=== PATIENT | female | born 1945 | race Caucasian/White ===

== ENCOUNTER 2024-07-24 10:30 | Outpatient (RCR) | payer MEDICARE, SELFPAY | END 2024-10-28 11:37 | disposition home or self-care (01) | PROVIDERS: PCP Family Medicine; Visit Provider Physician Assistant | DX: H81.13 Benign paroxysmal vertigo, bilateral (principal); M54.2 Cervicalgia; Z51.89 Encounter for other specified aftercare | CPT/HCPCS: 95992; 97110; 97140; 97161 ==

== ENCOUNTER 2024-08-02 10:30 | Outpatient (RCR) | payer MEDICARE, OTHER, SELFPAY ==
--- NOTE | 2024-07-11 12:32 | PT.OPDNX ---
PT [place] Out[facility] Daily Note PT [facility] Outpatient Daily Note Start: 06/10/24 17:06 Freq: Status: Active Protocol: Document 07/11/24 10:12 NLR (Rec: 07/11/24 12:31 NLR [id number]) E-signed By Una Preston DPT PT OP Daily Progress Note Visit Information Note Type Daily Note Visit Number 3 Insurance Information Recert Due Date 09/09/24 Insurance Name Medicare B,[place]are Medical Diagnosis R79.671 Pain in Right foot M76.61 Achilles tendinitis Treating Diagnosis R79.671 Pain in Right Foot R53.81 Deconditioning affecting mobility Imaging Report Information R foot x-ray 07/10/24: Report not yet filed, appears to have a calcaneal spur and several small calcium deposits in distal Achilles tendon. Referring DEDRA Feliciano ([facility]), Primary Eleuterio Cabral MD ( [facility]) Subjective Preferred Name HETAL Subjective Hetal arrives for follow up stating she is no better. She states she had canceled her vertigo evaluation because the vertigo was better for a day, but it returned so she rescheduled for this afternoon . She met with Prudence COLMENARES yesterday, reporting to her that the exercises are not helpful. She admits in therapy she doesn't do them at all. She is continuing to wear an unsupportive slipper at home. She is sedentary more than 95 % of her day. Pain Comments 8/10 pain usually (initially she said 10/10 but then concedes that it could be worse) R heel. Pain is sharp, will wake her up at night. Hurts when she first gets up from a chair. Pain with standing and walking, going up and down stairs. Better with ice 1X/day, Tylenol doesn't really help. She has not tried rolling on ice bottle as it is not convenient for the location of the pain, so she prefers gel pack ice. She is wearing her 's short CAM boot for about 3 weeks. Date of Last Physician Visit 05/15/24 Precautions Treatment Precautions/Contraindications DM, extremely sedentary, Afib Weight Bearing Status Weight Bear as Tolerated Home Exercise Home Exercise Comments Assessed and educated in HEP today. PDF was printed for patient. Instructions were provided for accessing HEP on [employer] on phone. Access Code: [email or web address] URL: [email or web address] Date: 07/11/2024 Prepared by: Una Nuñez Exercises - Achilles Tendon/Calf Stretches - 1-2 x daily - 5-7 x weekly - 1-2 reps - 30-60 seconds hold - stretch exercise type - Seated Calf Stretch with Strap - 1-2 x daily - 5-7 x weekly - 1-2 reps - 30-60 seconds hold - stretch exercise type - Toe Yoga - Arch Lift (Short Foot) - 1 x daily - 5-7 x weekly - 2 sets - 10 reps - 2- 3 seconds hold - strength exercise type - Toe Yoga - Starch Crab - 1 x daily - 5-7 x weekly - 2 sets - 10 reps - 2-3 seconds hold - strength exercise type - Towel Scrunches - 1 x daily - 5-7 x weekly - 2 sets - 10 reps - 2-3 seconds hold - strength exercise type Patient Education - Posterior Tibial Tendon Dysfunction Objective Other/Pertinent Objective HAND DOM: LEFT ROM: Functional but grossly limited by girth STRENGTH: Functional LE strength, significant core weakness POSTURE: L>R foot pronation, mild ankle valgus on the L, significant lumbar lordosis PALPATION: Tenderness to palpation distal R Achilles tendon at calcaneus insertion, mid belly R posterior tibialis EDEMA: Moderate B LE distal to knee edema. FUNCTIONAL: Able to sit indefinitely. Able to stand 5 minutes. Able to walk 5 minutes. GAIT: Independent with no gait aid, slow with R CAM boot. Reported difficulty on stairs but does them at home. FLEXIBILITY: Hypoflexibility noted at B HC, HS, HF, Quads. FOOTWEAR: Patient arrives wearing Birkenstock/short CAM R that does provide adequate medial arch support. They do wear supportive footwear in the house. She also has tennis shoes that are slip-ons , she thinks [employer]. She tries to buy good shoes. Sometimes she wears slippers without arch support. 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 ), fibromyalgia, arthritis, osteoporosis, allergies, frontotemporal dementia (slow progressing) Functional Test Performed & Score 06/11/24: FAAM Activities of Daily Living Subscale: 37 / 84 or 44 % Patient Instructed in Risks/Benefits Yes Therapeutic Exercise Therapeutic Exercise Minutes (minutes) 15 Therapeutic Exercise: To Restore - NuStep 6 minutes seat 8 Functional Status level 2 - Short foot PT - Tape roll tow picker with toes - Seated HC Stretch with belt Neuromuscular Re-Ed Neuromuscular Reeducation Minutes ( 28 minutes) Neuromuscular Reeducation Comments Much time spent discussing rehab potential and plan of care with patient, reviewing all recommendations and touching on pain management and motivation to improve. She wants to have less pain, but she is struggling with motivation to do any of the recommendations including changing her footwear to more supportive options, especially at home. She has a Birkenstock on today, which is supportive. At home she wears an unsupportive slipper, she is doing none of her exercises and is sedentary >95 % of her day. Treatment Minutes Timed Code Treatment Minutes 43 Total Treatment Time 43 Billing Units Neuromuscular Reeducation Units 2 Therapeutic Exercise Units 1 Assessment/Impression Assessment/Impression Hetal has been seen three visits for her foot pain, and recently canceled her evaluation for Vertigo because she thought it resolved after one day of no vertigo. She will be seen for second DX of vertigo later today. She admits she does none of her exercises and has not followed recommendations to move regularly throughout the day wear a supportive shoe in the house. She had an x-ray yesterday revealing a calcaneal spur and several small calcifications in distal achilles tendon. She has required a lot of encouragement to do recommended activities and admits she wants the pain gone but is struggling with finding motivation to do any of the program. Will continue to work with her to progress her ability to tolerate movement. Primary Functional Limitations Difficulty standing and walking more than 5 minutes, difficulty heel lifting to assist with overhead reaching, deconditioning due to significantly sedentary lifestyle. Plan of Care Physical Therapy Goals 1. Patient will be independent with home exercise program as instructed, modified and progressed by physical therapist in order to be independently and actively participating in their rehabilitation and return to prior level of function, and she will actively participate in her rehabilitation and follow through with recommendations. Goal to be achieved by 09/06/2024. 2. Patient will demonstrate ability to walk for 30 minutes (s) without significant increase in pain greater than 2/10 to allow patient to be able to safely and independently return to participation in desired level of function with daily activities such general housekeeping, walking for exercise without pain or difficulty. Goal to be achieved by 09/06/2024. 3. Patient will ascend/descend 2 full flight(s) of stairs with [id number] pattern without significant increase in difficulty or pain over 2/ 10 allowing for safe and independent mobility through their home/work environment. Goal to be achieved by 2024. Daily Plan of Care Continue per POC Daily Plan of Care Comments Review foot exercises, encourage any time of movement , NuStep. Review footwear recommendations. She may benefit from a custom orthotic , however I would start with making sure she has good supportive footwear first as the custom fiberglass orthotic may be difficult for her tolerate with heel spur. Discharge Note Date of First Visit for Therapy 06/11/24
== END 2024-08-02 17:18 | disposition home or self-care (01) ==
PROVIDERS: PCP Family Medicine; Visit Provider Physician Assistant Surgical
DX: M79.671 Pain in right foot (principal); M76.61 Achilles tendinitis, right leg; R53.81 Other malaise; Z51.89 Encounter for other specified aftercare
CPT/HCPCS: 97110; 97112; 97162

== ENCOUNTER 2024-10-28 11:38 | Emergency (ER) | payer MEDICARE, SELFPAY ==
[2024-10-28] VITALS (21 sets, daily range): BP systolic 114–137; BP diastolic 76–89; PULSE 86–134; RESP 16–24; TEMP 36.2; O2SAT 91–95; BMI 49.1
--- OUTSIDE RECORDS SUMMARY | 2024-10-28 11:41 | XMS_ITS | Encounter Summary ---
Author Organization [facility] Address [address] [place] [address] Care Team Providers Care Business Mail Entry Clerk Name Role Phone Elsewhere, Pcp Primary Care Provider Unavailabl e Encounter Details Date Type Department Care Team (Latest Contact Info) Description 10/07/2024 Clinical Communication Department of Cardiovascular Medicine in [place], [place] [address] [place] [address] Assistant Tennis ProfessionalRajinder M.D. Social History Tobacco Use Types Packs/Day Years Used Date Smoking Tobacco: Never Passive Smoke Exposure: Past Smokeless Tobacco: Never Alcohol Use Standard Drinks/Week Comments Yes 6 (1 standard drink = 0.6 oz pur e alcohol) [place] Utilities Answer Date Recorded In the past 12 months has [employer], gas, oil, or water [employer] threatened to shut off services in your home? No 08/06/2024 Humiliation, Afraid, Rape, and Kick questionnair e Answer Date Recorded Within the last year, have y ou been afraid of your partner or ex-partner? No 09/07/2022 Within the last year, have y ou been humiliated or emotionally abused in other ways by your partner or ex-partner? No Within the last year, have y ou been kicked, hit, slapped, or otherwise physically hurt by your partner or ex-partner? No 09/07/2022 Within the last year, have y ou been raped or forced to have any kind of sexual activity by your partner or ex-partner? No 09/07/2022 Social Connection and Isolat ion Panel [NHANES] Answer Date Recorded In a typical week, how many times do you talk on the phone with family, friends, or neighbors? Three times a week 09/07/2022 How often do you get togethe r with friends or relatives? Once a week 09/07/2022 How often do you attend chur or orthodox services? More than 4 times per year 09/07/2022 Do you belong to any clubs o r organizations such as congregation groups, unions, fraternal or athletic groups, or school groups? No 09/07/2022 How often do you attend meet ings of the clubs or organizations you belong to? Never 09/07/2022 Are you , , di vorced, , never , or living with a partner? 09/07/2022 AUDIT-C Answer Date Recorded Q1: How often do you have a drink containing alc ohol? 2-3 times a week 09/07/2022 Q2: How many drinks containi ng alcohol do you have on a typical day when you are drinking? 1 or 2 09/07/2022 Q3: How often do you have si x or more drinks on one occasion? Never 09/07/2022 Overall Financial Resource Strain (CARDIA) Answe r Date Recorded How hard is it for you to pa y for the very basics like food, housing, medical care, and heating? Not hard at all 09/07/2022 [facility] - Occupational Stress Questionnaire Answer Date Recorded Do you feel stress - tense, restless, nervous, or anxious, or unable to sleep at night because your mind is troubled all the time - these days? To some extent 09/07/2022 Exercise Vital Sign Answer Date Recorde d On average, how many days pe r week do you engage in moderate to strenuous exercise (like a brisk walk)? 0 days 08/06/2024 On average, how many minutes do you engage in exercise at this level? 0 min 08/06/2024 Hunger Vital Sign Answer Date Recorded Within the past 12 months, y ou worried that your food would run out before you got the money to buy more. Never true 08/06/19 Within the past 12 months, t he food you bought just didn't last and you didn't have money to get more. Never true 08/06/2024 PRAPARE - Transportation Answer Date Re corded In the past 12 months, has l ack of transportation kept you from medical appointments or from getting medications? No 10/2024 In the past 12 months, has l ack of transportation kept you from meetings, work, or from getting things needed for daily living? No 08/06/2024 Nutrition Answer Date Recorded On average, how many serving s of fruits and vegetables do you eat per day (serving size is equal to 1 cup or approximately the size of a tennis ball)? 3-5 08/06/2024 Dental Answer Date Recorded Dental: Regular Dentist Yes 02/10/20 Employment Answer Date Recorded Employment status Retired 08/06/2024 Housing Stability Answer Date Recorded What is your living situation today? I have a [facility] place to live 08/06/2024 Education Answer Date Recorded What is the highest level of school you have completed or the highest degree you have received? 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 [address] [place] [phone] documented as of this encounter Visit Diagnoses Diagnosis Atrial Fibrillation Paroxysmal (HCC)- Primary Cardiac Vascular Disease Screening documented in this encounter Additional Health Concerns Infection Onset Date Last Indicated Resolved Time Protective Environment 10/14/2022 10/14/2022 documented as of this encounter Care Teams Business Mail Entry Clerk Relationship Specialty Start Date End Date Elsewhere, Pcp PCP - General Internal Medicine 02/20/23 documented as of this encounter
--- OUTSIDE RECORDS SUMMARY | 2024-10-28 11:41 | XMS_ITS | Encounter Summary ---
Author Organization [facility] Address [address] [place] [address] Care Team Providers Care Home Care Manager Rn Name Role Phone Elsewhere, Pcp Primary Care Provider Unavailabl e Reason for Referral * Outpatient (Routine) - Authorized Specialty Diagnoses / Procedures Referred By Contac t Referred To Contact Diagnoses Atrial Fibrillation Paroxysmal (HCC) Procedures ECG Heart rhythm monitor (Holter) Siddharth Marshall M.D. [address] [place] [address] Phone: tel: fax: [facility] Referral ID Status Reason Start Date Expiration Date V isits Requested Visits Authorized [id number] Authorized 10/17/2024 01/17/2026 1 1 Reason for Visit * Reason Onset Date Comments Results 10/17/2024 Cardioversion re sults Encounter Details Date Type Department Care Team (Late st Contact Info) Description 10/17/2024 Results Follow-Up Department of Cardiovascular Medicine in [place], [place] [address] [place] [phone] Siddharth Marshall M.D. [address] [place] [phone] ECG 12 Lead Social History Tobacco Use Types Packs/Day Years Used Date Smoking Tobacco: Never Passive Smoke Exposure: Past Smokeless Tobacco: Never Alcohol Use Standard Drinks/Week Comments Yes 6 (1 standard drink = 0.6 oz pur e alcohol) [facility] Utilities Answer Date Recorded In the past 12 months has e electric, gas, oil, or water company threatened to shut off services in your [...] week 09/07/2022 How often do you attend [facility] or pentecostal services? More than 4 times per year 09/07/2022 Do you belong to any clubs o r organizations such as synagogue groups, unions, fraternal or athletic groups, or [...] and heating? Not hard at all 09/07/2022 [facility] - Occupational Stress Questionnaire Answer Date Recorded [...] money to buy more. Never true 08/06/19 25 Within the past 12 months, t he [...] your living situation today? I have a [employer] place to live 08/06/2024 Education Answer Date Recorded What is the highest level of school you have completed or the highest degree you have received? 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 [address] [place] [phone] Scheduled Orders Name Type Priority Associated Diagnoses Orde r Schedule ECG Heart rhythm monitor (Holter) Cardiac Services Routine Atrial Fibrillation Paroxysmal (HCC) Expected: 11/14/2024 (Approximate), Expires: 01/16/2026 documented as of this encounter Visit Diagnoses Diagnosis Atrial Fibrillation Paroxysmal (HCC)- Primary documented in this encounter Additional Health Concerns Infection Onset Date Last Indicated Resolved Time Protective Environment 10/14/2022 10/14/2022 documented as of this encounter Care Teams Home Care Manager Rn Relationship Specialty Start Date End Date Elsewhere, Pcp PCP - General Internal Medicine 02/20/23 documented as of this encounter
--- OUTSIDE RECORDS SUMMARY | 2024-10-28 11:41 | XMS_ITS | Encounter Summary ---
Author Organization [facility] Address [address] [place] [address] Care Team Providers Care Java Security Architect Name Role Phone Elsewhere, Pcp Primary Care Provider Unavailabl e Reason for Referral * Outpatient (Routine) - Closed Specialty Diagnoses / Procedures Referred By Monalisa perez Referred To Contact Diagnoses Atrial Fibrillation Paroxysmal (HCC) Procedures Cardioversion Siddharth Marshall M.D. [address] [place] [address] Phone: tel: fax: [facility] Referral ID Status Reason Start Date Expiration Date Visits Re quested Visits Authorized [id number] Closed 10/14/2024 01/14/2026 1 1 Reason for Visit * Appointment Request (Routine) - Closed Specialty Diagnoses / Procedures Referred By Monalisa perez Referred To Contact Cardiovascular Disease Referral ID Status Reason Start Date Expiration Date Visits Re quested Visits Authorized [id number] Closed 10/03/2024 01/03/2026 1 1 Encounter Details Date Type Department Care Team (Latest Contact Info) Description 10/14/2024 4:30 PM CDT Office Visit Department of Cardiovascular Medicine in [place], [place] [address] [place] [phone] Siddharth Marshall M.D. [address] [place] [address] Atrial Fibrillation Paroxysmal (HCC) (Primary Dx); Urinary Tract Infection Site Not Specified; Incontinence Urinary; Hypertension Essential Primary; Hyperlipidemia Social History Tobacco Use Types Packs/Day Years Used Date Smoking Tobacco: Never Passive Smoke Exposure: Past Smokeless Tobacco: Never Alcohol Use Standard Drinks/Week Comments Yes 6 (1 standard drink = 0.6 oz pur e alcohol) [facility] Utilities Answer Date Recorded In the past 12 months has e electric, gas, oil, or water [id number] threatened to shut off services in your [...] 09/07/2022 How often do you attend chur ch or yarsanism services? More than 4 times per year 09/07/2022 Do you belong to any clubs o r organizations such as confucianist groups, unions, fraternal or athletic groups, or [...] and heating? Not hard at all 09/07/2022 [facility] [place] [facility] - Occupational Stress [...] your living situation today? I have a [facility] place to live 08/06/2024 Education Answer Date Recorded What is the highest level of school you have completed or the highest degree you have received? 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 - 10/14/2024 4:30 PM CDT Referring provider: No ref. provider found HISTORY OF PRESENT ILLNESS Hetal Newsome is a 79 y.o. female who returns today for evaluation of atrial fibrillation. Chronic medical conditions include systemic hypertension, hyperlipidemia, obstructive sleep apnea (on CPAP), obesity (BMI ~49 kg/m??), rheumatoid arthritis (on rituximab), type 2 diabetes mellitus, and a history of PE after knee replacement operation. She has chronic urinary continence and is on Bactrim for chronic urinary tract infections. She also has frontotemporal dementia. Her provided much of the history. The patient has longstanding paroxysmal atrial fibrillation. Records suggest prior treatment with propafenone. She underwent a cardioversion on July 30, 2020 and was placed on sotalol. When I last saw the patient September 13, 2022, she was asymptomatic from a cardiovascular perspective and was on multiple [place] blocking agents including carvedilol, diltiazem, and sotalol 120 mg once daily. She was in sinus rhythm. I stopped sotalol, stopped diltiazem, and increased carvedilol. [place], the patient switched enalapril to lisinopril, increase carvedilol to 25 mg twice daily, and added amlodipine for blood pressure control. The patient did well for some time. The patient had a rituximab infusion on September 11, 2024, and herheart rate did not raise concern. She underwent another rituximab infusion on ~September 25, and her heart rate was elevated. A subsequent home monitor noted atrial fibrillation with heart rate ranges [id number] beats per minute. The patient has not had symptoms such as palpitations, lightheadedness, dizziness, presyncope, or syncope. She is sedentary but does not note change in dyspnea. She has chronic lower extremity edema, which has been stable. No chest pain or chest pressure. No bleeding. Her has not noted any change in functional status. The patient maintains compliance with all medications. She has not missed any doses of apixaban. VITAL SIGNS BP 109/70 (BP Location: Right arm, Patient Position: Sitting, Cuff Size: Large) Pulse (!) 119 Ht 159 cm Wt 125 kg BMI 49.44 kg/m?? PHYSICAL EXAMINATION GENERAL: Obese. Somewhat weak. The patient has a difficult time stepping up onto the exam table. I subsequently examined her seated on the couch. SKIN: Mild bilateral chronic venous stasis changes in the lower extremities. VESSELS: No jugular venous distension, albeit while sitting upright. HEART: Rapid rate. Irregular rhythm. Otherwise normal S1 and S2 without murmurs or diastolic filling sounds. LUNGS: Clear to auscultation bilaterally with good inspiratory effort. ABDOMEN: Soft, nontender, and nondistended with active bowel sounds. EXTREMITIES: 1+ bilateral pretibial edema. DIAGNOSTICS Labs (October 14, 2024): Hemoglobin 12.7 g/dL, creatinine 1.12 mg/dL. Electrocardiogram (October 14, 2024): Atrial fibrillation with ventricular rate 113 beats per minute. Holter monitor (October 10 to October 11, 2024): 100% atrial fibrillation burden with average rate 109 beats per minute, very limited ventricular ectopy. IMPRESSION / REPORT / PLAN: #1 Persistent atrial fibrillation with rapid ventricular response The patient has recurrent atrial fibrillation with elevated rates. I suspect it began sometime between September 11 and September 25. She is asymptomatic. However, I am concerned about the degree of tachycardia and the potential to develop heart failure if her atrial fibrillation remains unchecked. She is already on maximal dose carvedilol 25 mg twice daily. I am not optimistic additional rate control options will provide benefit. I also do not want to resume sotalol. We therefore agreed on a cardioversion to restore sinus rhythm. If the cardioversion is unsuccessful the patient has recurrent atrial fibrillation, we could consider amiodarone. For baseline testing, we would need thyroid function, liver function, and pulmonary function tests. Monitoring would then include AST, ALT, and an ECG with either chest x-ray or pulmonary function testing annually. If the patient's cardioversion is successful, we can obtain another Holter monitor in 1-2 months todocument durability of cardioversion and assess for recurrent atrial fibrillation. In the meantime,the patient will remain on apixaban uninterrupted. I also briefly considered AV node ablation and permanent pacemaker implantation. In the setting of chronic urinary tract infections, though, I am reluctant to recommend device implantation without other attempts to manage atrial fibrillation. #2 Chronic urinary incontinence with recurrent urinary tract infections #3 Chronic lower extremity edema The patient is multiple on diuretics, furosemide 20 mg daily plus combination triamterene/hydrochlorothiazide 37.5/25 mg daily. Systolic blood pressures have been well-controlled. I question if we could still obtain adequate blood pressure control with less diuretics. The patient and her were comfortable decreasing diuretic therapy, so we will stop combination triamterene/hydrochlorothiazide and tolerate systolic blood pressure is 130 to 140 mmHg in hopes that limiting the patient's diuretic exposure will help balance her edema, blood pressure control, and urinary incontinence. #4 Systemic hypertension Current medical therapy includes amlodipine 5 mg daily, carvedilol 25 mg twice daily, lisinopril 20mg daily, triamterene/hydrochlorothiazide 37.5/25 mg daily. As noted above, we will stop triamterene/hydrochlorothiazide and tolerate systolic blood pressure is 130 to 140 mmHg. #5 Hyperlipidemia Lipids today show LDL 43 mg/dL, HDL 62 mg/dL. This is very good. No changes necessary. Continue rosuvastatin 10 mg daily. PLAN: Electrical cardioversion on October 16 or October 17. This does not require TWIN guidance as long as the patient maintains compliance with apixaban. If cardioversion successful, Holter monitor in 1-2 months to assess durability of cardioversion. If cardioversion unsuccessful or patient has early recurrence of atrial fibrillation, consider amiodarone with baseline testing including pulmonary function testing, thyroid testing, liver testing. Stop triamterene/hydrochlorothiazide. I had a long conversation with the patient and her about the aforementioned. They were amenable with this plan. documented in this encounter Plan of Treatment Upcoming Encounters Date Type Department Care Team (Late st Contact Info) Description 11/12/2024 11:30 AM CDT Virtual Visit Section of Infectious Diseases in [place], [place] [address] [place] [phone] Humaira Keys M.D. [address] [place] [phone] documented as of this encounter Results * CARDIOVERSION EXTERNAL (10/17/2024 8:43 AM CDT) 10/17/2024 8:25 AM CDT Narrative CV IVIEW - 10/17/2024 5:01 PM CDT For the complete report, see the Order-Level Documents. PROCEDURE TYPES 1. CARDIOVERSION EXTERNAL CARDIOVERSION FINAL IMPRESSIONS Successful cardioversion. CARDIOVERSION COMPLICATIONS Complication(s): No Complications CARDIOVERSION PRE-PROCEDURE - Anticoagulation status verified. - Pre-procedure EGC Rhythm(s): Atrial fibrillation - Intravenous access established. - Mallampati Score: 3 - NPO status verified: >6 hrs Hours - Patient informed consent documented (Benefits, Risks/Complications and Alternative of procedure). - Discharge criteria reviewed. - Responsible adult along. - Cloud Subject Matter Expert verification completed. CARDIOVERSION INTRA-PROCEDURE - MEDICAL GENETICS DIRECTOR/Anesthesiologist present. See anesthesia record. - Emergency equipment available. - Monitor(s) applied. - Procedure pause. - Synchronized cardioversion. CARDIOVERSION POST-PROCEDURE - Procedure complete and patient tolerated well. - Post-procedure ECG Rhythm(s): Sinus rhythm - Pads removed and skin intact. - Discharge criteria met. - Patient transferred and report given. Post cardioversion ECG completed. Patient was taken to recovery (PACU) in stable condition. Patient was dismissed when discharge criteria met, accompanied by family, who will be providing transportation needs today. Dismissal instructions reviewed in detail including need for continued anticoagulation. Referring physician notified of results. Follow up appointment as discussed with referring physician. Following cardioversion of atrial fibrillation or atrial flutter, the 2019 AHA/ACC/HRS Guideline for the Management of Patients With Atrial Fibrillation recommends anticoagulation for at least 4 weeks, followed by long-term anticoagulation based on thromboembolic risk as determined by the [id number] Score. For the complete report, see the Order-Level Documents. Procedure Note Soni Olivarez APRN, C.N.P., M.S.N. - 10/17/2024 For the complete report, see the Order-Level Documents. PROCEDURE TYPES 1. CARDIOVERSION EXTERNAL CARDIOVERSION FINAL IMPRESSIONS Successful cardioversion. CARDIOVERSION COMPLICATIONS Complication(s): No Complications CARDIOVERSION PRE-PROCEDURE - Anticoagulation status verified. - Pre-procedure EGC Rhythm(s): Atrial fibrillation - Intravenous access established. - Mallampati Score: 3 - NPO status verified: >6 hrs Hours - Patient informed consent documented (Benefits, Risks/Complications andAlternative of procedure). - Discharge criteria reviewed. - Responsible adult along. - Cloud Subject Matter Expert verification completed. CARDIOVERSION INTRA-PROCEDURE - MEDICAL GENETICS DIRECTOR/Anesthesiologist present. See anesthesia record. - Emergency equipment available. - Monitor(s) applied. - Procedure pause. - Synchronized cardioversion. CARDIOVERSION POST-PROCEDURE - Procedure complete and patient tolerated well. - Post-procedure ECG Rhythm(s): Sinus rhythm - Pads removed and skin intact. - Discharge criteria met. - Patient transferred and report given. Post cardioversion ECG completed. Patient was taken to recovery (PACU) instable condition. Patient was dismissed when discharge criteria met,accompanied by family, who will be providing transportation needs today.Dismissal instructions reviewed in detail including need for continuedanticoagulation. Referring physician notified of results. Follow upappointment as discussed with referring physician. Following cardioversion of atrial fibrillation or atrial flutter, the 2019AHA/ACC/HRS Guideline for the Management of Patients With AtrialFibrillation recommends anticoagulation for at least 4 weeks, followed bylong-term anticoagulation based on thromboembolic risk as determined bythe [id number] Score. For the complete report, see the Order-Level Documents. us Siddharth Marshall M.D. [facility] PROCED URES Final Result CV IVIEW NA documented in this encounter Visit Diagnoses Diagnosis Atrial Fibrillation Paroxysmal (HCC)- Primary Urinary Tract Infection Site Not Specified Incontinence Urinary Hypertension Essential Primary Hyperlipidemia Atrial Fibrillation Paroxysmal (HCC) documented in this encounter Additional Health Concerns Infection Onset Date Last Indicated Resolved Time Protective Environment 10/14/2022 10/14/2022 documented as of this encounter Care Teams Java Security Architect Relationship Specialty Start Date End Date Elsewhere, Pcp PCP - General Internal Medicine 02/20/23 documented as of this encounter
--- OUTSIDE RECORDS SUMMARY | 2024-10-28 11:41 | XMS_ITS | Encounter Summary ---
Author Organization [facility] Address [address] [place] [address] Care Team Providers Care Supervisor [employer]ar [employer] Name Role Phone Elsewhere, Pcp Primary Care Provider Unavailabl e Reason for Referral * Outpatient (Routine) - Closed Specialty Diagnoses / Procedures Referred By Monalisa t Referred To Contact Diagnoses Atrial Fibrillation Paroxysmal (HCC) Procedures Cardioversion Siddharth Marshall M.D. [address] [place] [address] Phone: tel: fax: [facility] Referral ID Status Reason Start Date Expiration Date Visits Re quested Visits Authorized [id number] Closed 10/14/2024 01/14/2026 1 1 Reason for Visit * Outpatient (Routine) - Closed Specialty Diagnoses / Procedures Referred By Monalisa perez Referred To Contact Diagnoses Atrial Fibrillation Paroxysmal (HCC) Procedures Cardioversion Siddharth Marshall M.D. [address] [place] [address] Phone: tel: fax: [facility] Referral ID Status Reason Start Date Expiration Date Visits Re quested Visits Authorized [id number] Closed 10/14/2024 01/14/2026 1 1 Encounter Details Date Type Department Care Team (Latest Contact Info) Description 10/17/2024 7:32 AM CDT - 10/17/2024 10:02 AM CDT Hospital Encounter Division of Cardiovascular Diseases in [place], [place] [address] [place] [address] Siddharth Marshall M.D. [address] [place] [phone] Sydney Araujo APRN, CRNA, Berto.N.P. [address] [place] [phone] Atrial Fibrillation Paroxysmal (HCC) Discharge Disposition: Home or Self Care Social History Tobacco Use Types Packs/Day Years Used Date Smoking Tobacco: Never Passive Smoke Exposure: Past Smokeless Tobacco: Never Alcohol Use Standard Drinks/Week Comments Yes 6 (1 standard drink = 0.6 oz pur e alcohol) [facility] Utilities Answer Date Recorded In the past 12 months has [employer], gas, oil, or water [employer] threatened to shut off services in your [...] week 09/07/2022 How often do you attend [facility] or faith services? More than 4 times per year 09/07/2022 Do you belong to any clubs o r organizations such as jehovah's witness groups, unions, fraternal or athletic groups, or [...] and heating? Not hard at all 09/07/2022 [facility] - [...] your living situation today? I have a [facility] place to live 08/06/2024 Education Answer Date Recorded What is the highest level of school you have completed or the highest degree you have received? 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 Gender Identity Female 12/26/2019 12:16 PM CDT Sexual Orientation Straight 12/26/2019 12 :16 PM CDT documented as of this encounter Last Filed Vital Signs Vital Sign Reading Time Taken Comments Blood Pressure 125/56 10/17/2024 9:45 AM CDT Pulse 61 10/17/2024 9:30 AM CDT Temperature 37 C (98.6 F) 10/17/2024 8:08 AM CDT Respiratory Rate 16 10/17/2024 8:08 AM CDT Oxygen Saturation 92% 10/17/2024 9:30 AM CDT Inhaled Oxygen Concentration - - Weight 129 kg (284 lb 9.8 oz) 10/17/2024 8:02 AM CDT Height 159 cm (5' 2.6) 10/17/2024 8:02 AM CDT Body Mass Index 51.07 10/17/2024 8:02 AM CDT documented in this encounter Discharge Instructions * Attachments The following attachments cannot be sent through Care Everywhere. * About Your Cardioversion documented in this encounter Medications at Time of Discharge acetaminophen (TYLENOL) 500 mg tablet Take 2 tablets (1,000 mg total) by mouth every 6 (six) hours as needed for pain. Do not exceed 4000 mg or 4 g in 24 hours. 30 tablet 02/20/2023 amLODIPine (NORVASC) 5 mg tablet Take 1 tablet (5 mg total) by mouth daily. 90 tablet 3 07/04/2023 apixaban (ELIQUIS) 5 mg tablet Take 1 tablet (5 mg total) by mouth 2 (two) times a day. Restart this medication on Monday02/22/23 02/20/2023 ascorbic acid, vitamin C, (Vitamin C) 500 mg tablet Take 1 tablet (500 mg total) by mouth 2 (two) times a day. 10/14/2024 benzonatate (TESSALON PERLES) 100 mg capsule Take 100 mg by mouth as needed. 07/24/2019 buPROPion XL (WELLBUTRIN XL) 150 mg 24 hr tablet Take 150 mg by mouth daily. 05/27/2019 CALCIUM CARBONATE-VITAMIN D2 ORAL Take by mouth daily. 600 mg-200mg carvediloL (COREG) 12.5 mg tablet Take 2 tablets (25 mg total) by mouth 2 (two) times a day. 360 tablet 3 07/04/2023 cholecalciferol (VITAMIN D3) 2,000 Unit tablet Take 2,000 Units by mouth daily. 04/12/2017 cranberry 500 mg capsule Take 1 capsule by mouth daily. cranberry extract (Theracran) 650 mg capsule Take 1 tablet by mouth daily. darifenacin (Enablex) 15 mg 24 hr tablet Take 1 tablet (15 mg total) by mouth daily. 90 tablet 3 09/02/2024 DULoxetine (CYMBALTA) [address] capsule Take 60 mg by mouth daily. 05/27/2019 estradioL (Estrace) 0.1 mg/g (0.01%) vaginal cream Insert 1 g into the vagina 3 (three) times a week. Take 1 g vaginally 3 nights per week. 42.5 g 11 08/30/2024 famotidine (PEPCID) 20 mg tablet Take 20 mg by mouth daily. 05/27/2019 furosemide (LASIX) 20 mg tablet Take 1 tablet (20 mg total) by mouth daily. 90 tablet 3 07/04/2023 lisinopriL (PRINIVIL,ZESTRIL ) 20 mg tablet Take 1 tablet (20 mg total) by mouth daily. 90 tablet 3 07/04/2023 metFORMIN XR (GLUCOPHAGE-XR) 500 mg 24 hr tablet Take 500 mg by mouth daily. 06/17/2022 miscellaneous medical supply [facility] As directed. CPAP machine for home use at pressure:10 cm/H2O, Heated humidifier x 1 every 5 years, Humidifier chamber x 1 every 6 months, Full face mask with cushion x 1 every 3 months, Full face cushion 1 every month, 1 headgear 1 every 6 month, Heated tubing x 1 every 3 months, Filters: Disposable filter x 2 a month, non-disposable filters x1 every 6 months; chinstrap 1 every 6 months Length of Need: 99 months, Frequency of use: Daily 08/01/2019 NaCl 0.9% parenteral solution with riTUXimab 10 mg/mL concentrate 375 mg/m2 IVPB (Rituxan) Infuse into a venous catheter every 6 (six) months. naproxen sodium (ALEVE/ANAPROX) 220 mg tablet Take 2 tablets by mouth as needed. 05/21/2009 OneTouch Delica Plus Lancet 30 gauge misc 1 application by other route daily. On finger 07/22/2022 [employer]Touch Verio Flex meter misc Test 1 times per day.* 06/25/2024 [employer]Touch Verio test strips 1 strip daily. 07/12/2022 orphenadrine (NORFLEX) 100 mg ER tablet Take 100 mg by mouth as needed. 09/18/2017 potassium chloride (KLORCON/K-TAB) 10 mEq ER tablet Take 20 mEq by mouth daily. 05/27/2019 predniSONE (DELTASONE) 5 mg tablet Take 1 tablet by mouth daily. 07/25/2022 RITUXIMAB IV Infuse into a venous catheter. Infusion done once every 4 months. riTUXimab-abbs (Truxima) 10 mg/mL injection every 6 (six) months. 03/06/2024 riTUXimab-pvvr (Ruxience) 10 mg/mL injection Infuse 1,000 mg into a venous catheter as directed. Every 2 weeks x2 09/09/2024 rosuvastatin (CRESTOR) 10 mg tablet Take 10 mg by mouth daily. sulfamethoxazole- trimethoprim (Bactrim DS) 800-160 mg per tabletIndications :Urinary Tract Infection Site Not Specified Take 1 tablet by mouth daily. 30 tablet 2 08/22/2024 tiZANidine (ZANAFLEX) 4 mg tablet Take 4 mg by mouth every 8 (eight) hours as needed. 04/19/2023 triamcinolone (KENALOG) 0.1 % ointment Apply 1 application. topically 3 (three) times a day. 09/22/2020 vibegron (Gemtesa) 75 mg tablet Take 1 tablet (75 mg total) by mouth daily. 90 tablet 3 08/12/2024 documented as of this encounter Plan of Treatment Upcoming Encounters Date Type Department Care Team (Late st Contact Info) Description 11/12/2024 11:30 AM CDT Virtual Visit Section of Infectious Diseases in [place], [place] [address] [place] [phone] Humaira Keys M.D. [address] [place] [phone] documented as of this encounter Procedures Procedure Name Priority Date/Time Associated Diagnosis Comments ECG Routine 10/17/2024 9:11 AM CDT CARDIOVERSION EXTERNAL Routine 10/17/2024 8:43 AM CDT Atrial Fibrillation Paroxysmal (HCC) GLUCOSE POCT, B Routine 10/17/2024 8:24 AM CDT ABG AND LYTES EG6+, POCT, B Routine 10/17/2024 8:20 AM CDT ECG Routine 10/17/2024 8:02 AM CDT documented in this encounter Results * ECG 12 Lead (10/17/2024 9:11 AM CDT) Ventricular Rate ECG/Min 62 BPM MUSE TX Interval 218 ms MUSE QRSD Interval 118 ms MUSE QT Interval 472 ms MUSE QTC Interval 479 ms MUSE P [place] 71 degrees MUSE R [place] -40 degrees MUSE T Wave [place] 36 degrees MUSE 10/17/2024 9:11 AM CDT 10/17/2024 9:14 AM CDT Impressions MUSE - 10/17/2024 9:14 AM CDT Sinus rhythm with 1st degree A-V block Left axis deviation Low anterior forces Non-specific intra-ventricular conduction delay Prolonged QT When compared with ECG of 17-Oct-2024 08:02, Sinus rhythm has replaced Atrial fibrillation Vent. rate has decreased by 40 BPM Premature ventricular complexes or aberrantly conducted complexes are no longer present Reviewed by MERRICK Person Narrative Procedure Note Ej Salazar M.D., Ph.D. - 10/17/2024 IMPRESSION: Sinus rhythm with 1st degree A-V block Left axis deviation Low anterior forces Non-specific intra-ventricular conduction delay Prolonged QT When compared with ECG of 17-Oct-2024 08:02, Sinus rhythm has replaced Atrial fibrillation Vent. rate has decreased by 40 BPM Premature ventricular complexes or aberrantly conducted complexes are nolonger present Reviewed by MERRICK Person us Siddharth Marshall M.D. ECG ORDERABLES Final Resu lt MUSE NA * CARDIOVERSION EXTERNAL (10/17/2024 8:43 AM CDT) [...] criteria reviewed. - Responsible adult along. - Spreader Operator verification completed. CARDIOVERSION INTRA-PROCEDURE - SENIOR QUALITY ASSURANCE ANALYST/Anesthesiologist present. See anesthesia record. - Emergency equipment [...] on thromboembolic risk as determined by the [id number] Score. For the complete report, see the [...] criteria reviewed. - Responsible adult along. - Spreader Operator verification completed. CARDIOVERSION INTRA-PROCEDURE - SENIOR QUALITY ASSURANCE ANALYST/Anesthesiologist present. See anesthesia record. - Emergency equipment [...] based on thromboembolic risk as determined bythe [id number]-BCOj Score. For the complete report, see the Order-Level Documents. us Siddharth Marshall M.D. CV CARDIAC SERVICES PROCED URES Final Result CV IVIEW NA * (ABNORMAL) Glucose, POCT (10/17/2024 8:24 AM CDT) Pathologist [facility] Glucose, POCT, B 153(H) 70 - 140 mg/dL 10/17/2024 8:28 AM CDT PCLX Blood 10/17/2024 8:24 AM CDT 10/17/2024 8:29 AM CDT us Unknown Provider LAB POCT ORDERABLES-MANUAL Sheyla l Result Performing Organization Address City/[facility]/ZIP Co de Phone Number POC [facility] [address] [place] [address], [facility] PCLX [facility] POC [address] [place] [address] * (ABNORMAL) ABG and Lytes EG6, POCT, Blood (10/17/2024 8:20 AM CDT) Pathologist [facility] Sample Site, POCT Venline 10/17/2024 8:24 AM CDT PCLX Comment: ----ADDITIONAL INFORMATION---- Performed at the Point of Care pH, POCT 7.40 7.35 - 7.45 10/17/2024 8:24 AM CDT PCLX Comment: ----ADDITIONAL INFORMATION---- Performed at the Point of Care pCO2, POCT 41 32 - 45 mm Hg 10/17/2024 8:24 AM CDT PCLX Comment: ----ADDITIONAL INFORMATION---- Performed at the Point of Care pO2, POCT 44(L) 83 - 108 mm Hg 10/17/2024 8:24 AM CDT PCLX Comment: ----ADDITIONAL INFORMATION---- Performed at the Point of Care Base, POCT 1 -2 - 3 mmol/L 10/17/2024 8:24 AM CDT PCLX Comment: ----ADDITIONAL INFORMATION---- Performed at the Point of Care HCO3, POCT 26 22 - 26 mmol/L 10/17/2024 8:24 AM CDT PCLX Comment: ----ADDITIONAL INFORMATION---- Performed at the Point of Care Sodium, POCT, B 140 135 - 145 mmol/L 10/17/2024 8:24 AM CDT PCLX Comment: ----ADDITIONAL INFORMATION---- Performed at the Point of Care Potassium, POCT, B 3.7 3.6 - 5.2 mmol/L 10/17/2024 8:24 AM CDT PCLX Comment: ----ADDITIONAL INFORMATION---- Performed at the Point of Care Hematocrit, POCT, B 36.0 35.5 - 44.9 % 10/17/2024 8:24 AM CDT PCLX Comment: ----ADDITIONAL INFORMATION---- Performed at the Point of Care Blood 10/17/2024 8:20 AM CDT 10/17/2024 8:24 AM CDT us Unknown Provider LAB POCT ORDERABLES - DEVICE Fi nal Result POC [facility] [address] [place] [address], [facility] PCLX [facility] POC [address] [place] [address] * ECG 12 Lead (10/17/2024 8:02 AM CDT) Ventricular Rate ECG/Min 102 BPM MUSE QRSD Interval 124 ms MUSE QT Interval 376 ms MUSE QTC Interval 490 ms MUSE R [place] -38 degrees MUSE T Wave [place] 38 degrees MUSE 10/17/2024 8:02 AM CDT 10/17/2024 4:00 PM CDT Impressions MUSE - 10/17/2024 8:12 AM CDT Atrial fibrillation with rapid ventricular response with premature ventricular or aberrantly conducted complexes Left axis deviation Non-specific intra-ventricular conduction delay Nonspecific ST and T wave abnormality When compared with ECG of 14-Oct-2024 13:47, Premature ventricular complexes and/or aberrantly conducted complexes are now present Reviewed by MERRICK Nunn Narrative Procedure Note Ej Salazar M.D., Ph.D. / Siddharth Zhang M.D. - 10/17/2024 IMPRESSION: Atrial fibrillation with rapid ventricular response with premature ventricular or aberrantly conducted complexes Left axis deviation Non-specific intra-ventricular conduction delay Nonspecific ST and T wave abnormality When compared with ECG of 14-Oct-2024 13:47, Premature ventricular complexes and/or aberrantly conducted complexes arenow present Reviewed by MERRICK Nunn us Siddharth Marshall M.D. ECG ORDERABLES Edited Res ult - Final MUSE NA documented in this encounter Visit Diagnoses Diagnosis Atrial Fibrillation Paroxysmal (HCC) documented in this encounter Administered Medications Inactive Administered Medications - up to 3 most recent administrations Medication Order MAR Action Action Date Dose Rate Site sodium chloride 0.9 % injection 10 mL 10 mL, intravenous, As needed, line care, Starting on Caitlin 10/17/24 at 0757, Preprocedure (CV), Peripheral Intravenous Catheter and Rapid Infusion Catheter, prior to blood sampling, post blood transfusion or post blood sampling sodium chloride 0.9 % injection 3 mL 3 mL, intravenous, As needed, line care, Starting on Caitlin 10/17/24 at 0757, Preprocedure (CV), Prior to and following infusion and between multiple consecutive infusions: sodium chloride 0.9 % injection documented in this encounter Active and Recently Administered Medications Times are shown in CDT. PRN Medication Order 10/15/2024 10/16/2024 10/17/2024 ondansetron (PF) injection 4 mg (Zofran) 4 mg, intravenous, Every 6 hours PRN, nausea, vomiting, (If patient has not received in the previous 6 hours), Starting on Caitlin 10/17/24 at 0854, PACU (only), Administer first. If nausea and vomiting persists, proceed with haloperidol or droperidol. (Order of antiemetic administration - ondansetron then haloperidol or droperidol then granisetron) sodium chloride 0.9 % injection 10 mL 10 mL, intravenous, As needed, line care, Starting on Caitlin 10/17/24 at 0757, Preprocedure (CV), Peripheral Intravenous Catheter and Rapid Infusion Catheter, prior to blood sampling, post blood transfusion or post blood sampling sodium chloride 0.9 % injection 3 mL 3 mL, intravenous, As needed, line care, Starting on Caitlin 10/17/24 at 0757, Preprocedure (CV), Prior to and following infusion and between multiple consecutive infusions: sodium chloride 0.9 % injection documented in this encounter Additional Health Concerns Infection Onset Date Last Indicated Resolved Time Protective Environment 10/14/2022 10/14/2022 documented as of this encounter Care Teams Supervisor [employer] Relationship Specialty Start Date End Date Elsewhere, Pcp PCP - General Internal Medicine 02/20/23 documented as of this encounter
--- OUTSIDE RECORDS SUMMARY | 2024-10-28 11:41 | XMS_ITS | Encounter Summary ---
Author Organization [facility] Address [address] [place] [address] Care Team Providers Care Multiple Effect Evaporator Operator Name Role Phone Elsewhere, Pcp Primary Care Provider Unavailabl e Reason for Referral * Outpatient (Routine) - Authorized Specialty Diagnoses / Procedures Referred By Contac t Referred To Contact Diagnoses Atrial Fibrillation Paroxysmal (HCC) Cardiac Vascular Disease Screening Procedures ECG Heart rhythm monitor (Holter) Siddharth Marshall M.D. [address] [place] [address] Phone: tel: fax: [facility] Referral ID Status Reason Start Date Expiration Date V isits Requested Visits Authorized [id number] Authorized 10/06/2024 01/06/2026 1 1 Reason for Visit * Outpatient (Routine) - Authorized Specialty Diagnoses / Procedures Referred By Contac t Referred To Contact Diagnoses Atrial Fibrillation Paroxysmal (HCC) Cardiac Vascular Disease Screening Procedures ECG Heart rhythm monitor (Holter) Siddharth Marshall M.D. [address] [place] [address] Phone: tel: fax: [facility] Referral ID Status Reason Start Date Expiration Date V isits Requested Visits Authorized [id number] Authorized 10/06/2024 01/06/2026 1 1 Encounter Details Date Type Department Care Team (Latest Contact Info) Description 10/10/2024 1:52 PM CDT - 10/10/2024 11:59 PM CDT Hospital Encounter Department of Cardiovascular Diseases in [place], [place] [address] [place] [address] Siddharth Marshall M.D. [address] [place] [address] Atrial Fibrillation Paroxysmal (HCC); Cardiac Vascular Disease Screening Discharge Disposition: Home or Self Care Social History Tobacco Use Types Packs/Day Years Used Date Smoking Tobacco: Never Passive Smoke Exposure: Past Smokeless Tobacco: Never Alcohol Use Standard Drinks/Week Comments Yes 6 (1 standard drink = 0.6 oz pur e alcohol) [facility] Utilities Answer Date Recorded In the past 12 months has e [employer], gas, oil, or water [employer] threatened to shut off services in your [...] week 09/07/2022 How often do you attend [facility] or oriental orthodox services? More than 4 times per year 09/07/2022 Do you belong to any clubs o r organizations such as nondenominational groups, unions, fraternal or athletic groups, or [...] and heating? Not hard at all 09/07/2022 [facility] - Occupational Stress Questionnaire Answer Date [...] your living situation today? I have a [facility] place to live 08/06/2024 Education Answer Date Recorded What is the highest level of school you have completed or the highest degree you have received? 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 Restart this medication on Monday02/22/23 02/20/2023 benzonatate (TESSALON PERLES) 100 mg capsule Take [...] by mouth daily. 06/17/2022 miscellaneous medical supply [facility] [place] As directed. CPAP machine for home use [...] by other route daily. On finger 07/22/2022 OneTouch Verio Flex meter misc Test 1 times per day.* 06/25/2024 OneTouch Verio test strips 1 strip daily. 07/12/2022 [...] by mouth daily. 90 tablet 3 08/12/2024 ascorbic acid, vitamin C, (Vitamin C) 1,000 mg tablet Take 1 tablet (1,000 mg total) by mouth daily. 30 tablet 11 05/15/2023 5 ciprofloxacin (Cipro) 250 mg tabletIndications :Urinary Tract Infection Site Not Specified Take 1 tablet (250 mg total) by mouth 2 (two) times a day before morning and evening meals. Take along with the previously prescribed 500 mg tablets 14 tablet 08/15/2024 5 triamterene-hydro CHLOROthiazide (MAXZIDE-25) 37.5-25 mg per tablet Take 1 tablet by mouth daily. 05/05/2009 5 documented as of this encounter Plan of Treatment Upcoming Encounters Date Type Department Care Team (Late st Contact Info) Description 11/12/2024 11:30 AM CDT Virtual Visit Section of Infectious Diseases in [place], [place] [address] [place] [address] Humaira Keys M.D. [address] [place] [address] documented as of this encounter Procedures Procedure Name Priority Date/Time Associated Diagnosis Comments HOLTER MONITOR - IN CLINIC SENIOR CORPORATE ACCOUNTANT Routine 10/11/2024 5:06 AM CDT Atrial Fibrillation Paroxysmal (HCC) Cardiac Vascular Disease Screening documented in this encounter Results * HOLTER MONITOR - IN CLINIC SENIOR CORPORATE ACCOUNTANT (10/11/2024 5:06 AM CDT) Min Heart Rate 79 bpm INFOB IONIC MOME Max Heart Rate 139 bpm INFOB IONIC MOME Mean Heart Rate 109 bpm INFOBIONIC MOME VE Total Beats 792 count INFOB IONIC MOME VE Percent Beats less than 1 percent INFOBIONIC MOME SVE Total Beats 0 count INFOBIONIC MOME SVE Percent Beats less than 1 percent INFOBIONIC MOME AF Count 1 count INFOBIONIC MOME AF Duration 19h 11m duration INFOBION IC MOME AF Shannon 100 percent INFOBIONIC MOME Longest AF Duration 23h 54m duration INFOBIONIC MOME Symptom Count 0 count INFOBI ONIC MOME 10/10/2024 2:02 PM CDT Narrative INFOBIONIC MOME - 10/14/2024 3:17 PM CDT 1. The basic rhythm was atrial fibrillation. The total analyzed time was 19h 11m. The heart rate varied from 79 to 139 bpm. The average HR was 109 bpm. There was an AF burden of 100%. 2. Premature ventricular and/or aberrantly conducted complexes were noted singly. There were 792 PVCs recorded with a PVC burden of less than 1%. 3. No symptomatic events were noted. Quality Control Lab Tech: MERRICK Feldman Fellow: [facility] Procedure Note Ej Salazar M.D., Ph.D. - 10/14/2024 1. The basic rhythm was atrial fibrillation. The total analyzed time was19h 11m. The heart rate varied from 79 to 139 bpm. The average HR was 109bpm. There was an AF burden of 100%. 2. Premature ventricular and/or aberrantly conducted complexes were notedsingly. There were 792 PVCs recorded with a PVC burden of less than 1%. 3. No symptomatic events were noted. Quality Control Lab Tech: MERRICK Feldman Fellow: [facility] Siddharth Marshall M.D. CV CARDIAC SERVICES PROCED URES Final Result INFOBIONIC MOME NA documented in this encounter Visit Diagnoses Diagnosis Atrial Fibrillation Paroxysmal (HCC) Cardiac Vascular Disease Screening documented in this encounter Additional Health Concerns Infection Onset Date Last Indicated Resolved Time Protective Environment 10/14/2022 10/14/2022 documented as of this encounter Care Teams Multiple Effect Evaporator Operator Relationship Specialty Start Date End Date Elsewhere, Pcp PCP - General Internal Medicine 02/20/23 documented as of this encounter
--- OUTSIDE RECORDS SUMMARY | 2024-10-28 11:41 | XMS_ITS | Encounter Summary ---
Author Organization [facility] Address [address] [place] [address] Care Team Providers Care Roving Winder Name Role Phone Elsewhere, Pcp Primary Care Provider Unavailabl e Encounter Details Date Type Department Care Team (Latest Contact Info) Description 10/14/2024 10:22 AM CDT - 10/14/2024 11:59 PM CDT Hospital Encounter Department of Laboratory Medicine and Pathology, [facility] in [place], [place] [address] [place] [address] Siddharth Marshall M.D. [address] [place] [address] Atrial Fibrillation Paroxysmal (HCC); Cardiac Vascular Disease Screening Discharge Disposition: Home or Self Care Social History Tobacco Use Types Packs/Day Years Used Date Smoking Tobacco: Never Passive Smoke Exposure: Past Smokeless Tobacco: Never Alcohol Use Standard Drinks/Week Comments Yes 6 (1 standard drink = 0.6 oz pur e alcohol) [facility] Utilities Answer Date Recorded In the past 12 months has e electric, gas, oil, or water [employer] threatened to shut off services in your [...] week 09/07/2022 How often do you attend [facility] or jewish services? More than 4 times per year 09/07/2022 Do you belong to any clubs o r organizations such as restorationist groups, unions, fraternal or athletic groups, or [...] and heating? Not hard at all 09/07/2022 [facility] [place] of Occupat ional Health - Occupational Stress [...] your living situation today? I have a [facility] place to live 08/06/2024 Education Answer Date Recorded What is the highest level of school you have completed or the highest degree you have received? Some college, no degree 01/01/2020 Comments No Sex and Gender Information Value Date Recorded Sex Assigned at Female 12/26/2019 12:16 PM CDT Legal Sex Female 5:48 AM TUNNELLER Gender Identity Female 12/26/2019 12:16 PM CDT [...] by mouth daily. 06/17/2022 miscellaneous medical supply [facility] As directed. CPAP machine for home use [...] by other route daily. On finger 07/22/2022 [employer] Verio Flex meter misc Test 1 times per day.* 06/25/2024 [employer] Verio test strips 1 strip daily. 07/12/2022 [...] Virtual Visit Section of Infectious Diseases in [place], [place] [address] [place] [address] Humaira Keys M.D. [address] [place] [phone] documented as of this encounter Procedures Procedure Name Priority Date/Time Associated Diagnosis Comments LIPID PANEL, S Routine 10/14/2024 10:33 AM CDT Atrial Fibrillation Paroxysmal (HCC) Cardiac Vascular Disease Screening CBC WITHOUT DIFFERENTIAL, B Routine 10/14/2024 10:33 AM CDT Atrial Fibrillation Paroxysmal (HCC) Cardiac Vascular Disease Screening BASIC METABOLIC PANEL, S/P Routine 10/14/2024 10:33 AM CDT Atrial Fibrillation Paroxysmal (HCC) Cardiac Vascular Disease Screening documented in this encounter Results * (ABNORMAL) Basic Metabolic Panel (10/14/2024 10:33 AM CDT) [facility] Potassium, S 4.0 3.6 - 5.2 mmol/L 10/14/2024 12:44 PM CDT DTL Sodium, S 141 135 - 145 mmol/L 10/14/2024 12:44 PM CDT DTL Chloride, S 100 98 - 107 mmol/L 10/14/2024 12:44 PM CDT DTL Bicarbonate, S 26 22 - 29 mmol/L 10/14/2024 12:44 PM CDT DTL Anion Gap 15 7 - 15 10/14/2024 12:44 PM CDT DTL BUN (Blood Urea Nitrogen), S 21 6 - 21 mg/dL 10/14/2024 12:44 PM CDT DTL Creatinine 1.12(H) 0.59 - 1.04 mg/dL 10/14/2024 12:44 PM CDT DTL Estimated GFR (eGFR) 51(L) >=60 mL/min/BSA 10/14/2024 12:44 PM CDT DTL Comment: Estimated GFR calculated using the 2020 CKD_EPI creatinine equation. Calcium, Total, S 9.1 8.8 - 10.2 mg/dL 10/14/2024 12:44 PM CDT DTL Glucose, S 154(H) 70 - 140 mg/dL 10/14/2024 12:44 PM CDT DTL Blood (Blood, Venous) 10/14/2024 10:33 AM CDT 10/14/2024 11:14 AM CDT Siddharth Marshall M.D. LAB BLOOD ADD-ON Final Res ult [facility] [place] [address], [facility] [address] [place] [address] * Lipid Panel (10/14/2024 10:33 AM CDT) Triglycerides 122 mg/dL 10/14/2024 12:44 PM CDT DTL Comment: ----REFERENCE VALUE---- Normal: <150 mg/dL Borderline High: 150-199 mg/dL High: 200-499 mg/dL Very High: > or =500 mg/dL Cholesterol, Total 126 mg/dL 2024 12:44 PM CDT DTL Comment: ----REFERENCE VALUE---- Desirable: < 200 mg/dL Borderline High: 200 - 239 mg/dL High: > or = 240 mg/dL Cholesterol, LDL, Calculated 43 mg/dL 10/14/2024 12:44 PM CDT DTL Comment: ----REFERENCE VALUE---- Desirable: <100 mg/dL Above Desirable: 100-129 mg/dL Borderline High: 130-159 mg/dL High: 160-189 mg/dL Very High: >=190 mg/dL ----ADDITIONAL INFORMATION---- LDL cholesterol calculated using the Chauhan/NIH equation. Cholesterol, HDL, S 62 >=50 mg/dL 10/14/2024 12:44 PM CDT DTL Cholesterol, Non-HDL, Calculated 64 mg/dL 10/14/2024 12:44 PM CDT DTL Comment: ----REFERENCE VALUE---- Desirable: <130 mg/dL Above Desirable: 130-159 mg/dL Borderline High: 160-189 mg/dL High: 190-219 mg/dL Very High: > or =220 mg/dL Fasting (8 HR or more) No 10/14/2024 10:34 AM CDT DTL Blood (Blood, Venous) 10/14/2024 10:33 AM CDT 10/14/2024 11:14 AM CDT us Siddharth Marshall M.D. LAB BLOOD ADD-ON Final Res ult [address] [address], [facility] [place] [address] * (ABNORMAL) CBC without Differential (10/14/2024 10:33 AM CDT) Hemoglobin 12.7 11.6 - 15.0 g/dL 10/14/2024 12:05 PM CDT DTL Hematocrit 38.4 35.5 - 44.9 % 10/14/2024 12:05 PM CDT DTL Erythrocytes 3.73(L) 3.92 - 5.13 x10(12)/L 10/14/2024 12:05 PM CDT DTL MCV 102.9(H) 78.2 - 97.9 fL 10/14/2024 12:05 PM CDT DTL RBC Distrib Width 14.9 12.2 - 16.1 % 10/14/2024 12:05 PM CDT DTL Platelet Count 161 157 - 371 x10(9)/L 10/14/2024 12:05 PM CDT DTL Leukocytes 7.3 3.4 - 9.6 x10(9)/L 10/14/2024 12:05 PM CDT DTL Blood (Blood, Venous) 10/14/2024 10:33 AM CDT 10/14/2024 10:52 AM CDT us Siddharth Marshall M.D. LAB BLOOD ADD-ON Final Res ult [facility] [address] [place] [address], [facility] [address] [place] [address] documented in this encounter Visit Diagnoses Diagnosis Atrial Fibrillation Paroxysmal (HCC) Cardiac Vascular Disease Screening documented in this encounter Additional Health Concerns Infection Onset Date Last Indicated Resolved Time Protective Environment 10/14/2022 10/14/2022 documented as of this encounter Care Teams Roving Winder Relationship Specialty Start Date End Date Elsewhere, Pcp PCP - General Internal Medicine 02/20/23 documented as of this encounter
--- OUTSIDE RECORDS SUMMARY | 2024-10-28 11:41 | XMS_ITS | Encounter Summary ---
Author Organization [facility] Address [address] [place] [address] Care Team Providers Care Sales And Management Trainee Name Role Phone Elsewhere, Pcp Primary Care Provider Unavailabl e Encounter Details Date Type Department Care Team (Late st Contact Info) Description 12/02/2003 Historical Ophthalmology [facility] Mati Dominguez M.D. Social History Tobacco Use Types Packs/Day Years Used Date Smoking Tobacco: Never Assessed Comments Unknown Sex and Gender Information Value Date Recorded Sex Assigned at Female 12/26/2019 12:16 PM CDT Legal Sex Female 5:48 AM REALTIME REPORTER Gender Identity Female 12/26/2019 12:16 PM CDT Sexual Orientation Straight 12/26/2019 12 :16 PM CDT documented as of this encounter Progress Notes * Mati Dominguez M.D. - 12/02/2003 12:00 AM CDT Eye General HISTORY OF PRESENT ILLNESS No changes/concerns with vision. Episodes of flashes seen in vision; no associated with headaches. Longstanding hx of headaches; used to have migraines that made her vomit. Now just has headaches when lying down. Troubles with dry eyes x1 yr; using artificial tears sparingly. Local doctor gave rx for Patanol, but this did not help. IMPRESSION / REPORT / PLAN #1 Presbyopia #2 Bank keratopathy OK to start plaquenil. DIAGNOSIS #1 Presbyopia #2 Bank keratopathy CDM Reports - EYEGEN Id: [id number] Status: Fnl documented in this encounter Plan of Treatment Upcoming Encounters Date Type Department Care Team (Late st Contact Info) Description 11/12/2024 11:30 AM CDT Virtual Visit Section of Infectious Diseases in [place], [place] [address] [place] [address] Humaira Keys M.D. [address] [place] [phone] documented as of this encounter Visit Diagnoses Not on filedocumented in this encounter Additional Health Concerns Infection Onset Date Last Indicated Resolved Time Protective Environment 10/14/2022 10/14/2022 documented as of this encounter Care Teams Sales And Management Trainee Relationship Specialty Start Date End Date Elsewhere, Pcp PCP - General Internal Medicine 02/20/23 documented as of this encounter
--- OUTSIDE RECORDS SUMMARY | 2024-10-28 11:41 | XMS_ITS | Encounter Summary ---
Author Organization [facility] Address [address] [place] [address] Care Team Providers Care Roofer Metal Name Role Phone Elsewhere, Pcp Primary Care Provider Unavailabl e Encounter Details Date Type Department Care Team (Late st Contact Info) Description 10/17/2024 8:32 AM CDT Anesthesia Event Department of Cardiovascular Disease [address] [place] [phone] Sydney Araujo APRN, CRNA, D.N.P. [address] [place] [phone] Anesthesia Record Procedure Summary Procedure Name Responsible Anesthesiologist Anesthesia Start Time Anesthesia Stop Time CARDIOVERSION Sydney Araujo APRN, CRNA, D.N.P. 10/17/24 0832 10/17/24 0852 Events Date Time Event Comment 10/17/2024 0832 An Start Machine/Equipme nt Checked Infection Precautions Followed Procedure/Site Verified NPO Status Verified Supine Standard ASA Monitors Applied 0835 An Induction 0835 Mask Only 0840 Cardioversion 0844 an stop data 0852 An End I completed my handoff to the receiving staff during which we 1. Identified the patient 2. Identified the responsible provider 3. Reviewed the pertinent medical history 4. Discussed the surgical course 5. Reviewed intra-op anesthesia management and issues during anesthesia 6. Set expectations for post-procedure period 7. Allowed opportunity for questions and acknowledgement of understanding. Meds Name Total remimazolam (Byfavo) (RESTRICTED) 16 mg flumazeniL (Romazicon) injection 0.5 mg/ 5 mL 0.3 mg propofoL (Diprivan) injection 10 mg/mL 3 0 mg * Agents No agents on file. * Blood No blood administrations on file. Lines, Drains, and Airways No LDAs on file. documented in this encounter Social History Tobacco Use Types Packs/Day Years Used Date Smoking Tobacco: Never Passive Smoke Exposure: Past Smokeless Tobacco: Never Alcohol Use Standard Drinks/Week Comments Yes 6 (1 standard drink = 0.6 oz pur e alcohol) [facility] Utilities Answer Date Recorded In the past 12 months has e [employer], oil, or water [employer] threatened to shut off services in your [...] often do you attend chur ch or orthodox services? More than 4 times per year 09/07/2022 Do you belong to any clubs o r organizations such as orthodoxy groups, unions, fraternal or athletic groups, or [...] and heating? 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 - 10/17/2024 8:56 AM CDT Patient: Hetal Newsome Procedure Summary Date: 10/17/24 Room / Location: Department of Cardiovascular Disease Anesthesia Start: 831 Anesthesia Stop: 851 Procedure: CARDIOVERSION Diagnosis: Atrial Fibrillation Paroxysmal (HCC) Atrial Fibrillation Paroxysmal (HCC) Scheduled Providers: Sydney Araujo APRN, CRNA, D.N.P. Responsible Provider: Sydney Araujo APRN, CRNA, Berto.N.P. Anesthesia Type: general ASA Status: 3 Anesthesia Type: general Last vitals Vitals Value Taken Time BP 125/71 10/17/24 09:00 Temp Pulse 63 10/17/24 09:01 Resp SpO2 93 % 10/17/24 09:01 Vitals shown include unfiled device data. Please reference Vitals flowsheet for most recent vital signs. Anesthesia Post Evaluation Patient Disposition: dismissal Cardiovascular status: hemodynamics (HR & BP) acceptable Respiratory status: patent airway with spontaneous effort Temperature: normothermic Oxygen requirements: room air Level of consciousness: awake Pain score: pain adequately controlled and/or at baseline Post Op nausea/vomiting: none Hydration status: euvolemic Notable Events No notable events documented. * Anesthesia Preprocedure Evaluation - Sydney Araujo APRN, CRNA, D.N.P. - 10/17/2024 8:00 AM CDT Preprocedure Anesthesia & H&P Assessment Procedure Summary Date/Time: 10/17/24729 Scheduled providers: Sydney Araujo APRN, CRNA, D.N.P. Procedure: CARDIOVERSION Diagnosis: Atrial Fibrillation Paroxysmal (HCC) [I48.0] Atrial Fibrillation Paroxysmal (HCC) [I48.0] Location: Department of Cardiovascular Disease Pertinent components of the patient's history including current problem list, medical history, surgical history, family history, social history, medications and allergies were reviewed. Present illness and pre-op diagnosis were confirmed. The planned surgery / procedure was verified with the patient / legal guardian. The patient's general health condition remains unchanged RELEVANT COMORBID CONDITIONS CV (+) Atrial Fibrillation Unspecified (HCC) (+) Hypertension Essential Primary ENDO (+) Diabetes Mellitus NOS HEME (+) Anticoagulant Therapy OBJECTIVE PHYSICAL EXAMINATION Airway (HEENT) Uvula abscent Mallampati: IV TM Distance: >3 FB Neck ROM: Limited Mouth Opening: >3 cm Upper Lip Bite Test Class: II Cardiovascular Rhythm: Irregular Rate: Abnormal Cardiovascular Assessment: cardiovascular normal Functional Capacity: <4 METS Pulmonary Pulmonary Assessment: Clear General / Constitutional Constitutional Assessment: Obese General State of Health:: calm Neurological Neurologic Assessment: alert and alert and oriented x 3 Dental Dental Assessment: dentition intact ASSESSMENT / PLAN ANESTHESIA PLAN ASA: 3 Anesthesia Plan: MAC Patient seen and allergies reviewed, anesthesia plan and risks discussed directly with patient /legal guardian or through an cable lacer. Risks/Benefits/Alternatives of Blood transfusion discussed with patient / legal guardian, includingan opportunity to ask questions and/or decline some or all transfusion therapies. The patient / legal guardian consented to the use of all blood products, as deemed medically necessary Approval to Proceed: approved for anesthesia Demented but alert and orientatedX3, able express and verbalize needs. documented in this encounter Plan of Treatment Upcoming Encounters Date Type Department Care Team (Mariya Contact Info) Description 11/12/2024 11:30 AM CDT Virtual Visit Section of Infectious Diseases in [place], [place] [address] [place] [phone] Humaira Keys M.D. [address] [place] [address] documented as of this encounter Visit Diagnoses Not on filedocumented in this encounter Administered Medications Inactive Administered Medications - up to 3 most recent administrations Medication Order MAR Action Action Date Dose Rate Site flumazeniL injection (Romazicon) intravenous, As needed, Starting on Caitlin 10/17/24 at 0843, Anesthesia Intra-op Given 10/17/2024 8:43 AM CDT 0.3 mg propofoL injection (Diprivan) intravenous, As needed, Starting on Caitlin 10/17/24 at 0839, Anesthesia Intra-op Given 10/17/2024 8:39 AM CDT 30 mg remimazolam injection (Byfavo) intravenous, As needed, Starting on Caitlin 10/17/24 at 0835, Anesthesia Intra-op Given 10/17/2024 8:39 AM CDT 6 mg Given 10/17/2024 8:35 AM CDT 10 mg documented in this encounter Additional Health Concerns Infection Onset Date Last Indicated Resolved Time Protective Environment 10/14/2022 10/14/2022 documented as of this encounter Care Teams Roofer Metal Relationship Specialty Start Date End Date Elsewhere, Pcp PCP - General Internal Medicine 02/20/23 documented as of this encounter
--- OUTSIDE RECORDS SUMMARY | 2024-10-28 11:41 | XMS_ITS | Encounter Summary ---
Author Organization [facility] Address [address] [place] [address] Care Team Providers Care Extractor Operator Name Role Phone Elsewhere, Pcp Primary Care Provider Unavailabl e Reason for Visit * Reason Onset Date Comments Referral Triage 09/30/2024 CVD Encounter Details Date Type Department Care Team (Latest Contact Info) Description 09/30/2024 Referral Triage Department of Cardiovascular Medicine in [place], [place] [address] [place] [address] Child Welfare DirectorRajinder M.D. Referral Triage (CVD) Social History Tobacco Use Types Packs/Day Years Used Date Smoking Tobacco: Never Passive Smoke Exposure: Past Smokeless Tobacco: Never Alcohol Use Standard Drinks/Week Comments Yes 6 (1 standard drink = 0.6 oz pur e alcohol) [facility] Utilities Answer Date Recorded In the past [...] How often do you attend chur or judaism services? More than 4 times per year 09/07/2022 Do you belong to any clubs o r organizations such as yazidism groups, unions, fraternal or athletic groups, or [...] and heating? Not hard at all 09/07/2022 [facility] [place] of Occupat ional Health - Occupational Stress [...] your living situation today? I have a [facility] place to live 08/06/2024 Education Answer Date Recorded What is the highest level of school you have completed or the highest degree you have received? 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 [address] [place] [phone] documented as of this encounter Visit Diagnoses Not on filedocumented in this encounter Additional Health Concerns Infection Onset Date Last Indicated Resolved Time Protective Environment 10/14/2022 10/14/2022 documented as of this encounter Care Teams Extractor Operator Relationship Specialty Start Date End Date Elsewhere, Pcp PCP - General Internal Medicine 02/20/23 documented as of this encounter
--- OUTSIDE RECORDS SUMMARY | 2024-10-28 11:42 | XMS_ITS | Continuity of Care Document ---
Author Organization [facility] Address [address] [place] [address] Care Team Providers Care Mail Distribution Clerk Name Role Phone Elsewhere, Pcp Primary Care Provider Unavailabl e Source Comments Patient records contain information from all sites at [facility]. For routine questions regarding patient records, call [phone] during business hours, M-F 8:00 AM - 5:00 PM Central Time. Record requests for emergency care only can be directed to [phone] at any time.[facility] Encounters Date Type Department Care Team Description 10/17/2024 Results Follow-Up Department of Cardiovascular Medicine in [place], [place] [address] [place] [address] Siddharth Marshall M.D. ECG 12 Lead 10/17/2024 8:32 AM CDT Anesthesia Event Department of Cardiovascular Disease [address] [place] [phone] Sydney Araujo APRN, CRNA, D.N.P. 10/17/2024 7:32 AM CDT - 10/17/2024 10:02 AM CDT Hospital Encounter Division of Cardiovascular Diseases in [place], [place] [address] [place] [phone] AnsoniaSiddharth M.D. Messan, Amah W, WILFRIDO HENSLEY, Berto.N.P. Atrial Fibrillation Paroxysmal (HCC) Discharge Disposition: Home or Self Care 10/14/2024 10:22 AM CDT - 10/14/2024 11:59 PM CDT Hospital Encounter Department of Laboratory Medicine and Pathology, [facility], in [place], [place] [address] [place] [address] Siddharth Marshall M.D. Atrial Fibrillation Paroxysmal (HCC); Cardiac Vascular Disease Screening Discharge Disposition: Home or Self Care 10/14/2024 4:30 PM CDT Office Visit Department of Cardiovascular Medicine in [place], [place] [address] [place] [address] Siddharth Marshall M.D. Atrial Fibrillation Paroxysmal (HCC) (Primary Dx); Urinary Tract Infection Site Not Specified; Incontinence Urinary; Hypertension Essential Primary; Hyperlipidemia 10/10/2024 1:52 PM CDT - 10/10/2024 11:59 PM CDT Hospital Encounter Department of Cardiovascular Diseases in [place], [place] [address] [place] [address] Siddharth Marshall M.D. Atrial Fibrillation Paroxysmal (HCC); Cardiac Vascular Disease Screening Discharge Disposition: Home or Self Care 10/07/2024 Clinical Communication Department of Cardiovascular Medicine in [place], [place] [address] [place] [address] Revenue Cycle SpecialistRajinder M.D. 09/30/2024 Referral Triage Department of Cardiovascular Medicine in [place], [place] [address] [place] [address] Revenue Cycle SpecialistRajinder M.D. Referral Triage (CVD) 09/10/2024 11:00 AM CDT Office Visit Department of Neurology in [place], [place] [address] [place] [address] Henrry Lewis M.D. Clinical Research Exam 08/15/2024 Orders Only Section of Infectious Diseases in [place], [place] [address] [place] [address] Humaira Keys M.D. 08/15/2024 11:00 AM LINE TENDER Virtual Visit Section of Infectious Diseases in [place], [place] [address] [place] [phone] Humaira Keys M.D. Cystitis Unspecified Without Hematuria (Primary Dx) 08/14/2024 Orders Only Section of Infectious Diseases in [place], [place] [address] [place] [phone] Humaira Keys M.D. Urinary Tract Infection Site Not Specified (Primary Dx) 08/12/2024 1:11 PM LINE TENDER - 08/12/2024 11:59 PM LINE TENDER Hospital Encounter Department of Laboratory Medicine and Pathology, [facility] in [place], [place] [address] [place] [phone] Humaira Keys M.D. Urgency Urinary Discharge Disposition: Home or Self Care 08/12/2024 11:00 AM LINE TENDER Comprehensive Visit Section of Infectious Diseases in [address] [address] Sena Sagastume M.B.B.SHumaira Strickland M.D. Urinary Urge Incontinence; Urgency Urinary; Overactive Bladder 08/12/2024 2:30 PM LINE TENDER Office Visit Department of Obstetrics and Gynecology, Division of Urogynecology in [address] [address] Mati Garcia M.D. Overactive Bladder (Primary Dx) 08/08/2024 10:30 AM LINE TENDER Clinical Communication Virtual Review in [place], [place] [address] [place] [address] Pre-visit Intake 07/04/2024 Orders Only Department of Obstetrics and Gynecology, Division of Urogynecology in [address] [address] Alondra Pelletier M.B.B.S. 05/17/2024 Refill Department of Obstetrics and Gynecology, Division of Urogynecology in [address] [address] Mati Garcia M.D. Med Refill 09/25/2023 1:45 PM CDT - 09/25/2023 11:59 PM CDT Hospital Encounter Department of Radiology, [facility] in [place], [place] [address] [place] [phone] Henrry Lewis M.D. Clinical Research Exam Discharge Disposition: Home or Self Care 08/31/2023 Orders Only Division of Gastroenterology in [place], [place] [address] [place] [phone] Desmond Diaz M.D. Genetic Susceptibility To Disease 07/24/2023 Clinical Communication Department of Obstetrics and Gynecology, Division of Urogynecology in [place], [place] [address] [place] [address] Mati Garcia M.D. 07/11/2023 Orders Only Department of Urology in [address] [address] Mati Garcia M.D. 07/09/2023 Orders Only Department of Obstetrics and Gynecology in [place], [place] [address] [place] [phone] Skyla Dalton M.D. 07/07/2023 3:05 PM LINE TENDER - 07/07/2023 11:59 PM LINE TENDER Hospital Encounter Department of Laboratory Medicine in [address] [address] Mati Garcia M.D. Dysuria; Frequency Urinary; Incontinence Urinary Discharge Disposition: Home or Self Care 07/06/2023 Orders Only Department of Radiology, [facility], in [place], [place] [address] [place] [phone] Karli Russo M.D. Clinical Research Exam (Primary Dx) 07/06/2023 Orders Only Department of Radiology, [facility], in [place], [place] [address] [place] [phone] Henrry Lewis M.D. Clinical Research Exam (Primary Dx) 07/04/2023 Refill Department of Cardiovascular Medicine in [place], [place] [address] [place] [address] Siddharth Marshall M.D. Med Refill 06/01/2023 Orders Only Department of Urology in [place], [place] [address] [place] [phone] Mati Garcia M.D. 05/15/2023 9:30 AM LINE TENDER Comprehensive Visit Section of Infectious Diseases in [place], [place] [address] [place] [address] Joaquin Steele M.D., Ph.D. Urinary Tract Infection Site Not Specified 05/14/2023 Orders Only Department of Obstetrics and Gynecology in [place], [place] [address] [place] [address] Vicenta Gao M.D. 04/18/2023 Clinical Communication Department of Urology in [place], [place] [address] [place] [address] Genia Kelley M.D., M.S. 04/17/2023 Orders Only Department of Obstetrics and Gynecology, Division of Urogynecology in [place], [place] [address] [place] [address] Derek Wells, R.N. 04/17/2023 Refill Department of Cardiovascular Medicine in [place], [place] [address] [place] [address] Siddharth Marshall M.D. Med Refill 04/15/2023 10:30 AM CDT Lab Department of Laboratory Medicine and Pathology, [facility] in [place], [place] [address] [place] [address] Mati Garcia M.D. Urinary Urge Incontinence; Urgency Urinary 03/28/2023 Clinical Communication Department of Obstetrics and Gynecology, Division of Urogynecology in [place], [place] [address] [place] [address] Mati Garcia M.D. Communication 03/27/2023 Clinical Communication Department of Obstetrics and Gynecology, Division of Urogynecology in [place], [place] [address] [place] [address] Gilmer Morelos M.D. 03/24/2023 Clinical Communication Department of Urology in [place], [place] [address] [place] [address] Gilmer Morelos M.D. 03/24/2023 Orders Only Department of Urology in [place], [place] [address] [place] [address] Gilmer Morelos M.D. 03/24/2023 Clinical Communication Department of Obstetrics and Gynecology, Division of Urogynecology in [place], [place] [address] [place] [address] Sonia Houser R.N. 03/24/2023 1:30 PM CDT Nurse Only Department of Obstetrics and Gynecology, Division of Urogynecology in [place], [place] [address] [place] [address] Mati Garcia M.D. Hayungs, Sue E, R.N. 03/21/2023 Orders Only Department of Obstetrics and Gynecology, Division of Urogynecology in [place], [place] [address] [place] [address] Derek Wells, R.N. Overactive Bladder (Primary Dx); Urinary Urge Incontinence 02/23/2023 Clinical Communication Department of Obstetrics and Gynecology, Division of Urogynecology in [place], [place] [address] [place] [address] Derek Wells, R.N. 02/20/2023 8:00 AM CDT - 02/20/2023 9:16 AM CDT Surgery T [facility] OR [facility] [place] [address] Mati Garcia M.D. CYSTOSCOPY, BOTOX INJECTION, 100 units. 02/20/2023 8:12 AM CDT Anesthesia Event [facility] OR [address] [place] [address] Avery Ruiz M.D. Ellis, Megan M, D.O. 02/20/2023 6:15 AM CDT - 02/20/2023 11:30 AM CDT Hospital Encounter Outpatient Surgery Unit in [address] [address] Mati Garcia M.D. Overactive Bladder; Urinary Urge Incontinence Discharge Disposition: Home or Self Care 02/16/2023 10:00 AM CDT Education Division of General Internal Medicine in [address] [address] Amanda Arana M.S.N., R.N. 02/16/2023 9:00 AM CDT Comprehensive Visit Division of General Internal Medicine in [address] [address] Mati Garcia M.D. Silbert, Richard E, M.D. Preoperative Exam 02/13/2023 9:30 AM CDT Comprehensive Visit Department of Vascular Medicine in [address] [address] Ana Ware APRN, C.N.P., M.S. Atrial Fibrillation Paroxysmal (HCC) (Primary Dx); Preoperative Exam 02/10/2023 3:00 PM CDT Education Department of Obstetrics and Gynecology, Division of Urogynecology in [address] [address] Mati Garcia M.D. Hayungs, Sue E, R.N. Overactive Bladder 02/10/2023 8:15 AM CDT Procedure visit Department of Obstetrics and Gynecology, Division of Urogynecology in [address] [address] Mati Garcia M.D. Overactive Bladder; Incontinence Urinary Stress And Urge 02/10/2023 10:00 AM CDT Comprehensive Visit Department of Obstetrics and Gynecology, Division of Urogynecology in [address] [address] Mati Garcia M.D. Preoperative Exam (Primary Dx); Overactive Bladder; Preprocedural Lab Exam 02/08/2023 9:00 AM CDT Clinical Communication Virtual Review in [place], [place] [address] [place] [address] Pre-visit Intake 01/09/2023 Orders Only Department of Obstetrics and Gynecology, Division of Urogynecology in [place], [place] [address] [place] [address] Derek Wells R.N. Overactive Bladder (Primary Dx); Incontinence Urinary Stress And Urge 10/14/2022 1:15 PM CDT - 10/14/2022 11:59 PM CDT Hospital Encounter Department of Cardiovascular Diseases in [place], [place] [address] [place] [address] Siddharth Marshall M.D. Atrial Fibrillation Paroxysmal (HCC) Discharge Disposition: Home or Self Care 09/15/2022 1:00 PM CDT Office Visit Department of Neurology in [place], [place] [address] [place] [address] Henrry Lewis M.D. Clinical Research Exam 09/14/2022 2:53 PM CDT - 09/14/2022 11:59 PM CDT [facility] [place] [place] [address] [place] [address] Henrry Lewis M.D. Clinical Research Exam Discharge Disposition: Home or Self Care 09/13/2022 4:30 PM CDT Comprehensive Visit Department of Cardiovascular Medicine in [address] [address] Siddharth Marshall M.D. Atrial Fibrillation Paroxysmal (HCC) (Primary Dx); Hyperlipidemia On Treatment; Cognitive Disorder; Anticoagulant Therapy; Incontinence Urinary Stress And Urge 09/13/2022 2:14 PM CDT - 09/13/2022 11:59 PM CDT [facility] [address] [address] Siddharth Marshall M.D. Atrial Fibrillation Longstanding Persistent (HCC) Discharge Disposition: Home or Self Care 09/08/2022 3:30 PM LINE TENDER Ancillary Procedure Department of Cardiovascular Diseases in [address] [phone] Siddharth Marshall M.D. Atrial Fibrillation Longstanding Persistent (HCC) 08/13/2022 Documentation Department of Cardiovascular Medicine in [place], [place] [address] [place] [address] Siddharth Marshall M.D. 06/22/2022 Orders Only Department of Radiology, [facility] in [place], [place] [address] [place] [address] Henrry Lewis M.D. Clinical Research Exam (Primary Dx) 06/22/2022 Orders Only Department of Radiology, [facility] in [place], [place] [address] [place] [address] Karli Russo M.D. Clinical Research Exam (Primary Dx) 02/14/2022 Clinical Communication Department of Urology in [place], [place] [address] [place] [address] Cristal Galdamez APRN, C.N.P., D.N.P. Drug Allergy Fax 02/11/2022 Orders Only Department of Urology in [place], [place] [address] [place] [address] Cristal Galdamez APRN, C.N.P., D.N.P. 02/11/2022 8:00 AM CDT Comprehensive Visit Department of Urology in [place], [place] [address] [place] [address] Cristal Galdamez APRN, C.N.P., D.N.P. Incontinence Urinary Stress And Urge (Primary Dx); Infection Urinary Tract Recurrent; Overactive Bladder; Hematuria Urinalysis 02/10/2022 8:44 AM CDT - 02/10/2022 11:59 PM CDT Hospital Encounter Department of Laboratory Medicine and Pathology, [facility] in [place], [place] [address] [place] [address] Cristal Galdamez APRN, C.N.PNicole, D.N.P. Infection Urinary Tract Acute Discharge Disposition: Home or Self Care 02/10/2022 11:15 AM CDT Procedure visit Department of Urology in [place], [place] [address] [place] [address] Cristal Galdamez APRN, C.N.PNicole, D.N.P. Nicholas Ashraf M.D. Nelson, Michelle C, L.P.N. Dysuria [R30.0 (ICD-10-CM)] (Primary Dx); Infection Urinary Tract Recurrent 02/01/2022 Orders Only Department of Urology in [place], [place] [address] [place] [address] Cristal Galdamze APRN, C.N.PNicole, D.N.P. Infection Urinary Tract Recurrent (Primary Dx) 04/06/2021 1:00 PM CDT Office Visit Department of Neurology in [place], [place] [address] [place] [address] Henrry Lewis M.D. Clinical Research Exam 04/05/2021 12:40 PM CDT - 04/05/2021 11:59 PM CDT Hospital Encounter Department of Radiology, [facility] in [place], [place] [address] [place] [address] Henrry Lewis M.D. Clinical Research Exam Discharge Disposition: Home or Self Care 02/16/2021 Orders Only [facility] PCP [facility] Shruthi Bonilla M.D. 08/27/2020 Orders Only Department of Neurology in [place], [place] [address] [place] [address] Henrry Lewis M.D. Pain Low Back (Primary Dx) 08/25/2020 Clinical Communication Department of Sports Medicine in [place], [place] [address] [place] [phone] Prescheduling, Provider Triage 08/18/2020 7:09 AM LINE TENDER - 08/18/2020 11:59 PM LINE TENDER Hospital Encounter Department of Radiology, [facility] in [place], [place] [address] [place] [address] Henrry Lewis M.D. Clinical Research Exam Discharge Disposition: Home or Self Care 08/18/2020 4:00 PM LINE TENDER Office Visit Department of Neurology in [place], [place] [address] [place] [address] Henrry Lewis M.D. 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 02/19/2020 4:25 PM CDT - 02/19/2020 11:59 PM CDT Hospital Encounter Department of Laboratory Medicine and Pathology, [place], [place] [address] [place] [address] Mateo Eckert M.D., Ph.D. Microhematuria Discharge Disposition: Home or Self Care 02/19/2020 4:00 PM CDT Office Visit Division of Nephrology and Hypertension in [place], [place] [address] [place] [address] Mateo Eckert M.D., Ph.D. Microhematuria (Primary Dx) 02/13/2020 Orders Only Division of Nephrology and Hypertension in [place], [place] [address] [place] [address] Mateo Eckert M.D., Ph.D. 02/12/2020 12:51 PM CDT - 02/12/2020 2:04 PM CDT Hospital Encounter Department of Laboratory Medicine and Pathology, [place], [place] [address] [place] [address] Mateo Eckert M.D., Ph.D. Microhematuria; Arthritis Rheumatoid (HCC) Discharge Disposition: Home or Self Care 02/12/2020 Clinical Communication Division of Nephrology and Hypertension in [place], [place] [address] [place] [address] Mateo Eckert M.D., Ph.D. 02/12/2020 12:51 PM CDT - 02/12/2020 2:04 PM CDT Hospital Encounter Department of Laboratory Medicine and Pathology, [facility] in [place], [place] [address] [place] [address] Mateo Eckert M.D., Ph.D. Microhematuria Discharge Disposition: Home or Self Care 02/12/2020 2:05 PM CDT - 02/12/2020 11:59 PM CDT Hospital Encounter Department of Radiology, [facility] in [place], [place] [address] [place] [address] Mateo Eckert M.D., Ph.D. Microhematuria Discharge Disposition: Home or Self Care 02/11/2020 Documentation Division of Rheumatology in [address] [address] Ej Shah M.D. 02/11/2020 12:50 PM CDT - 02/11/2020 11:59 PM CDT Hospital Encounter Department of Radiology, [facility] in [place], [place] [address] [place] [address] Ej Shah M.D. Arthritis Rheumatoid (HCC) Discharge Disposition: Home or Self Care 02/11/2020 12:50 PM CDT - 02/11/2020 11:59 PM CDT Hospital Encounter Department of Radiology, [facility] in [place], [place] [address] [place] [address] Ej Shah M.D. Arthritis Rheumatoid (HCC) Discharge Disposition: Home or Self Care 02/11/2020 2:30 PM CDT Comprehensive Visit Division of Nephrology and Hypertension in [place], [place] [address] [place] [address] Mateo Eckert M.D., Ph.D. Microhematuria (Primary Dx); Arthritis Rheumatoid (HCC); Elevated Creatinine 02/11/2020 6:33 AM CDT - 02/11/2020 12:49 PM CDT Hospital Encounter Department of Laboratory Medicine and Pathology, [facility] in [place], [place] [address] [place] [address] Henrry Lewis M.D. Arthritis Rheumatoid (HCC); Elevated Creatinine Discharge Disposition: Home or Self Care 02/11/2020 6:33 AM CDT - 02/11/2020 12:49 PM CDT Hospital Encounter Department of Laboratory Medicine and Pathology, [facility] in [place], [place] [address] [place] [address] Henrry Lewis M.D. Arthritis Rheumatoid (HCC); Elevated Creatinine Discharge Disposition: Home or Self Care 02/11/2020 10:15 AM CDT Comprehensive Visit Division of Rheumatology in [place], [place] [address] [place] [address] Ej Shah M.D. Arthritis Inflammatory (HCC) (Primary Dx); Arthritis Rheumatoid (HCC); Elevated Creatinine 01/17/2020 Documentation Department of Neurology in [place], [place] [address] [place] [address] Henrry Lewis M.D. 01/13/2020 1:31 PM CDT - 01/13/2020 11:59 PM CDT Hospital Encounter Department of Neurology in [place], [place] [address] [place] [address] Henrry Lewis M.D. Cognitive Disorder Discharge Disposition: Home or Self Care 01/13/2020 9:26 AM CDT - 01/13/2020 11:59 PM CDT Hospital Encounter Department of Radiology in [place], [place] [address] [place] [phone] Henrry Lewis M.D. Hunt, Christopher H, M.D. Lemmerman, Loni B, R.TNicole(R)() Hugo Grayson R.TNicole(R)() Dementia (HCC) Discharge Disposition: Home or Self Care 01/06/2020 Documentation Department of Neurology in [place], [place] [address] [place] [address] Henrry Lewis M.D. 01/06/2020 Clinical Communication Department of Neurology in [place], [place] [address] [place] [address] Henrry Lewis M.D. Communication 01/06/2020 12:02 PM CDT - 01/06/2020 11:59 PM CDT Hospital Encounter Department of Radiology, [facility] in [place], [place] [address] [place] [address] Henrry Lewis M.D. Major Neurocognitive Disorder Without Behavior Disturbance (HCC) Discharge Disposition: Home or Self Care 01/03/2020 Abstract [facility] Renuka Godinez M.D. 01/02/2020 Documentation Department of Neurology in [place], [place] [address] [place] [address] Henrry Lewis M.D. 01/02/2020 Clinical Communication Department of Neurology in [place], [place] [address] [place] [address] Henrry Lewis M.D. COVID Inquiry 01/02/2020 Orders Only Department of Neurology in [address] [address] Henrry Lewis M.D. Change Mental Status (Primary Dx) 01/01/2020 Clinical Communication Department of Neurology in [place], [place] [address] [place] [address] Henrry Lewis M.D. 01/01/2020 11:00 AM CDT Internal E-Consult Department of Vascular Medicine in [place], [place] [address] [place] [address] Donny Hughes M.D. Anticoagulant Therapy (Primary Dx); Cognitive Disorder 01/01/2020 9:18 AM CDT - 01/01/2020 1:00 PM CDT Hospital Encounter Department of Laboratory Medicine and Pathology, [facility], in [place], [place] [address] [place] [address] Henrry Lewis M.D. Cognitive Disorder Discharge Disposition: Home or Self Care 01/01/2020 1:01 PM CDT - 01/01/2020 11:59 PM CDT Hospital Encounter Department of Radiology, [facility] in [place], [place] [address] [place] [address] Henrry Lewis M.D. Major Neurocognitive Disorder Without Behavior Disturbance (HCC) Discharge Disposition: Home or Self Care 01/01/2020 8:00 AM CDT Comprehensive Visit Department of Neurology in [place], [place] [address] [place] [address] Henrry Lewis M.D. Cognitive Disorder (Primary Dx) 12/24/2019 Clinical Communication Department of Neurology in [address] [address] Hans Hurtado M.D. COVID Nurse Line/12-24-19 12/24/2019 Orders Only Department of Neurology in [place], [place] [address] [place] [address] Henrry Lewis M.D. Major Neurocognitive Disorder Without Behavior Disturbance (HCC) 06/13/2016 7:39 AM LINE TENDER - 06/13/2016 11:59 PM LINE TENDER Hospital Encounter [facility]X [facility] Dante Villalba M.D. 05/22/2009 11:04 AM LINE TENDER - 05/22/2009 11:59 PM LINE TENDER Hospital Encounter HX RST FIBRO AHP OP Azeb Sánchez, R.N. 05/21/2009 12:23 PM LINE TENDER - 05/21/2009 11:59 PM LINE TENDER Hospital Encounter HX RST FIBRO [facility] OP Akilah Hyatt R.N. 05/21/2009 12:53 PM LINE TENDER - 05/21/2009 11:59 PM LINE TENDER Hospital Encounter HX RST FIBROMYALGIA Shanti Dai, AYDEN, C.N.P., M.S. 03/30/2004 - 03/30/2004 11:59 PM CDT Hospital Encounter HX NO MAPPING 01/16/2004 11:08 AM CDT - 01/23/2004 11:59 PM CDT Hospital Encounter [facility] 01/15/2004 7:19 AM CDT - 01/22/2004 11:59 PM CDT Hospital Encounter [facility] Denzel Hernandez M.D., M.B.A. 01/14/2004 2:37 PM CDT - 2004 11:59 PM CDT Hospital Encounter [facility] Denzel Hernandez M.D., M.B.A. 01/13/2004 8:28 AM CDT - 01/20/2004 11:59 PM CDT Hospital Encounter [facility]X [facility] Denzel Hernandez M.D., M.B.A. 01/12/2004 - 01/19/2004 11:59 PM CDT Hospital Encounter HX NO MAPPING 01/16/2004 - 01/16/2004 11:59 PM CDT Hospital Encounter HX NO MAPPING 01/08/2004 5:46 PM CDT - 01/12/2004 5:01 PM CDT Hospital Encounter HX RST UNIT 7-2 [facility] 11/27/2003 12:10 AM CDT - 12/08/2003 2:27 PM CDT Hospital Encounter HX [facility] 3D 11/26/2003 - 12/08/2003 Emergency HX NO MAPPING 12/02/2003 Historical Ophthalmology [facility] Mati Dominguez M.D. 11/05/2003 7:50 PM CDT - 11/07/2003 6:10 PM CDT Hospital Encounter HX [facility] 4D Allergies Active Allergy Reactions Criticality Noted Date Comments Sulfa (Sulfonamide Antibiotics) GI intolerance Low 12/08/2013 Hydroxychloroquine Rash,Other (see comments) High 03/17/2004 Hospitalization Conjugated Estrogens Other (see comments) Medium 09/27/2006 blood clots Amoxicillin Hives (Reselect Reaction) Medium 01/02/2013 Adhesive Tape-Silicones Rash Low 11/27/2003 Latex Rash Medium 07/30/2020 Medications benzonatate (TESSALON PERLES) 100 mg capsule Take 100 mg by mouth as needed. 07/24/19 20 Active buPROPion XL (WELLBUTRIN XL) 150 mg 24 hr tablet Take 150 mg by mouth daily. 05/27/20 19 Active cholecalcifero l (VITAMIN D3) 2,000 Unit tablet Take 2,000 Units by mouth daily. 04/12/20 17 Active DULoxetine (CYMBALTA) [address] capsule Take 60 mg by mouth daily. 05/27/20 19 Active famotidine (PEPCID) 20 mg tablet Take 20 mg by mouth daily. 05/27/20 Active miscellaneous medical supply [facility] As directed. CPAP machine for home use [...] Need: 99 months, Frequency of use: Daily 08/01/19 Active naproxen sodium (ALEVE/ANAPROX ) 220 mg tablet Take 2 tablets by mouth as needed. 05/21/20 09 Active orphenadrine (NORFLEX) 100 mg ER tablet Take 100 mg by mouth as needed. 09/19/19 18 Active potassium chloride (KLORCON/K-TAB ) 10 mEq ER tablet Take 20 mEq by mouth daily. 05/27/20 19 Active CALCIUM CARBONATE-PIPPA MIN D2 ORAL Take by mouth daily. 600 mg-200mg Active RITUXIMAB IV Infuse into a venous catheter. Infusion done once every 4 months. Active rosuvastatin (CRESTOR) 10 mg tablet Take 10 mg by mouth daily. Active triamcinolone (KENALOG) 0.1 % ointment Apply 1 application. topically 3 (three) times a day. 09/23/19 21 Active predniSONE (DELTASONE) 5 mg tablet Take 1 tablet by mouth daily. 07/25/19 23 Active OneTouch Verio test strips 1 strip daily. 07/12/19 23 Active OneTouch Delica Plus Lancet 30 gauge misc 1 application by other route daily. On finger 07/22/19 23 Active metFORMIN XR (GLUCOPHAGE-XR ) 500 mg 24 hr tablet Take 500 mg by mouth daily. 06/17/20 22 Active cranberry 500 mg capsule Take 1 capsule by mouth daily. Active apixaban (ELIQUIS) 5 mg tablet Take 1 tablet (5 mg total) by mouth 2 (two) times a day. Restart this medication on Monday02/22/23 02/21/20 23 Active acetaminophen (TYLENOL) 500 mg tablet Take 2 tablets (1,000 mg total) by mouth every 6 (six) hours as needed for pain. Do not exceed 4000 mg or 4 g in 24 hours. 30 tablet 02/21/20 23 Active tiZANidine (ZANAFLEX) 4 mg tablet Take 4 mg by mouth every 8 (eight) hours as needed. 04/19/20 23 Active lisinopriL (PRINIVIL,ZEST RIL) 20 mg tablet Take 1 tablet (20 mg total) by mouth daily. 90 tablet 3 07/04/19 24 Active carvediloL (COREG) 12.5 mg tablet Take 2 tablets (25 mg total) by mouth 2 (two) times a day. 360 tablet 3 07/04/19 24 Active amLODIPine (NORVASC) 5 mg tablet Take 1 tablet (5 mg total) by mouth daily. 90 tablet 3 07/04/19 24 Active furosemide (LASIX) 20 mg tablet Take 1 tablet (20 mg total) by mouth daily. 90 tablet 3 07/04/19 24 Active NaCl 0.9% parenteral solution with riTUXimab 10 mg/mL concentrate 375 mg/m2 IVPB (Rituxan) Infuse into a venous catheter every 6 (six) months. Active OneTouch Verio Flex meter misc Test 1 times per day.* 06/25/20 24 Active cranberry extract (Theracran) 650 mg capsule Take 1 tablet by mouth daily. Active riTUXimab-abbs (Truxima) 10 mg/mL injection every 6 (six) months. 03/06/20 24 Active vibegron (Gemtesa) 75 mg tablet Take 1 tablet (75 mg total) by mouth daily. 90 tablet 3 08/12/19 25 Active sulfamethoxazo le-trimethopri m (Bactrim DS) 800-160 mg per tabletIndicati ons:Urinary Tract Infection Site Not Specified Take 1 tablet by mouth daily. 30 tablet 2 08/22/19 25 025 Active estradioL (Estrace) 0.1 mg/g (0.01%) vaginal cream Insert 1 g into the vagina 3 (three) times a week. Take 1 g vaginally 3 nights per week. 42.5 g 11 08/30/19 25 Active darifenacin (Enablex) 15 mg 24 hr tablet Take 1 tablet (15 mg total) by mouth daily. 90 tablet 3 09/03/19 25 Active riTUXimab-pvvr (Ruxience) 10 mg/mL injection Infuse 1,000 mg into a venous catheter as directed. Every 2 weeks x2 09/10/19 25 Active ascorbic acid, vitamin C, (Vitamin C) 500 mg tablet Take 1 tablet (500 mg total) by mouth 2 (two) times a day. 10/15/19 25 025 Active triamterene-hy droCHLOROthiaz francesca (MAXZIDE-25) 37.5-25 mg per tablet Take 1 tablet by mouth daily. 05/05/20 09 025 Discontinued(S francesca effects) ascorbic acid, vitamin C, (Vitamin C) 1,000 mg tablet Take 1 tablet (1,000 mg total) by mouth daily. 30 tablet 11 05/15/20 23 025 Discontinued ciprofloxacin (Cipro) 250 mg tabletIndicati ons:Urinary Tract Infection Site Not Specified Take 1 tablet (250 mg total) by mouth 2 (two) times a day before morning and evening meals. 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 Diagnosed with atrial flutter in 12/2019 with tachycardia. Atenolol was increased to 100 mg daily (50 mg twice daily) by Dr. Guy after phone consultation with Dr. Willoughby. He also said we could add Diltiazem CD 120 mg daily if needed to control rate. Patient had an ablation on 07/30/2020 and as far as we know has remained in sinus rhythm ever since. Immunizations Immunization Administration Dates Next Due H1N1 All Forms 06/10/2009 H1N1 Inj 06/10/2009 Influenza TIV (IM) 05/27/2019, 8,05/01/2017,2010,04/02/2010,05/07/2008,05/02/2007,1 07/03/2005 Influenza, Quadrivalent, Adj uvanted, Preservative Free 04/19/2023,03/16/2022,06/09/2021,2019 Influenza, Seasonal, Injectable 04/16/20 11,05/07/2008,05/02/2007,2004,04/12/2004 PCV13 04/25/2016 PPSV23 05/20/2020,04/12/2004 RSV: respiratory syncytial v irus (ABRYSVO) bivalent vaccine 03/13/2023 RZV (SHINGRIX) 07/28/2022,05/27/2022 SARS-COV-2 (COVID-19) - MODE RNA BIVALENT(Discontinued) 02/16/2023(Deferred: Patient Refused - Pt. will receive later locally post recovery.),10/26/2022 Td Preservative Free (TENIVA C, DECAVAC) 05/17/2006 Td, (Adult) Unspecified 05/17/2006 Tdap 05/27/2022,01/11/2011 influenza trivalent high dos e (HD)(PF) 05/02/2024 influenza vaccine quad (FLUZONE/FLUARIX) (6 months and older)(PF) 04/25/2016 Family History Medical History Relation Name Comments Alcohol abuse Father sole birch Arthritis Mother kaelalorenzo birch Breast cancer Mother kaela kamramand Dementia Mother kaela kamiraidaka Hyperlipidemia Mother kaela kamiraidaka Hypertension Mother kaela kaminska Melanoma Mother kaela kaminska Osteoporosis Mother kaelalorenzo birch Relation Name Status Comments Father sole birch Mother kaela birch Social History Smoking Status as of 10/28/2024 Tobacco Use Types Packs/Day Years Used Date Smoking Tobacco: Never Assessed [facility] Utilities Answer Date Recorded In the past 12 months has th e [employer], [employer], oil, or water [employer] threatened to shut off services in your [...] often do you attend chur ch or latter day services? More than 4 times per year 09/07/2022 Do you belong to any clubs o r organizations such as presybeterian groups, unions, fraternal or athletic groups, or [...] and heating? Not hard at all 09/07/2022 [employer] [place] [facility] [employer] [facility] - Occupational Stress [...] your living situation today? I have a [facility] place to live 08/06/2024 Education Answer Date Recorded What is the highest level of school you have completed or the highest degree you have received? Some college, no degree 01/01/2020 Sex and Gender Information Value Date Recorded Sex Assigned at Female 12/26/2019 12:16 PM CDT Legal Sex Female 5:48 AM LINE TENDER Gender Identity Female 12/26/2019 12:16 PM CDT Sexual Orientation Straight 12/26/2019 12 :16 PM CDT Last Filed Vital Signs Vital Sign Reading [...] Mass Index 51.07 10/17/2024 8:02 AM CDT Plan of Treatment Upcoming Encounters Date Type Department Care Team (Late st Contact Info) Description 11/12/2024 11:30 AM CDT Virtual Visit Section of Infectious Diseases in [place], [place] [address] [place] [address] Humaira Keys M.D. [address] [place] [address] Medical Devices Implanted Type Area National Account Representative Device Identifier Shelf Expiration Date Model / Serial / Lot Knee Implant-12/02/19 07 Implanted:06/0 07/2006 (Quantity not on file) Knee Implant Bilatera l: Knee Description:Both knees repla li Procedures Procedure Name Priority Date/Time Associated Diagnosis Comments ECG Routine 10/17/2024 9:11 AM CDT CARDIOVERSION EXTERNAL Routine 8:43 AM CDT Atrial Fibrillation Paroxysmal (HCC) GLUCOSE POCT, B Routine 10/17/2024 8:24 AM CDT ABG AND LYTES EG6+, POCT, B Routine 10/17/2024 8:20 AM CDT ECG Routine 10/17/2024 8:02 AM CDT ECG Routine 10/14/2024 1:47 PM CDT Atrial Fibrillation Paroxysmal (HCC) Cardiac Vascular Disease Screening BASIC METABOLIC PANEL, S/P Routine 10/14/2024 10:33 AM CDT Atrial Fibrillation Paroxysmal (HCC) Cardiac Vascular Disease Screening LIPID PANEL, S Routine 10/14/2024 10:33 AM CDT Atrial Fibrillation Paroxysmal (HCC) Cardiac Vascular Disease Screening CBC WITHOUT DIFFERENTIAL, B Routine 10/14/2024 10:33 AM CDT Atrial Fibrillation Paroxysmal (HCC) Cardiac Vascular Disease Screening HOLTER MONITOR - IN CLINIC BREWING TECHNICIAN Routine 10/11/2024 5:06 AM CDT Atrial Fibrillation Paroxysmal (HCC) Cardiac Vascular Disease Screening NM RES PET RAD - Routine (most inpatients and all outpatients) 09/10/2024 9:15 AM CDT Clinical Research Exam MICROSCOPIC MANUAL Routine 08/12/2024 1:25 PM LINE TENDER PH, U Routine 08/12/2024 1:25 PM LINE TENDER DIPSTICK, U Routine 08/12/2024 1:25 PM LINE TENDER OSMOLALITY, U Routine 08/12/2024 1:25 PM LINE TENDER URINALYSIS WITH MICROSCOPIC Routine 08/12/2024 1:25 PM LINE TENDER Urgency Urinary BACTERIAL CULTURE, AEROBIC + SUSC, URINE Routine 08/12/2024 1:25 PM LINE TENDER Urgency Urinary NM RES PET RAD - Routine (most inpatients and all outpatients) 09/26/2023 9:06 AM CDT Clinical Research Exam MR BRAIN WITHOUT IV CONTRAST RAD - Routine (most inpatients and all outpatients) 09/25/2023 4:20 PM CDT Clinical Research Exam URINALYSIS WITH MICROSCOPIC Routine 07/07/2023 3:08 PM LINE TENDER Dysuria Frequency Urinary Incontinence Urinary BACTERIAL CULTURE, AEROBIC + SUSC, URINE Routine 07/07/2023 3:08 PM LINE TENDER Dysuria Frequency Urinary Incontinence Urinary BACTERIAL CULTURE, AEROBIC + SUSC, URINE Routine 05/11/2023 2:20 PM LINE TENDER Urinary Urge Incontinence Urgency Urinary Dysuria BACTERIAL CULTURE, AEROBIC + SUSC, URINE Routine 04/15/2023 10:41 AM CDT Urinary Urge Incontinence Urgency Urinary BACTERIAL CULTURE, AEROBIC + SUSC, URINE Routine 03/24/2023 2:32 PM CDT Urinary Urge Incontinence FUNGAL CULTURE, ROUTINE Routine 02/20/2023 10:27 AM CDT GLUCOSE POCT, B Routine 02/20/2023 10:01 AM CDT BACTERIAL CULTURE, AEROBIC + SUSC, URINE Routine 02/20/2023 9:05 AM CDT Overactive Bladder Urinary Urge Incontinence AIRWAY MANAGEMENT Routine 02/20/2023 8:34 AM CDT CYSTOSCOPY WITH BOTOX INJECTION 02/20/2023 7:57 AM CDT Overactive Bladder Urinary Urge Incontinence GLUCOSE POCT, B Routine 02/20/2023 6:46 AM CDT HEMOGLOBIN A1C, B Routine 02/10/2023 11:41 AM CDT Preoperative Exam Preprocedural Lab Exam BASIC METABOLIC PANEL, S/P Routine 02/10/2023 11:41 AM CDT Preoperative Exam Preprocedural Lab Exam CBC WITHOUT DIFFERENTIAL, B Routine 02/10/2023 11:41 AM CDT Preoperative Exam Preprocedural Lab Exam CO UROFLOWMETRY CMPLX Routine 02/10/2023 8:15 AM CDT Overactive Bladder Incontinence Urinary Stress And Urge HOLTER MONITOR - IN CLINIC BREWING TECHNICIAN Routine 10/15/2022 7:39 AM CDT Atrial Fibrillation Paroxysmal (HCC) ECG Routine 10/14/2022 1:06 PM CDT Atrial Fibrillation Paroxysmal (HCC) NM RES PET RAD - Routine (most inpatients and all outpatients) 09/15/2022 9:47 AM CDT Clinical Research Exam MR BRAIN WITHOUT IV CONTRAST RAD - Routine (most inpatients and all outpatients) 09/14/2022 4:26 PM CDT Clinical Research Exam ECG Routine 09/13/2022 4:12 PM CDT Atrial Fibrillation Longstanding Persistent (HCC) CBC WITHOUT DIFFERENTIAL, B Routine 09/13/2022 2:39 PM CDT Atrial Fibrillation Longstanding Persistent (HCC) BASIC METABOLIC PANEL, S/P Routine 09/13/2022 2:39 PM CDT Atrial Fibrillation Longstanding Persistent (HCC) DX CHEST AP OR PA AND LATERAL 2 VIEWS RAD - Routine (most inpatients and all outpatients) 09/13/2022 2:34 PM CDT Atrial Fibrillation Longstanding Persistent (HCC) HOLTER MONITOR - IN CLINIC BREWING TECHNICIAN Routine 09/09/2022 5:42 AM LINE TENDER Atrial Fibrillation Longstanding Persistent (HCC) URO UROFLOW Routine 02/10/2022 11:15 AM CDT Infection Urinary Tract Recurrent DIPSTICK, U Routine 02/10/2022 9:01 AM CDT PH, U Routine 02/10/2022 9:01 AM CDT OSMOLALITY, U Routine 02/10/2022 9:01 AM CDT MICROSCOPIC AUTOMATED Routine 02/10/2022 9:01 AM CDT URINALYSIS WITH MICROSCOPIC Routine 02/10/2022 9:01 AM CDT Infection Urinary Tract Acute BACTERIAL CULTURE, AEROBIC + SUSC, URINE Routine 02/10/2022 9:01 AM CDT Infection Urinary Tract Acute NM RES PET RAD - Routine (most inpatients and all outpatients) 04/06/2021 9:58 AM CDT Clinical Research Exam MR BRAIN WITHOUT IV CONTRAST RAD - Routine (most inpatients and all outpatients) 04/05/2021 2:50 PM CDT Clinical Research Exam NM RES PET RAD - Routine (most inpatients and all outpatients) 08/18/2020 1:28 PM LINE TENDER Clinical Research Exam NM RES PET RAD - Routine (most inpatients and all outpatients) 08/18/2020 11:18 AM LINE TENDER Clinical Research Exam MR BRAIN WITHOUT IV CONTRAST RAD - Routine (most inpatients and all outpatients) 08/18/2020 8:46 AM LINE TENDER Clinical Research Exam NM RES PET RAD - Routine (most inpatients and all outpatients) 08/13/2020 9:33 AM LINE TENDER Clinical Research Exam CYTOLOGY NON-FREIGHT BRAKE OPERATOR (SCHEDULED) Routine 02/19/2020 4:[address] UROGRAM WITHOUT AND WITH IV CONTRAST RAD - Routine (most inpatients and all outpatients) 02/12/2020 3:08 PM CDT Microhematuria BACTERIAL CULTURE, AEROBIC + SUSC, URINE Routine 02/12/2020 2:08 PM CDT Microhematuria PROTEINASE 3 ABS, IGG, S Routine 02/12/2020 1:05 PM CDT Microhematuria Arthritis Rheumatoid (HCC) MYELOPEROXIDASE ABS, IGG, S Routine 02/12/2020 1:05 PM CDT Microhematuria Arthritis Rheumatoid (HCC) GLOMERULAR BASEMENT MEMBRANE, ABS, IGG, S Routine 02/12/2020 1:05 PM CDT Microhematuria Arthritis Rheumatoid (HCC) DX HAND BILATERAL 3 VIEWS RAD - Routine (most inpatients and all outpatients) 02/11/2020 1:36 PM CDT Arthritis Rheumatoid (HCC) DX FOOT BILATERAL 3+ VIEWS RAD - Routine (most inpatients and all outpatients) 02/11/2020 1:35 PM CDT Arthritis Rheumatoid (HCC) MICROSCOPIC AUTOMATED Routine 02/11/2020 7:54 AM CDT PROTEIN/CREATININE RATIO, RANDOM, URINE Routine 02/11/2020 7:54 AM CDT Arthritis Rheumatoid (HCC) Elevated Creatinine ALBUMIN, RANDOM, U Routine 02/11/2020 7:54 AM CDT Arthritis Rheumatoid (HCC) Elevated Creatinine URINALYSIS WITH MICROSCOPIC Routine 02/11/2020 7:54 AM CDT Arthritis Rheumatoid (HCC) Elevated Creatinine RENAL FUNCTION PANEL, S Routine 02/11/2020 6:40 AM CDT Arthritis Rheumatoid (HCC) Elevated Creatinine URIC ACID, S/P Routine 02/11/2020 6:40 AM CDT Arthritis Rheumatoid (HCC) Elevated Creatinine IMMUNOGLOBULINS (IGG, IGA, AND IGM), S Routine 02/11/2020 6:38 AM CDT Microhematuria EXT TAPESTRY Routine 02/03/2020 12:00 AM CDT Genetic Susceptibility To Disease EEG ROUTINE - AWAKE AND SLEEP Routine 01/13/2020 3:28 PM CDT Cognitive Disorder HC REF INFECTIOUS AGENT AB KAYLIE NOS Routine 01/13/2020 3:22 PM CDT IGG, S Timed 01/13/2020 11:31 AM CDT SERUM BANDS Timed 01/13/2020 11:31 AM CDT IR LUMBAR PUNCTURE DIAGNOSTIC RAD - Routine (most inpatients and all outpatients) 01/13/2020 11:07 AM CDT Dementia (HCC) MALIGNANT CELLS, CSF Timed 01/13/2020 10:57 AM CDT ALZHEIMER'S DISEASE EVALUATION, CSF Timed 01/13/2020 10:57 AM CDT PROTEIN, TOTAL, CSF Timed 01/13/2020 10:57 AM CDT CSF BANDS Timed 01/13/2020 10:57 AM CDT GLUCOSE, CSF Timed 01/13/2020 10:57 AM CDT DEMENTIA, AUTOIMM/PARANEO, CSF Timed 01/13/2020 10:57 AM CDT IGG INDEX, CSF Timed 01/13/2020 10:57 AM CDT CELL COUNT AND DIFFERENTIAL, CSF Timed 01/13/2020 10:57 AM CDT CRYPTOCOCCUS AG W/REFLEX, LFA, CSF Timed 01/13/2020 10:[address] BRAIN METABOLIC EVALUATION RAD - Routine (most inpatients and all outpatients) 01/06/2020 1:57 PM CDT Major Neurocognitive Disorder Without Behavior Disturbance (HCC) MR BRAIN DEMENTIA WITHOUT IV CONTRAST RAD - Routine (most inpatients and all outpatients) 01/01/2020 2:54 PM CDT Major Neurocognitive Disorder Without Behavior Disturbance (HCC) ANA2 CASCADE, S Routine 01/01/2020 9:35 AM CDT CENTROMERE ABS, IGG, S Routine 0 9:35 AM CDT RIBOSOME P ABS, IGG, S Routine 0 9:35 AM CDT DNA DOUBLE-STRANDED (DSDNA) ABS WITH REFLEX, IGG, S Routine 01/01/2020 9:35 AM CDT AB TO EXTRACTABLE NUCLEAR AG EVAL, S Routine 01/01/2020 9:35 AM CDT PERNICIOUS ANEMIA CASCADE, S Routine 01/01/2020 9:35 AM CDT Cognitive Disorder DEMENTIA, AUTOIMM/PARANEO, SERUM Routine 01/01/2020 9:35 AM CDT Cognitive Disorder CONNECTIVE TISSUE DISEASE CASCADE, SARAH, S Routine 01/01/2020 9:35 AM CDT Cognitive Disorder THYROID-STIMULATING HORMONE-SENSITIVE (S-TSH) Routine 01/01/2020 9:35 AM CDT Cognitive Disorder C-REACTIVE PROTEIN (CRP), S/P Routine 01/01/2020 9:35 AM CDT Cognitive Disorder COMPREHENSIVE METABOLIC PANEL, S/P Routine 01/01/2020 9:35 AM CDT Cognitive Disorder CBC WITHOUT DIFFERENTIAL, B Routine 01/01/2020 9:35 AM CDT Cognitive Disorder DERMATOLOGY IMAGE EXAM Routine 6 12:00 AM LINE TENDER DERMATOLOGY IMAGE EXAM Routine 6 12:00 AM LINE TENDER DERMATOLOGY IMAGE EXAM Routine 6 12:00 AM LINE TENDER DERMATOLOGY IMAGE EXAM Routine 6 12:00 AM LINE TENDER DERMATOPATHOLOGY Routine 06/02/2016 10:26 AM LINE TENDER DX SPINE 1 VIEW Routine 05/05/2009 2:55 PM LINE TENDER DX CERVICAL SPINE 2-3 VIEWS Routine 05/05/2009 2:55 PM LINE TENDER DX SPINE Routine 05/04/2009 12:22 PM LINE TENDER HX HEMATOPATHOLOGY REPORT Routine 02/15/2007 7:48 AM CDT US EXTREMITY VEINS Routine 02/14/2007 3:12 PM CDT NM JOINT SCAN Routine 04/01/2004 2:18 PM CDT PULMONARY FUNCTION TESTS Routine 03/31/2004 1:28 PM CDT BMD BONE DENSITY SPINE HIPS Routine 03/31/2004 1:03 PM CDT DX CHEST AP OR PA AND LATERAL 2 VIEWS Routine 03/30/2004 3:50 PM CDT ECHOCARDIOLOGY IMAGE EXAM Routine 03/30/2004 8:23 AM CDT ECHOCARDIOGRAM Routine 03/30/2004 8:22 AM CDT ECHOCARDIOLOGY IMAGE EXAM Routine 01/16/2004 9:18 AM CDT ECHOCARDIOGRAM Routine 01/16/2004 9:11 AM CDT DERMATOPATHOLOGY Routine 01/11/2004 5:51 PM CDT DERMATOPATHOLOGY Routine 01/09/2004 3:52 PM CDT ECG Routine 01/08/2004 8:23 PM CDT DX CHEST AP OR PA AND LATERAL 2 VIEWS Routine 01/08/2004 7:43 PM CDT DERMATOPATHOLOGY Routine 01/08/2004 7:37 PM CDT DERMATOPATHOLOGY Routine 01/08/2004 7:31 PM CDT DERMATOLOGY IMAGE EXAM Routine 12:00 PM CDT RHEUMATOLOGY IMAGE EXAM Routine 01/08/2004 8:22 AM CDT DX CHEST PORTABLE 1 VIEW Routine 12/04/2003 8:39 PM CDT CHROMOSOMES, HEMATOLOGIC, BM Routine 12/04/2003 2:50 PM CDT CYTOLOGY Routine 12/04/2003 1:12 PM CDT US THORACENTESIS WITH IMAGING GUIDANCE Routine 12/04/2003 10:50 AM CDT HX HEMATOPATHOLOGY REPORT Routine 12/04/2003 7:03 AM CDT DX CHEST PORTABLE 1 VIEW Routine 12/04/2003 5:29 AM CDT ECG Routine 12/04/2003 4:16 AM CDT PREPARE RED BLOOD CELLS Routine 12/03/2003 5:40 PM CDT DX CHEST POSTERIOR ANTERIOR LAT WITH DECUBITUS 4 VIEWS Routine 12/03/2003 2:16 PM CDT ECHOCARDIOLOGY IMAGE EXAM Routine 12/02/2003 8:34 AM CDT ECHOCARDIOGRAM Routine 12/02/2003 8:19 AM CDT NM INFECTION SPECT Routine 12/01/2003 4:54 PM CDT DX CHEST AP OR PA AND LATERAL 2 VIEWS Routine 11/30/2003 9:49 PM CDT ECG Routine 11/30/2003 3:42 PM CDT DX OUTSIDE IMAGE INTERPRETATION Routine 11/28/2003 9:27 AM CDT ECHOCARDIOGRAM Routine 11/27/2003 3:[address] ABDOMEN PELVIS WITH IV CONTRAST Routine 11/27/2003 12:[address] CHEST ANGIOGRAM AND PULMONARY ARTERIES WITH IV CONTRAST Routine 11/27/2003 12:36 PM CDT ECG Routine 11/27/2003 10:42 AM CDT DX HAND UNILATERAL 3+ VIEWS Routine 11/27/2003 8:53 AM CDT DX CHEST AP OR PA AND LATERAL 2 VIEWS Routine 11/26/2003 11:18 PM CDT ECG Routine 11/07/2003 7:01 AM CDT ECG Routine 11/05/2003 11:22 PM CDT Results * ECG 12 Lead (10/17/2024 9:11 AM CDT) Only the most recent of11 resultswithin the time period is included. Ventricular Rate ECG/Min 62 BPM MUSE CO Interval 218 ms MUSE QRSD Interval 118 ms MUSE QT Interval 472 ms MUSE QTC Interval 479 ms MUSE P Meredith 71 degrees MUSE R Meredith -40 degrees MUSE T Wave Meredith 36 degrees MUSE 10/17/2024 9:11 AM CDT [...] criteria reviewed. - Responsible adult along. - Cover Cutter verification completed. CARDIOVERSION INTRA-PROCEDURE - SPECIFICATIONS WRITER/Anesthesiologist present. See anesthesia record. - Emergency equipment [...] on thromboembolic risk as determined by the [id number] Score. For the complete report, see the [...] criteria reviewed. - Responsible adult along. - Cover Cutter verification completed. CARDIOVERSION INTRA-PROCEDURE - SPECIFICATIONS WRITER/Anesthesiologist present. See anesthesia record. - Emergency equipment [...] based on thromboembolic risk as determined bythe [id number] Score. For the complete report, see the Order-Level Documents. us Siddharth Marshall M.D. CV CARDIAC SERVICES PROCED URES Final Result [facility] IVIEW NA * (ABNORMAL) Glucose, POCT (10/17/2024 8:24 AM CDT) Only the most recent of3 resultswithin the time period is included. Glucose, POCT, B 153(H) 70 - 140 mg/dL 10/17/2024 8:28 AM CDT PCLX Blood 10/17/2024 8:24 AM CDT 10/17/2024 8:29 AM CDT us Unknown Provider LAB POCT ORDERABLES-MANUAL Sheyla bueno Result POC [facility] [address] [place] [address], [place] PCLX [facility] [address] [place] [address] * (ABNORMAL) ABG and Lytes EG6, POCT, Blood (10/17/2024 8:20 AM CDT) Sample Site, POCT Venline 10/17/2024 8:24 AM [...] - DEVICE Fi nal Result [facility] [address] [place] [address], [place] [facility] [address] [place] [address] * Lipid Panel (10/14/2024 10:33 AM CDT) [...] M.D. LAB BLOOD ADD-ON Final Res ult Performing Organization Address City/[facility]/ZIP Co de Phone Number [facility] [address] [place] [address], [facility] DTL [facility] [address] [place] [address] * (ABNORMAL) CBC without Differential (10/14/2024 10:33 AM CDT) Only the most recent of4 resultswithin the time period is included. Hemoglobin 12.7 11.6 - 15.0 g/dL 10/14/2024 [...] 10:33 AM CDT 10/14/2024 10:52 AM CDT Siddharth Marshall M.D. LAB BLOOD ADD-ON Final Res ult [facility] [address] [place] [address], [facility] [address] [place] [address] * (ABNORMAL) Basic Metabolic Panel (10/14/2024 10:33 AM CDT) Only the most recent of3 resultswithin the time period is included. Potassium, S 4.0 3.6 - 5.2 mmol/L [...] M.D. LAB BLOOD ADD-ON Final Res ult [facility] [address] [place] [address], [place] [facility] [address] [place] [address] * HOLTER MONITOR - IN CLINIC BREWING TECHNICIAN (10/11/2024 5:06 AM CDT) Only the most recent of3 resultswithin the time period is included. Min Heart Rate 79 bpm INFOB IONIC [...] 19h 11m duration INFOBION IC MOME AF [place] 100 percent INFOBIONIC MOME Longest AF Duration [...] 1%. 3. No symptomatic events were noted. Survey Researcher: MERRICK Feldman Fellow: Floresita MORGANbabita Procedure Note Ej Salazar M.D., Ph.D. - [...] 1%. 3. No symptomatic events were noted. Survey Researcher: MERRICK Feldman Fellow: [facility]ita [facility] Siddharth Marshall M.D. CV CARDIAC SERVICES PROCED URES Final Result REGINALD LITTLEJOHN NA * NM Res PET (09/10/2024 9:15 AM CDT) Only the most recent of7 resultswithin the time period is included. Anatomical Region Laterality Modality Body, Nuclear Medicine PET R ST LOS, Nuclear Medicine ARZ LOS, Nuclear Medicine PET FLA LOS, Nuclear Medicine N/A Nu clear Medicine Impressions 09/10/2024 1:08 PM CDT This exam was conducted as part of a research study. Narrative 09/10/2024 1:08 PM CDT EXAM: [facility] PET RADIOPHARMACEUTICAL/MEDS: Route: intravenous fludeoxyglucose F 18 injection CARE HOME (FDG F-18),7.68 millicurie Subject participated in research study IRB [id number]. Note: research images are stored in Nuclear Medicine No new incidental findings since 09/26/2023. The patient reports no recent vaccinations. Procedure Note August Martinez M.D., Ph.D. - 09/10/2024 EXAM: [facility] PET RADIOPHARMACEUTICAL/MEDS: Route: intravenous fludeoxyglucose F 18 injection CARE HOME (FDG F-18),7.68 millicurie Subject participated in research study IRB [id number]. Note: research images are stored in Nuclear Medicine No new incidental findings since 09/26/2023. The patient reports no recent vaccinations. IMPRESSION: This exam was conducted as part of a research study. Mati Chaves M.D., M.P.H[facility] PROCEDURES F inal Result * (ABNORMAL) Dipstick, Urine (08/12/2024 1:25 PM LINE TENDER) Only the most recent of2 resultswithin the time period is included. Hemoglobin, QL, U Negative Negative 08/12/2024 3:11 PM LINE TENDER DTL Leukocyte Esterase, U Moderate(A) Negative 08/12/2024 3:11 PM LINE TENDER DTL Nitrite, U Negative Negative 08/12/2024 3:11 PM LINE TENDER DTL Ketone, U Negative Negative mg/dL 08/12/2024 3:11 PM LINE TENDER DTL Glucose, U Negative Negative mg/dL 08/12/2024 3:11 PM LINE TENDER DTL Urine 08/12/2024 1:25 PM LINE TENDER 08/12/2024 2:32 PM LINE TENDER Humaira Keys M.D. LAB URINE ORDERABLES Fin al Result Performing Organization Address [facility] de Phone Number [facility] [address] [place] [address], [facility] [address] [place] [address] * (ABNORMAL) Microscopic Manual (08/12/2024 1:25 PM LINE TENDER) Microscopy Abnormal 08/12/2024 4:17 PM LINE TENDER DTL RBC <3 <3 /hpf 08/12/2024 4:17 PM LINE TENDER DTL WBC 21-30(A) /hpf 08/12/2024 4:17 PM LINE TENDER DTL Comment: ----REFERENCE VALUE---- <4 (Males) <11 (Females) Casts, Hyaline Occas /lpf 08/12/2024 4:17 PM LINE TENDER DTL Fat, Free Occas(A) /hpf 08/12/2024 4:17 PM LINE TENDER DTL Bacteria Present(A) 08/12/2024 4:17 PM LINE TENDER DTL Urine 08/12/2024 1:25 PM LINE TENDER 08/12/2024 3:09 PM LINE TENDER Humaira Keys M.D. LAB URINE ORDERABLES Fin al Result Performing Organization Address [facility] de Phone Number [facility] [address] [place] [address], [facility] [address] [place] [address] * (ABNORMAL) Bacterial Culture, Aerobic + Susceptibility, Urine (08/12/2024 1:25 PM LINE TENDER) Only the most recent of8 resultswithin the time period is included. Urine Culture PSEUDOMONAS AERUGINOSA >100,000 cfu/mL (A) 08/16/2024 1:55 PM LINE TENDER DTL Comment: Gentamicin should not be used for P. aeruginosa. There are no gentamicin breakpoints for P. aeruginosa. Urine Culture PSEUDOMONAS AERUGINOSA >100,000 cfu/mL (A) 08/16/2024 1:55 PM LINE TENDER DTL Comment: Gentamicin should not be used for P. aeruginosa. There are no gentamicin breakpoints for P. aeruginosa. Urine (Urine, Straight Catheter) 08/12/2024 1:25 PM LINE TENDER 08/12/2024 3:17 PM LINE TENDER Comment:Specimen Source Site : Urine Narrative Organism Antibiotic Method Susceptibility Pseudomonas aeruginosa Meropenem SUSCEPTIB ILITY, ALEXX (MCG/ML) 1 mcg/mL: Susceptible Pseudomonas aeruginosa Piperacillin + Tazobactam SUSCEPTIBILITY, ALEXX (MCG/ML) <=8/4 mcg/mL: Susceptible Pseudomonas aeruginosa Ciprofloxacin SUSCEPTIB ILITY, ALEXX (MCG/ML) 1 mcg/mL: Intermediate Pseudomonas aeruginosa Levofloxacin SUSCEPTIB ILITY, ALEXX (MCG/ML) 2 mcg/mL: Intermediate Pseudomonas aeruginosa Ceftazidime SUSCEPTIB ILITY, ALEXX (MCG/ML) <=4 mcg/mL: Susceptible Pseudomonas aeruginosa Cefepime SUSCEPTIB ILITY, ALEXX (MCG/ML) <=2 mcg/mL: Susceptible Pseudomonas aeruginosa Amikacin SUSCEPTIB ILITY, ALEXX (MCG/ML) <=4 mcg/mL: Susceptible Pseudomonas aeruginosa Tobramycin SUSCEPTIB ILITY, ALEXX (MCG/ML) <=1 mcg/mL: Susceptible Pseudomonas aeruginosa Aztreonam SUSCEPTIB ILITY, ALEXX (MCG/ML) <=4 mcg/mL: Susceptible Pseudomonas aeruginosa Meropenem SUSCEPTIB ILITY, ALEXX (MCG/ML) 1 mcg/mL: Susceptible Pseudomonas aeruginosa Piperacillin + Tazobactam SUSCEPTIBILITY, ALEXX (MCG/ML) <=8/4 mcg/mL: Susceptible Pseudomonas aeruginosa Ciprofloxacin SUSCEPTIB ILITY, ALEXX (MCG/ML) 0.5 mcg/mL: Susceptible Pseudomonas aeruginosa Levofloxacin SUSCEPTIB ILITY, ALEXX (MCG/ML) 1 mcg/mL: Susceptible Pseudomonas aeruginosa Ceftazidime SUSCEPTIB ILITY, ALEXX (MCG/ML) <=4 mcg/mL: Susceptible Pseudomonas aeruginosa Cefepime SUSCEPTIB ILITY, ALEXX (MCG/ML) <=2 mcg/mL: Susceptible Pseudomonas aeruginosa Amikacin SUSCEPTIB ILITY, ALEXX (MCG/ML) 8 mcg/mL: Susceptible Pseudomonas aeruginosa Tobramycin SUSCEPTIB ILITY, ALEXX (MCG/ML) <=1 mcg/mL: Susceptible Pseudomonas aeruginosa Aztreonam SUSCEPTIB ILITY, ALEXX (MCG/ML) <=4 mcg/mL: Susceptible us Humaira Keys M.D. LAB MICROBIOLOGY - GENER AL ORDERABLES Final Result Performing Organization Address [facility] Co de Phone Number [facility] [address] [place] [address], [facility] [address] [place] [address] * pH, Urine (08/12/2024 1:25 PM LINE TENDER) Only the most recent of2 resultswithin the time period is included. pH, U 6.7 4.5 - 8.0 08/12/2024 4:3 1 PM LINE TENDER DTL Urine 08/12/2024 1:25 PM LINE TENDER 08/12/2024 2:32 PM LINE TENDER Humaira Keys M.D. LAB URINE ORDERABLES Fin al Result Performing Organization Address City/[facility] Co de Phone Number [facility] [address] [place] [address], [facility] [address] [place] [address] * Osmolality, Urine (08/12/2024 1:25 PM LINE TENDER) Only the most recent of2 resultswithin the time period is included. Osmolality, U 406 150 - 1150 mOsm/kg 08/12/2024 4:31 PM LINE TENDER DTL Urine 08/12/2024 1:25 PM LINE TENDER 08/12/2024 2:32 PM LINE TENDER Humaira Keys M.D. LAB URINE ORDERABLES Fin al Result Performing Organization Address City/[facility] Co de Phone Number [facility] [address] [place] [address], [facility] [address] [place] [address] * (ABNORMAL) Urinalysis, with Microscopic: Urine, Straight Catheter (08/12/2024 1:25 PM LINE TENDER) Only the most recent of4 resultswithin the time period is included. Source Urine, Urine, Straight Catheter 08/12/2024 2:32 PM LINE TENDER DTL Color, U Yellow 08/12/2024 2:32 PM LINE TENDER DTL Clarity, U Clear 08/12/2024 2:32 PM LINE TENDER DTL Protein, U 17 <26 mg/dL 08/12/2024 3:18 PM LINE TENDER DTL Protein/Osmola lity 0.42(H) <0.42 ratio 08/12/2024 4:31 PM LINE TENDER DTL Predicted 24 HR Protein, U 303(H) <229 mg/24 h 08/12/2024 4:31 PM LINE TENDER DTL Predicted Range 75-1229 mg/24 h 08/12/2024 4:31 PM LINE TENDER DTL Comment Micro done on <2.5 mL 08/12/2024 4:12 PM LINE TENDER DTL Urine (Urine, Straight Catheter) 08/12/2024 1:25 PM LINE TENDER 08/12/2024 2:32 PM LINE TENDER us Humaira Keys M.D. LAB URINE ORDERABLES Fin al Result [facility] [address] [place] [address], [facility] [address] [place] [address] * MR Brain without IV Contrast (09/25/2023 4:20 PM CDT) Only the most recent of4 resultswithin the time period is included. Anatomical Region Laterality Modality Head, Brain, Neuroradiology RST LOS, Neuroradiology ARZ LOS, Neuroradiology FLA LOS N/A Magnetic Resonance Impressions 09/26/2023 11:33 AM CDT No change. No acute intracranial findings. Narrative 09/26/2023 11:33 AM CDT EXAM: MR BRAIN WITHOUT IV CONTRAST COMPARISON: Head MRI 09/14/2022 FINDINGS: Head MRI performed for research purposes according to IRB [id number]. Moderate generalized cerebral and cerebellar parenchymal volume loss. Partially empty sella, typically of doubtful clinical significance. Moderate hippocampal atrophy. Ex vacuo dilatation of the ventricular system. Mild leukoaraiosis. No acute infarcts. Procedure Note Toña Solomon M.D. - 09/26/2023 EXAM: MR BRAIN WITHOUT IV CONTRAST COMPARISON: Head MRI 09/14/2022 FINDINGS: Head MRI performed for research purposes according to IRB [id number]. Moderate generalized cerebral and cerebellar parenchymal volumeloss. Partially empty sella, typically of doubtful clinical significance.Moderate hippocampal atrophy. Ex vacuo dilatation of the ventricular system. Mild leukoaraiosis. No acuteinfarcts. IMPRESSION: No change. No acute intracranial findings. us Henrry Lewis M.D. IMG MRI PROCEDURES F inal Result * Fungal Culture, Routine (02/20/2023 10:27 AM CDT) Fungal Culture, Routine No growth after 24 days of incubation. 03/16/2023 1:01 PM CDT DTL Urine, Straight Catheter 02/20/2023 10:27 AM CDT 02/20/2023 10:27 AM CDT Comment:Specimen Source Site : Urine Mati Garcia M.D. LAB MICROBIOLOGY - GENERAL O RDERABLES Final Result [facility] [address] [place] [address], [facility] [address] [place] [address] * Airway (02/20/2023 8:34 AM CDT) Narrative Milagros Gambino D.O. - 02/20/2023 8:34 AM CDT Milagros Gambino D.O. 02/20/2023 8:43 AM Airway Date/Time: 02/20/2023 8:34 AM Performed by: Milagros Gambino D.O. Authorized by: Avery Ruiz M.D. Patient location during procedure: OR / Procedure Area PROCEDURE DETAILS: Mask difficulty assessment: oral/nasal airway needed Final airway type: video laryngoscope Laryngeal Manipulation: no Final best view of glottic structures - Cormack/Lehane Score: grade 1 ETT location: oral VL device: glide scope [place] scope blade size: 3 Tube size: 7 ETT distance at teeth/gum: 21 Oral tube type: standard ETT Cuffed: yes Number of attempt to successful placement: 1 Airway confirmation: bilateral breath sounds, positive ETCO2 and bilateral chest rise Other previous techniques attempted: none PRE PROCEDURE DETAILS: Pre evaluation for airway management: procedure Urgency: elective Preop assessment of probable difficulty: questionable / suspicious difficult airway Preoxygenation: bag valve mask SEDATION / ANESTHESIA Anesthesia method: anesthesia POST PROCEDURE DETAILS: Procedure outcome: successful Airway event: no complications us Avery Ruiz M.D. ANESTHESIA ORDERABLES Sheyla bueno Result * Hemoglobin A1c (02/10/2023 11:41 AM CDT) Hemoglobin A1c, B 5.6 4.0 - 5.6 % 02/10/2023 12:43 PM CDT DTL Blood (Blood, Venous) 02/10/2023 11:41 AM CDT 02/10/2023 12:11 PM CDT Mati Garcia M.D. LAB BLOOD ADD-ON Final Resul t [facility] [address] [place] [address], [facility] [address] [place] [address] * CO UROFLOWMETRY CMPLX (02/10/2023 8:15 AM CDT) Narrative Mati Garcia M.D. - 02/10/2023 8:15 AM CDT Mati Garcia M.D. 02/10/2023 11:10 AM OBG Urodynamic Studies Performed by: Mati Garcia M.D. Authorized by: Mati Garcia M.D. Care team members present 1. Maria Fernanda Root R.N. PROCEDURE DETAILS: Procedures: Uroflow Equipment used: calibrated electronically Cough stress test: positive Flow pattern comment: Continuous fluctuating flow pattern, Q max 17 Interpretation: normal Uroflow voided volume (mL): 225 Uroflow post-void residual (mL): 0 Uroflow postvoid residual measured by: ultrasound Uroflow: normal Cystometry: stress urinary incontinence The following procedures were performed during this urodynamic study: Simple uroflow CONSENT Consent obtained: verbal Consent given by: patient The benefits, risks and alternatives to the procedure and the potential need for sedation or anesthesia as well as the names, roles, and responsibilities of healthcare team members performing significant interventional tasks were discussed with the patient and/or decision maker. [employer] All relevant documentation and testing were reviewed and available. All required blood products, implants, devices and or special equipment were made available as applicable. Pre-procedure verification was conducted and the correct site was marked if required. A fire risk assessment was done as applicable. The procedural time-out to verify correct patient, correct side/site, and procedure was conducted prior to performing the procedure and confirmed in a procedural pause. PRE-PROCEDURE DETAILS: Indications: overactive bladder and urinary incontinence Appropriate hand hygiene, gown, cap, mask, protective eyewear, sterile gloves, skin preparation, sterile drape, and strict aseptic technique were utilized as applicable for the procedure.: yes SEDATION / ANESTHESIA Anesthesia method: none POST-PROCEDURE DETAILS Procedure completed successfully: yes Complications: no apparent complications us Mati Garcia M.D. OB GYNE ORDERABLES Final Res ult * DX Chest AP or PA and Lateral 2 Views (09/13/2022 2:34 PM CDT) Only the most recent of5 resultswithin the time period is included. Anatomical Region Laterality Modality Chest, Thoracic RST LOS, Tho racic ARZ LOS, Thoracic FLA LOS N/A Digital Radiography 09/13/2022 2:52 PM CDT Impressions 09/13/2022 3:04 PM CDT Since radiograph 03/30/2004, mildly increased right basilar linear airspace opacities, likely representing atelectasis. Prominent cardiac silhouette. Pulmonary vascular congestion. No significant pleural effusion. Surgical clips right upper quadrant abdomen. Aortic calcifications. Narrative 09/13/2022 3:04 PM CDT EXAM: DX CHEST AP OR PA AND LATERAL 2 VIEWS Procedure Note Cristopher Malagon M.D. - 09/13/2022 EXAM: DX CHEST AP OR PA AND LATERAL 2 VIEWS IMPRESSION: Since radiograph 03/30/2004, mildly increased right basilar linear airspaceopacities, likely representing atelectasis. Prominent cardiac silhouette. Pulmonaryvascular congestion. No significant pleural effusion. Surgical clips right upper quadrant abdomen.Aortic calcifications. us Siddharth Marshall M.D. IMG DIAGNOSTIC IMAGING PRO CEDURES Final Result * URO Uroflow (02/10/2022 11:15 AM CDT) Narrative Nicholas Ashraf M.D. - 02/10/2022 11:15 AM CDT Nicholas Ashraf M.D. 02/11/2022 10:05 AM REASON FOR VISIT: Uroflow: The patient here for a complex uroflow via calibrated electronic equipment and a residual urine check by ultrasound. FINDINGS: Peak flow 22 ml/sec Average flow 11 ml/sec Total voided volume 274 mls Residual urine 0 ml by ultrasound Detrusor flow pattern IMPRESSION: Normal bladder capacity with good Q max and low postvoid residual. This is a normal variant uroflow us Cristal Galdamez APRN, C.N.P., D.N.P. UROLOGY OR DERABLES Final Result * (ABNORMAL) Microscopic Automated (02/10/2022 9:01 AM CDT) Only the most recent of2 resultswithin the time period is included. Microscopy Abnormal 02/10/2022 9:59 AM CDT DTL RBC 3-10(A) <3 /hpf 02/10/2022 9:59 AM CDT DTL Dysmorphic RBC <25 <25 % 02/10/2022 9:59 AM CDT DTL WBC 1-3 /hpf 02/10/2022 9:59 AM CDT DTL Comment: ----REFERENCE VALUE---- 1-3 (Males) 1-10 (Females) Squamous Epithelial Cells, U 1-3 /hpf 02/10/2022 9:59 AM CDT DTL Urine 02/10/2022 9:01 AM CDT 02/10/2022 9:23 AM CDT Cristal Galdamze APRN, C.N.P., D.N.P. LAB URINE ORDERABLES Final Result Performing Organization Address [facility] Co de Phone Number [facility] [address] [facility] [address] [place] [address] * Cytology Non-FREIGHT BRAKE OPERATOR (Scheduled) (02/19/2020 4:28 PM CDT) 02/20/2020 3:08 PM CDT DTL Report electronically signed by Chico Brower M.D. [id number] I verify that I have examined all relevant slides/materia ls for the specimen(s) and rendered or confirmed the diagnosis. 02/20/2020 3:08 PM CDT DTL Gross Description Received 70 cc of cloudy yellow fluid. 02/20/2020 3:08 PM CDT DTL Source A. Urine, Midstream, voided 02/20/2020 3:08 PM CDT DTL Interpretation A. Urine, Midstream, voided (ThinPrep): Negative for High-Grade Urothelial Carcinoma. 02/20/2020 3:08 PM CDT DTL Varies 02/19/2020 4:28 PM CDT 02/19/2020 5:39 PM CDT Mateo Eckert M.D., Ph.D. LAB SURG PATH ORDERAB LES Final Result Performing Organization Address [facility]/ZIP Co de Phone Number [facility] [address] [place] [address], [facility] [address] [place] [address] * CT Urogram without and with IV Contrast (02/12/2020 3:08 PM CDT) Anatomical Region Laterality Modality Abdomen, Pelvis, Abdominal R ST LOS, Abdominal ARZ LOS, Abdominal FLA LOS N/A Computed Tomograp hy, Computed Tomography 02/12/2020 4:37 PM CDT Impressions 02/12/2020 5:[address] findings to account for the patient's hematuria. 2. Slightly enlarging, mildly prominent upper abdominal and retroperitoneal lymph nodes, indeterminate. Narrative 02/12/2020 5:26 PM CDT EXAM: CT UROGRAM WITHOUT AND WITH IV CONTRAST. COMPARISON: CT dated 11/27/2003. FINDINGS: No urinary calculi identified. Small bilateral renal cysts. No suspicious masses seen in the kidneys. The renal collecting systems and ureters are normal. Minimally trabeculated urinary bladder wall without suspicious masses. Small hiatal hernia. Suggestion of mild hepatic steatosis. No suspicious masses seen in the liver. Mildly prominent extrahepatic duct measuring 1.2 cm in maximal diameter. Cholecystectomy. The spleen, pancreas, and adrenal glands are unremarkable. A few prominent retroperitoneal and upper abdominal lymph nodes, slightly enlarged since the CT dated 11/27/2003. These include 1.1 cm lymph node near the SMA origin (series 5 image 50), 1.2 cm aortocaval lymph node at the level of the right renal hilum (series 5 image 67), and 1.1 cm precaval lymph node immediately above the aortic bifurcation (series 5 image 81). Normal caliber small and large bowel. Hysterectomy. Mild scattered arterial calcifications. Degenerative changes of the spine with degenerative disc disease. Minimal atelectasis or scarring in the lung bases. Mitral annulus calcification. Procedure Note Soumya Langley M.D., Ph.D. - 02/12/2020 EXAM: CT UROGRAM WITHOUT AND WITH IV CONTRAST. COMPARISON: CT dated 11/27/2003. FINDINGS: No urinary calculi identified. Small bilateral renal cysts.No suspicious masses seen in the kidneys. The renal collecting systems andureters are normal. Minimally trabeculated urinary bladder wall withoutsuspicious masses. Small hiatal hernia. Suggestion of mild hepatic steatosis. No suspiciousmasses seen in the liver. Mildly prominent extrahepatic duct measuring 1.2 cmin maximal diameter. Cholecystectomy. The spleen, pancreas, and adrenalglands are unremarkable. A few prominent retroperitoneal and upper abdominal lymph nodes,slightly enlarged since the CT dated 11/27/2003. These include 1.1 cm lymph nodenear the SMA origin (series 5 image 50), 1.2 cm aortocaval lymph node at the levelof the right renal hilum (series 5 image 67), and 1.1 cm precaval lymph node immediately above the aortic bifurcation (series 5 image 81). Normal caliber small and large bowel. Hysterectomy. Mild scatteredarterial calcifications. Degenerative changes of the spine with degenerative disc disease. Minimal atelectasis or scarring in the lung bases. Mitralannulus calcification. IMPRESSION: 1. No CT findings to account for the patient's hematuria. 2. Slightly enlarging, mildly prominent upper abdominal andretroperitoneal lymph nodes, indeterminate. Result [facility] us Mateo Eckert M.D., Ph.D. IMG CT PROCEDURES Fin al Result * Proteinase 3 Antibodies, IgG (02/12/2020 1:05 PM CDT) Proteinase 3 Ab (PR3), S <0.2 <0.4 (Negative) U 02/13/2020 9:18 AM CDT [facility] Blood (Blood, Venous) 02/12/2020 1:05 PM CDT 02/13/2020 7:00 AM CDT Result [facility] Mateo Eckert M.D., Ph.D. LAB BLOOD ADD-ON Sheyla l Result [facility] [address] [place] [address] [facility] Dept. of Laboratory Medicine and Pathology [address] [place] [address] * Myeloperoxidase Antibodies, IgG (02/12/2020 1:05 PM CDT) Myeloperoxidase Ab, S <0.2 <0.4 (Negative ) U 02/13/2020 9:18 AM CDT [facility] Blood (Blood, Venous) 02/12/2020 1:05 PM CDT 02/13/2020 7:00 AM CDT Result [facility] us Mateo Eckert M.D., Ph.D. LAB BLOOD ADD-ON Sheyla l Result Performing Organization Address City/[facility]/ZIP Co de Phone Number [address] [place] [address] [facility] Dept. of Laboratory Medicine and Pathology [address] [place] [address] [place] [address] * Glomerular Basement Membrane Antibodies, IgG (02/12/2020 1:05 PM CDT) Glomerular Basement Membrane IgG Ab <0.2 <1.0 (Negative) U 02/13/2020 9:18 AM CDT [facility] Blood (Blood, Venous) 02/12/2020 1:05 PM CDT 02/13/2020 7:00 AM CDT us Mateo Eckert M.D., Ph.D. LAB BLOOD ADD-ON Sheyla l Result Performing Organization Address [facility] Co de Phone Number [address] [place], [place] [address] [place] [address] Dept. of Laboratory Medicine and Pathology [address] [place] [address] [place] [address] * DX Hand Bilateral 3 Views (02/11/2020 1:36 PM CDT) Anatomical Region Laterality Modality Upper Extremity, Hand, Muscu loskeletal RST LOS, Musculoskeletal ARZ LOS, Muskuloskeletal FLA LOS Bilateral Compu heeln Radiography 02/11/2020 2:18 PM CDT Impressions 02/11/2020 2:19 PM CDT Degenerative arthritis both hands and wrists, greatest at the 1st [facility]MC and multiple IP joints. Ulnar minus variance. No definite erosions. Narrative 02/11/2020 2:19 PM CDT EXAM: DX HAND BILATERAL 3 VIEWS Procedure Note Neda Cm M.D. - 02/11/2020 EXAM: DX HAND BILATERAL 3 VIEWS IMPRESSION: Degenerative arthritis both hands and wrists, greatest at the 1st [facility] and multiple IP joints. Ulnar minus variance. No definite erosions. us Ej Shah M.D. 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 No periarticular erosions. Calcaneal spurs. Scattered soft tissue swelling. Narrative 02/11/2020 2:19 PM CDT EXAM: DX FOOT BILATERAL 3+ VIEWS Procedure Note Martine Dick M.D. 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 No periarticular erosions. Calcaneal spurs. Scattered soft tissue swelling. Ej Shah M.D. IM DIAGNOSTIC IMAGING [facility] Final Result * (ABNORMAL) Albumin, Random, Urine (02/11/2020 7:54 AM CDT) Albumin, Random, U 30.2 mg/L 2019 8:30 AM CDT MYLES Comment: ----ADDITIONAL INFORMATION---- This test has been modified from the hospital mortician's instructions. Its performance characteristics were determined by [facility] in a manner consistent with CLIA requirements. This test has not been cleared or approved by the U.S. Food and Drug Administration. Creatinine 40 mg/dL 02/11/2020 8:30 AM CDT MYLES Albumin/Creatinine Ratio 76(H) <25 mg/g 02/11/2020 8:30 AM CDT MYLES Urine (Urine, Clean Catch) 02/11/2020 7:54 AM CDT 02/11/2020 7:54 AM CDT Henrry Lewis M.D. LAB URINE ORDERABLES Final Result Performing Organization Address [facility] Co de Phone Number [facility] [address] [place] [address], [facility] [address] [place] [address] * (ABNORMAL) Protein/Creatinine Ratio, Random, Urine (02/11/2020 7:54 AM CDT) Protein, Total, Random, U 11 mg/dL 02/11/2020 8:30 AM CDT MYLES Comment: ----ADDITIONAL INFORMATION---- On 12/27/2016 the total protein assay method changed resulting in approximately a 15% increase in protein values. Creatinine Concentration 40 mg/dL 02/11/2020 8:30 AM CDT MYLES Protein/Creatinine Ratio 0.28(H) <0.18 mg/mg 02/11/2020 8:30 AM CDT MYLES Comment: ----ADDITIONAL INFORMATION---- On 12/27/2016 the total protein assay method changed resulting in approximately a 15% increase in protein values. Urine (Urine, Clean Catch) 02/11/2020 7:54 AM CDT 02/11/2020 7:54 AM CDT Henrry Lewis M.D. LAB URINE ORDERABLES Final Result Performing Organization Address [facility] Co de Phone Number [facility] [address] [place] [address], [facility] [address] [place] [address] * (ABNORMAL) Renal Function Panel (02/11/2020 6:40 AM CDT) Potassium, S 4.0 3.6 - 5.2 mmol/L 02/11/2020 7:48 AM CDT DTL Sodium, S 138 135 - 145 mmol/L 02/11/2020 7:48 AM CDT DTL Chloride, S 98 98 - 107 mmol/L 02/11/2020 7:48 AM CDT DTL Bicarbonate, S 29 22 - 29 mmol/L 02/11/2020 7:48 AM CDT DTL Anion Gap 11 7 - 15 02/11/2020 7:48 AM CDT DTL BUN (Blood Urea Nitrogen), S 20 6 - 21 mg/dL 02/11/2020 7:48 AM CDT DTL Creatinine 0.96 0.59 - 1.04 mg/dL 02/11/2020 7:48 AM CDT DTL eGFR-Non Black/ 59(L) >=60 mL/min/BSA 02/11/2020 7:48 AM CDT DTL Comment: ----ADDITIONAL INFORMATION---- Estimated GFR calculated using the 2009 CKD_EPI creatinine equation. eGFR-Black/Afri can Argentine 68 >=60 mL/min/BSA 02/11/2020 7:48 AM CDT DTL Comment: ----ADDITIONAL INFORMATION---- Estimated GFR calculated using the 2009 CKD_EPI creatinine equation. Calcium, Total, S 9.4 8.8 - 10.2 mg/dL 02/11/2020 7:48 AM CDT DTL Glucose, S 154(H) 70 - 140 mg/dL 02/11/2020 7:48 AM CDT DTL Albumin, S 3.8 3.5 - 5.0 g/dL 02/11/2020 7:48 AM CDT DTL Phosphorus (Inorganic), S 3.8 2.5 - 4.5 mg/dL 02/11/2020 7:48 AM CDT DTL Blood (Blood, Venous) 02/11/2020 6:40 AM CDT 02/11/2020 7:27 AM CDT Henrry Lewis M.D. LAB BLOOD ADD-ON Fin al Result [facility] [address] [place] [address], [facility] [address] [place] [address] * Uric Acid (02/11/2020 6:40 AM CDT) Uric Acid, S 4.2 2.7 - 6.1 mg/dL 02/11/2020 7:48 AM CDT DTL Blood (Blood, Venous) 02/11/2020 6:40 AM CDT 02/11/2020 7:27 AM CDT Henrry Lewis M.D. LAB BLOOD ADD-ON Fin al Result [facility] [address] [place] [address], [facility] DTL [facility] [address] [place] [address] * (ABNORMAL) Immunoglobulins (IgG, IgA, and IgM) (02/11/2020 6:38 AM CDT) Immunoglobulin A (IgA), S 491(H) 61 - 356 mg/dL 02/12/2020 10:52 AM CDT SDS Immunoglobulin M (IgM), S 62 37 - 286 mg/dL 02/12/2020 10:51 AM CDT SDS Immunoglobulin G (IgG), S 1560 767 - 1590 mg/dL 02/12/2020 10:51 AM CDT [facility] Blood (Blood, Venous) 02/11/2020 6:38 AM CDT 02/12/2020 6:51 AM CDT Mateo Eckert M.D., Ph.D. LAB BLOOD ADD-ON Sheyla l Result Performing Organization Address City/[facility]/ZIP Co de Phone Number [facility] [address] [place] [address] [facility] Dept. of Laboratory Medicine and Pathology [address] [place] [address] * EXT Tapestry (02/03/2020 12:00 AM CDT) Gene Studied BRCA1,BRCA2,MLH1,MSH 2,MSH 6,PMS2,EPCAM,APOB,LDLR,LD LRAP1,PCSK9 1 12:00 AM LINE TENDER JACKIE Genetic Disease Assessed Evaluation of 11 genes associated with Hereditary Breast and Ovarian Cancer, Hardy Syndrome and Familial Hypercholesterolemia. 12:00 AM LINE TENDER JACKIE Genetic Analysis Overall Interpretation Negative results through Tapestry do not replace diagnostic testing for patients with a personal or family history of cancer/hypercholesterolem ia due to limitations with methodology. Consider a referral to a genetic counselor for diagnostic testing if warranted. 1 12:00 AM JARRET MEJIA Genetic Analysis Report See Tapestry PDF Report No actionable gene changes were detected in the genes that cause Familial Hypercholesterolemia. The genes tested for this condition were APOB, LDLR, LDLRAP1, and PCSK9.No actionable gene changes were detected in the genes that cause Hereditary Breast and Ovarian Cancer. The genes tested for this condition were BRCA1 and BRCA2.No actionable gene changes were detected in the genes that cause Hardy Syndrome. The genes tested for this condition were MLH1, MSH2, MSH6, PMS2 and EPCAM. Clinical confirmation of actionable variants is advised prior to changing your medical care. Genetic counseling is recommended. This test is not intended to diagnose a disease, determine medical treatment, or tell the user anything about their current state of health. This test is intended to provide users with their genetic information to inform lifestyle decisions and conversations with their doctor. Any diagnostic or treatment decisions should be based on testing and/or other information that your healthcare provider determines to be appropriate for you. DNA extracted from your saliva sample was captured and enriched using a custom set of reagents (Hy-Drive Exome+ chemistry). Targeted regions were then sequenced using an Illumina DNA sequencing system. Alignment to a modified version of GRCh38 and variant calling were completed using a customized version of [employer]'s SigmaFlow software, requiring 20x coverage for validated variant calls. The test panel is bioinformatically selected from the [employer]+. Copy Number Variants (CNVs) were called using a proprietary bioinformatics pipeline that compared the coverage profile of your sample with the coverage profiles of a reference set of other samples. [facility] Happlink then analyzed generated variant data for the exons and 10 bp of flanking intronic sequence (and select tagged intronic variants) of the 11 genes included in Cinchcast from the XGIMI Database. The Analytical Range includes single nucleotide variants (SNVs), indels up to 20 bp in length, and CNVs. Note: CNV sensitivity is limited to events that span two or more exons. For genes involved in Familial Hypercholesterolemia, only variants associated with the condition are reported, while variants associated with other phenotypes such as hypobetalipoproteinemia are not included. Some known complex variants like inversion exon 1-7 in the MSH2 gene (Darian inversion) or exons 11-15 of the PMS2 gene are not analyzed or reported. Finally, it is important to note that this assay cannot detect all variants known to increase disease risk. Specifically, there are regions that are not covered, such as deep intronic, promoter, homopolymer regions greater than 7 bp, and untranslated regions. 1 12:00 AM LINE TENDER JACKIE Human Reference Sequence Assembly GRCh38 1 12:00 AM LINE TENDER JACKIE Saliva (Mouth) 02/03/2020 Desmond Diaz M.D. LAB GENETIC TESTIN G Final Result Performing Organization Address [facility] Co de Phone Number [place] [address] [facility], [address] [place] [address], [facility] JACKIE [place] [address] [facility], [address] [place] [address] * EEG routine - awake and sleep (01/13/2020 3:28 PM CDT) Narrative MMODAL - 01/13/2020 4:39 PM CDT Clinical interpretation: During wakefulness and drowsiness the EEG shows mild bilateral temporal background slowing that indicates focal or regional cerebral dysfunction of nonspecific etiology. Sleep was not recorded. No potentially epileptogenic activity is present. Classification: Special study - Short-term video EEG recording. Dysrhythmia grade 1 bilateral temporal. Sleep - unsuccessful. EKG channel - irregular rhythm. Report: The background contained abundant, low to moderate amplitude, symmetric 8-9 Hz posterior regions alpha activity which showed bilateral attenuation with eye opening. There was occasional, low to moderate amplitude 5-7 Hz independent or synchronous left and right temporal theta activity that was accentuated by drowsiness. Hyperventilation was not performed. Photic stimulation elicited abundant, low to moderate amplitude, symmetric posterior driving responses. The patient became drowsy, but did not fall asleep despite an extended recording. An EKG channel showed irregular rhythm, with a rate of 120/min. us Henrry Lewis M.D. NEUROLOGY ORDERABLES Final Result Performing Organization Address [facility] Co de Phone Number MMODAL NA * Misc Peggy'l Prion DPSC (01/13/2020 3:22 PM CDT) Test Name Creutzfeldt- Iván disease (CJD) on CSF b 01/13/2020 3:22 PM CDT PDPS Result SEE COMMENT 02/14/2020 10:19 AM CDT PDPS Comment: For final report, select Lab-Send Out Lab Results hyperlink below. Varies 01/13/2020 3:22 PM CDT 01/13/2020 3:22 PM CDT Henrry Lewis M.D. LAB MISC ORDERABLES Final Result [facility] [address] [place] [address] [place] [address] PD [facility] [address] [place] [address] * (ABNORMAL) IgG (01/13/2020 11:31 AM CDT) Immunoglobulin G (IgG), S 1620(H) 767 - 1590 mg/dL 01/15/2020 3:59 PM CDT [facility] Albumin, S 3480 3200 - 4800 mg/dL 01/15/2020 3:51 PM CDT [facility] IgG/Albumin, S 0.47(H) <=0.40 01/15/2020 3:59 PM CDT [facility] Blood 01/13/2020 11:3 1 AM CDT 01/14/2020 6:58 AM CDT us Henrry Lewis M.D. LAB BLOOD NON ADD-ON Final Result [facility] [address] [place] [address] [facility] Dept. of Laboratory Medicine and Pathology [address] [place] [address] * Oligoclonal Banding Serum (01/13/2020 11:31 AM CDT) Serum Bands 10 bands 01/15/2020 2: 32 PM CDT [facility] Blood 01/13/2020 11:3 1 AM CDT 01/14/2020 6:58 AM CDT us Henrry Lewis M.D. LAB BLOOD NON ADD-ON Final Result [facility] [address] [place] [address] [facility] Dept. of Laboratory Medicine and Pathology [address] [place] [address] * IR Lumbar Puncture Diagnostic (01/13/2020 11:07 AM CDT) Anatomical Region Laterality Modality Lumbar Spine, Neuro Interven tional RST LOS, Neuroradiology ARZ LOS, Vascular Interventional FLA LOS N/A X-Ray Angiography 01/13/2020 12:2 5 PM CDT Impressions 01/13/2020 12:51 PM CDT Successful fluoroscopic-guided lumbar puncture. EP Narrative 01/13/2020 12:51 PM CDT EXAM: IR LUMBAR PUNCTURE DIAGNOSTIC PREPROCEDURE: Patient seen and evaluated. Allergies, pertinent medications, and history reviewed. Discussed risks, benefits, alternatives for procedure, and obtained informed consent. Patient understands information and questions answered. Immediately prior to starting the procedure, in the presence of the assisting personnel, procedural pause was conducted to verify correct patient identity and verification of procedure to be performed, and as applicable, correct side and site, correct patient position, availability of implants, special equipment, or special requirements, and all image and specimen identification data. The roles and responsibilities of care team members, residents, and fellows were discussed. TECHNIQUE: Using sterile technique, local anesthesia with 1% lidocaine and fluoroscopic guidance, a 20 gauge spinal needle was advanced into the subarachnoid space at the L2-L3 level. There was spontaneous return of clear cerebrospinal fluid. 13 mL of cerebrospinal fluid were collected and sent for the requested laboratory analyses. The spinal needle with stylet was removed. POST-PROCEDURE DIAGNOSIS: Fluoroscopic-guided lumbar puncture. COMPLICATION: No immediate complication. BLOOD LOSS: None.. PATIENT INSTRUCTIONS: Bedrest for 30 minutes after the procedure followed by light activity the rest of the day. Patient can resume normal activities as tolerated. Bandage can be removed after 24 hours. Patient may shower at 24 hours following the procedure, but should not soak in water for 5 days. If a post procedure headache develops, lying flat, increased fluids and caffeinated beverages may help. Contact the primary service for headache management. Patient may be dismissed from the radiology department when dismissal criteria met. Procedure Note Chico Reed M.D. - 01/13/2020 EXAM: IR LUMBAR PUNCTURE DIAGNOSTIC PREPROCEDURE: Patient seen and evaluated. Allergies, pertinentmedications, and history reviewed. Discussed risks, benefits, alternatives for procedure,and obtained informed consent. Patient understands information and questions answered. Immediately prior to starting the procedure, in the presence ofthe assisting personnel, procedural pause was conducted to verify correctpatient identity and verification of procedure to be performed, and asapplicable, correct side and site, correct patient position, availability ofimplants, special equipment, or special requirements, and all image and specimen identification data. The roles and responsibilities of care teammembers, residents, and fellows were discussed. TECHNIQUE: Using sterile technique, local anesthesia with 1% lidocaineand fluoroscopic guidance, a 20 gauge spinal needle was advanced into the subarachnoid space at the L2-L3 level. There was spontaneous return ofclear cerebrospinal fluid. 13 mL of cerebrospinal fluid were collected and sentfor the requested laboratory analyses. The spinal needle with stylet wasremoved. POST-PROCEDURE DIAGNOSIS: Fluoroscopic-guided lumbar puncture. COMPLICATION: No immediate complication. BLOOD LOSS: None.. PATIENT INSTRUCTIONS: Bedrest for 30 minutes after the procedure followedby light activity the rest of the day. Patient can resume normal activitiesas tolerated. Bandage can be removed after 24 hours. Patient may shower at 24hours following the procedure, but should not soak in water for 5 days. If apost procedure headache develops, lying flat, increased fluids andcaffeinated beverages may help. Contact the primary service for headache management.Patient may be dismissed from the radiology department when dismissal criteriamet. IMPRESSION: Successful fluoroscopic-guided lumbar puncture. EP us Henrry Lewis M.D. IMG IR PROCEDURES Fi nal Result * Alzheimer???s Disease Evaluation, CSF (01/13/2020 10:57 AM CDT) p-Tau/Abeta42 0.011 <=0.023 ratio 01/14/2020 7:32 PM CDT [facility] Interpretation SEE COMMENT 01/14/2020 7:32 PM CDT [facility] Comment: The normal p-Tau/Abeta42 ratio is not consistent with the presence of pathological changes associated with Alzheimer's disease. The p-Tau/Abeta42 ratio provides better concordance with amyloid Positron Emission Tomography (PET) imaging when compared to Abeta42, phospho-Tau and total-Tau individually. A cut-off of 0.023 provides optimal balance between NPA (negative % agreement) and PPA (positive % agreement) when compared to amyloid PET results. A p-Tau/Abeta42 ratio of <=0.023 has a 92% NPA with normal amyloid PET. A ratio of >0.023 has a 92% PPA with abnormal amyloid PET. Failure to adhere to the sample collection instructions provided in the Lab Test Catalog may result in falsely low Abeta42 concentrations; affecting subsequent interpretations as well as the p-Tau/Abeta42 ratio. Abeta42 1222 >1026 pg/mL 01/14/2020 7:32 PM CDT [facility] Total-Tau 152 <=238 pg/mL 01/14/2020 7:32 PM CDT [facility] Phospho-Tau(181P) 13.9 <=21.7 pg/mL 01/14/2020 7:32 PM CDT [facility] Comment: ----ADDITIONAL INFORMATION---- The testing method is an electrochemiluminescence assay manufactured by [employer] and performed on the Delmer system. Values obtained with different assay methods or kits may be different and cannot be used interchangeably. This test was developed and its performance characteristics determined by [facility] in a manner consistent with CLIA requirements. This test has not been cleared or approved by the U.S. Food and Drug Administration. Cerebrospinal Fluid 01/13/20 10:57 AM CDT 01/13/2020 3:57 PM CDT us Henrry Lewis M.D. LAB BODY FLUIDS AND STOOLS ORDERABLES Final Result [facility] [address] [place] [address] [facility] Dept. of Laboratory Medicine and Pathology [address] [place] [address] * (ABNORMAL) CSF IgG Index (automatically paired with serum) (01/13/2020 10:57 AM CDT) Pathologist [facility] IgG Index, CSF 0.53 <=0.85 01/15/2020 5:16 PM CDT [facility] IgG, CSF 5.2 <=8.1 mg/dL 01/15/2020 5:16 PM CDT [facility] Albumin, CSF 20.6 <=27.0 mg/dL 01/15/2020 3:27 PM CDT [facility] IgG/Albumin, CSF 0.25(H) <=0.21 01/15/2020 5:16 PM CDT [facility] Synthesis Rate, CSF 2.24 <=12 mg/24 h 01/15/2020 5:16 PM CDT [facility] Cerebrospinal Fluid (Cerebrospinal Fluid) 01/13/2020 10:57 AM CDT 01/14/2020 6:58 AM CDT us Henrry Lewis M.D. LAB BODY FLUIDS AND STOOLS ORDERABLES Final Result [facility] [address] [place] [address] [facility] Dept. of Laboratory Medicine and Pathology [address] [place] [address] * Malignant Cells, CSF (01/13/2020 10:57 AM CDT) Pathologist [facility] 01/13/2020 1:39 PM CDT [facility] Report electronically signed by Faustino Lee D.O., M.S. I verify that I have examined all relevant slides/materials for the specimen(s) and rendered or confirmed the diagnosis. 01/13/2020 1:39 PM CDT [facility] Gross Description Received 2 cc of clear fluid. 01/13/2020 1:39 PM CDT [facility] Source Cerebrospinal fluid 01/13/2020 1:39 PM CDT [facility] Clinical History dementia 01/13/20 1:39 PM CDT [facility] Interpretation C. Cerebrospinal , Fluid (cytospin): Negative for malignancy. A Kim-Giemsa stained slide of the fluid is examined. No malignant cells are seen. The specimen is contaminated with peripheral blood. 01/13/2020 1:39 PM CDT [facility] Fluid (Cerebrospinal Fluid) 01/13/2020 10:57 AM CDT 01/13/2020 12:30 PM CDT Henrry Lewis M.D. LAB SURG PATH ORDERA BLES Final Result [facility] [address] [place] [address], [facility] [address] [place] [address] * Cell Count and Differential, CSF (01/13/2020 10:57 AM CDT) Fluid Type CSF 01/13/2020 12:50 PM CDT DHPM CSF Gross Appearance Clear 01/13/2020 12:50 PM CDT [facility] Total Nucleated Cells 1 0 - 5 /mcL 01/13/2020 12:50 PM CDT [facility] Comment: ----ADDITIONAL INFORMATION---- This test has been modified from the hospital mortician's instructions. Its performance characteristics were determined by [facility] in a manner consistent with CLIA requirements. This test has not been cleared or approved by the U.S. Food and Drug Administration. Erythrocytes 251 GT06 /mcL 01/13/2020 12:50 PM CDT [facility] Neutrophils 44 % 01/13/2020 1:05 PM CDT [facility] Comment: ----REFERENCE VALUE---- Adults (2% +/- 4%) Neonates (4% +/- 4%) Lymphocytes 39 % 01/13/2020 1:05 PM CDT [facility] Comment: ----REFERENCE VALUE---- Adult: (60% +/- 20%) Neonates: (20% +/- 15%) Monocytes/Macropha ges 17 % 01/13/2020 1:05 PM CDT DHPM Comment: ----REFERENCE VALUE---- Adult: (30% +/- 15%) Neonates: (70% +/- 20%) Eosinophils 0 GT06 % 01/13/2020 1:05 PM CDT [facility] Basophils 0 GT06 % 01/13/2020 1:05 PM CDT [facility] Other Cells 0 GT06 % 01/13/2020 1:05 PM CDT [facility] Diff Comments 41 cells counted 01/13/2020 1:05 PM CDT DH[facility] Comment SeeComment 01/13/2020 1:05 PM CDT DH[facility] Comment:Cytology concurrentl y ordered; see separate report. Reviewed by: Tech 01/13/2020 1:05 PM CDT [facility] Fluid (Cerebrospinal Fluid) 01/13/2020 10:57 AM CDT 01/13/2020 12:30 PM CDT Henrry Lewis M.D. LAB BODY FLUIDS AND STOOLS ORDERABLES Final Result Performing Organization Address City/[facility]/ZIP Co de Phone Number [facility] [address] [place] [place] [address] * (ABNORMAL) Protein, Total, CSF (01/13/2020 10:57 AM CDT) Protein, Total, CSF 52(H) 0 - 35 mg/dL 01/13/2020 1:05 PM CDT DTL Cerebrospinal Fluid (Cerebrospinal Fluid) 01/13/2020 10:57 AM CDT 01/13/2020 12:11 PM CDT Henrry Lewis M.D. LAB BODY FLUIDS AND STOOLS ORDERABLES Final Result [facility] [address] [place] [address], [place] [address] * Oligoclonal Banding Spinal Fluid (automatically paired with serum) (01/13/2020 10:57 AM CDT) CSF Bands 10 bands 01/15/2020 2:32 PM CDT [facility] CSF Olig Bands Interpretation 0 <4 bands 01/15/2020 2:32 PM CDT [facility] Comment: The oligoclonal band assay detected 3 or fewer unique IgG bands in the CSF. This is a negative result. Cerebrospinal Fluid (Cerebrospinal Fluid) 01/13/2020 10:57 AM CDT 01/14/2020 6:58 AM CDT Henrry Lewis M.D. LAB BODY FLUIDS AND STOOLS ORDERABLES Final Result [facility] [address] [place] [address] [facility] Dept. of Laboratory Medicine and Pathology [address] [place] [address] * Dementia, Autoimmune Evaluation, CSF (01/13/2020 10:57 AM CDT) Dementia, Interpretation, CSF see below 01/20/2020 11:02 AM CDT DTL Comment: No informative autoantibodies were detected in this evaluation. However, a negative result does not exclude autoimmune dementia, idiopathic or paraneoplastic. Sensitivity and specificity of antibody testing are enhanced by testing both serum and CSF. AMPA-R Ab CBA, CSF Negative Negative 2019 4:17 PM CDT DTL Comment: ----ADDITIONAL INFORMATION---- This test was developed and its performance characteristics determined by [facility] in a manner consistent with CLIA requirements. This test has not been cleared or approved by the U.S. Food and Drug Administration. Amphiphysin Ab, CSF Negative <1:2 titer 01/20/2020 11:01 AM CDT DTL Comment: ----ADDITIONAL INFORMATION---- This test was developed and its performance characteristics determined by [facility] in a manner consistent with CLIA requirements. This test has not been cleared or approved by the U.S. Food and Drug Administration. AGNA-1, CSF Negative <1:2 titer 01/20/2020 11:01 AM CDT DTL Comment: ----ADDITIONAL INFORMATION---- This test was developed and its performance characteristics determined by [facility] in a manner consistent with CLIA requirements. This test has not been cleared or approved by the U.S. Food and Drug Administration. DANNY-1, CSF Negative <1:2 titer 01/20/2020 11:01 AM CDT DTL Reflex Added None. 01/20/2020 11:01 AM CDT DTL Comment: ----ADDITIONAL INFORMATION---- This test was developed and its performance characteristics determined by [facility] in a manner consistent with CLIA requirements. This test has not been cleared or approved by the U.S. Food and Drug Administration. DANNY-2, CSF Negative <1:2 titer 01/20/2020 11:01 AM CDT DTL Comment: ----ADDITIONAL INFORMATION---- This test was developed and its performance characteristics determined by [facility] in a manner consistent with CLIA requirements. This test has not been cleared or approved by the U.S. Food and Drug Administration. DANNY-3, CSF Negative <1:2 titer 01/20/2020 11:01 AM CDT DTL Comment: ----ADDITIONAL INFORMATION---- This test was developed and its performance characteristics determined by [facility] in a manner consistent with CLIA requirements. This test has not been cleared or approved by the U.S. Food and Drug Administration. CASPR2-IgG CBA, CSF Negative Negative 01/16/2020 4:17 PM CDT DTL Comment: ----ADDITIONAL INFORMATION---- This test was developed and its performance characteristics determined by [facility] in a manner consistent with CLIA requirements. This test has not been cleared or approved by the U.S. Food and Drug Administration. CRMP-5-IgG, CSF Negative <1:2 titer 0 11:01 AM CDT DTL Comment: ----ADDITIONAL INFORMATION---- This test was developed and its performance characteristics determined by [facility] in a manner consistent with CLIA requirements. This test has not been cleared or approved by the U.S. Food and Drug Administration. DPPX Ab IFA, CSF Negative Negative 01/20/20 20 11:01 AM CDT DTL Comment: ----ADDITIONAL INFORMATION---- This test was developed and its performance characteristics determined by [facility] in a manner consistent with CLIA requirements. This test has not been cleared or approved by the U.S. Food and Drug Administration. CRISTIAN-B-R Ab CBA, CSF Negative Negative 01/16/2020 4:17 PM CDT DTL Comment: ----ADDITIONAL INFORMATION---- This test was developed and its performance characteristics determined by [facility] in a manner consistent with CLIA requirements. This test has not been cleared or approved by the U.S. Food and Drug Administration. GAD65 Ab Assay, CSF 0.00 <=0.02 nmol/L 01/16/2020 9:59 AM CDT DTL Comment: ----ADDITIONAL INFORMATION---- This test was developed and its performance characteristics determined by [facility] in a manner consistent with CLIA requirements. This test has not been cleared or approved by the U.S. Food and Drug Administration. GFAP IFA, CSF Negative Negative 01/20/2020 11:01 AM CDT DTL Comment: ----ADDITIONAL INFORMATION---- This test was developed and its performance characteristics determined by [facility] in a manner consistent with CLIA requirements. This test has not been cleared or approved by the U.S. Food and Drug Administration. IgLON5 IFA, CSF Negative Negative 0 11:01 AM CDT DTL Comment: ----ADDITIONAL INFORMATION---- This test was developed and its performance characteristics determined by [facility] in a manner consistent with CLIA requirements. This test has not been cleared or approved by the U.S. Food and Drug Administration. LGI1-IgG CBA, CSF Negative Negative 020 4:17 PM CDT DTL Comment: ----ADDITIONAL INFORMATION---- This test was developed and its performance characteristics determined by [facility] in a manner consistent with CLIA requirements. This test has not been cleared or approved by the U.S. Food and Drug Administration. mGluR1 Ab IFA, CSF Negative Negative 2019 11:01 AM CDT DTL Comment: ----ADDITIONAL INFORMATION---- This test was developed and its performance characteristics determined by [facility] in a manner consistent with CLIA requirements. This test has not been cleared or approved by the U.S. Food and Drug Administration. NIF IFA, CSF Negative Negative 01/20/2020 11:01 AM CDT DTL Comment: ----ADDITIONAL INFORMATION---- This test was developed and its performance characteristics determined by [facility] in a manner consistent with CLIA requirements. This test has not been cleared or approved by the U.S. Food and Drug Administration. NMDA-R Ab CBA, CSF Negative Negative 2019 4:17 PM CDT DTL Comment: ----ADDITIONAL INFORMATION---- This test was developed and its performance characteristics determined by [facility] in a manner consistent with CLIA requirements. This test has not been cleared or approved by the U.S. Food and Drug Administration. TUBE TEST TECHNICIAN-Tr, CSF Negative <1:2 titer 01/20/2020 11:01 AM CDT DTL Comment: ----ADDITIONAL INFORMATION---- This test was developed and its performance characteristics determined by [facility] in a manner consistent with CLIA requirements. This test has not been cleared or approved by the U.S. Food and Drug Administration. TUBE TEST TECHNICIAN-2, CSF Negative <1:2 titer 01/20/2020 11:01 AM CDT DTL Comment: ----ADDITIONAL INFORMATION---- This test was developed and its performance characteristics determined by [facility] in a manner consistent with CLIA requirements. This test has not been cleared or approved by the U.S. Food and Drug Administration. Cerebrospinal Fluid (Cerebrospinal Fluid) 01/13/2020 10:57 AM CDT 01/13/2020 12:32 PM CDT Henrry Lewis M.D. LAB BODY FLU IDS AND STOOLS ORDERABLES Edited Result - Final [address] [address], [place] [facility] [address] [place] [address] * Cryptococcus Ag w/Reflex, LFA, CSF (01/13/2020 10:57 AM CDT) [facility] Cryptococcus Ag Screen w/Titer, CSF Negative Negative 01/14/2020 12:24 AM CDT [facility] Comment: A single negative result does not exclude the diagnosis of cryptococcosis. ----ADDITIONAL INFORMATION---- This assay was performed using the FDA-cleared IMMY Cryptococcus Antigen Lateral Flow Assay. Cerebrospinal Fluid (Cerebrospinal Fluid) 01/13/2020 10:57 AM CDT 01/13/2020 2:57 PM CDT Henrry Lewis M.D. LAB MICROBIOLOGY - G ENERAL ORDERABLES Final Result Performing Organization Address City/[facility]/ZIP Co de Phone Number [facility] [address] [place] [address] [facility] Dept. of Laboratory Medicine and Pathology [address] [place] [address] * Glucose, CSF (01/13/2020 10:57 AM CDT) Glucose, CSF 66 mg/dL 01/13/2020 1:05 PM CDT DTL Comment: ----REFERENCE VALUE---- CSF glucose concentration should be approximately 60% of the plasma /serum concentration and should be compared with concurrently measured plasma /serum glucose for adequate clinical interpretation. Cerebrospinal Fluid (Cerebrospinal Fluid) 01/13/2020 10:57 AM CDT 01/13/2020 12:11 PM CDT Henrry Lewis M.D. LAB BODY FLUIDS AND STOOLS ORDERABLES Final Result Performing Organization Address [facility] Co de Phone Number [facility] [address] [place] [address], [facility] [address] [place] [address] * PET CT Brain Metabolic (01/06/2020 1:57 PM CDT) Anatomical Region Laterality Modality Brain, Nuclear Medicine PET RST LOS, PET ARZ LOS, Nuclear Medicine PET FLA LOS, Nuclear Medicine N/A Positron Emission Tomography (PET), Positron Emission Tomography (PET) 01/06/2020 2:28 PM CDT Impressions 01/06/2020 2:38 PM CDT 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 Narrative 01/06/2020 2:38 PM CDT EXAM: PET CT BRAIN METABOLIC EVALUATION Finger stick glucose level at the time of the PET scan injection was 142 mg/dL. RADIOPHARMACEUTICAL/MEDS: Route: intravenous fludeoxyglucose F 18 injection [facility] (FDG F-18),12.05 millicurie TECHNIQUE: F18-FDG PET scan of the brain was performed with low dose, unenhanced, nondiagnostic quality CT images for anatomic coregistration and attenuation correction purposes beginning approximately 30 minutes after radiotracer injection. CLINICAL INDICATION AND COMPARISON: Per clinical note dated 01/01/2020, the patient has a history of cognitive decline. Initial treatment strategy. FINDINGS: The examination demonstrates diminished cortical FDG uptake by the frontal lobes and patchy diminished uptake by the temporal and parietal lobes. Findings affect the right cerebral hemisphere more than the left cerebral hemisphere. Noted on low dose, unenhanced, non-diagnostic quality CT: Dense calcification of the left vertebral artery. Cerebral atrophy. Procedure Note Jose Lyons M.D., Ph.D. - 01/06/2020 EXAM: PET CT BRAIN METABOLIC EVALUATION Finger stick glucose level at the time of the PET scan injection was 142 mg/dL. RADIOPHARMACEUTICAL/MEDS: Route: intravenous fludeoxyglucose F 18 injection [facility] (FDG F-18),12.05 millicurie TECHNIQUE: F18-FDG PET scan of the brain was performed with low dose, unenhanced, nondiagnostic quality CT images for anatomic coregistrationand attenuation correction purposes beginning approximately 30 minutes after radiotracer injection. CLINICAL INDICATION AND COMPARISON: Per clinical note dated 01/01/2020,the patient has a history of cognitive decline. Initial treatment strategy. FINDINGS: The examination demonstrates diminished cortical FDG uptake bythe frontal lobes and patchy diminished uptake by the temporal and parietallobes. Findings affect the right cerebral hemisphere more than the leftcerebral hemisphere. Noted on low dose, unenhanced, non-diagnostic quality CT: Densecalcification of the left vertebral artery. Cerebral atrophy. 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 Henrry CASTAÑEDA NM PROCEDURES Fi nal Result * MR Brain Dementia without IV Contrast (01/01/2020 2:54 PM CDT) Anatomical Region Laterality Modality Head, Brain, Neuroradiology RST LOS, Neuroradiology ARZ LOS N/A Magnetic Resonance 01/01/2020 5:08 PM CDT Impressions 01/02/2020 4:50 PM CDT Moderate generalized parenchymal volume loss is age appropriate; however, the quantitative data suggest disproportionate volume loss of the mesial temporal lobes. After discussion with Dr. Lewis, the patient will return for additional head MRI (specifically for post-gadolinium imaging) on 01/06/2020. Narrative 01/02/2020 4:50 PM CDT EXAM: MR BRAIN DEMENTIA WITHOUT IV CONTRAST NO CHARGE for this exam (the patient will return for an MRI without and with IV contrast on 01/06/2020). COMPARISON: None FINDINGS: Moderate generalized parenchymal volume loss is not significantly out of proportion for age. The objective data below suggest disproportionate volume loss of the mesial temporal lobes which is not as apparent subjectively. Age-appropriate slight scattered leukoaraiosis. No restricted diffusion to suggest recent infarct. No hemosiderin deposition. Image post-processing for quantitative segmental volume reporting and assessment was performed on an independent computer time study observer using [employer] software. The clinical indication for performing the post-processing was dementia, altered mental status. Review of the software quality assurance engineer images demonstrates adequate segmentation of the hippocampi. Left hippocampal volume: 2.72cm3 Right hippocampal volume: 2.66cm3 Hippocampal asymmetry index: 2.04% Combined hippocampal volume: 5.38cm3 Combined hippocampal volume age-adjusted percentile: 1 Combined inferior lateral ventricles (temporal horns) volume: 3.07cm3 Combined inferior lateral ventricles (temporal horns) age-adjusted percentile: 84 Procedure Note Billy Hassan M.D. - 01/02/2020 EXAM: MR BRAIN DEMENTIA WITHOUT IV CONTRAST NO CHARGE for this exam (the patient will return for an MRI without andwith IV contrast on 01/06/2020). COMPARISON: None FINDINGS: Moderate generalized parenchymal volume loss is notsignificantly out of proportion for age. The objective data below suggest disproportionatevolume loss of the mesial temporal lobes which is not as apparent subjectively. Age-appropriate slight scattered leukoaraiosis. No restricted diffusionto suggest recent infarct. No hemosiderin deposition. Image post-processing for quantitative segmental volume reporting andassessment was performed on an independent computer time study observer using [employer] software.The clinical indication for performing the post-processing was dementia,altered mental status. Review of the software quality assurance engineer images demonstratesadequate segmentation of the hippocampi. Left hippocampal volume: 2.72cm3 Right hippocampal volume: 2.66cm3 Hippocampal asymmetry index: 2.04% Combined hippocampal volume: 5.38cm3 Combined hippocampal volume age-adjusted percentile: 1 Combined inferior lateral ventricles (temporal horns) volume: 3.07cm3 Combined inferior lateral ventricles (temporal horns) age-adjustedpercentile: 84 IMPRESSION: Moderate generalized parenchymal volume loss is age appropriate; however, the quantitative data suggest disproportionate volume loss ofthe mesial temporal lobes. After discussion with Dr. Lewis, thepatient will return for additional head MRI (specifically for post-gadolinium imaging)on 01/06/2020. us Henrry Lewis M.D. IMG MRI PROCEDURES F inal Result * Pernicious Anemia [place] (01/01/2020 9:35 AM CDT) [facility] Vitamin B12 Assay, S 510 180 - 914 ng/L 01/01/2020 3:19 PM CDT [facility] Blood (Blood, Venous) 01/01/2020 9:35 AM CDT 01/01/2020 1:21 PM CDT Henrry Lewis M.D. LAB BLOOD NON ADD-ON Final Result Performing Organization Address City/[facility]/ZIP Co de Phone Number [facility] [address] [place] [address] [facility] Dept. of Laboratory Medicine and Pathology [address] [place] [address] * DNA Double-Stranded (dsDNA) Antibodies with Reflex, IgG (01/01/2020 9:35 AM CDT) [facility] DNA Double-Stranded AB, IgG, S 17.7 <30.0 (Negative) IU/mL 01/02/2020 7:02 PM CDT [facility] Comment: Negative for dsDNA antibody by enzyme immunoassay. No further testing recommended. Blood 01/01/2020 9:35 AM CDT 01/01/2020 10:40 PM CDT us Henrry Lewis M.D. LAB BLOOD ADD-ON Fin al Result [facility] [address] [place] [address] [facility] Dept. of Laboratory Medicine and Pathology [address] [place] [address] * Dementia, Autoimmune Evaluation (01/01/2020 9:35 AM CDT) Dementia, Interpretation, S see below 01/10/2020 8:54 AM CDT DTL Comment: No informative autoantibodies were detected in this evaluation. However, a negative result does not exclude autoimmune dementia, idiopathic or paraneoplastic. Sensitivity and specificity of antibody testing are enhanced by testing both serum and CSF. AChR Ganglionic Neuronal Ab, S 0.00 <=0.02 nmol/L 01/05/2020 12:47 PM CDT DTL Comment: ----ADDITIONAL INFORMATION---- This test was developed and its performance characteristics determined by [facility] in a manner consistent with CLIA requirements. This test has not been cleared or approved by the U.S. Food and Drug Administration. AMPA-R Ab CBA, S Negative Negative 01/03/20 20 6:55 PM CDT DTL Comment: ----ADDITIONAL INFORMATION---- This test was developed and its performance characteristics determined by [facility] in a manner consistent with CLIA requirements. This test has not been cleared or approved by the U.S. Food and Drug Administration. Amphiphysin Ab, S Negative <1:240 titer 01/06/2020 12:21 PM CDT DTL Comment: ----ADDITIONAL INFORMATION---- This test was developed and its performance characteristics determined by [facility] in a manner consistent with CLIA requirements. This test has not been cleared or approved by the U.S. Food and Drug Administration. AGNA-1, S Negative <1:240 titer 01/06/2020 12:21 PM CDT DTL Comment: ----ADDITIONAL INFORMATION---- This test was developed and its performance characteristics determined by [facility] in a manner consistent with CLIA requirements. This test has not been cleared or approved by the U.S. Food and Drug Administration. DANNY-1, S Negative <1:240 titer 01/06/2020 12:21 PM CDT DTL Reflex Added None. 01/06/2020 12:21 PM CDT DTL Comment: ----ADDITIONAL INFORMATION---- This test was developed and its performance characteristics determined by [facility] in a manner consistent with CLIA requirements. This test has not been cleared or approved by the U.S. Food and Drug Administration. DANNY-2, S Negative <1:240 titer 01/06/2020 12:21 PM CDT DTL Comment: ----ADDITIONAL INFORMATION---- This test was developed and its performance characteristics determined by [facility] in a manner consistent with CLIA requirements. This test has not been cleared or approved by the U.S. Food and Drug Administration. DANNY-3, S Negative <1:240 titer 01/06/2020 12:21 PM CDT DTL Comment: ----ADDITIONAL INFORMATION---- This test was developed and its performance characteristics determined by [facility] in a manner consistent with CLIA requirements. This test has not been cleared or approved by the U.S. Food and Drug Administration. CASPR2-IgG CBA, S Negative Negative 020 6:56 PM CDT DTL Comment: ----ADDITIONAL INFORMATION---- This test was developed and its performance characteristics determined by [facility] in a manner consistent with CLIA requirements. This test has not been cleared or approved by the U.S. Food and Drug Administration. CRMP-5-IgG, S Negative <1:240 titer 01/06/2020 12:21 PM CDT DTL Comment: ----ADDITIONAL INFORMATION---- This test was developed and its performance characteristics determined by [facility] in a manner consistent with CLIA requirements. This test has not been cleared or approved by the U.S. Food and Drug Administration. DPPX Ab IFA, S Negative Negative 01/06/2020 12:21 PM CDT DTL Comment: ----ADDITIONAL INFORMATION---- This test was developed and its performance characteristics determined by [facility] in a manner consistent with CLIA requirements. This test has not been cleared or approved by the U.S. Food and Drug Administration. CRISTIAN-B-R Ab CBA, S Negative Negative 2019 6:55 PM CDT DTL Comment: ----ADDITIONAL INFORMATION---- This test was developed and its performance characteristics determined by [facility] in a manner consistent with CLIA requirements. This test has not been cleared or approved by the U.S. Food and Drug Administration. GAD65 Ab Assay, S 0.02 <=0.02 nmol/L 01/04/2020 8:22 AM CDT DTL Comment: ----ADDITIONAL INFORMATION---- This test was developed and its performance characteristics determined by [facility] in a manner consistent with CLIA requirements. This test has not been cleared or approved by the U.S. Food and Drug Administration. GFAP IFA, S Negative Negative 01/06/2020 12:21 PM CDT DTL Comment: ----ADDITIONAL INFORMATION---- This test was developed and its performance characteristics determined by [facility] in a manner consistent with CLIA requirements. This test has not been cleared or approved by the U.S. Food and Drug Administration. IgLON5 IFA, S Negative Negative 01/06/2020 12:21 PM CDT DTL Comment: ----ADDITIONAL INFORMATION---- This test was developed and its performance characteristics determined by [facility] in a manner consistent with CLIA requirements. This test has not been cleared or approved by the U.S. Food and Drug Administration. LGI1-IgG CBA, S Negative Negative 0 6:56 PM CDT DTL Comment: ----ADDITIONAL INFORMATION---- This test was developed and its performance characteristics determined by [facility] in a manner consistent with CLIA requirements. This test has not been cleared or approved by the U.S. Food and Drug Administration. mGluR1 Ab IFA, S Negative Negative 01/06/20 20 12:21 PM CDT DTL Comment: ----ADDITIONAL INFORMATION---- This test was developed and its performance characteristics determined by [facility] in a manner consistent with CLIA requirements. This test has not been cleared or approved by the U.S. Food and Drug Administration. NIF IFA, S Negative Negative 01/06/2020 12:21 PM CDT DTL Comment: ----ADDITIONAL INFORMATION---- This test was developed and its performance characteristics determined by [facility] in a manner consistent with CLIA requirements. This test has not been cleared or approved by the U.S. Food and Drug Administration. NMDA-R Ab CBA, S Negative Negative 01/03/20 20 6:55 PM CDT DTL Comment: ----ADDITIONAL INFORMATION---- This test was developed and its performance characteristics determined by [facility] in a manner consistent with CLIA requirements. This test has not been cleared or approved by the U.S. Food and Drug Administration. N-Type Calcium Channel Ab 0.00 <=0.03 nmol/L 01/05/2020 12:41 PM CDT DTL Comment: ----ADDITIONAL INFORMATION---- This test was developed and its performance characteristics determined by [facility] in a manner consistent with CLIA requirements. This test has not been cleared or approved by the U.S. Food and Drug Administration. P/Q-Type Calcium Channel Ab 0.02 <=0.02 nmol/L 01/05/2020 12:43 PM CDT DTL Comment: ----ADDITIONAL INFORMATION---- This test was developed and its performance characteristics determined by [facility] in a manner consistent with CLIA requirements. This test has not been cleared or approved by the U.S. Food and Drug Administration. TUBE TEST TECHNICIAN-2, S Negative <1:240 titer 01/06/2020 12:21 PM CDT DTL Comment: ----ADDITIONAL INFORMATION---- This test was developed and its performance characteristics determined by [facility] in a manner consistent with CLIA requirements. This test has not been cleared or approved by the U.S. Food and Drug Administration. TUBE TEST TECHNICIAN-Tr, S Negative <1:240 titer 01/06/2020 12:21 PM CDT DTL Comment: ----ADDITIONAL INFORMATION---- This test was developed and its performance characteristics determined by [facility] in a manner consistent with CLIA requirements. This test has not been cleared or approved by the U.S. Food and Drug Administration. Blood (Blood, Venous) 01/01/2020 9:35 AM CDT 01/01/2020 10:33 AM CDT us Henrry Lewis M.D. LAB BLOOD ADD-ON Fin al Result [facility] [address] [place] [address], [place] [facility] [address] [place] [address] * Centromere Antibodies, IgG (01/01/2020 9:35 AM CDT) Pathologist [facility] Centromere Ab, IgG, S <0.2 <1.0 (Negative) U 01/02/2020 9:15 AM CDT [facility] Blood 01/01/2020 9:35 AM CDT 01/01/2020 10:40 PM CDT Henrry Lewis M.D. LAB BLOOD ADD-ON Fin al Result [facility] [address] [place] [address] [facility] Dept. of Laboratory Medicine and Pathology [address] [place] [address] * ANA2 [place] (01/01/2020 9:35 AM CDT) Interpretation SEE COMMENT 0 2:22 PM CDT [facility] Comment:Compatible with rheu matoid arthritis. Blood 01/01/2020 9:35 AM CDT 01/01/2020 10:40 PM CDT Henrry Lewis M.D. LAB BLOOD ADD-ON Fin al Result Performing Organization Address City/[facility] Co de Phone Number [facility] [address] [place] [address] [facility] Dept. of Laboratory Medicine and Pathology [address] [place] [address] [place] [address] * Antibody to Extractable Nuclear Antigen Evaluation (01/01/2020 9:35 AM CDT) SS-A/Ro Ab, IgG, S 0.2 <1.0 (Negative) U 01/02/2020 9:15 AM CDT [facility] SS-B/La Ab, IgG, S <0.2 <1.0 (Negative) U 01/02/2020 9:15 AM CDT [facility] Sm Ab, IgG, S <0.2 <1.0 (Negative) U 01/02/2020 9:15 AM CDT [facility] LUNCH TRUCK [employer]IVER Ab, IgG, S <0.2 <1.0 (Negative) U 01/02/2020 9:15 AM CDT [facility] Scl 70 Ab, IgG, S 0.3 <1.0 (Negative) U 01/02/2020 9:15 AM CDT [facility] [facility] Niki 1 Ab, IgG, S <0.2 <1.0 (Negative) U 01/02/2020 9:15 AM CDT [facility] Blood 01/01/2020 9:35 AM CDT 01/01/2020 10:40 PM CDT Henrry Lewis M.D. LAB BLOOD ADD-ON Fin al Result Performing Organization Address City/[facility]/ZIP Co de Phone Number [facility] [address] [place] [address] [facility] Dept. of Laboratory Medicine and Pathology [address] [place] [address] * (ABNORMAL) Connective Tissue Diseases [place] (01/01/2020 9:35 AM CDT) Antinuclear Ab, S 3.2(H) <=1.0 (Negative ) U 01/01/2020 10:39 PM CDT [facility] Comment: Interpretation: Positive (3.0-5.9) ----ADDITIONAL INFORMATION---- Method: Enzyme-linked immunoassay using HEp-2 nuclear extract supplemented with purified antigens. Cyclic Citrullinated Peptide Ab, S 63.0(H) <20.0 (Negative ) U 01/01/2020 5:06 PM CDT [facility] Comment:Interpretation: Stro ng Positive (>=60.0) Blood (Blood, Venous) 01/01/2020 9:35 AM CDT 01/01/2020 12:29 PM CDT Henrry Lewis M.D. LAB BLOOD ADD-ON Fin al Result Performing Organization Address City/[facility]/ZIP Co de Phone Number [facility] [address] [place] [address] [facility] Dept. of Laboratory Medicine and Pathology [address] [place] [address] * Ribosome P Antibodies, IgG (01/01/2020 9:35 AM CDT) Ribosome P Ab, IgG, S <0.2 <1.0 (Negative) U 01/02/2020 9:15 AM CDT [facility] Blood 01/01/2020 9:35 AM CDT 01/01/2020 10:40 PM CDT Henrry Lewis M.D. LAB BLOOD ADD-ON Fin al Result [facility] [address] [place] [address] [facility] Dept. of Laboratory Medicine and Pathology [address] [place] [address] * (ABNORMAL) CRP (C-Reactive Protein) (01/01/2020 9:35 AM CDT) C-Reactive Protein (CRP), S 23.4(H) <=8.0 mg/L 01/01/2020 10:40 AM CDT DTL Blood (Blood, Venous) 01/01/2020 9:35 AM CDT 01/01/2020 10:14 AM CDT Henrry Lewis M.D. LAB BLOOD ADD-ON Fin al Result Performing Organization Address City/[facility]/ZIP Co de Phone Number [facility] [address] [place] [address] * (ABNORMAL) S-TSH (Thyroid-Stimulating Hormone - Sensitive) (01/01/2020 9:35 AM CDT) TSH, Sensitive 5.6(H) 0.3 - 4.2 mIU/L 01/01/2020 10:40 AM CDT DTL Blood (Blood, Venous) 01/01/2020 9:35 AM CDT 01/01/2020 10:14 AM CDT Henrry Lewis M.D. LAB BLOOD ADD-ON Fin al Result [facility] [address] [facility] [address] [place] [address] * (ABNORMAL) Comprehensive Metabolic Panel (01/01/2020 9:35 AM CDT) [facility] Potassium, S 4.6 3.6 - 5.2 mmol/L 01/01/2020 10:31 AM CDT DTL Sodium, S 141 135 - 145 mmol/L 01/01/2020 10:31 AM CDT DTL Chloride, S 100 98 - 107 mmol/L 01/01/2020 10:31 AM CDT DTL Bicarbonate, S 28 22 - 29 mmol/L 01/01/2020 10:31 AM CDT DTL Anion Gap 13 7 - 15 01/01/2020 10:31 AM CDT DTL BUN (Blood Urea Nitrogen), S 25(H) 6 - 21 mg/dL 01/01/2020 10:31 AM CDT DTL Creatinine 1.23(H) 0.59 - 1.04 mg/dL 01/01/2020 10:31 AM CDT DTL eGFR-Non Black/ 44(L) >=60 mL/min/BS A 01/01/2020 10:31 AM CDT DTL Comment: ----ADDITIONAL INFORMATION---- Estimated GFR calculated using the 2009 CKD_EPI creatinine equation. eGFR-Black/ 51(L) >=60 mL/min/BS A 01/01/2020 10:31 AM CDT DTL Comment: ----ADDITIONAL INFORMATION---- Estimated GFR calculated using the 2009 CKD_EPI creatinine equation. Calcium, Total, S 10.7(H) 8.8 - 10.2 mg/dL 01/01/2020 10:31 AM CDT DTL Glucose, S 87 70 - 140 mg/dL 01/01/2020 10:31 AM CDT DTL Protein, Total, S 7.4 6.3 - 7.9 g/dL 01/01/2020 10:31 AM CDT DTL Albumin, S 3.7 3.5 - 5.0 g/dL 01/01/2020 10:31 AM CDT DTL Aspartate Aminotransferase (AST), S 44(H) 8 - 43 U/L 01/01/2020 10:31 AM CDT DTL Alkaline Phosphatase, S 92 35 - 104 U/L 01/01/2020 10:31 AM CDT DTL Alanine Aminotransferase (ALT), S 64(H) 7 - 45 U/L 01/01/2020 10:31 AM CDT DTL Bilirubin, Total, S 0.5 <=1.2 mg/dL 01/01/2020 10:31 AM CDT DTL Blood (Blood, Venous) 01/01/2020 9:35 AM CDT 01/01/2020 10:14 AM CDT Henrry Lewis M.D. LAB BLOOD ADD-ON Fin al Result [facility] [address] [place] [address], [facility] [address] [place] [address] * DERMATOLOGY IMAGE EXAM (06/13/2016 12:00 AM LINE TENDER) Only the most recent of5 resultswithin the time period is included. Anatomical Region Laterality Modality Other 06/13/2016 Addenda Addendum by ProviderRenuka M.D. on 06/13/2016 12:00 AM LINE TENDER DERM^^^MCR Forehead, right 8 Mohs micrographic surgery 06/13/2016 00:00:00 Historical Provider IMG NON RAD IMAGING PROCEDUR ES Final Result * Dermatopathology (06/02/2016 10:26 AM LINE TENDER) Only the most recent of5 resultswithin the time period is included. 06/02/2016 10:2 6 AM LINE TENDER 06/02/2016 10:26 AM LINE TENDER Narrative [facility] - 06/02/2016 10:26 AM LINE TENDER 04/26/2016 Dermatopathology Report ([id number]) Referring Physician: Justice Torrez M.D. [facility] Pathology Laboratories [facility] [place] [address] Fax Requested By:Dante Villalba M.D. [phone] DIAGNOSIS: A. Clinic Consultation, Outside Material; Right presybeterian, [id number], 04/26/2016: Nodular basal cell carcinoma, involving biopsy borders 06/02/2016 16:05 Interpreted by: Melissa Easley M.D.[phone] Report electronically signed by Melissa Easley M.D. Transcribed by: mikayla 06/02/2016 13:12:41 SPECIMEN DESCRIPTION: TISSUE DESCRIPTION: [id number] MATERIAL RECEIVED: A. Clinic Consultation, Outside Material; Right presybeterian, [id number], 04/26/2016 (1 ss, 1 blk) Outside slide(s) reviewed by Dermatopathology, [place], [place]. Procedure Note 09/28/2017 04/26/2016 Dermatopathology Report ([id number]) Referring Physician: Justice Torrez M.D. [facility] Pathology [address] [address] Fax Requested By:Dante Villalba M.D. [phone] DIAGNOSIS: A. Clinic Consultation, Outside Material; Right presybeterian, [id number], 04/26/2016: Nodular basal cell carcinoma, involving biopsy borders 06/02/2016 16:05 Interpreted by: Melissa Easley M.D.[id number] Report electronically signed by Melissa Easley M.D. Transcribed by: mikayla 06/02/2016 13:12:41 SPECIMEN DESCRIPTION: TISSUE DESCRIPTION: [id number] MATERIAL RECEIVED: A. Clinic Consultation, Outside Material; Right presybeterian, [id number], 04/26/2016 (1 ss, 1 blk) Outside slide(s) reviewed by Dermatopathology, [place], [place]. us Dante Villalba M.D. LAB PATH DERM ORDERABLES Final Result [facility] [address] [place] [address], [facility] * DX Cervical Spine 2-3 Views (05/05/2009 2:55 PM LINE TENDER) Anatomical Region Laterality Modality Cervical Spine N/A Radiographic Leticia ging 05/05/2009 2:55 PM LINE TENDER Narrative 05/05/2009 3:06 PM LINE TENDER 05-May-2009 14:55:00 Exam: Sp Cerv*2vw Flex/Ext only Indications: pain neck ORIGINAL REPORT - 05-May-2009 15:06:00 Sp Cerv*1vw odontoid only: Sp Cerv*2vw Flex/Ext only: Mild degenerative disc disease at the cervical spine, particularly C4-7. No radiographic evidence of instability on flexion and extension views. Electronically signed by: Ladan Sanchez MD [phone] 05-May-2009 15:06 Procedure Note Siddharth Sanchez M.D. - 10/02/2017 05-May-2009 14:55:00 Exam: Sp Cerv*2vw Flex/Ext only Indications: pain neck ORIGINAL REPORT - 05-May-2009 15:06:00 Sp Cerv*1vw odontoid only: Sp Cerv*2vw Flex/Ext only: Mild degenerative disc disease at the cervical spine, particularly C4-7.No radiographic evidence of instability on flexion and extension views. Electronically signed by: Ladan Sanchez MD [phone] 05-May-2009 15:06 us Sha Muhammad M.D. IMG DIAGNOSTIC IMAGING PROCED URES Final Result * Dx Spine 1 View (05/05/2009 2:55 PM LINE TENDER) Anatomical Region Laterality Modality Spine N/A Radiographic Leticia ging 05/05/2009 2:55 PM LINE TENDER Narrative 05/05/2009 3:06 PM LINE TENDER 05-May-2009 14:55:00 Exam: Sp Cerv*1vw odontoid only Indications: pain neck ORIGINAL REPORT - 05-May-2009 15:06:00 Sp Cerv*1vw odontoid only: Sp Cerv*2vw Flex/Ext only: Mild degenerative disc disease at the cervical spine, particularly C4-7. No radiographic evidence of instability on flexion and extension views. Electronically signed by: Ladan Sanchez MD [phone] 05-May-2009 15:06 Procedure Note Siddharth Sanchez M.D. - 10/02/2017 05-May-2009 14:55:00 Exam: Sp Cerv*1vw odontoid only Indications: pain neck ORIGINAL REPORT - 05-May-2009 15:06:00 Sp Cerv*1vw odontoid only: Sp Cerv*2vw Flex/Ext only: Mild degenerative disc disease at the cervical spine, particularly C4-7.No radiographic evidence of instability on flexion and extension views. Electronically signed by: Ladan Sanchez MD [phone] 05-May-2009 15:06 us Sha Muhammad M.D. IMG DIAGNOSTIC IMAGING PROCED URES Final Result * DX Spine (05/04/2009 12:22 PM LINE TENDER) Anatomical Region Laterality Modality Radiographic Leticia ging 05/04/2009 12:2 2 PM LINE TENDER Narrative 05/04/2009 12:28 PM LINE TENDER 04-May-2009 12:22:00 Exam: Sp*Entire Spine 7vw Indications: pain neck ORIGINAL REPORT - 04-May-2009 12:28:00 Sp*Entire Spine 7vw: Narrowed C4 and C5 interspaces with hypertrophic changes. Mild degenerative arthritis in the cervical facets. Mild hypertrophic changes in the thoracic spine. Slight thoracic curve convex left. Degenerative disk disease at L4. Degenerative arthritis in the lower lumbar facets. Minimal hypertrophic changes in the lumbar spine. Electronically signed by: Isaias Menezes M.D [phone] 04-May-2009 12:28 Procedure Note Lashaun Menezes M.D. - 10/02/2017 04-May-2009 12:22:00 Exam: Sp*Entire Spine 7vw Indications: pain neck ORIGINAL REPORT - 04-May-2009 12:28:00 Sp*Entire Spine 7vw: Narrowed C4 and C5 interspaces with hypertrophic changes. Milddegenerative arthritis in the cervical facets. Mild hypertrophic changesin the thoracic spine. Slight thoracic curve convex left. Degenerativedisk disease at L4. Degenerative arthritis in the lower lumbar facets.Minimal hypertrophic changes in the lumbar spine. Electronically signed by: Isaias Menezes M.D [phone] 04-May-2009 12:28 Sha Muhammad M.D. IMJulius DIAGNOSTIC IMAGING PROCED URES Final Result * HX Hematopathology Report? (02/15/2007 7:48 AM CDT) Only the most recent of2 resultswithin the time period is included. 02/15/2007 7:48 AM CDT 02/15/2007 7:48 AM CDT Narrative [facility] - 02/15/2007 7:48 AM CDT 02/15/2007 Hematopathology Report ([id number]) Requested By: Shanti Ashraf M.D. [phone] DIAGNOSIS: Peripheral blood, JAK2 gene mutation analysis: Negative for JAK2 V617F mutation. Method summary: Genomic DNA was extracted and a quantitative, allele-specific polymerase chain reaction (PCR) assay used to evaluate for the point mutation causing JAK2 V617F (see [facility] Interpretive Handbook for method details). 02/15/2007 Coiln Christie II, M.D., Ph.D. [phone] Electronically signed by [facility] 02/15/2007 16:53:10 SPECIMEN DESCRIPTION: A: Peripheral Blood TISSUE DESCRIPTION: A. Peripheral Blood: 1 EDTA tube peripheral blood for JAK2 testing Procedure Note 09/26/2017 02/15/2007 Hematopathology Report ([id number]) Requested By: Shanti Ashraf M.D. [phone] DIAGNOSIS: Peripheral blood, JAK2 gene mutation analysis: Negative for JAK2 V617F mutation. Method summary: Genomic DNA was extracted and a quantitative, allele-specific polymerase chain reaction (PCR) assay used to evaluate for the point mutation causing JAK2 V617F (see [facility] Interpretive Handbook for method details). 02/15/2007 Colin Christie II, M.D., Ph.D. [phone] Electronically signed by [facility] 02/15/2007 16:53:10 SPECIMEN DESCRIPTION: A: Peripheral Blood TISSUE DESCRIPTION: A. Peripheral Blood: 1 EDTA tube peripheral blood for JAK2 testing us Shanti Ashraf M.D. LAB PATHOLOGY/CYTOLOGY O RDERABLES Final Result [facility] [address] * US Extremity Veins (02/14/2007 3:12 PM CDT) Anatomical Region Laterality Modality Vascular, Upper Extremity, Lower Extremity Ultrasound 02/14/2007 3:12 PM CDT Narrative 02/14/2007 3:20 PM CDT 14-Feb-2007 15:12:00 Exam: R US Extremity Veins Limited Indications: le dvt - right deep vein^thrombosis lower extremity, RLE ORIGINAL REPORT - 14-Feb-2007 15:20:00 Compression Doppler ultrasound of the deep veins of the right lower extremity to include the common femoral, femoral, and popliteal veins is negative for deep venous thrombosis. Posterior tibial and peroneal veins are patent where seen. Ind: [id number] Electronically signed by: Tye Guevara M.D. [phone] 14-Feb-2007 15:20 Procedure Note Ej Guevara M.D. - 10/03/2017 14-Feb-2007 15:12:00 Exam: R US Extremity Veins Limited Indications: le dvt - right deep vein^thrombosis lower extremity, RLE ORIGINAL REPORT - 14-Feb-2007 15:20:00 Compression Doppler ultrasound of the deep veins of the right lowerextremity to include the common femoral, femoral, and popliteal veins isnegative for deep venous thrombosis. Posterior tibial and peroneal veinsare patent where seen. Ind: [id number] Electronically signed by: Tye Guevara M.D. [id number] 14-Feb-2007 15:20 us Shanti Ashraf M.D. IMG US PROCEDURES Final Result * NM Joint Scan (04/01/2004 2:18 PM CDT) Anatomical Region Laterality Modality Joint N/A Nuclear Medicine 04/01/2004 2:18 PM CDT Narrative 04/01/2004 3:06 PM CDT 01-Apr-2004 14:18:00 Exam: NM Joint Scn Indications: inflammatory joint disease ORIGINAL REPORT - 01-Apr-2004 15:06:00 Joint scan demonstrates increased uptake in the bilateral shoulders, knees, elbows, wrists and multiple MCP and IP joints of both hands. Findings consistent with diffuse synovial inflammation. 99mTc-NA TC04 21.8 mCi KCL04 30.0ml Electronic Images Only....NO FILMS MADE Electronically signed by: Blake [id number]) 01-Apr-2004 15:06 Gurjit Castro MD. [phone] 01-Apr-2004 15:06 Procedure Note Mati Castro M.D. - 10/05/2017 01-Apr-2004 14:18:00 Exam: NM Joint Scn Indications: inflammatory joint disease ORIGINAL REPORT - 01-Apr-2004 15:06:00 Joint scan demonstrates increased uptake in the bilateral shoulders,knees, elbows, wrists and multiple MCP and IP joints of both hands.Findings consistent with diffuse synovial inflammation. 99mTc-NA TC04 21.8 mCi KCL04 30.0ml Electronic Images Only....NO FILMS MADE Electronically signed by: Blake [id number]) 01-Apr-2004 15:06 Gurjit Castro MD.[phone] 01-Apr-2004 15:06 Alma Gaston M.D. IMG NM PROCEDURES Sheyla l Result * Pulmonary Function Tests (03/31/2004 1:28 PM CDT) 03/31/2004 1:28 PM CDT Devin Aguero M.D., Ph.D. PFT ORDERABLES F inal Result [address] [address] * BMD Bone Density Spine Hips (03/31/2004 1:03 PM CDT) Anatomical Region Laterality Modality Hip, Lumbar Spine N/A Radiographic I maging 03/31/2004 1:03 PM CDT Narrative 03/31/2004 1:09 PM CDT 31-Mar-2004 13:03:00 Exam: NM BMD Spine and/or Hip(s) Indications: medication rx fdc (not a/c)(V58.69); osteoporosis screening(V82.81) ORIGINAL REPORT - 31-Mar-2004 13:09:00 Lumbar Spine: L1: BMD = 1.45 g/cm(sq), T Score = 2.7, Z Score = 2.9 L2: BMD = 1.62 g/cm(sq), T Score = 3.5, Z Score = 3.7 L3: BMD = 1.57 g/cm(sq), T Score = 3.0, Z Score = 3.3 TOTAL BMD = 1.55 g/cm(sq), ( > 95th percentile) T Score = 3.1 Z Score = 3.4 Osteoporosis is established when the T Score is below -2.50. BOTH HIPS WERE SCANNED. RIGHT HIP IS SUGGESTED FOR FUTURE FOLLOW-U ELECTRONIC IMAGES ONLY Left Hip: FEMUR NECK: BMD = 1.26 g/cm (sq) ( > 95th percentile) T Score = 2.4 Z Score = 2.8 Osteoporosis is established when the T Score is below -2.50. Additional FEMUR measurements listed below: TROCH: BMD = 1.12 g/cm(sq) ( > 95th percentile) T Score = 3.0 Z Score = 2.8 INTER: BMD = 1.58 g/cm(sq) HORN'S: BMD = 1.15 g/cm(sq) ( > 95th percentile) T Score = 1.8 Z Score = 2.7 TOTAL BMD = 1.34g/cm(sq), ( > 95th percentile) T Score = 2.6 Z Score = 2.9 ELECTRONIC IMAGES ONLY Right Hip: FEMUR NECK: BMD = 1.19 g/cm (sq) ( > 95th percentile) T Score = 1.7 Z Score = 2.1 Osteoporosis is established when the T Score is below -2.50. Additional FEMUR measurements listed below: TROCH: BMD = 1.07 g/cm(sq) ( > 95th percentile) T Score = 2.5 Z Score = 2.4 INTER: BMD = 1.50 g/cm(sq) HORN'S: BMD = 1.02 g/cm(sq) ( > 95th percentile) T Score = 0.9 Z Score = 1.8 TOTAL BMD = 1.27 g/cm(sq), ( > 95th percentile) T Score = 2.1 Z Score = 2.3 ELECTRONIC IMAGES ONLY Electronically signed by: Ladan Mendez MD. [phone] 31-Mar-2004 13:09 Procedure Note Allyssa Mendez M.D. 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 BOTH HIPS WERE SCANNED. RIGHT HIP IS SUGGESTED FOR FUTURE FOLLOW-U ELECTRONIC IMAGES ONLY Left Hip: FEMUR NECK: BMD = 1.26 g/cm (sq) ( > 95th percentile) T Score = 2.4 Z Score = 2.8 Osteoporosis is established when the T Score is below -2.50. Additional FEMUR measurements listed below: TROCH: BMD = 1.12 g/cm(sq) ( > 95th percentile) T Score = 3.0 Z Score = 2.8 INTER: BMD = 1.58 g/cm(sq) HORN'S: BMD = 1.15 g/cm(sq) ( > 95th percentile) T Score = 1.8 Z Score = 2.7 TOTAL BMD = 1.34g/cm(sq), ( > 95th percentile) T Score = 2.6 Z Score = 2.9 ELECTRONIC IMAGES ONLY Right Hip: FEMUR NECK: BMD = 1.19 g/cm (sq) ( > 95th percentile) T Score = 1.7 Z Score = 2.1 Osteoporosis is established when the T Score is below -2.50. Additional FEMUR measurements listed below: TROCH: BMD = 1.07 g/cm(sq) ( > 95th percentile) T Score = 2.5 Z Score = 2.4 INTER: BMD = 1.50 g/cm(sq) HORN'S: BMD = 1.02 g/cm(sq) ( > 95th percentile) T Score = 0.9 Z Score = 1.8 TOTAL BMD = 1.27 g/cm(sq), ( > 95th percentile) T Score = 2.1 Z Score = 2.3 ELECTRONIC IMAGES ONLY Electronically signed by: Ladan Mendez MD. [id number] 31-Mar-2004 13:09 Alma Gaston M.D. IMG DXA PROCEDURES Fin al Result * ECHOCARDIOLOGY IMAGE EXAM (03/30/2004 8:23 AM CDT) Only the most recent of3 resultswithin the time period is included. Anatomical Region Laterality Modality Other 03/30/2004 8:23 AM CDT Addenda Addendum by Provider, Historical on 03/30/2004 8:23 AM CDT ECHO^^^MCR Non-Radiology Image 03/30/2004 08:23:00 Historical Provider IMG NON RAD IMAGING PROCEDUR ES Final Result * Echocardiogram (03/30/2004 8:22 AM CDT) Anatomical Region Laterality Modality Echocardiography 03/30/2004 8:22 AM CDT Historical Provider CV ECHO PROCEDURES Final Res ult * Echocardiogram (01/16/2004 9:11 AM CDT) Anatomical Region Laterality Modality Echocardiography 01/16/2004 9:11 AM CDT Historical Provider CV ECHO PROCEDURES Final Res ult * RHEUMATOLOGY IMAGE EXAM (01/08/2004 8:22 AM CDT) Anatomical Region Laterality Modality Other 01/08/2004 8:22 AM CDT Addenda Addendum by Provider, Historical on 01/08/2004 8:22 AM CDT RHEUM^^^MCR Head 01/08/2004 08:22:33 us Historical Provider IMG NON RAD IMAGING PROCEDUR ES Final Result * DX Chest Portable 1 View (12/04/2003 8:39 PM CDT) Only the most recent of2 resultswithin the time period is included. Anatomical Region Laterality Modality Chest N/A Radiographic Leticia ging 12/04/2003 8:39 PM CDT Narrative 12/05/2003 9:03 AM CDT 04-Dec-2003 20:39:00 Exam: Portable-Chest Indications: Increased o2 requirements ORIGINAL REPORT - 04-Dec-2003 21:50:00 Chest; 1 view: Shallow inspiration accentuates heart size and pulmonary vascularity. Small left and probable tiny right pleural effusion. Infiltrate or atelectasis in the lung bases. Electronically signed by: Dariel Guajardo [id number] ([id number]) 04-Dec-2003 21:50 I have reviewed the films/images and agree with the above interpretation. Electronically signed by: Debby Olivas MD [phone] 05-Dec-2003 09:03 Procedure Note Jose Olivas M.D. - 10/05/2017 04-Dec-2003 20:39:00 Exam: Portable-Chest Indications: Increased o2 requirements ORIGINAL REPORT - 04-Dec-2003 21:50:00 Chest; 1 view: Shallow inspiration accentuates heart size and pulmonary vascularity.Small left and probable tiny right pleural effusion. Infiltrate oratelectasis in the lung bases. Electronically signed by: Dariel Guajardo [id number] ([id number]) 04-Dec-2003 21:50 I have reviewed the films/images and agree with the above interpretation. Electronically signed by: Debby Olivas MD [phone] 05-Dec-2003 09:03 Ishaan Reyes M.D. IM[facility] DIAGNOSTIC IMAGING PROCEDURE S Final Result * Chromosome Analysis, Hematologic Disorders, Bone Marrow (12/04/2003 2:50 PM CDT) 12/04/2003 2:50 PM CDT [facility] - 12/11/2003 12:57 PM CDT 04 Dec 2003 14:50 Chromosomes, Hematologic, Bone Marrow Requested By: Steph Tay MD Specimen Specimen ID Lab ID Test No. --------- Bone Marrow [id number] RESULT 46,XX[20] INTERPRETATIONS No clonal abnormality was apparent. REASON FOR REFERRAL fever of unknown origin METHOD Direct prep. and culture w/o mitogens Banding Analyzed Karyotyped GTL 8 2 QFQ 12 0 Total 20 2 Band Resolution 400 Signature Jose Clayton MD, PhD Date Released 11 Dec 2003 12:54 Date Ordered 04 Dec 2003 15:38 Procedure Note 10/23/2017 04 Dec 2003 14:50 Chromosomes, Hematologic, Bone Marrow Requested By: Steph Tay MD Specimen Specimen ID Lab ID Test No. --------- Bone Marrow [id number] RESULT 46,XX[20] INTERPRETATIONS No clonal abnormality was apparent. REASON FOR REFERRAL fever of unknown origin METHOD Direct prep. and culture w/o mitogens Banding Analyzed Karyotyped GTL 8 2 QFQ 12 0 Total 20 2 Band Resolution 400 Signature Jose Clayton MD, PhD Date Released 11 Dec 2003 12:54 Date Ordered 04 Dec 2003 15:38 Steph Tay-Tena Palomino LAB GENETIC T ESTING Final Result [facility] [address] * Cytology (12/04/2003 1:12 PM CDT) 12/04/2003 1:12 PM CDT 12/04/2003 1:12 PM CDT Narrative [facility] - 12/04/2003 1:12 PM CDT 12/04/2003 Cytology Non-Gynecological ([id number]) Requested By: Estevan Gonzales M.D. [id number] SPECIMEN DESCRIPTION: A. Pleural Fluid NOS: Received 80cc of yellow colored fluid DIAGNOSIS: A. Pleural Fluid NOS: Negative for malignancy. 12/05/03 Molly Tapia M.D. [phone] Procedure Note 09/23/2017 12/04/2003 Cytology Non-Gynecological ([id number]) Requested By: Estevan Gonzales M.D. [id number] SPECIMEN DESCRIPTION: A. Pleural Fluid NOS: Received 80cc of yellow colored fluid DIAGNOSIS: A. Pleural Fluid NOS: Negative for malignancy. 12/05/03 Molly Tapia M.D. [phone] Historical Provider LAB PATHOLOGY/CYTOLOGY ORDER PRASHANT Final Result [facility] [address] * US Thoracentesis with Imaging Guidance (12/04/2003 10:50 AM CDT) Anatomical Region Laterality Modality Chest Ultrasound 12/04/2003 10:5 0 AM CDT Narrative 12/04/2003 12:25 PM CDT 04-Dec-2003 10:50:00 Exam: US Thoracentesis Indications: [id number]^effusion seen on chest xray ORIGINAL REPORT - 04-Dec-2003 12:25:00 Ultrasound-guided left thoracentesis: After discussing with the patient goals, risks and alternatives, the patient consented to procedure. Using ultrasound guidance and sterile technique, 270cc of clear yellow fluid was aspirated from the left pleural space. Following the procedure, the patient's blood pressure decreased to 60's/40's with decreased heart rate which resolved with recumbent position and IV NS, consistent with a vasovagal reaction. The patient left the department in good condition with slow IV drip of normal saline. Ultrasound Electronic Images Only--No Films Made Ind: [id number] Electronically signed by: Dariel Marroquin MD [phone] [id number] 04-Dec-2003 12:25 Procedure Note Provider, Historical - 10/05/2017 04-Dec-2003 10:50:00 Exam: US Thoracentesis Indications: [id number]^effusion seen on chest xray ORIGINAL REPORT - 04-Dec-2003 12:25:00 Ultrasound-guided left thoracentesis: After discussing with the patient goals, risks and alternatives, thepatient consented to procedure. Using ultrasound guidance and steriletechnique, 270cc of clear yellow fluid was aspirated from the left pleuralspace. Following the procedure, the patient's blood pressure decreased to60's/40's with decreased heart rate which resolved with recumbent positionand IV NS, consistent with a vasovagal reaction. The patient left thedepartment in good condition with slow IV drip of normal saline. Ultrasound Electronic Images Only--No Films Made Ind: [id number] Electronically signed by: Dariel Marroquin MD [phone] 04-Dec-2003 12:25 Estevan Gonzales M.D. [facility] [place]ED[place] Final R esult * Prepare Red Blood Cells (12/03/2003 5:40 PM CDT) 12/03/2003 5:40 PM CDT 12/03/2003 6:52 PM CDT Narrative [facility] - 12/03/2003 5:40 PM CDT 03 Dec 2003 [id number] Ro 17:40 RBC TRF Order: ABO/RH B POS Antibody Screen Neg Blood Component RBC, -1 Issued 03 Dec 2003 Transfused Unit Id [id number] Blood Component RBC, -1 Issued 03 Dec 2003 Transfused Unit Id [id number] Procedure Note 10/18/2017 03 Dec 2003 [id number] Ro 17:40 RBC TRF Order: ABO/RH B POS Antibody Screen Neg Blood Component RBC, -1 Issued 03 Dec 2003 Transfused Unit Id [id number] Blood Component RBC, -1 Issued 03 Dec 2003 Transfused Unit Id [id number] Historical Provider BLOOD BANK PRODUCT ORDERABLE S Final Result [facility] [address] * DX Chest Posterior Anterior Lateral with Decubitus 4 Views (12/03/2003 2:16 PM CDT) Anatomical Region Laterality Modality Chest N/A Radiographic Leticia ging 12/03/2003 2:16 PM CDT Narrative 12/03/2003 2:57 PM CDT 03-Dec-2003 14:16:00 Exam: Chest--PA & lat w decub vw Indications: decrease bs at base of lung, pt could not hold breath for stereo ORIGINAL REPORT - 03-Dec-2003 14:57:00 Chest; 2 views: Cardiac enlargement with bilateral infiltrates and/or vascular congestion. Small free pleural effusions bilaterally. Clips in the abdomen. Electronically signed by: Jovita Garcia MD. [id number] 03-Dec-2003 14:57 Procedure Note Tio Garcia M.D. - 10/05/2017 03-Dec-2003 14:16:00 Exam: Chest--PA & lat w decub vw Indications: decrease bs at base of lung, pt could not hold breath forstereo ORIGINAL REPORT - 03-Dec-2003 14:57:00 Chest; 2 views: Cardiac enlargement with bilateral infiltrates and/or vascular congestion.Small free pleural effusions bilaterally. Clips in the abdomen. Electronically signed by: Jovita Garcia MD. [phone] 03-Dec-2003 14:57 Anselmo Mcdaniel M.D. [facility] PROCEDU RES Final Result * Echocardiogram (12/02/2003 8:19 AM CDT) Anatomical Region Laterality Modality Echocardiography 12/02/2003 8:19 AM CDT us Historical Provider CV ECHO PROCEDURES Final Res ult * NM Infection SPECT (12/01/2003 4:54 PM CDT) Anatomical Region Laterality Modality Whole body N/A Nuclear Medicine 12/01/2003 4:54 PM CDT Addenda Addendum by Daljit Smith M.D., Ph.D. on 12/02/2003 8:15 AM CDT APPENDED REPORT - 02-Dec-2003 08:15:00 *ADDITIONAL REPORT IN-111 labeled WBC 0.54mCi/I-134 Saline Flush Electronic Images Only....NO FILMS MADE Electronically signed by: Mike Smith [phone] 02-Dec-2003 08:15 Narrative 12/02/2003 8:15 AM CDT 01-Dec-2003 16:54:00 Exam: NM Infect, In-WBC, Reg, SPECT Indications: FUO ORIGINAL REPORT - 01-Dec-2003 18:00:00 Indium-WBC scan: Whole body images at 24 hours, including SPECT of the chest and upper abdomen, show patchy increased uptake both lower lung regions. Appearance would be consistent with pneumonitis. Symmetric prominent uptake is seen in the distal femurs and proximal tibias, suggesting marrow expansion. Liver and spleen appear enlarged. Remainder is negative. Electronically signed by: Mike Smith [phone] 01-Dec-2003 18:00 Procedure Note Daljit Smith M.D., Ph.D. - 10/05/2017 01-Dec-2003 16:54:00 Exam: NM Infect, In-WBC, Reg, SPECT Indications: FUO ORIGINAL REPORT - 01-Dec-2003 18:00:00 Indium-WBC scan: Whole body images at 24 hours, including SPECT of thechest and upper abdomen, show patchy increased uptake both lower lungregions. Appearance would be consistent with pneumonitis. Symmetricprominent uptake is seen in the distal femurs and proximal tibias,suggesting marrow expansion. Liver and spleen appear enlarged. Remainderis negative. Electronically signed by: Mike Smith [phone] 01-Dec-2003 18:00 Estevan Gonzales M.D. [facility] NM PROCEDURES Edited Result - Final * DX Outside Image Interpretation (11/28/2003 9:27 AM CDT) Anatomical Region Laterality Modality N/A Radiographic Leticia ging 11/28/2003 9:27 AM CDT Narrative 11/28/2003 10:17 AM CDT 28-Nov-2003 09:27:00 Exam: Interp of OUTSIDE X-RAY Indications: ORIGINAL REPORT - 28-Nov-2003 10:17:00 Outside single AP portable chest x-ray dated 11-26-03 shows a shallow inspiration. Subsegmental atelectasis in the left lower lung. There may be a patchy infiltrate in the left lower lobe behind the heart as well. Linear atelectasis right base. (11-28-2003) (571) Electronically signed by: Cailin Reveles MD. [phone] 28-Nov-2003 10:17 Procedure Note Isaiah Reveles M.D. - 10/05/2017 28-Nov-2003 09:27:00 Exam: Interp of OUTSIDE X-RAY Indications: ORIGINAL REPORT - 28-Nov-2003 10:17:00 Outside single AP portable chest x-ray dated 11-26-03 shows a shallowinspiration. Subsegmental atelectasis in the left lower lung. There maybe a patchy infiltrate in the left lower lobe behind the heart as well.Linear atelectasis right base. (11-28-2003) (421) Electronically signed by: Cailin Reveles MD. [phone] 28-Nov-2003 10:17 Sendy Cummings M.D. [facility] DIAGNOSTIC IMAGING PROC EDURES Final Result * Echocardiogram (11/27/2003 3:13 PM CDT) Anatomical Region Laterality Modality Echocardiography 11/27/2003 3:13 PM CDT us Historical Provider CV ECHO PROCEDURES Final Res ult * CT Abdomen Pelvis with IV Contrast (11/27/2003 12:38 PM CDT) Anatomical Region Laterality Modality Abdomen, Pelvis N/A Computed Tomogra phy 11/27/2003 12:3 8 PM CDT Narrative 11/27/2003 1:27 PM CDT 27-Nov-2003 12:38:00 Exam: CT ABDOMEN w & PELVIS w Indications: th/abd/pel - SOB - r/o PE,^RUQ pain also ORIGINAL REPORT - 27-Nov-2003 13:27:00 CT scan of the chest done according to the pulmonary embolism protocol followed by routine scanning of the abdomen and pelvis reveals areas of consolidative atelectasis in both lower lungs medially. There are some areas of bronchiectasis in both lower lungs medially. Pericardial thickening or effusion present. There is no evidence of pulmonary emboli on this study. Cholecystectomy. Air in the subcutaneous tissues over the right lower abdominal wall most likely secondary to recent injections. The remainder of the CT scan of the chest, abdomen and pelvis is otherwise negative. Ind: 535.120 Dia.120 Electronically signed by: Tye Houston MD. [id number] 27-Nov-2003 13:27 Procedure Note Familia Houston M.D. - 10/05/2017 27-Nov-2003 12:38:00 Exam: CT ABDOMEN w & PELVIS w Indications: th/abd/pel - SOB - r/o PE,^RUQ pain also ORIGINAL REPORT - 27-Nov-2003 13:27:00 CT scan of the chest done according to the pulmonary embolism protocolfollowed by routine scanning of the abdomen and pelvis reveals areas ofconsolidative atelectasis in both lower lungs medially. There are someareas of bronchiectasis in both lower lungs medially. Pericardialthickening or effusion present. There is no evidence of pulmonary embolion this study. Cholecystectomy. Air in the subcutaneous tissues over theright lower abdominal wall most likely secondary to recent injections. Theremainder of the CT scan of the chest, abdomen and pelvis is otherwisenegative. Ind: 535.120 Dia.120 Electronically signed by: Tye Houston MD. [id number] 27-Nov-2003 13:27 Estevan Gonzales M.D. [facility] CT PROCEDURES Final R esult * CT Chest Angiogram and Pulmonary Arteries with IV Contrast (11/27/2003 12:36 PM CDT) Anatomical Region Laterality Modality Cardiac N/A Computed Tomogra phy 11/27/2003 12:3 6 PM CDT Narrative 11/27/2003 1:27 PM CDT 27-Nov-2003 12:36:00 Exam: CTA Chest PE Indications: th/abd/pel - SOB - r/o PE,^RUQ pain also ORIGINAL REPORT - 27-Nov-2003 13:27:00 CT scan of the chest done according to the pulmonary embolism protocol followed by routine scanning of the abdomen and pelvis reveals areas of consolidative atelectasis in both lower lungs medially. There are some areas of bronchiectasis in both lower lungs medially. Pericardial thickening or effusion present. There is no evidence of pulmonary emboli on this study. Cholecystectomy. Air in the subcutaneous tissues over the right lower abdominal wall most likely secondary to recent injections. The remainder of the CT scan of the chest, abdomen and pelvis is otherwise negative. Ind: 535.120 Dia.120 Electronically signed by: Tye Houston MD. [id number] 27-Nov-2003 13:27 Procedure Note Familia Houston M.D. - 10/05/2017 27-Nov-2003 12:36:00 Exam: CTA Chest PE Indications: th/abd/pel - SOB - r/o PE,^RUQ pain also ORIGINAL REPORT - 27-Nov-2003 13:27:00 CT scan of the chest done according to the pulmonary embolism protocolfollowed by routine scanning of the abdomen and pelvis reveals areas ofconsolidative atelectasis in both lower lungs medially. There are someareas of bronchiectasis in both lower lungs medially. Pericardialthickening or effusion present. There is no evidence of pulmonary embolion this study. Cholecystectomy. Air in the subcutaneous tissues over theright lower abdominal wall most likely secondary to recent injections. Theremainder of the CT scan of the chest, abdomen and pelvis is otherwisenegative. Ind: 535.120 Dia.120 Electronically signed by: Tye Houston MD. [id number] 27-Nov-2003 13:27 us Estevan Gonzales M.D. [facility] CT PROCEDURES Final R esult * DX Hand 3+ Views (11/27/2003 8:53 AM CDT) Anatomical Region Laterality Modality Upper Extremity, Hand N/A Radiograph ic Imaging 11/27/2003 8:53 AM CDT Narrative 11/27/2003 9:09 AM CDT 27-Nov-2003 08:53:00 Exam: B Hand PA Obl Splayed Lateral Indications: pip swelling ORIGINAL REPORT - 27-Nov-2003 09:09:00 Both hands and wrists are negative. Electronically signed by: Gurjit Martinez MD. [phone] 27-Nov-2003 09:09 Procedure Note Miguel Martinez M.D. - 10/05/2017 27-Nov-2003 08:53:00 Exam: B Hand PA Obl Splayed Lateral Indications: pip swelling ORIGINAL REPORT - 27-Nov-2003 09:09:00 Both hands and wrists are negative. Electronically signed by: Gurjit Martinez MD. [id number] 27-Nov-2003 09:09 Sendy Cummings M.D. [facility] [place] PROC EDURES Final Result Visit Diagnoses Diagnosis Start Date Unspecified Dementia Unspecified Severity Without Behavioral Disturbance Psychotic disturbance Mood Disturbance And Anxiety (HCC) 12/24/2019 Cognitive Disorder 01/01/2020 Anticoagulant Therapy 01/01/2020 Cognitive Disorder 01/01/2020 Unspecified Dementia Unspecified Severity Without Behavioral Disturbance Psychotic disturbance Mood Disturbance And Anxiety (HCC) 01/01/2020 Cognitive Disorder 01/01/2020 Change Mental Status 01/02/2020 Unspecified Dementia Unspecified Severity Without Behavioral Disturbance Psychotic disturbance Mood Disturbance And Anxiety (HCC) 01/06/2020 Cognitive Disorder 01/13/2020 Dementia (HCC) 01/13/2020 Arthritis Rheumatoid (HCC) 01/17/2020 Elevated Creatinine 01/17/2020 Arthritis Rheumatoid (HCC) 02/11/2020 Arthritis Rheumatoid (HCC) 02/11/2020 Arthritis Rheumatoid (HCC) 02/11/2020 Elevated Creatinine 02/11/2020 Microhematuria 02/11/2020 Arthritis Rheumatoid (HCC) 02/11/2020 Elevated Creatinine 02/11/2020 Arthritis Rheumatoid (HCC) 02/11/2020 Elevated Creatinine 02/11/2020 Arthritis Rheumatoid (HCC) 02/11/2020 Elevated Creatinine 02/11/2020 Arthritis Inflammatory (HCC) 02/11/2020 Microhematuria 02/12/2020 Arthritis Rheumatoid (HCC) 02/12/2020 Microhematuria 02/12/2020 Microhematuria 02/12/2020 Microhematuria 02/19/2020 Microhematuria 02/19/2020 Clinical Research Exam 08/18/2020 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) 08/18/2020 Pain Low Back Unspecified 08/27/2020 Clinical Research Exam 04/05/2021 Clinical Research Exam 04/06/2021 Infection Urinary Tract Recurrent 02/01/2022 Infection Urinary Tract Acute 02/10/2022 Infection Urinary Tract Recurrent 02/10/2022 Dysuria [R30.0 (ICD-10-CM)] 02/10/2022 Infection Urinary Tract Recurrent 02/11/2022 Incontinence Urinary Stress And Urge 02/11/2022 Overactive Bladder 02/11/2022 Hematuria Urinalysis 02/11/2022 Clinical Research Exam 06/22/2022 Clinical Research Exam 06/22/2022 Atrial Fibrillation Longstanding Persistent (HCC) 08/13/2022 Atrial Fibrillation Longstanding Persistent (HCC) 09/08/2022 Atrial Fibrillation Paroxysmal (HCC) 09/13/2022 Hyperlipidemia On Treatment 09/13/2022 Cognitive Disorder 09/13/2022 Anticoagulant Therapy 09/13/2022 Incontinence Urinary Stress And Urge 09/13/2022 Atrial Fibrillation Longstanding Persistent (HCC) 09/13/2022 Clinical Research Exam 09/14/2022 Clinical Research Exam 09/15/2022 Atrial Fibrillation Paroxysmal (HCC) 10/14/2022 Overactive Bladder 01/09/2023 Incontinence Urinary Stress And Urge 01/09/2023 Overactive Bladder 02/10/2023 Overactive Bladder 02/10/2023 Incontinence Urinary Stress And Urge 02/10/2023 Overactive Bladder 02/10/2023 Preoperative Exam 02/10/2023 Preprocedural Lab Exam 02/10/2023 Preoperative Exam 02/13/2023 Atrial Fibrillation Paroxysmal (HCC) 02/13/2023 Preoperative Exam 02/16/2023 Overactive Bladder 02/20/2023 Urinary Urge Incontinence 02/20/2023 Overactive Bladder 02/20/2023 Urinary Urge Incontinence 02/20/2023 Overactive Bladder 03/21/2023 Urinary Urge Incontinence 03/21/2023 Urinary Urge Incontinence 03/24/2023 Urinary Urge Incontinence 04/15/2023 Urgency Urinary 04/15/2023 Urinary Tract Infection Site Not Specified 05/15/2023 Clinical Research Exam 07/06/2023 Clinical Research Exam 07/06/2023 Dysuria 07/07/2023 Frequency Urinary 07/07/2023 Incontinence Urinary 07/07/2023 Genetic Susceptibility To Disease 08/31/2023 Clinical Research Exam 09/25/2023 Urgency Urinary 08/12/2024 Urinary Urge Incontinence 08/12/2024 Urgency Urinary 08/12/2024 Overactive Bladder 08/12/2024 Overactive Bladder 08/12/2024 Urinary Tract Infection Site Not Specified 08/14/2024 Cystitis Unspecified Without Hematuria 08/15/2024 Clinical Research Exam 09/10/2024 Atrial Fibrillation Paroxysmal (HCC) 10/07/2024 Cardiac Vascular Disease Screening 10/07/2024 Atrial Fibrillation Paroxysmal (HCC) 10/10/2024 Cardiac Vascular Disease Screening 10/10/2024 Atrial Fibrillation Paroxysmal (HCC) 10/14/2024 Cardiac Vascular Disease Screening 10/14/2024 Atrial Fibrillation Paroxysmal (HCC) 10/14/2024 Urinary Tract Infection Site Not Specified 10/14/2024 Incontinence Urinary 10/14/2024 Hypertension Essential Primary 10/14/2024 Hyperlipidemia 10/14/2024 Atrial Fibrillation Paroxysmal (HCC) 10/17/2024 Atrial Fibrillation Paroxysmal (HCC) 10/17/2024 Care Teams Mail Distribution Clerk Relationship Specialty Start Date End Date Elsewhere, Pcp PCP - General Internal Medicine 02/20/23
--- OUTSIDE RECORDS SUMMARY | 2024-10-28 11:43 | XMS_ITS | Continuity of Care Document ---
Author Organization [facility] Address [address] [place] [address] Phone Care Team Providers Care Screen Operator Name Role Phone Jennifer Sarmiento MD Unavailable Unavailable Allergies, Adverse Reactions, Alerts Substance Reaction Status Criticality Sulfa (Sulfonamide Antibiotics) Nausea / Vomiting Acti ve No Information amoxicillin Hives Active No Information HYDROXYCHLOROQUINE SULFATE Rash Active N o Information Medications Medication Instructions Dosage Effective Dates (start - stop) Status Comments predniSONE Oral Tablet 5 MG TAKE ONE TO TWO TABLETS BY MOUTH DAILY - Active Ruxience 10 mg/mL intravenous solution infuse (1000MG) every 2 weeks x2 by intravenous route once - Active orphenadrine citrate ER 100 mg tablet,extended release take 1 tablet by oral route every day as needed - Active Thera-D 2,000 unit Tab take 2 Tablet by Oral route every day - Active Bactrim DS 800 mg-160 mg tablet take 1 tablet by oral route every week 1 tablet - Active amlodipine 5 mg tablet take 1 tablet by oral route every day 5 MG - Active furosemide 20 mg tablet take 1 tablet by oral route every day 20 MG - Active Gemtesa 75 mg tablet take 1 tablet by oral route every day 75 MG - Active metformin 500 mg tablet take 1 tablet by oral route 2 times every day with morning and evening meals 500 MG - Active methenamine hippurate 1 gram tablet take 1 tablet by oral route 2 times every day 1 G - Active rosuvastatin 10 mg tablet take 1 tablet by oral route every day 10 MG - Active tizanidine 4 mg capsule take 1 - 2 Capsule by oral route every bedtime as needed 4 MG - Active Theracran 650 mg capsule take 1 Tablet by Oral route every day 1 Tablet - Active carvedilol 25 mg tablet take 1 tablet by oral route 2 times every day with food 25 MG - Active Cymbalta 60 mg capsule,delayed release take 1 capsule by oral route every day 60 MG - Active Eliquis 5 mg tablet 2 tabs in the am, 1 in the pm - Active benzonatate 100 mg capsule take 1 capsule by oral route 3 times every day as needed 100 MG - Active bupropion HCl XL 150 mg 24 hr tablet, extended release take 1 tablet by oral route every day 150 MG - Active Pepcid 20 mg tablet take 1 tablet by oral route every day 20 MG - Active potassium chloride ER 20 mEq tablet,extended release take 1 tablet by oral route every day with food 20 MEQ - Active Zyrtec 10 mg tablet take 1 tablet by oral route every day 10 MG - Active Accupril 20 mg tablet take 1 tablet by oral route every day 20 MG - Active triamterene 37.5 mg-hydrochlorothiazi de 25 mg capsule take 1 capsule by oral route every day 1.00 capsule - Active Calcium 600 + D(3) 600 mg calcium-200 unit capsule twice a day - Active Tylenol Ex Str Arthritis Pain 500 mg tablet take 2 tablet (1000MG) by oral route every 6 hours as needed - Active Procedures Procedure Date Office/Outpatient Visit, Est Complex e/m visit add on Routine Venipuncture Assay Of Serum Albumin Assay Of Creatinine Transferase (Ast) (Sgot) Alanine Amino (Alt) (Sgpt) CReactive Protein Ruxience Rituximab-pvvr Chemo, Iv Infusion, 1 Hr Chemo, Iv Infusion, Addl Hr Normal Saline Solution Infus Injection, methylprednisolone sodium suc cinate, 5mg Tx/Proph/Dg Addl Seq Iv Inf Ruxience Rituximab-pvvr Chemo, Iv Infusion, 1 Hr Chemo, Iv Infusion, Addl Hr Normal Saline Solution Infus Injection, methylprednisolone sodium suc cinate, 5mg Tx/Proph/Dg Addl Seq Iv Inf Office/Outpatient Visit, Est Complex e/m visit add on Routine Venipuncture Rbc Sed Rate, Automated Assay Of Serum Albumin Assay Of Creatinine Transferase (Ast) (Sgot) Alanine Amino (Alt) (Sgpt) CReactive Protein Complete Cbc WAuto Diff Wbc Truxima Rituximab-abbs Chemo, Iv Infusion, 1 Hr Chemo, Iv Infusion, Addl Hr Normal Saline Solution Infus Injection, methylprednisolone sodium suc cinate, 5mg Tx/Proph/Dg Addl Seq Iv Inf Truxima Rituximab-abbs Chemo, Iv Infusion, 1 Hr Chemo, Iv Infusion, Addl Hr Normal Saline Solution Infus Injection, methylprednisolone sodium suc cinate, 5mg Tx/Proph/Dg Addl Seq Iv Inf Office/Outpatient Visit, Est Complex e/m visit add on Routine Venipuncture Rbc Sed Rate, Automated Assay Of Serum Albumin Assay Of Creatinine Transferase (Ast) (Sgot) Alanine Amino (Alt) (Sgpt) CReactive Protein Complete Cbc WAuto Diff Wbc Office/Outpatient Visit, Est Routine Venipuncture Rbc Sed Rate, Automated Assay Of Serum Albumin Assay Of Creatinine Transferase (Ast) (Sgot) Alanine Amino (Alt) (Sgpt) CReactive Protein Complete Cbc WAuto Diff Wbc Slavauxima Rituximab-abbs Chemo, Iv Infusion, 1 Hr Chemo, Iv Infusion, Addl Hr Normal Saline Solution Infus Solumedrol Up To 125mg Tx/Proph/Dg Addl Seq Iv Inf Truxima Rituximab-abbs Chemo, Iv Infusion, 1 Hr Chemo, Iv Infusion, Addl Hr Normal Saline Solution Infus Solumedrol Up To 125mg Tx/Proph/Dg Addl Seq Iv Inf Office/Outpatient Visit, Est Routine Venipuncture Rbc Sed Rate, Automated Assay Of Serum Albumin Assay Of Creatinine Transferase (Ast) (Sgot) Alanine Amino (Alt) (Sgpt) CReactive Protein Complete Cbc WAuto Diff Wbc Rituximab Injection Chemo, Iv Infusion, 1 Hr Chemo, Iv Infusion, Addl Hr Normal Saline Solution Infus Solumedrol Up To 125mg Tx/Proph/Dg Addl Seq Iv Inf Rituximab Injection Chemo, Iv Infusion, 1 Hr Chemo, Iv Infusion, Addl Hr Normal Saline Solution Infus Solumedrol Up To 125mg Tx/Proph/Dg Addl Seq Iv Inf Routine Venipuncture Complete Cbc WAuto Diff Wbc Office/Outpatient Visit, Est Routine Venipuncture Rbc Sed Rate, Automated Assay Of Serum Albumin Assay Of Creatinine Transferase (Ast) (Sgot) Alanine Amino (Alt) (Sgpt) CReactive Protein Complete Cbc WAuto Diff Wbc Office/Outpatient Visit, Est Routine Venipuncture Rbc Sed Rate, Automated Assay Of Serum Albumin Assay Of Creatinine Transferase (Ast) (Sgot) Alanine Amino (Alt) (Sgpt) CReactive Protein Complete Cbc WAuto Diff Wbc Rituximab Injection Chemo, Iv Infusion, 1 Hr Chemo, Iv Infusion, Addl Hr Normal Saline Solution Infus Solumedrol Up To 125mg Tx/Proph/Dg Addl Seq Iv Inf Rituximab Injection Chemo, Iv Infusion, 1 Hr Chemo, Iv Infusion, Addl Hr Normal Saline Solution Infus Solumedrol Up To 125mg Tx/Proph/Dg Addl Seq Iv Inf Office/Outpatient Visit, Est Routine Venipuncture Rbc Sed Rate, Nonautomated Assay Of Serum Albumin Assay Of Creatinine Transferase (Ast) (Sgot) Alanine Amino (Alt) (Sgpt) CReactive Protein Complete Cbc WAuto Diff Wbc Rituximab Injection Chemo, Iv Infusion, 1 Hr Chemo, Iv Infusion, Addl Hr Normal Saline Solution Infus Solumedrol Up To 125mg Tx/Proph/Dg Addl Seq Iv Inf Rituximab Injection Chemo, Iv Infusion, 1 Hr Chemo, Iv Infusion, Addl Hr Normal Saline Solution Infus Solumedrol Up To 125mg Tx/Proph/Dg Addl Seq Iv Inf Office/Outpatient Visit, Est Routine Venipuncture Rbc Sed Rate, Nonautomated Assay Of Serum Albumin Assay Of Creatinine Transferase (Ast) (Sgot) Alanine Amino (Alt) (Sgpt) CReactive Protein Complete Cbc WAuto Diff Wbc Sent Home By Infusion Staff Tixagev and cilgav inj Tixagev and cilgav inj Office/Outpatient Visit, Est Routine Venipuncture Rbc Sed Rate, Nonautomated Assay Of Serum Albumin Assay Of Creatinine Transferase (Ast) (Sgot) Alanine Amino (Alt) (Sgpt) CReactive Protein Complete Cbc WAuto Diff Wbc Rituximab Injection Chemo, Iv Infusion, 1 Hr Chemo, Iv Infusion, Addl Hr Normal Saline Solution Infus Solumedrol Up To 125mg Tx/Proph/Dg Addl Seq Iv Inf Rituximab Injection Chemo, Iv Infusion, 1 Hr Chemo, Iv Infusion, Addl Hr Normal Saline Solution Infus Bandar-10-2022 Solumedrol Up To 125mg Tx/Proph/Dg Addl Seq Iv Inf Office/Outpatient Visit, Est Routine Venipuncture Rbc Sed Rate, Nonautomated Assay Of Serum Albumin Assay Of Creatinine Transferase (Ast) (Sgot) Alanine Amino (Alt) (Sgpt) CReactive Protein Complete Cbc WAuto Diff Wbc Rituximab Injection Chemo, Iv Infusion, 1 Hr Chemo, Iv Infusion, Addl Hr Normal Saline Solution Infus Solumedrol Up To 125mg Tx/Proph/Dg Addl Seq Iv Inf Rituximab Injection Chemo, Iv Infusion, 1 Hr Chemo, Iv Infusion, Addl Hr Normal Saline Solution Infus Solumedrol Up To 125mg Tx/Proph/Dg Addl Seq Iv Inf Office/Outpatient Visit, Est Routine Venipuncture Rbc Sed Rate, Nonautomated Assay Of Serum Albumin Assay Of Creatinine Transferase (Ast) (Sgot) Alanine Amino (Alt) (Sgpt) CReactive Protein Complete Cbc WAuto Diff Wbc Office/Outpatient Visit, Est Routine Venipuncture Rbc Sed Rate, Nonautomated Assay Of Serum Albumin Assay Of Creatinine Transferase (Ast) (Sgot) Alanine Amino (Alt) (Sgpt) CReactive Protein Complete Cbc WAuto Diff Wbc Rituximab Injection Chemo, Iv Infusion, 1 Hr Chemo, Iv Infusion, Addl Hr Normal Saline Solution Infus Solumedrol Up To 125mg Tx/Proph/Dg Addl Seq Iv Inf Rituximab Injection Chemo, Iv Infusion, 1 Hr Chemo, Iv Infusion, Addl Hr Normal Saline Solution Infus Solumedrol Up To 125mg Tx/Proph/Dg Addl Seq Iv Inf Office/Outpatient Visit, Est Routine Venipuncture Rbc Sed Rate, Nonautomated Assay Of Serum Albumin Assay Of Creatinine Transferase (Ast) (Sgot) Alanine Amino (Alt) (Sgpt) CReactive Protein Complete Cbc WAuto Diff Wbc Office/Outpatient Visit, Est Routine Venipuncture Rbc Sed Rate, Nonautomated Assay Of Serum Albumin Assay Of Creatinine Transferase (Ast) (Sgot) Alanine Amino (Alt) (Sgpt) CReactive Protein Complete Cbc WAuto Diff Wbc Rituximab Injection Chemo, Iv Infusion, 1 Hr Chemo, Iv Infusion, Addl Hr Normal Saline Solution Infus Solumedrol Up To 125mg Tx/Proph/Dg Addl Seq Iv Inf Rituximab Injection Chemo, Iv Infusion, 1 Hr Chemo, Iv Infusion, Addl Hr Normal Saline Solution Infus Solumedrol Up To 125mg Tx/Proph/Dg Addl Seq Iv Inf Office/Outpatient Visit, Est Michael Miguel (golimumab) Chemo, Iv Infusion, 1 Hr Normal Saline Solution Infus Sent Home By Infusion Staff Michael Miguel (golimumab) Chemo, Iv Infusion, 1 Hr Normal Saline Solution Infus Office/Outpatient Visit, Est Routine Venipuncture Rbc Sed Rate, Nonautomated Assay Of Serum Albumin Assay Of Creatinine Transferase (Ast) (Sgot) Alanine Amino (Alt) (Sgpt) CReactive Protein Complete Cbc WAuto Diff Wbc Remicade Infliximab Chemo, Iv Infusion, 1 Hr Chemo, Iv Infusion, Addl Hr Normal Saline Solution Infus Remicade Infliximab Chemo, Iv Infusion, 1 Hr Chemo, Iv Infusion, Addl Hr Normal Saline Solution Infus Office/Outpatient Visit, Est Routine Venipuncture Rbc Sed Rate, Nonautomated Assay Of Serum Albumin Assay Of Creatinine Transferase (Ast) (Sgot) Alanine Amino (Alt) (Sgpt) CReactive Protein Complete Cbc WAuto Diff Wbc Remicade Infliximab Chemo, Iv Infusion, 1 Hr Chemo, Iv Infusion, Addl Hr Normal Saline Solution Infus Remicade Infliximab Chemo, Iv Infusion, 1 Hr Chemo, Iv Infusion, Addl Hr Normal Saline Solution Infus Remicade Infliximab Chemo, Iv Infusion, 1 Hr Chemo, Iv Infusion, Addl Hr Normal Saline Solution Infus Office/Outpatient Visit, Est Routine Venipuncture Rbc Sed Rate, Nonautomated Assay Of Serum Albumin Assay Of Creatinine Transferase (Ast) (Sgot) Alanine Amino (Alt) (Sgpt) CReactive Protein Complete Cbc WAuto Diff Wbc Remicade Infliximab Chemo, Iv Infusion, 1 Hr Chemo, Iv Infusion, Addl Hr Normal Saline Solution Infus Remicade Infliximab Chemo, Iv Infusion, 1 Hr Chemo, Iv Infusion, Addl Hr Normal Saline Solution Infus Office/Outpatient Visit, Est Routine Venipuncture Rbc Sed Rate, Nonautomated Assay Of Serum Albumin Assay Of Creatinine Transferase (Ast) (Sgot) Alanine Amino (Alt) (Sgpt) CReactive Protein Complete Cbc WAuto Diff Wbc Remicade Infliximab Chemo, Iv Infusion, 1 Hr Chemo, Iv Infusion, Addl Hr Normal Saline Solution Infus Remicade Infliximab Chemo, Iv Infusion, 1 Hr Chemo, Iv Infusion, Addl Hr Normal Saline Solution Infus Remicade Infliximab Chemo, Iv Infusion, 1 Hr Chemo, Iv Infusion, Addl Hr Normal Saline Solution Infus Office/Outpatient Visit, Est Routine Venipuncture Complete Cbc WAuto Diff Wbc Rbc Sed Rate, Nonautomated CReactive Protein Assay Of Serum Albumin Assay Of Creatinine Transferase (Ast) (Sgot) Alanine Amino (Alt) (Sgpt) Remicade Infliximab Chemo, Iv Infusion, 1 Hr Chemo, Iv Infusion, Addl Hr Normal Saline Solution Infus Remicade Infliximab Chemo, Iv Infusion, 1 Hr Chemo, Iv Infusion, Addl Hr Normal Saline Solution Infus Office/Outpatient Visit, Est Routine Venipuncture Rbc Sed Rate, Nonautomated CReactive Protein Assay Of Serum Albumin Assay Of Creatinine Transferase (Ast) (Sgot) Alanine Amino (Alt) (Sgpt) Complete Cbc WAuto Diff Wbc Remicade Infliximab Chemo, Iv Infusion, 1 Hr Chemo, Iv Infusion, Addl Hr Normal Saline Solution Infus Remicade Infliximab Chemo, Iv Infusion, 1 Hr Chemo, Iv Infusion, Addl Hr Normal Saline Solution Infus Office/Outpatient Visit, Est Routine Venipuncture Complete Cbc WAuto Diff Wbc Rbc Sed Rate, Nonautomated Assay Of Serum Albumin Assay Of Creatinine Transferase (Ast) (Sgot) Alanine Amino (Alt) (Sgpt) CReactive Protein Tb Test, Cell Immun Measure Remicade Infliximab Chemo, Iv Infusion, 1 Hr Chemo, Iv Infusion, Addl Hr Normal Saline Solution Infus Remicade Infliximab Chemo, Iv Infusion, 1 Hr Chemo, Iv Infusion, Addl Hr Normal Saline Solution Infus Remicade Infliximab Chemo, Iv Infusion, 1 Hr Chemo, Iv Infusion, Addl Hr Normal Saline Solution Infus Office/Outpatient Visit, Est Routine Venipuncture Rbc Sed Rate, Nonautomated CReactive Protein Assay Of Serum Albumin Assay Of Creatinine Transferase (Ast) (Sgot) Alanine Amino (Alt) (Sgpt) Complete Cbc WAuto Diff Wbc Remicade Infliximab Chemo, Iv Infusion, 1 Hr Chemo, Iv Infusion, Addl Hr Normal Saline Solution Infus Remicade Infliximab Chemo, Iv Infusion, 1 Hr Chemo, Iv Infusion, Addl Hr Normal Saline Solution Infus Remicade Infliximab Chemo, Iv Infusion, 1 Hr Chemo, Iv Infusion, Addl Hr Normal Saline Solution Infus Office/Outpatient Visit, Est Routine Venipuncture Rbc Sed Rate, Nonautomated CReactive Protein Assay Of Serum Albumin Assay Of Creatinine Transferase (Ast) (Sgot) Alanine Amino (Alt) (Sgpt) Complete Cbc WAuto Diff Wbc Remicade Infliximab Chemo, Iv Infusion, 1 Hr Chemo, Iv Infusion, Addl Hr Normal Saline Solution Infus Remicade Infliximab Chemo, Iv Infusion, 1 Hr Chemo, Iv Infusion, Addl Hr Normal Saline Solution Infus Office/Outpatient Visit, Est Routine Venipuncture Complete Cbc WAuto Diff Wbc Rbc Sed Rate, Nonautomated CReactive Protein Assay Of Serum Albumin Assay Of Creatinine Transferase (Ast) (Sgot) Alanine Amino (Alt) (Sgpt) Remicade Infliximab Chemo, Iv Infusion, 1 Hr Chemo, Iv Infusion, Addl Hr Normal Saline Solution Infus Remicade Infliximab Chemo, Iv Infusion, 1 Hr Chemo, Iv Infusion, Addl Hr Normal Saline Solution Infus Office/Outpatient Visit, Est Routine Venipuncture Complete Cbc WAuto Diff Wbc Rbc Sed Rate, Nonautomated CReactive Protein Assay Of Serum Albumin Assay Of Creatinine Transferase (Ast) (Sgot) Alanine Amino (Alt) (Sgpt) Remicade Infliximab Chemo, Iv Infusion, 1 Hr Chemo, Iv Infusion, Addl Hr Normal Saline Solution Infus Remicade Infliximab Chemo, Iv Infusion, 1 Hr Chemo, Iv Infusion, Addl Hr Normal Saline Solution Infus Office/Outpatient Visit, Est Routine Venipuncture Complete Cbc WAuto Diff Wbc Rbc Sed Rate, Nonautomated CReactive Protein Assay Of Serum Albumin Assay Of Creatinine Transferase (Ast) (Sgot) Alanine Amino (Alt) (Sgpt) Remicade Infliximab Chemo, Iv Infusion, 1 Hr Chemo, Iv Infusion, Addl Hr Normal Saline Solution Infus Remicade Infliximab Chemo, Iv Infusion, 1 Hr Chemo, Iv Infusion, Addl Hr Normal Saline Solution Infus Office/Outpatient Visit, Est Routine Venipuncture Rbc Sed Rate, Nonautomated Complete Cbc WAuto Diff Wbc CReactive Protein Assay Of Serum Albumin Assay Of Creatinine Transferase (Ast) (Sgot) Alanine Amino (Alt) (Sgpt) Remicade Infliximab Chemo, Iv Infusion, 1 Hr Chemo, Iv Infusion, Addl Hr Normal Saline Solution Infus Office/Outpatient Visit, Est Routine Venipuncture Complete Cbc WAuto Diff Wbc Rbc Sed Rate, Nonautomated CReactive Protein Assay Of Serum Albumin Assay Of Creatinine Transferase (Ast) (Sgot) Alanine Amino (Alt) (Sgpt) Remicade Infliximab Chemo, Iv Infusion, 1 Hr Chemo, Iv Infusion, Addl Hr Normal Saline Solution Infus Sent Home By Infusion Staff Remicade Infliximab Chemo, Iv Infusion, 1 Hr Chemo, Iv Infusion, Addl Hr Normal Saline Solution Infus Office/Outpatient Visit, Est Routine Venipuncture Complete Cbc WAuto Diff Wbc Rbc Sed Rate, Nonautomated CReactive Protein Assay Of Serum Albumin Assay Of Creatinine Transferase (Ast) (Sgot) Alanine Amino (Alt) (Sgpt) Remicade Infliximab Chemo, Iv Infusion, 1 Hr Chemo, Iv Infusion, Addl Hr Normal Saline Solution Infus Remicade Infliximab Chemo, Iv Infusion, 1 Hr Chemo, Iv Infusion, Addl Hr Normal Saline Solution Infus Office/Outpatient Visit, Est Routine Venipuncture Complete Cbc WAuto Diff Wbc Rbc Sed Rate, Nonautomated CReactive Protein Assay Of Serum Albumin Assay Of Creatinine Transferase (Ast) (Sgot) Alanine Amino (Alt) (Sgpt) Remicade Infliximab Chemo, Iv Infusion, 1 Hr Chemo, Iv Infusion, Addl Hr Normal Saline Solution Infus Remicade Infliximab Chemo, Iv Infusion, 1 Hr Chemo, Iv Infusion, Addl Hr Normal Saline Solution Infus Office/Outpatient Visit, Est Routine Venipuncture Complete Cbc WAuto Diff Wbc Rbc Sed Rate, Nonautomated CReactive Protein Assay Of Serum Albumin Assay Of Creatinine Transferase (Ast) (Sgot) Alanine Amino (Alt) (Sgpt) Remicade Infliximab Chemo, Iv Infusion, 1 Hr Chemo, Iv Infusion, Addl Hr Normal Saline Solution Infus Remicade Infliximab Chemo, Iv Infusion, 1 Hr Chemo, Iv Infusion, Addl Hr Normal Saline Solution Infus Office/Outpatient Visit, Est Routine Venipuncture Complete Cbc WAuto Diff Wbc Rbc Sed Rate, Nonautomated CReactive Protein Assay Of Serum Albumin Assay Of Creatinine Transferase (Ast) (Sgot) Alanine Amino (Alt) (Sgpt) Remicade Infliximab Chemo, Iv Infusion, 1 Hr Chemo, Iv Infusion, Addl Hr Normal Saline Solution Infus Office/Outpatient Visit, Est Routine Venipuncture Complete Cbc WAuto Diff Wbc Rbc Sed Rate, Nonautomated CReactive Protein Assay Of Serum Albumin Assay Of Creatinine Transferase (Ast) (Sgot) Alanine Amino (Alt) (Sgpt) Specimen Handling Office/Outpatient Visit, Est Routine Venipuncture Complete Cbc WAuto Diff Wbc Rbc Sed Rate, Nonautomated CReactive Protein Assay Of Serum Albumin Assay Of Creatinine Transferase (Ast) (Sgot) Alanine Amino (Alt) (Sgpt) Office/Outpatient Visit, Est Routine Venipuncture Complete Cbc WAuto Diff Wbc Rbc Sed Rate, Nonautomated Assay Of Serum Albumin Assay Of Creatinine Transferase (Ast) (Sgot) Alanine Amino (Alt) (Sgpt) CReactive Protein CCP Antibody Rheumatoid Factor, IGM Rheumatoid Factor, IGG, IGA Office/Outpatient Visit, Est Routine Venipuncture Complete Cbc WAuto Diff Wbc Rbc Sed Rate, Nonautomated CReactive Protein Assay Of Serum Albumin Assay Of Creatinine Transferase (Ast) (Sgot) Alanine Amino (Alt) (Sgpt) Office/Outpatient Visit, Est Routine Venipuncture Complete Cbc WAuto Diff Wbc Assay Of Serum Albumin Assay Of Creatinine Transferase (Ast) (Sgot) Alanine Amino (Alt) (Sgpt) Office/Outpatient Visit, Est Routine Venipuncture Complete Cbc WAuto Diff Wbc Assay Of Serum Albumin Assay Of Creatinine Transferase (Ast) (Sgot) Alanine Amino (Alt) (Sgpt) Office/Outpatient Visit, Est Routine Venipuncture Complete Cbc WAuto Diff Wbc Assay Of Serum Albumin Assay Of Creatinine Transferase Ast Sgot Alanine Amino (Alt) (Sgpt) Office/Outpatient Visit, Est Routine Venipuncture Complete Cbc WAuto Diff Wbc Assay Of Serum Albumin Assay Of Creatinine Transferase Ast Sgot Alanine Amino Alt Sgpt Office/Outpatient Visit, Est Routine Venipuncture Complete Cbc WAuto Diff Wbc Assay Of Serum Albumin Assay Of Creatinine Transferase Ast Sgot Alanine Amino Alt Sgpt Office/Outpatient Visit, Est Routine Venipuncture Complete Cbc WAuto Diff Wbc Assay Of Serum Albumin Assay Of Creatinine Transferase Ast Sgot Alanine Amino Alt Sgpt Office/Outpatient Visit, Est Routine Venipuncture Complete Cbc WAuto Diff Wbc Assay Of Serum Albumin Assay Of Creatinine Transferase Ast Sgot Alanine Amino Alt Sgpt Results Test Name Date and Time Measure Units Reference Range Abnormal Flag Status Comments Panel Description: ESR LabCancelled LabCancelled Panel Description: CBC 5 part diff LabCancelled LabCancelled Panel Description: DMARD Final AST 11:36:00 28 U/L 10 - 35 Final ALT 11:36:00 27 IU/L 6 - 32 Final Creatinine 11:36:00 1.000 mg/dL 0.500 - 1.050 Final ALB 11:36:00 3.8 g/dL 3.6 - 5.1 Final GFR 11:36:00 58.0 mL/min/ 1.73 m2 Final Reported eGFR is based the CKD-EPI 2020 equation that does not use a race coefficien t. Panel Description: CRP Final CRP 11:36:00 2.70 MG/DL 0.00 - 0.80 H Final Advance Directives Directive Yes / No Effective Date File Name No Information Encounters Encounter Description Practice Location Reason(s) For Visit Diagnoses Date Provider Providers Copied on Encounter Office/Outpa tient Visit, Est [facility] , [address], [place], [address], [place] tel:[phone] [facility] , Follow Up of Inflammatory Polyarthropa thy (chief complaint) Thrombocytop eniaRA w/ rheumatoid factor of multiple sites w/o organ involvementF ibromyalgiaL ridge term (current) use of systemic steroidsOthe r long wall mining machine tender (current) drug therapy 5 Torsten Rodriguez. [facility] [address], [place], [address], [place]. tel:[phone] Referring Provider: Jennifer Sosa, [facility] [address], [place], [address]. tel:[phone] [facility] , [address], [place], [address], [place] tel:[phone] [facility] , No Information 5 Torsetn Rodriguez. [facility] [address], [place], [address], [place]. tel:[phone] Referring Provider: Jennifer Sosa, [facility] [address], [place], [address]. tel:[phone] [facility] , [address], [place], [address], [place] tel:[phone] [facility] , No Information Aug- 5- 5 Torsten Rodriguez. [facility] [address], [place], [address], [place]. tel:[phone] [facility] , [address], [place], [address], [place] tel:[phone] [facility] , No Information Aug- 2- 5 Julien Dodge. [address], [place], [address], [place]. tel:[phone] Referring Provider: Echo Sosa, [address], [place], [address]. tel:[phone] [facility] , [address], [place], [address], [place] tel:[phone] [facility] , No Information Aug- 0-202 5 Julien Dodge. [address], [place], [address], [place]. tel:[phone] Office/Outpa tient Visit, Est [facility] , [address], [place], [address], [place] tel:[phone] [facility] , Follow Up of Inflammatory Polyarthropa thy (chief complaint) Thrombocytop eniaRA w/ rheumatoid factor of multiple sites w/o organ involvementF ibromyalgiaL ridge term (current) use of systemic steroidsOthe r long wall mining machine tender (current) drug therapyAchil les tendinitis, right leg 4 Torsten Rodriguez. [facility] [address], [place], [address], [place]. tel:[phone] Referring Provider: Jennifer Sosa, [facility] [address], [place], [address]. tel:[phone] [facility] , [address], [place], [address], [place] tel:[phone] [facility] , No Information 4 Torsten Rodriguez. [facility] [address], [place], [address], [place]. tel:[phone] Referring Provider: Jennifer Soas, [facility] [address], [place], [address]. tel:[phone] [facility] [facility] , [address], [place], [address], [place] tel:[phone] [facility] , No Information 4 Julien Dodge. [address], [place], [address], [place]. tel:[phone] Referring Provider: Echo Sosa, [address], [place], [address]. tel:[phone] [facility] , [address], [place], [address], [place] tel:[phone] [facility] , No Information 4 Julien Dodge. [address], [address], [place], [address], [place]. tel:[phone] Referring Provider: Echo Sosa, [address], [place], [address]. tel:[phone] Office/Outpa tient Visit, Est [facility] , [address], [place], [address], [place] [phone] [facility] , Follow Up of Inflammatory Polyarthropa thy (chief complaint) Thrombocytop eniaRA w/ rheumatoid factor of multiple sites w/o organ involvementF ibromyalgiaL ridge term (current) use of systemic steroidsOthe r long wall mining machine tender (current) drug therapyPain in right shoulderAchi lles tendinitis, right leg 4 Torsten Rodriguez. [facility] [address], [place], [address], [place]. tel:[phone] Referring Provider: Jennifer Sosa, [facility] [address], [place], [address]. tel:[phone] Office/Outpa tient Visit, Est [facility] , [address], [place], [address], [place] tel:[phone] [facility] , Follow Up of Inflammatory Polyarthropa thy (chief complaint) RA w/ rheumatoid factor of multiple sites w/o organ involvementF ibromyalgiaL ridge term (current) use of systemic steroidsOthe r long wall mining machine tender (current) drug therapyThrom bocytopenia 4 Torsten Rodriguez. [facility] [address], [place], [address], [place]. tel:[phone] Referring Provider: Jennifer Sosa [facility] [address], [place], [address]. tel:[phone] [facility] , [address], [place], [address], [place] tel:[phone] [facility] , No Information 4 Julien Dodge. [address], [address], [place], [address], [place]. tel:[phone] Referring Provider: Echo Sosa, [address], [place], [address]. tel:[phone] [facility] , [address], [place], [address], [place] tel:[phone] [facility] , No Information 4 Julien Dodge. [address], [address], [place], [address], [place]. tel:[phone] Referring Provider: Echo Sosa, [address], [place], [address]. tel:[phone] Office/Outpa tient Visit, Est [facility] , [address], [place], [address], [place] tel:[phone] [facility] , Follow Up of Inflammatory Polyarthropa thy (chief complaint) RA w/ rheumatoid factor of multiple sites w/o organ involvementF ibromyalgiaL ridge term (current) use of systemic steroidsOthe r half-way (current) drug therapyThrom bocytopeniaT rochanteric bursitis, unspecified hip 3 Torsten Rodriguez. [facility] [address], [place], [address], [place]. tel:[phone] Referring Provider: Jennifer Sosa, [facility] [address], [place], [address]. tel:[phone] [facility] , [address], [place], [address], [place] tel:[phone] [facility] , No Information Sep-2 3 Julien Dodge. [address], [address], [place], [address], [place]. tel:[phone] Referring Provider: Echo Sosa, [address], [place], [address]. tel:[phone] [facility] , [address], [place], [address], [place] tel:[phone] [facility] , No Information Sep-0 3 Julien Dodge. [address], [address], [place], [address], [place]. [phone] Referring Provider: Echo Sosa, [address], [place], [address]. tel:[phone] [facility] , [address], [place], [address], [place] tel:[phone] [facility] , No Information Sep-0 3 Julien Dodge. [address], [address], [place], [address], [place]. [phone] Referring Provider: Echo Sosa, [address], [place], [address]. tel:[phone] Office/Outpa tient Visit, Est [facility] , [address], [place], [address], [place] tel:[phone] [facility] , Follow Up of Inflammatory Polyarthropa thy (chief complaint) RA w/ rheumatoid factor of multiple sites w/o organ involvementF ibromyalgiaL ridge term (current) use of systemic steroidsOthe r long wall mining machine tender (current) drug therapy Ronald-2 [id number] 3 Torsten Rodriguez. [facility] [address], [place], [address], [place]. tel:[phone] Referring Provider: Jennifer Sosa, [facility] [address], [place], [address]. tel:[phone] Office/Outpa tient Visit, Est [facility] , [address], [place], [address], [place] tel:[phone] [facility] , Follow Up of Inflammatory Polyarthropa thy (chief complaint) RA w/ rheumatoid factor of multiple sites w/o organ involvementF ibromyalgiaL ridge term (current) use of systemic steroidsOthe r half-way (current) drug therapy 3 Torsten Rodriguez. [facility] [address], [place], [address], [place]. tel:[phone] Referring Provider: Jennifer Sosa, [facility] [address], [place], [address]. tel:[phone] [facility] , [address], [place], [address], [place] tel:[phone] [facility] , No Information 3 Julien Dodge. [address], [address], [place], [address], [place]. tel:[phone] Referring Provider: Echo Sosa, [address], [place], [address]. tel:[phone] [facility] , [address], [place], [address], [place] tel:[phone] [facility] , No Information 3 Julien Dodge. [address], [address], [place], [address], [place]. tel:[phone] Referring Provider: Echo Sosa, [address], [place], [address]. tel:[phone] [facility] , [address], [place], [address], [place] tel:[phone] [facility]arro Personal history of immunosuppre ssion therapy 2 Torsten Rodriguez. [facility] [address], [place], [address], [place]. tel:[phone] Office/Outpa tient Visit, Est [facility] , [address], [place], [address], [place] tel:[phone] [facility] , Follow Up of Inflammatory Polyarthropa thy (chief complaint) RA w/ rheumatoid factor of multiple sites w/o organ involvementF ibromyalgiaL ridge term (current) use of systemic steroidsOthe r long wall mining machine tender (current) drug therapy 2 Torsten Rodriguez. [facility] [address], [place], [address], [place]. tel:[phone] Referring Provider: Jennifer Sosa, [facility] [address], [place], [address]. tel:[phone] [facility] , [address], [place], [address], [place] tel:[phone] [facility] , No Information 2 Julien Jaffe. [facility] [address], [place], [address], [place]. tel:[phone] Referring Provider: Alannah Stevens, [facility] [address], [place], [address]. tel:[phone] [facility] , [address], [place], [address], [place] tel:[phone] [facility] , No Information 2 Julien Dodge. [address], [address], [place], [address], [place]. tel:[phone] Referring Provider: Echo Sosa, [address], [place], [address]. tel:[phone] Office/Outpa tient Visit, Est [facility] , [address], [place], [address], [place] tel:[phone] [facility] , Follow Up of Inflammatory Polyarthropa thy (chief complaint) RA w/ rheumatoid factor of multiple sites w/o organ involvementF ibromyalgiaL ridge term (current) use of systemic steroidsOthe r long wall mining machine tender (current) drug therapy 2 Torsten Rodriguez. [facility] [address], [place], [address], [place]. tel:[phone] Referring Provider: Jennifer Sosa, [facility] [address], [place], [address]. tel:[phone] [facility] , [address], [place], [address], [place] tel:[phone] [facility] , No Information 2 Jayson Taveras. [facility] [address], [place], [address], [place]. tel:[phone] Referring Provider: Nitin Tyler W, [facility] [address], [place], [address]. tel:[phone] Office/Outpa tient Visit, Est [facility] , [address], [place], [address], [place] tel:[phone] [facility] , Follow Up of Inflammatory Polyarthropa thy (chief complaint) RA w/ rheumatoid factor of multiple sites w/o organ involvementF ibromyalgiaL ridge term (current) use of systemic steroidsOthe r long wall mining machine tender (current) drug therapy 2 Torsten Rodriguez. [facility] [address], [place], [address], [place]. tel:[phone] Referring Provider: Jennifer Sosa, [facility] [address], [place], [address]. tel:[phone] [facility] , [address], [place], [address], [place] tel:[phone] [facility] , No Information 2 Torsten Rodriguez. [facility] [address], [place], [address], [place]. tel:[phone] Referring Provider: Jennifer Sosa, [facility] [address], [place], [address]. tel:[phone] [facility] , [address], [place], [address], [place] tel:[phone] [facility] , No Information 2 Lobito Wood. [facility] [address], [place], [address], [place]. tel:[phone] Referring Provider: Israel Goddard, [facility] [address], [place], [address]. tel:[phone] [facility] , [address], [place], [address], [place] tel:[phone] [facility] , No Information 2 Jayson Taveras. [facility] [address], [place], [address], [place]. tel:[phone] Referring Provider: Nitin Lambert, [facility] [address], [place], [address]. tel:[phone] Office/Outpa tient Visit, Est [facility] , [address], [place], [address], [place] tel:[phone] [facility] , Follow Up of Inflammatory Polyarthropa thy (chief complaint) RA w/ rheumatoid factor of multiple sites w/o organ involvementF ibromyalgiaL ridge term (current) use of systemic steroidsOthe r half-way (current) drug therapy 1 Torsten Rodriguez. [facility] [address], [place], [address], [place]. tel:[phone] Referring Provider: Jennifer Sosa, [facility] [address], [place], [address]. tel:[phone] [facility] , [address], [place], [address], [place] tel:[phone] [facility] , No Information 1 Jose Daniel Shultz. [facility] [address], [place], [address], [place]. tel:[phone] Referring Provider: Carrington Stevens, [facility] [address], [place], [address]. tel:[phone] [facility] , [address], [place], [address], [place] tel:[phone] [facility] , No Information 0 1 Jose Daniel Shultz. [facility] [address], [place], [address], [place]. tel:[phone] Referring Provider: Carrington Stevens, [facility] [address], [place], [address]. tel:[phone] [facility] , [address], [place], [address], [place] tel:[phone] [facility] , No Information 1 Torsten Rodriguez. [facility] [address], [place], [address], [place]. tel:[phone] Office/Outpa tient Visit, Est [facility] , [address], [place], [address], [place] tel:[phone] [facility] , Follow Up of Inflammatory Polyarthropa thy (chief complaint) RA w/ rheumatoid factor of multiple sites w/o organ involvementF ibromyalgiaL ridge term (current) use of systemic steroidsOthe r long wall mining machine tender (current) drug therapyLow back pain 1 Torsten Rodriguez. [facility] [address], [place], [address], [place]. tel:[phone] Referring Provider: Jennifer Sosa, [facility] [address], [place], [address]. tel:[phone] Office/Outpa tient Visit, Est [facility] , [address], [place], [address], [place] tel:[phone] [facility] , Follow Up of Inflammatory Polyarthropa thy (chief complaint) RA w/ rheumatoid factor of multiple sites w/o organ involvementF ibromyalgiaL ridge term (current) use of systemic steroidsOthe r long wall mining machine tender (current) drug therapy Oct- 1 Torsten Rodriguez. [facility] [address], [place], [address], [place]. tel:[phone] Referring Provider: Jennifer Sosa, [facility] [address], [place], [address]. tel:[phone] [facility] , [address], [place], [address], [place] tel:[phone] [facility] , No Information 0 1 Skemp Alannah. [facility] [address], [place], [address], [place]. tel:[phone] Referring Provider: Alannah Stevens, [facility] [address], [place], [address]. tel:[phone] [facility] , [address], [place], [address], [place] tel:[phone] [facility] , No Information 1 Skemp Alannah. [facility] [address], [place], [address], [place]. tel:[phone] Referring Provider: Alannah Stevens, [facility] [address], [place], [address]. tel:[phone] Office/Outpa tient Visit, Est [facility] , [address], [place], [address], [place] tel:[phone] [facility] , Follow Up of Inflammatory Polyarthropa thy (chief complaint) RA w/ rheumatoid factor of multiple sites w/o organ involvementF ibromyalgiaM wendi lossLong term (current) use of systemic steroidsOthe r half-way (current) drug therapy 1 Torsten Rodriguez. [facility] [address], [place], [address], [place]. tel:[phone] Referring Provider: Jennifer Sosa, [facility] [address], [place], [address]. tel:[phone] Office/Outpa tient Visit, Est [facility] , [address], [place], [address], [place] tel:[phone] [facility] , Follow Up of Inflammatory Polyarthropa thy (chief complaint) Memory lossRA w/ rheumatoid factor of multiple sites w/o organ involvementF ibromyalgiaL ridge term (current) use of systemic steroidsOthe r half-way (current) drug therapy 0 Torsten Rodriguez. [facility] [address], [place], [address], [place]. tel:[phone] Referring Provider: Jennifer Sosa [facility] [address], [place], [address]. tel:[phone] [facility] , [address], [place], [address], [place] tel:[phone] [facility] , No Information Sep- 0 Skemp Alannah. [facility] [address], [place], [address], [place]. tel:[phone] Referring Provider: Alannah Victoria A, [facility] [address], [place], [address]. tel:[phone] [facility] , [address], [place], [address], [place] tel:[phone] [facility] , No Information Mar-0 0 Skemp Alannah. [facility] [address], [place], [address], [place]. tel:[phone] Referring Provider: Alannah Stevens, [facility] [address], [place], [address]. tel:[phone] Office/Outpa tient Visit, Est [facility] , [address], [place], [address], [place] tel:[phone] [facility] , Follow Up of Inflammatory Polyarthropa thy (chief complaint) RA w/ rheumatoid factor of multiple sites w/o organ involvementF ibromyalgiaL ridge term (current) use of systemic steroidsOthe r half-way (current) drug therapyMemor y loss 0 Torsten Rodriguez. [facility] [address], [place], [address], [place]. tel:[phone] Referring Provider: Jennifer Sosa, [facility] [address], [place], [address]. tel:[phone] [facility] , [address], [place], [address], [place] tel:[phone] [facility] , No Information 0 Torsten Rodriguez. [facility] [address], [place], [address], [place]. tel:[phone] Referring Provider: Jennifer Sosa, [facility] [address], [place], [address]. tel:[phone] [facility] , [address], [place], [address], [place] tel:[phone] [facility] , No Information 0 Vicky Monroe. [facility] [address], [place], [address], [place]. tel:[phone] Referring Provider: Mabel Sosa, [facility] [address], [place], [address]. tel:[phone] [facility] , [address], [place], [address], [place] tel:[phone] [facility] , No Information 0 Julien Walkeribald. [facility] [address], [place], [address], [place]. tel:[phone] Referring Provider: Alannah Victoria A, [facility] [address], [place], [address]. tel:[phone] Office/Outpa tient Visit, Est [facility] , [address], [place], [address], [place] tel:[phone] [facility] , Follow Up of Inflammatory Polyarthropa thy (chief complaint) RA w/ rheumatoid factor of multiple sites w/o organ involvementF ibromyalgiaL ridge term (current) use of systemic steroidsOthe r long wall mining machine tender (current) drug therapy 0 Torsten Rodriguez. [facility] [address], [place], [address], [place]. tel:[phone] Referring Provider: Jennifer Sosa, [facility] [address], [place], [address]. tel:[phone] [facility] , [address], [place], [address], [place] tel:[phone] [facility] , No Information 0 Torsten Rodriguez. [facility] [address], [place], [address], [place]. tel:[phone] Referring Provider: Jennifer Sosa, [facility] [address], [place], [address]. tel:[phone] [facility] , [address], [place], [address], [place] tel:[phone] [facility] , No Information 0 Torsten Rodriguez. [facility] [address], [place], [address], [place]. tel:[phone] Referring Provider: Jennifer Sosa, [facility] [address], [place], [address]. tel:[phone] Office/Outpa tient Visit, Est [facility] , [address], [place], [address], [place] tel:[phone] [facility] , Follow Up of Inflammatory Polyarthropa thy (chief complaint) RA w/ rheumatoid factor of multiple sites w/o organ involvementF ibromyalgiaL ridge term (current) use of systemic steroidsOthe r half-way (current) drug therapyRash 0 Torsten Rodriguez. [facility] [address], [place], [address], [place]. tel:[phone] Referring Provider: Jennifer Sosa, [facility] [address], [place], [address]. [phone] [facility] , [address], [place], [address], [place] tel:[phone] [facility] , No Information 9 Jayson Taveras. [facility] [address], [place], [address], [place]. tel:[phone] Referring Provider: Nitin Lambert, [facility] [address], [place], [place], [address]. tel:[phone] [facility] , [address], [place], [address], [place] tel:[phone] [facility] , No Information 9 Vicky Monroe. [facility] [address], [place], [address], [place]. tel:[phone] Referring Provider: Mabel Sosa, [facility] [address], [place], [address]. tel:[phone] [facility] , [address], [place], [address], [place] tel:[phone] [facility] , No Information 9 Torsten Deyen. [facility] [address], [place], [address], [place]. tel:[phone] Referring Provider: Jennifer Sosa, [facility] [address], [place], [address]. tel:[phone] Office/Outpa tient Visit, Est [facility] , [address], [place], [address], [place] tel:[phone] [facility] , Follow Up of Inflammatory Polyarthropa thy (chief complaint) RA w/ rheumatoid factor of multiple sites w/o organ involvementF ibromyalgiaL ridge term (current) use of systemic steroidsOthe r long wall mining machine tender (current) drug therapyHyper tension Torsten Rodriguez. [facility] [address], [place], [address], [place]. tel:[phone] Referring Provider: Jennifer Sosa, [facility] [address], [place], [address]. tel:[phone] [facility] , [address], [place], [address], [place] tel:[phone] [facility] , No Information 9 Torsten Rodriguez. [facility] [address], [place], [address], [place]. tel:[phone] Referring Provider: Jennifer Sosa, [facility] [address], [place], [address]. tel:[phone] [facility] , [address], [place], [address], [place] tel:[phone] [facility] , No Information 9 Jayson Taveras. [facility] [address], [place], [address], [place]. tel:[phone] Referring Provider: Nitin Lambert, [facility] [address], [place], [address]. tel:[phone] Office/Outpa tient Visit, Est [facility] , [address], [place], [address], [place] tel:[phone] [facility] , Follow Up of Inflammatory Polyarthropa thy (chief complaint) RA w/ rheumatoid factor of multiple sites w/o organ involvementF ibromyalgiaL ridge term (current) use of systemic steroidsOthe r long wall mining machine tender (current) drug therapyHyper tension Torsten Rodriguez. [facility] [address], [place], [address], [place]. tel:[phone] Referring Provider: Jennifer Sosa, [facility] [address], [place], [address]. tel:[phone] [facility] , [address], [place], [address], [place] tel:[phone] [facility] , No Information Torsten Rodriguez. [facility] [address], [place], [address], [place]. tel:[phone] Referring Provider: Jennifer Sosa, [facility] [address], [place], [address]. tel:[phone] [facility] , [address], [place], [address], [place] tel:[phone] [facility] , No Information 9 Torsten Rodriguez. [facility] [address], [place], [address], [place]. tel:[phone] Referring Provider: Jennifer Sosa, [facility] [address], [place], [address]. tel:[phone] [facility] , [address], [place], [address], [place] tel:[phone] [facility] , No Information Julien Jaffe. [facility] [address], [place], [address], [place]. tel:[phone] Referring Provider: Alannah Stevens, [facility] [address], [place], [address]. tel:[phone] Office/Outpa tient Visit, Est [facility] , [address], [place], [address], [place] tel:[phone] [facility] , Follow Up of Inflammatory Polyarthropa thy (chief complaint) RA w/ rheumatoid factor of multiple sites w/o organ involvementF ibromyalgiaL ridge term (current) use of systemic steroidsOthe r half-way (current) drug therapy Apr-201 9 Torsten Rodriguez. [facility] [address], [place], [address], [place]. tel:[phone] Referring Provider: Jennifer Sosa, [facility] [address], [place], [address]. tel:[phone] [facility] , [address], [place], [address], [place] tel:[phone] [facility] , No Information 9 Torsten Rodriguez. [facility] [address], [place], [address], [place]. tel:[phone] Referring Provider: Jennifer Sosa, [facility] [address], [place], [address]. tel:[phone] [facility] , [address], [place], [address], [place] tel:[phone] [facility] , No Information 9 Torsten Rodriguez. [facility] [address], [place], [address], [place]. tel:[phone] Referring Provider: Jennifer Sosa, [facility] [address], [place], [address]. tel:[phone] Office/Outpa tient Visit, Est [facility] , [address], [place], [address], [place] tel:[phone] [facility] , Follow Up of Inflammatory Polyarthropa thy (chief complaint) RA w/ rheumatoid factor of multiple sites w/o organ involvementF ibromyalgiaN onspecific elevation of levels of transaminase and lactic acid dehydrogenas e [LDH][facility] (current) use of systemic steroidsOthe r half-way (current) drug therapy 9 Sarmiento Jennifer. [facility] [address], [place], [address], [place]. tel:[phone] Referring Provider: Jennifer Sosa, [facility] [address], [place], [address]. tel:[phone] [facility] , [address], [place], [address], [place] tel:[phone] [facility] , No Information 8 Sarmiento Jennifer. [facility] [address], [place], [address], [place]. tel:[phone] Referring Provider: Jennifer Sosa, [facility] [address], [place], [address]. tel:[phone] [facility] , [address], [place], [address], [place] tel:[phone] [facility] , No Information 8 Sarmiento Jennifer. [facility] [address], [place], [address], [place]. tel:[phone] Referring Provider: Jennifer Sosa, [facility] [address], [place], [address]. 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 [facility] [address], [place], [address], [place]. tel:[phone] Referring Provider: Jennifer Sosa, [facility] [address], [place], [address]. tel:[phone] [facility] , [address], [place], [address], [place] tel:[phone] [facility] , No Information 8 Torsten Rodriguez. [facility] [address], [place], [address], [place]. tel:[phone] Referring Provider: Jennifer Sosa, [facility] [address], [place], [address]. tel:[phone] [facility] , [address], [place], [address], [place] tel:[phone] [facility] , No Information 8 Torsten Rodriguez. [facility] [address], [place], [address], [place]. tel:[phone] Referring Provider: Jennifer Sosa, [facility] [address], [place], [address]. tel:[phone] [facility] , [address], [place], [address], [place] tel:[phone] [facility] , RA w/ rheumatoid factor of multiple sites w/o organ involvement 8 Torsten Rodriguez. [facility] [address], [place], [address], [place]. tel:[phone] Referring Provider: Jennifer Sosa, [facility] [address], [place], [address]. tel:[phone] Office/Outpa tient Visit, Est [facility] , [address], [place], [address], [place] tel:[phone] [facility] , Follow Up of Inflammatory Polyarthropa thy (chief complaint) RA w/ rheumatoid factor of multiple sites w/o organ involvementF ibromyalgiaN onspecific elevation of levels of transaminase and lactic acid dehydrogenas e [LDH][facility] (current) use of systemic steroidsOthe r half-way (current) drug therapy 8 Torsten Rodriguez. [facility] , [facility] [address], [place], [address], [place]. tel:[phone] Referring Provider: Jennifer Sosa, [facility] [address], [place], [address]. tel:[phone] [facility] , [address], [place], [address], [place] tel:[phone] [facility] , RA w/ rheumatoid factor of multiple sites w/o organ involvement 8 Torsten Rodriguez. [facility] [address], [place], [address], [place]. tel:[phone] Referring Provider: Jennifer Sosa, [facility] [address], [place], [address]. tel:[phone] [facility] , [address], [place], [address], [place] tel:[phone] [facility] , RA w/ rheumatoid factor of multiple sites w/o organ involvement 8 Torsten Rodriguez. [facility] [address], [place], [address], [place]. tel:[phone] Referring Provider: Jennifer Sosa, [facility] [address], [place], [address]. tel:[phone] [facility] , [address], [place], [address], [place] tel:[phone] [facility] , RA w/ rheumatoid factor of multiple sites w/o organ involvement Oct- 8 Torsten Rodriguez. [facility] , [facility] [address], [place], [address], [place]. tel:[phone] Referring Provider: Jennifer Sosa, [facility] [address], [place], [address]. 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 [facility] [address], [place], [address], [place]. tel:[phone] Referring Provider: Jennifer Sosa, [facility] [address], [place], [address]. tel:[phone] [facility] , [address], [place], [address], [place] tel:[phone] [facility] , RA w/ rheumatoid factor of multiple sites w/o organ involvement Torsten Rodriguez. [facility] [address], [place], [address], [place]. tel:[phone] Referring Provider: Jennifer Sosa, [facility] [address], [place], [address]. tel:[phone] [facility] , [address], [place], [address], [place] tel:[phone] [facility] , RA w/ rheumatoid factor of multiple sites w/o organ involvement 8 Lobito Wood. [facility] , [facility] [address], [place], [address], [place]. tel:[phone] Referring Provider: Israel Goddard, [facility] , [facility] [address], [place], [address]. 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 [facility] [address], [place], [address], [place]. tel:[phone] Referring Provider: Jennifer Sosa, [facility] [address], [place], [address]. tel:[phone] [facility] , [address], [place], [address], [place] tel:[phone] [facility] , RA w/ rheumatoid factor of multiple sites w/o organ involvement Torsten Rodriguez. [facility] [address], [place], [address], [place]. tel:[phone] Referring Provider: Jennifer Sosa, [facility] [address], [place], [address]. tel:[phone] [facility] , [address], [place], [address], [place] tel:[phone] [facility] , RA w/ rheumatoid factor of multiple sites w/o organ involvement 7 Jayson Taveras. [facility] [address], [place], [address], [place]. tel:[phone] Referring Provider: Nitin Lambert, [facility] [address], [place], [address]. tel:[phone] Office/Outpa tient Visit, Est [facility] , [address], [place], [address], [place] tel:[phone] [facility] , Follow Up of Inflammatory Polyarthropa thy (chief complaint) RA w/ rheumatoid factor of multiple sites w/o organ involvementF ibromyalgiaL ridge term (current) use of systemic steroidsOthe r half-way (current) drug therapyNonsp ecific elevation of levels of transaminase and lactic acid dehydrogenas e [LDH] 7 Torsten Rodriguez. [facility] [address], [place], [address], [place]. tel:[phone] Referring Provider: Jennifer Sosa, [facility] [address], [place], [address]. tel:[phone] [facility] , [address], [place], [address], [place] tel:[phone] [facility] , RA w/ rheumatoid factor of multiple sites w/o organ involvement 7 Torsten Rodriguez. [facility] [address], [place], [address], [place]. tel:[phone] Referring Provider: Jennifer Sosa, [facility] [address], [place], [address]. tel:[phone] [facility] , [address], [place], [address], [place] tel:[phone] [facility] , RA w/ rheumatoid factor of multiple sites w/o organ involvement 7 Sarmiento Jennifer. [facility] [address], [place], [address], [place]. tel:[phone] Referring Provider: Jennifer Sosa, [facility] [address], [place], [address]. tel:[phone] Office/Outpa tient Visit, Est [facility] , [address], [place], [address], [place] tel:[phone] [facility] , Follow Up of Inflammatory Polyarthropa thy (chief complaint) Acute suppurative OM w/ spontaneous rupture of ear drumRA w/ rheumatoid factor of multiple sites w/o organ involvementF ibromyalgiaL ridge term (current) use of systemic steroidsOthe r long wall mining machine tender (current) drug therapy 0 7 Torsten Rodriguez. [facility] [address], [place], [address], [place]. tel:[phone] Referring Provider: Jennifer Sosa, [facility] [address], [place], [address]. tel:[phone] [facility] , [address], [place], [address], [place] tel:[phone] [facility] , RA w/ rheumatoid factor of multiple sites w/o organ involvement 7 Lobito Wood. [facility] [address], [place], [address], [place]. tel:[phone] Referring Provider: Israel Goddard, [facility] [address], [place], [address]. tel:[phone] [facility] , [address], [place], [address], [place] tel:[phone] [facility] , RA w/ rheumatoid factor of multiple sites w/o organ involvement 7 Vicky Monroe. [facility] [address], [place], [address], [place]. tel:[phone] Referring Provider: Mabel Sosa, [facility] [address], [place], [address]. tel:[phone] Office/Outpa tient Visit, Est [facility] , [address], [place], [address], [place] tel:[phone] [facility] , Follow Up of Inflammatory Polyarthropa thy (chief complaint) RA w/ rheumatoid factor of multiple sites w/o organ involvementF ibromyalgiaL ridge term (current) use of systemic steroidsOthe r half-way (current) drug therapyAcute suppurative OM w/ spontaneous rupture of ear drum Oct- 7 Torsten Rodriguez. [facility] [address], [place], [address], [place]. tel:[phone] Referring Provider: Jennifer Sosa, [facility] [address], [place], [address]. tel:[phone] [facility] , [address], [place], [address], [place] tel:[phone] [facility] , RA w/ rheumatoid factor of multiple sites w/o organ involvement 7 Torsten Rodriguez. [facility] [address], [place], [address], [place]. tel:[phone] Referring Provider: Jennifer Sosa, [facility] [address], [place], [address]. tel:[phone] Office/Outpa tient Visit, Est [facility] , [address], [place], [address], [place] tel:[phone] [facility] , Follow Up of Inflammatory Polyarthropa thy (chief complaint) RA w/ rheumatoid factor of multiple sites w/o organ involvementF ibromyalgiaL ridge term (current) use of systemic steroidsOthe r long wall mining machine tender (current) drug therapy 7 Torsten Rodriguez. [facility] [address], [place], [address], [place]. tel:[phone] Referring Provider: Jennifer Sosa, [facility] [address], [place], [address]. tel:[phone] [facility] , [address], [place], [address], [place] tel:[phone] [facility] , RA w/ rheumatoid factor of multiple sites w/o organ involvement 6 Vicky Monroe. [facility] [address], [place], [address], [place]. tel:[phone] Referring Provider: Mabel Sosa, [facility] [address], [place], [address]. tel:[phone] [facility] , [address], [place], [address], [place] tel:[phone] [facility] , No Information 6 Torsten Rodriguez. [facility] [address], [place], [address], [place]. tel:[phone] Referring Provider: Jennifer Sosa, [facility] [address], [place], [address]. tel:[phone] [facility] , [address], [place], [address], [place] tel:[phone] [facility] , RA w/ rheumatoid factor of multiple sites w/o organ involvement 6 Torsten Rodriguez. [facility] [address], [place], [address], [place]. tel:[phone] Referring Provider: Jennifer Sosa, [facility] [address], [place], [address]. tel:[phone] Office/Outpa tient Visit, Est [facility] , [address], [place], [address], [place] tel:[phone] [facility] , Follow Up of Rheumatoid arthritis (chief complaint) RA w/ rheumatoid factor of multiple sites w/o organ involvementO ther half-way (current) drug therapyLong term (current) use of systemic steroidsFibr omyalgiaImpi ngement syndrome of left shoulder 6 Torsten Rodriguez. [facility] [address], [place], [address], [place]. tel:[phone] Referring Provider: Jennifer Sosa, [facility] [address], [place], [address]. tel:[phone] [facility] , [address], [place], [address], [place] tel:[phone] [facility] , RA w/ rheumatoid factor of multiple sites w/o organ involvement 6 Torsten Rodriguez. [facility] [address], [place], [address], [place]. tel:[phone] Referring Provider: Jennifer Sosa, [facility] [address], [place], [address]. tel:[phone] [facility] , [address], [place], [address], [place] tel:[phone] [facility] , RA w/ rheumatoid factor of multiple sites w/o organ involvement 6 Torsten Rodriguez. [facility] [address], [place], [address], [place]. tel:[phone] Referring Provider: Jennifer Sosa, [facility] [address], [place], [address]. tel:[phone] Office/Outpa tient Visit, Est [facility] , [address], [place], [address], [place] tel:[phone] [facility] , Follow Up of Rheumatoid arthritis (chief complaint) RA w/ rheumatoid factor of multiple sites w/o organ involvementO ther half-way (current) drug therapyLong term (current) use of systemic steroidsFibr omyalgia Torsten Deyen. [facility] [address], [place], [address], [place]. tel:[phone] Referring Provider: Jennifer Sosa, [facility] [address], [place], [address]. tel:[phone] [facility] , [address], [place], [address], [place] tel:[phone] [facility] , RA w/ rheumatoid factor of multiple sites w/o organ involvement 6 Torsten Deyen. [facility] [address], [place], [address], [place]. tel:[phone] Referring Provider: Jennifer Sosa, [facility] [address], [place], [address]. tel:[phone] [facility] , [address], [place], [address], [place] tel:[phone] [facility] , RA w/ rheumatoid factor of multiple sites w/o organ involvement 6 Torsten Rodriguez. [facility] [address], [place], [address], [place]. tel:[phone] Referring Provider: Jennifer Sosa, [facility] [address], [place], [address]. tel:[phone] Office/Outpa tient Visit, Est [facility] , [address], [place], [address], [place] tel:[phone] [facility] , Follow Up of Rheumatoid arthritis (chief complaint) RA w/ rheumatoid factor of multiple sites w/o organ involvementO ther half-way (current) drug therapyLong term (current) use of systemic steroids 6 Torsten Rodriguez. [facility] [address], [place], [address], [place]. tel:[phone] Referring Provider: Jennifer Sosa, [facility] [address], [place], [address]. tel:[phone] [facility] , [address], [place], [address], [place] tel:[phone] [facility] , RA w/ rheumatoid factor of multiple sites w/o organ involvement 6 Torsten Rodriguez. [facility] [address], [place], [address], [place]. tel:[phone] Referring Provider: Jennifer Sosa, [facility] [address], [place], [address]. tel:[phone] [facility] , [address], [place], [address], [place] tel:[phone] [facility] , RA w/ rheumatoid factor of multiple sites w/o organ involvement 6 Torsten Rodriguez. [facility] [address], [place], [address], [place]. tel:[phone] Referring Provider: Jennifer Sosa, [facility] [address], [place], [address]. tel:[phone] Office/Outpa tient Visit, Est [facility] , [address], [place], [address], [place] tel:[phone] [facility] , Follow Up of Inflammatory Polyarthropa thy (chief complaint) RA w/ rheumatoid factor of multiple sites w/o organ involvementO ther long wall mining machine tender (current) drug therapyLong term (current) use of systemic steroidsPlan tar fascial fibromatosis 6 Torsten Jennifer. [facility] [address], [place], [address], [place]. tel:[phone] Referring Provider: Jennifer Sosa, [facility] [address], [place], [address]. tel:[phone] [facility] , [address], [place], [address], [place] tel:[phone] [facility] , RA w/ rheumatoid factor of multiple sites w/o organ involvement 6 Lobito Wood. [facility] [address], [place], [address], [place]. tel:[phone] Referring Provider: Israel Goddard, [facility] [address], [place], [address]. tel:[phone] Office/Outpa tient Visit, Est [facility] , [address], [place], [address], [place] tel:[phone] [facility] , Follow Up of Rheumatoid arthritis (chief complaint) RA w/ rheumatoid factor of multiple sites w/o organ involvementO ther long wall mining machine tender (current) drug therapyLong term (current) use of systemic steroidsPlan tar fascial fibromatosis 5 Torsten Rodriguez. [facility] [address], [place], [address], [place]. tel:[phone] Referring Provider: Jennifer Sosa, [facility] [address], [place], [address]. tel:[phone] Office/Outpa tient Visit, Est [facility] , [address], [place], [address], [place] tel:[phone] [facility] , Follow Up of Inflammatory Polyarthropa thy (chief complaint) Inflammatory polyarthropa thyLONG-TERM (CURRENT) USE OF STEROIDSTher apeutic Drug MonitoringPl jessy fascial fibromatosis 5 Torsten Rodriguez. [facility] [address], [place], [address], [place]. tel:[phone] Referring Provider: Jennifer Sosa, [facility] [address], [place], [address]. tel:[phone] Office/Outpa tient Visit, Est [facility] , [address], [place], [address], [place] tel:[phone] [facility] , Follow Up of Inflammatory Polyarthropa thy (chief complaint) Inflammatory polyarthropa thyTherapeut ic Drug MonitoringLO NG-TERM (CURRENT) USE OF STEROIDS 5 Torsten Rodriguez. [facility] [address], [place], [address], [place]. tel:[phone] Referring Provider: Jennifer Sosa, [facility] [address], [place], [address]. tel:[phone] Office/Outpa tient Visit, Est [facility] , [address], [place], [address], [place] tel:[phone] [facility] , Inflammatory Polyarthropa thy (chief complaint) Unspecified inflammatory polyarthropa thyTherapeut ic Drug MonitoringRa sh and other nonspecific skin eruption 4 Torsten Rodriguez. [facility] [address], [place], [address], [place]. tel:[phone] Referring Provider: Jennifer Sosa, [facility] [address], [place], [address]. tel:[phone] Office/Outpa tient Visit, Est [facility] , [address], [place], [address], [place] tel:[phone] [facility] , Inflammatory Polyarthropa thy (chief complaint) Unspecified inflammatory polyarthropa thyTherapeut ic Drug Monitoring 4 Melba Skinner. [address], [place], [place], [address], [place]. tel:[phone] Referring Provider: Brody Joseph, [address], [place], [address]. tel:[phone] Office/Outpa tient Visit, Est [facility] , [address], [place], [address], [place] tel:[phone] [facility] , Inflammatory Polyarthropa thy (chief complaint) Unspecified inflammatory polyarthropa thyTherapeut ic Drug Monitoring 4 Melba Skinner. [address], [address], [place], [place], [address], [place]. tel:[phone] Referring Provider: Brody [place], [address], [place], [address]. [phone] Office/Outpa tient Visit, Est [facility] , [address], [place], [address], [place] tel:[phone] [facility] , Inflammatory Polyarthropa thy (chief complaint) Unspecified inflammatory polyarthropa thyTherapeut ic Drug Monitoring 3 Melba Skinner. [address], [place], [place], [address], [place]. tel:[phone] Referring Provider: Brody Joseph, [address], [place], [address]. tel:[phone] Office/Outpa tient Visit, Est [facility] , [address], [place], [address], [place] tel:[phone] [facility] , Inflammatory Polyarthropa thy (chief complaint) Unspecified inflammatory polyarthropa thyTherapeut ic Drug Monitoring 3 Melba kSinner. [address], [place], [place], [address], [place]. tel:[phone] Referring Provider: Brody Joseph, [address], [place], [address]. tel:[phone] Office/Outpa tient Visit, Est [facility] , [address], [place], [address], [place] tel:[phone] [facility] , Inflammatory Polyarthropa thy (chief complaint) Unspecified inflammatory polyarthropa thyTherapeut ic Drug Monitoring 3 Melba Skinner. [address], [place], [place], [address], [place]. tel:[phone] Referring Provider: Brody Joseph, [address], [place], [address]. tel:[phone] Office/Outpa tient Visit, Est [facility] , [address], [place], [address], [place] tel:[phone] [facility] , Inflammatory Polyarthropa thy (chief complaint) GERDUnspecif ied inflammatory polyarthropa thyTherapeut ic Drug Monitoring 2 Melba Skinner. [address], [place], [place], [address], [place]. tel:[phone] Referring Provider: Brody Joseph, [address], [place], [address]. tel:[phone] Office/Outpa tient Visit, Est [facility] , [address], [place], [address], [place] tel:[phone] [facility] , Inflammatory Polyarthropa thy (chief complaint) Hypertension , UnspecifiedU nspecified inflammatory polyarthropa thyTherapeut ic Drug Monitoring 2 Melba Skinner. [address], [place], [place], [address], . tel:[phone] Referring Provider: Brody Joseph, [address], [place], [address]. tel:[phone] Family History Family Member Type Diagnosis Age At Onset Daughter Problem (finding) ankylosing spondylitis Immunizations Vaccine Date Status Comments COVID-19 Moderna administered Source: Oth er Provider COVID-19 Moderna administered Source: Oth er Provider COVID-19 Moderna administered Source: Oth er Provider Payers Payer name Insurance type Covered alliance party ID Authormisty jay(s) [facility] Medicare Advantage CI [id number] Social History Type Description Quantity Date Captured Comments Alcohol Use Details Unknown Caffeine Use Details Unknown Tobacco Use Status Current non-smoker Smoking Status Never smoker 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 She is . She has 3 grown daughters. One daughter is a pediatric urology nurse practitioner at [employer], her son-in-law is a palliative care physician at [employer], and another daughter is a highway safety engineer. She has 4 grandchildren. Non-Smoking Tobacco Use Details : No Details Available : No Details Available Sex Female Vital Signs Date / Time: Height Weight BMI Pulse Rate Blood Pressure Temperature Respiratory Rate Body Surface Area Head Circumference Head Circ. Percentile Wt./Saravanan. Percentile BMI percentile Pulse Ox Inhaled Ox 10:12 AM 63.00 in 125.464 kg (276.60 lbs) 49.0 0 kg/m eter (2) 134/82 mm[Hg] 97.20 F Chief Complaint And Reason For Visit From encounter dated '10/10/2024 10:00'. Follow Up of Inflammatory Polyarthropathy (chief complaint) Reason For Referral Reason For Referral No Information Plan Of Treatment Date Type Action Status Appointment Hetal Newsome BOOKED Appointment Hetal Newsome BOOKED Appointment Hetal Newsome BOOKED History Of Present Illness Encounter Date Complaint History Of Prese nt Illness Follow Up of Inflammatory Polyar thropathy Follow Up of Inflammatory Polyar thropathy Follow Up of Inflammatory Polyar thropathy Follow Up of Inflammatory Polyar thropathy Follow Up of Inflammatory Polyar thropathy Follow Up of Inflammatory Polyar thropathy Follow Up of Inflammatory Polyar thropathy Follow Up of Inflammatory Polyar thropathy Follow Up of Inflammatory Polyar thropathy Follow Up of Inflammatory Polyar thropathy Follow Up of Inflammatory Polyar thropathy Follow Up of Inflammatory Polyar thropathy Follow Up of Inflammatory Polyar thropathy Follow Up of Inflammatory Polyar thropathy Follow Up of Inflammatory Polyar thropathy Follow Up of Inflammatory Polyar thropathy Follow Up of Inflammatory Polyar thropathy Follow Up of Inflammatory Polyar thropathy Follow Up of Inflammatory Polyar thropathy Follow Up of Inflammatory Polyar thropathy Follow Up of Inflammatory Polyar thropathy Follow Up of Inflammatory Polyar thropathy Follow Up of Inflammatory Polyar thropathy Follow Up of Inflammatory Polyar thropathy Follow Up of Inflammatory Polyar thropathy Follow Up of Inflammatory Polyar thropathy Follow Up of Inflammatory Polyar thropathy Follow Up of Inflammatory Polyar thropathy Follow Up of Inflammatory Polyar thropathy Follow Up of Inflammatory Polyar thropathy Follow Up of Rheumatoid arthriti s Follow Up of Rheumatoid arthriti s Follow Up of Rheumatoid arthriti s Follow Up of Inflammatory Polyar thropathy Follow Up of Rheumatoid arthriti s Follow Up of Inflammatory Polyar thropathy Follow Up of Inflammatory Polyar thropathy Functional Status Date Functional Assessmen t No Information Instructions Date Instruction Additional Infor mation No Information Assessments Type Assessment Date assessment Thrombocytopenia assessment RA w/ rheumatoid fac tor of multiple sites w/o organ involvement assessment Fibromyalgia 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
--- OUTSIDE RECORDS SUMMARY | 2024-10-28 11:43 | XMS_ITS | Clinical Summary ---
Author Organization [facility] Address [address] [place] [address] Care Team Providers Care Gang Tailer Name Role Phone Eleuterio Cabral MD Primary Care Provider [phone] Jennifer Sarmiento MD Unavailable [phone] Allergies Active Allergy Reactions Criticality Noted Date Comments Adhesive Tape-Silicones Rash 11/27/2003 Amoxicillin Hives 01/02/2013 Latex Rash 07/30/2020 Hydroxychloroquine Rash 09/27/2006 Conjugated Estrogens 09/27/2006 blood clots Medications CALCIUM CARBONATE-VITAMIN D2 600 MG-200 UNIT TAB Take by mouth once daily. 0 Active Cholecalciferol, Vitamin D3, (VITAMIN D-3) 2,000 unit tablet Take 1 tablet by mouth once daily. 0 04/12/20 17 Active rituximab (RITUXAN IV) Inject intravenous. Every 6 months Active triamcinolone (ARISTOCORT) 0.1 % ointmentIndication s:Adverse effect of vaccine, initial encounter Apply topically to affected area(s) 3 times daily. 1 Tube 3 09/23/19 21 Active estradioL (ESTRACE) 0.01% (0.1 mg/g) vaginal cream Apply nightly pea sized amount for 2 weeks, then 3 times per week. 02/12/20 22 Active predniSONE (DELTASONE) 5 mg tablet Take by mouth once daily. 07/25/19 23 Active vibegron (GEMTESA) 75 mg tabletIndications: Urinary incontinence, unspecified type Take 1 Tablet (75 mg) by mouth once daily. 08/09/19 24 Active Blood-Glucose Meter (OneTouch Verio Flex meter)Indications: diabetes mellitus Dispense glucose meter, test strips and lancets covered by the patient insurance. Test 1 times per day. 1 Each 06/24/20 24 Active amLODIPine (NORVASC) 5 mg tabletIndications: Essential hypertension Take 1 Tablet (5 mg) by mouth once daily. 90 Tablet 2 07/09/19 25 Active apixaban (Eliquis) 5 mg tabletIndications: Paroxysmal atrial fibrillation (HC) Take 1 Tablet (5 mg) by mouth two times daily. 180 Tablet 2 07/09/19 25 Active blood sugar diagnostic (OneTouch Verio test strips) stripIndications:T ype 2 diabetes mellitus without complication, without long-term current use of insulin (HC) USE TO TEST ONCE DAILY 100 Each 3 07/09/19 25 Active buPROPion (WELLBUTRIN XL) 150 mg Extended-Release tabletIndications: Depression with anxiety Take 1 Tablet (150 mg) by mouth once daily in the morning. 90 Tablet 2 07/09/19 25 Active famotidine (PEPCID) 20 mg tabletIndications: GERD without esophagitis Take 1 Tablet (20 mg) by mouth once daily. 90 Tablet 2 07/09/19 25 Active furosemide (LASIX) 20 mg tabletIndications: Bilateral lower extremity edema Take 1 Tablet (20 mg) by mouth once daily in the morning. 90 Tablet 2 07/09/19 25 Active lisinopriL (PRINIVIL; ZESTRIL) 20 mg tabletIndications: Essential hypertension Take 1 Tablet (20 mg) by mouth once daily. Prescribed by cardiology 90 Tablet 2 07/09/19 25 Active metFORMIN (GLUCOPHAGE XR) 500 mg Extended-Release tabletIndications: Type 2 diabetes mellitus without complication, without long-term current use of insulin (HC) Take 1 Tablet (500 mg) by mouth once daily with evening meal. 90 Tablet 2 07/09/19 25 Active potassium chloride (K-TAB) 10 mEq extended-release tabletIndications: Essential hypertension Take 2 Tablets (20 mEq) by mouth once daily with a meal. 180 Tablet 2 07/09/19 25 Active rosuvastatin (CRESTOR) 10 mg tabletIndications: Mixed hyperlipidemia Take 1 Tablet (10 mg) by mouth at bedtime. 90 Tablet 2 07/09/19 25 Active tiZANidine (ZANAFLEX) 4 mg tabletIndications: Muscle spasm of back Take 1 Tablet (4 mg) by mouth every 8 hours if needed for Muscle Spasm. 40 Tablet 2 07/09/19 25 Active triamterene-hydroc hlorothiazide, 37.5-25 mg, (MAXZIDE-25) 37.5-25 mg tabletIndications: Essential hypertension Take 1 Tablet by mouth once daily. 90 Tablet 2 07/09/19 25 Active DULoxetine (CYMBALTA) 60 mg Delayed-release capsuleIndications :Depression with anxiety,Obsessive- compulsive disorder, unspecified type Take 2 Capsules (120 mg) by mouth once daily. 180 Capsule 2 07/09/19 25 Active Additional Information Patient taking differently: 60 mgOralBID, Reported on 10/08/2024 lancets ([email or web address].comTouch Delica Plus Lancet) 30 gauge miscIndications:di abetes mellitus As directed. Dispense item covered by pt ins. E11.9 NIDDM type II - Test 1 time/day 100 Each 3 07/09/19 25 Active CPAPIndications:Ob structive sleep apnea RESMED CPAP (E0601) machine for home use at pressure:11cmw with epr 3, Choice of mask (A7030 or A7034) w/full face cushion (A7031) x1/mo, nasal cushion (A7032) x2/mo, or nasal pillows (A7033) x 2/mo; Length of Need: 99 months; Frequency of use: Daily 1 Each 07/11/19 25 Active carvediloL (COREG) 12.5 mg tabletIndications: Essential hypertension,Parox ysmal atrial fibrillation (HC) Take 2 Tablets (25 mg) by mouth two times daily. 360 Tablet 3 07/11/19 25 Active darifenacin ER (ENABLEX) 15 mg Sustained-Release tablet Take 15 mg by mouth once daily. Active trimethoprim-sulfa methoxazole (Bactrim DS) 160-800 mg tab Take 1 Tablet by mouth once daily. prophylaxis Active Active Problems Problem Noted Date Diagnosed Date Stage 3 chronic kidney disea se, unspecified whether stage 3a or 3b CKD 10/08/2024 GERD without esophagitis 03/13/2024 Obsessive-compulsive disorder 09/05/2023 Thrombocytopenia 09/05/2023 Depression, recurrent 05/16/2022 Type 2 diabetes mellitus wit hout complication, without long-term current use of insulin 05/06/2022 Overview (10/08/2024): Diagnosed in 2021 Mixed stress and urge urinary incontinence 02/1112/12/2022 Overactive bladder 02/11/2022 12/12/2022 Dementia of frontal lobe type 08/25/2021 Cognitive disorder 01/01/2020 Paroxysmal atrial fibrillation 07/13/2018 Overview (12/12/2022): She has had 3 lifetime episodes. She was in continuous atrial fibrillation and they were having trouble with rate control so she was cardioverted in 07/2020 and is in sinus rhythm since as of 08/28/2020. Chronic upper back pain 05/01/2017 Morbid obesity with BMI of 45.0-49.9, adult 11/0 07/2015 Bilateral hearing loss 04/11/2016 Overview (04/11/2016): Obtained hearing AIDS 04/2015 Rheumatoid arthritis, seropositive 02/01/2016 Adenomatous colon polyp 02/04/2015 Overview (02/04/2015): Colonoscopy 01/2015 polyp repeat in 5 years BORIS 05/2007, AHI-33 12/16/2013 Depression with anxiety 10/03/2012 Arthritis 10/03/2012 Gastroesophageal reflux disease 06/18/2012 Fibromyalgia 06/10/2009 Overview (06/10/2009): Diagnosed in 2008. Inflammatory polyarthropathy 09/27/2006 Unspecified essential hypertension 09/27/2006 Other and unspecified hyperlipidemia 09/27/2006 Atrial fibrillation 09/27/2006 Overview (08/25/2021): History of Paroxysmal atrial fibrillation. Diagnosed with [...] has remained in sinus rhythm ever since. Encounters Date Type Department Care Team Description 10/28/2024 Nurse Triage [facility] [address] [facility] [address] Eleuterio Cabral MD Breathing Problem; Urinary Problem 10/08/2024 9:10 AM CDT Office Visit [facility] [place] [address] Eleuterio Cabral MD Medicare ANNUAL (subsequent) Visit (77 years) 10/08/2024 Travel 09/05/2024 10:00 AM INDUSTRIAL RELATIONS ANALYST Orders Only [facility] [address] [facility] [address] [place] 09/05/2024 Orders Only [facility] [address] [facility] [address] Eleuterio Cabral MD Lab 09/05/2024 Travel 09/03/2024 2:45 PM INDUSTRIAL RELATIONS ANALYST Office Visit [facility] [address] [facility] [address] Eleuterio Cabral MD Urinary Problem (Frequency and low grade fever/Some dysuria); Medication List Update (Remove sulfa from allergy list - on Bactrim and doing well) 09/03/2024 Travel 08/01/2024 Telephone [facility] [place] [address] Eleuterio Cabral MD Results from Last 3 Months Immunizations Immunization Administration Dates Next Due AMB Influenza, IIV3 (Age >=3 years)(Flu Clinic Only) 05/07/2008 COVID-19 vaccine (Moderna 100mcg/0.5mL) PF, MDV 10/25/2021,09/14/2020,08/17/2020 COVID-19 vaccine (Moderna 50 mcg/0.5mL) 12YO+ BIVALENT PF, MDV 10/26/2022 Influenza A (H1N1), Inactiva helen (Age >=3 Years) 06/10/2009 Influenza, High-dose Inactivated 05/02/2024 Influenza, IIV3 (Age >=3 years) 04/06/20 11,04/02/2010,05/02/2007,05/03 Influenza, IIV4 04/25/2016 Influenza, Inactivated AIIV4 (Age 65+ Years) Preserv Free 04/19/2023,03/16/2022,06/09/2021,04/10 Influenza, Inactivated IIV3 (Age 65+ Years) Preserv Free 05/27/2019,06/04/2018,05/01/2017 Pneumococcal Poly,23-Valent (Pneumovax) 05/20/2020,04/12/2004 Pneumococcal conj 13-Valent (Prevnar 13) 04/25/2016 RSV, Bivalent Vaccine Recons tituted (Abrysvo 120MCG/0.5mL) 03/13/2023 Td (Age >=7 Years) 05/17/2006 Td, Preservative Free (age >= 7 Years) 6 Tdap 05/27/2022,01/11/2011 Zoster (Shingrix-RZV, recombinant) 07/28/2022, Family History Medical History Relation Name Comments Alcohol/Drug Father was drunk and b umped his head and diet of a cerbral hemorrhage at 48 Cancer-breast Maternal Aunt Cancer-breast Mother Heart Disease Mother CAD in 60s Cancer-breast Sister 1 Sandra Postmenopausal breast cancer Sister 1 Sandra Remission Arthritis Sister 2 Livier sp knee replace ment Cancer-ovarian No Family History Relation Name Status Comments Father Maternal Aunt Mother Sister 1 Sandra Alive Sister 2 Livier Alive Social History Tobacco Use Types Packs/Day Years Used Date Smoking Tobacco: Never Smokeless Tobacco: Never Tobacco Cessation:Counseling Given: No Alcohol Use Standard Drinks/Week Comments Yes 3 (1 standard drink = 0.6 oz pur e alcohol) PHQ-2 Answer Date Recorded PHQ-2 TOTAL SCORE 2 10/08/2024 Social Connections Answer Date Recorded Do you often feel lonely or isolated from those around you? 0 01/30/2024 Alcohol Use Answer Date Recorded How often do you have a drink containing alcohol ? 2 10/08/2024 How many drinks containing a lcohol do you have on a typical day when you are drinking? 1 10/08/2024 How often do you have five or more drinks on one occasion? 0 10/08/2024 Financial Resource Strain Answer Date R ecorded Difficulty of Paying Living Expenses 3 01/30/2024 Difficulty of Paying Living Expenses Not on file 01/30/2024 Food Insecurity Answer Date Recorded Do you worry your food will run out before you are able to buy more? 1 01/30/2024 Transportation Needs Answer Date Record ed Does lack of transportation keep you from medica l appointments? 1 01/30/2024 Does lack of transportation keep you from work, meetings or getting things that you need? 1 01/30/2024 Housing Stability Answer Date Recorded What is your housing situation today? 1 01/30/2024 Utilities Answer Date Recorded Do you have trouble paying f or utilities (for example, heat, electricity, water, phone)? 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 Not on file Not on file Not on file Obstetrics History Last Filed Vital Signs Vital Sign Reading Time Taken Comments Blood Pressure 84/58 10/08/2024 9:14 AM CDT Pulse 98 10/08/2024 9:14 AM CDT Temperature 36.2 C (97.2 F) 10/08/2024 9:14 AM CDT Respiratory Rate 18 10/20/2021 9:02 AM CDT Oxygen Saturation 97% 10/08/2024 9:14 AM CDT Inhaled Oxygen Concentration - - Weight 126.2 kg (278 lb 3.2 oz) 10/08/2024 9:14 AM CDT Height 160.4 cm (5' 3.15) 10/08/2024 9:14 AM CD T Body Mass Index 49.05 10/08/2024 9:14 AM CDT Plan of Treatment Upcoming Encounters Date Type Department Care Team (Late st Contact Info) Description 11/01/2024 8:00 AM CDT Office Visit [facility] [place] [address] Eleuterio Cabral MD [address] [place] [address] 04/07/2025 8:45 AM CDT Orders Only [facility] [address] [place] [address] Lisa Berry 04/16/2025 9:15 AM CDT Office Visit [facility] [address] [place] [address] Eleuterio Cabral MD [address] [place] [address] Health Maintenance Due Date Last Done Comments COVID-19 vaccine series (10 - Moderna risk season) 2024 05/02/2024, 12/13/2023, 04/12/2023, Additional history exists BMI (ht and wt on same day) for age 18+ 10/08/2025 10/08/2024, 08/09/2023, 04/19/2023, Additional history exists Depression screening for age 12+ 10/08/2025 10/08/2024, 03/13/2024, 04/19/2023, Additional history exists Medicare Wellness for age 65+ 10/09/2025, 04/19/2023, 08/25/2021, Additional history exists Tetanus booster 05/27/2032 05/27/2022, 12/31, 05/17/2006, Additional history exists Hepatitis C screening for ag e 18-79 Completed 11/24/2003 Pneumococcal series for age 50+ Completed 05/20/2020, 04/25/2016, 04/12/2004 Tdap Completed 05/27/2022, 01/11/2011 Zoster (shingles) series for age 50+ Completed 07/28/2022, 05/27/2022 RSV vaccine for adults or Completed 03/13/2023 DEXA/DXA scan for age 65+ Completed 2022, 07/08/2019, 06/19/2009 Influenza Vaccine Completed 05/02/2024, , 03/16/2022, Additional history exists Procedures Procedure Name Priority Date/Time Associated Diagnosis Comments URINE ALBUMIN TO CREATININE RATIO, RANDOM Routine 10/08/2024 10:42 AM CDT Type 2 diabetes mellitus without complication, without long-term current use of insulin (HC) HEMOGLOBIN A1C MONITORING (POCT) Routine 09/05/2024 11:50 AM INDUSTRIAL RELATIONS ANALYST Type 2 diabetes mellitus without complication, without long-term current use of insulin (HC) BASIC METABOLIC PANEL Routine 09/05/2024 10:15 AM INDUSTRIAL RELATIONS ANALYST ALT (SGPT) Routine 09/05/2024 10:15 AM INDUSTRIAL RELATIONS ANALYST LIPID PANEL W REFLEX MEASURED LDL Routine 09/05/2024 10:15 AM INDUSTRIAL RELATIONS ANALYST CBC WITH AUTO DIFFERENTIAL Routine 09/05/2024 10:15 AM INDUSTRIAL RELATIONS ANALYST URINALYSIS MACROSCOPIC - [facility] ONLY POC DIP ([facility]) Routine 09/03/2024 4:24 PM INDUSTRIAL RELATIONS ANALYST Lower urinary tract symptoms (LUTS) URINALYSIS MICROSCOPIC Routine 09/03/2024 4:21 PM INDUSTRIAL RELATIONS ANALYST Lower urinary tract symptoms (LUTS) URINE CULTURE Routine 09/03/2024 4:21 PM INDUSTRIAL RELATIONS ANALYST Lower urinary tract symptoms (LUTS) XR DXA BONE DENSITY 2 SITES AXIAL Routine 04/27/2023 11:15 AM CDT Postmenopausal ANTI HCV Routine 11/24/2003 1:19 PM CDT from Last 3 Months or Most Recently Relevant to Health Maintenance Results * (ABNORMAL) URINE ALBUMIN TO CREATININE RATIO, RANDOM (10/08/2024 10:42 AM CDT) ALB RAND URINE 12.9 mg/L 10/08/2024 4:52 PM CDT [facility] CREATININE,URIN E 0.24 g/L 10/08/2024 4:52 PM CDT [facility] ALBUMIN TO CREATININE RATIO,RAND UR 53.8(H) <30.0 mg/g creat 10/08/2024 4:52 PM CDT [facility] Urine URINE SPECIMEN / Unknown Non-Blood / Unknown 10/08/2024 10:42 AM CDT 10/08/2024 10:42 AM CDT Narrative [facility] - 10/08/2024 4:52 PM CDT If Albumin to Creatinine Ratio is elevated, consider the following: Elevations seen with incipient nephropathy associated with diabetes mellitus or hypertension. Stress, exercise,hematuria, and urinary tract infection may also produce elevated results. If clinically indicated, confirm with 24 Hour Albumin to Creatinine Ratio. Eleuterio Cabral MD URINE Final Resu lt [facility] [address] [place] [address], * (ABNORMAL) POCT Hemoglobin A1C Monitoring (09/05/2024 11:50 AM INDUSTRIAL RELATIONS ANALYST) POC HEMOGLOBIN A1C 6.0(H) <6.0 % OF TOTAL HGB [facility] Comment: Any point of care results exhibiting inconsistency with the patient's clinical status should be repeated using a different testing method. Blood BLOOD SPECIMEN / Unknown 09/05/2024 11:50 AM INDUSTRIAL RELATIONS ANALYST 09/05/2024 11:52 AM INDUSTRIAL RELATIONS ANALYST Eleuterio Cabral MD CHEMISTRY Final Resu lt Performing Organization Address City/[facility]/ZIP Co de Phone Number [facility] [address] [place] [address], [facility] [address] [place] [address] * (ABNORMAL) LIPID PANEL W REFLEX MEASURED LDL (09/05/2024 10:15 AM INDUSTRIAL RELATIONS ANALYST) CHOLESTEROL, TOTAL 110 <200 mg/dL [facility] HDL CHOLESTEROL 38(L) > OR = 50 mg/dL [facility] TRIGLYCERIDES 131 <150 mg/dL [facility] LDL-CHOLESTEROL 51 mg/dL (calc) [facility] Comment: Reference range: <100 Desirable range <100 mg/dL for primary prevention; <70 mg/dL for patients with CHD or diabetic patients with > or = 2 CHD risk factors. LDL-C is now calculated using the Penny calculation, which is a validated novel method providing better accuracy than the Friedewald equation in the estimation of LDL-C. Jethro GÓMEZ et al. JOI. 2013;310(19): 3732-5702 (http://education.giftee/faq/DYB130) CHOL/HDLC RATIO 2.9 <5.0 (calc) [facility] NON HDL CHOLESTEROL 72 <130 mg/dL (calc) [facility] Comment: For patients with diabetes plus 1 major ASCVD risk factor, treating to a non-HDL-C goal of <100 mg/dL (LDL-C of <70 mg/dL) is considered a therapeutic option. 09/05/2024 10:1 5 AM INDUSTRIAL RELATIONS ANALYST 09/05/2024 12:16 PM INDUSTRIAL RELATIONS ANALYST Narrative [facility] - 09/06/2024 3:47 AM INDUSTRIAL RELATIONS ANALYST FASTING:YES FASTING: YES us Eleuterio Cabral MD CHEMISTRY Final Resu lt [employer] [facility] [address] [place] [address], [facility] [address] [place] [address] * (ABNORMAL) CBC AND DIFFERENTIAL (09/05/2024 10:15 AM INDUSTRIAL RELATIONS ANALYST) Pathologist [facility] WHITE BLOOD CELL COUNT 10.0 3.8 - 10.8 Thousand/u L [facility] RED BLOOD CELL COUNT 4.15 3.80 - 5.10 Million/uL [facility] HEMOGLOBIN 13.6 11.7 - 15.5 g/dL [facility] HEMATOCRIT 41.1 35.0 - 45.0 % [facility] MCV 99.0 80.0 - 100.0 fL [facility] MCH 32.8 27.0 - 33.0 pg [facility] MCHC 33.1 32.0 - 36.0 g/dL [facility] Comment: For adults, a slight decrease in the calculated MCHC value (in the range of 30 to 32 g/dL) is most likely not clinically significant; however, it should be interpreted with caution in correlation with other red cell parameters and the patient's clinical condition. RDW 13.0 11.0 - 15.0 % [facility] PLATELET COUNT 260 140 - 400 Thousand/u L [facility] MPV 11.3 7.5 - 12.5 fL [facility] ABSOLUTE NEUTROPHILS 7,800 1,500 - 7,800 cells/uL [facility] ABSOLUTE LYMPHOCYTES 940 850 - 3,900 cells/uL [facility] ABSOLUTE MONOCYTES 1,050(H) 200 - 950 cells/uL [facility] ABSOLUTE EOSINOPHILS 160 15 - 500 cells/uL [facility] ABSOLUTE BASOPHILS 50 0 - 200 cells/uL [facility] NEUTROPHILS 78 % [facility] LYMPHOCYTES 9.4 % [facility] MONOCYTES 10.5 % [facility] EOSINOPHILS 1.6 % [facility] BASOPHILS 0.5 % [facility] 09/05/2024 10:1 5 AM INDUSTRIAL RELATIONS ANALYST 09/05/2024 12:16 PM INDUSTRIAL RELATIONS ANALYST Narrative [facility] - 09/06/2024 2:40 AM INDUSTRIAL RELATIONS ANALYST FASTING:YES FASTING: YES us Eleuterio Cabral MD HEMATOLOGY Final Resu lt [facility] [address] [place] [address], [facility] [address] [place] [address] * (ABNORMAL) ALT (SGPT) (09/05/2024 10:15 AM INDUSTRIAL RELATIONS ANALYST) ALT 34(H) 6 - 29 U/L [facility] 09/05/2024 10:1 5 AM INDUSTRIAL RELATIONS ANALYST 09/05/2024 12:16 PM INDUSTRIAL RELATIONS ANALYST Narrative [facility] - 09/06/2024 3:47 AM INDUSTRIAL RELATIONS ANALYST FASTING:YES FASTING: YES us Eleuterio Cabral MD CHEMISTRY Final Resu lt [facility] [address] [place] [address], [facility] [address] [place] [address] * (ABNORMAL) BASIC METABOLIC PANEL (09/05/2024 10:15 AM INDUSTRIAL RELATIONS ANALYST) GLUCOSE 134(H) 65 - 99 mg/dL [facility] Comment: Fasting reference interval For someone without known diabetes, a glucose value >125 mg/dL indicates that they may have diabetes and this should be confirmed with a follow-up test. UREA NITROGEN (BUN) 32(H) 7 - 25 mg/dL [facility] CREATININE 1.08(H) 0.60 - 1.00 mg/dL [facility] EGFR 53(L) > OR = 60 mL/min/1.7 3m2 [facility] BUN/CREATININE RATIO 30(H) 6 - 22 (calc) [facility] SODIUM 138 135 - 146 mmol/L [facility] POTASSIUM 4.4 3.5 - 5.3 mmol/L [facility] CHLORIDE 100 98 - 110 mmol/L [facility] CARBON DIOXIDE 27 20 - 32 mmol/L [facility] ELECTROLYTE BALANCE 11 7 - 17 mmol/L (calc) [facility] CALCIUM 9.5 8.6 - 10.4 mg/dL [facility] 09/05/2024 10:1 5 AM INDUSTRIAL RELATIONS ANALYST 09/05/2024 12:16 PM INDUSTRIAL RELATIONS ANALYST Narrative [facility] - 09/06/2024 3:47 AM INDUSTRIAL RELATIONS ANALYST FASTING:YES FASTING: YES Eleuterio Cabral MD CHEMISTRY Final Resu lt [facility] [address] [place] [address], [place] [phone] [facility] [address] [place] [address] * POCT Urinalysis Dipstick Only (09/03/2024 4:24 PM INDUSTRIAL RELATIONS ANALYST) PH 6.0 5.0 - 8.0 [facility] SPECIFIC GRAVITY 1.010 1.001 - 1.035 [facility] GLUCOSE NEGATIVE NEGATIVE [facility] BILIRUBIN NEGATIVE NEGATIVE [facility] KETONES NEGATIVE NEGATIVE [facility] OCCULT BLOOD NEGATIVE NEGATIVE [facility] PROTEIN NEGATIVE NEGATIVE [facility] NITRITE NEGATIVE NEGATIVE [facility] LEUKOCYTE ESTERASE NEGATIVE NEGATIVE [facility] Urine URINE SPECIMEN / Unknown 09/03/2024 4:24 PM INDUSTRIAL RELATIONS ANALYST 09/03/2024 4:25 PM INDUSTRIAL RELATIONS ANALYST Eleuterio Cabral MD URINE Final Resu lt Performing Organization Address City/[facility]/ZIP Co de Phone Number [facility] [address] [place] [address], [facility] [address] [place] [address] * URINALYSIS MICROSCOPIC (09/03/2024 4:21 PM INDUSTRIAL RELATIONS ANALYST) RBC 0-2 0-2, None Seen /HPF 09/04/2024 12:45 AM INDUSTRIAL RELATIONS ANALYST [facility] WBC 0-2 0-2, 3-5, None Seen /HPF 09/04/2024 12:45 AM INDUSTRIAL RELATIONS ANALYST [facility] BACTERIA None Seen None Seen, Rare, Few Bacteria/ HPF 09/04/2024 12:45 AM INDUSTRIAL RELATIONS ANALYST [facility] EPITHELIAL CELLS None Seen None Seen, Few Epi/HPF 09/04/2024 12:45 AM INDUSTRIAL RELATIONS ANALYST [facility] HYALINE CASTS 3-5 0-2, 3-5 /LPF 09/04/2024 12:45 AM INDUSTRIAL RELATIONS ANALYST [facility] Urine URINE SPECIMEN / Unknown Non-Blood / Unknown 09/03/2024 4:21 PM INDUSTRIAL RELATIONS ANALYST 09/03/2024 4:21 PM INDUSTRIAL RELATIONS ANALYST Eleuterio Cabral MD URINE Final Resu lt Performing Organization Address City/[facility]/ZIP Co de Phone Number [facility] [address] [place] [address], [place] * URINE CULTURE (09/03/2024 4:21 PM INDUSTRIAL RELATIONS ANALYST) CULTURE No growth (<1,000 CFU/mL) 09/05/2024 9:56 AM INDUSTRIAL RELATIONS ANALYST [facility] Urine URINE SPECIMEN / Unknown Non-Blood / Unknown 09/03/2024 4:21 PM INDUSTRIAL RELATIONS ANALYST 09/03/2024 4:21 PM INDUSTRIAL RELATIONS ANALYST Eleuterio Cabral MD MICROBIOLOGY Final Resu lt Performing Organization Address City/[facility]/ZIP Co de Phone Number [facility] [address] [place] [id number], [place] * XR DXA BONE DENSITY 2 SITES AXIAL (04/27/2023 11:15 AM CDT) Anatomical Region Laterality Modality Spine, HIPS, HIPL, HIPR Other Impressions 05/03/2023 4:52 PM CDT Normal bone density. RECOMMENDATIONS: The National Osteoporosis Foundation recommends pharmacologic treatment for patients with T-scores of -2.5 or less, patients with prior history of fragility fractures, or patients with 10-year probability of greater than 3% at hips or greater than 20% of suffering major osteoporotic fractures. Recommend continued optimization of calcium and vitamin D intake through dietary means and/or supplementation and regular exercise. Repeat scan recommended in 3-5 years. Sarah Lundy PA-C [facility] 05/03/2023 Narrative 05/03/2023 4:52 PM CDT For Patients: Results are automatically released to your [facility] ([employer]) account once available, in compliance with federal regulations. This means that you may see your results before your provider has had a chance to review them. Please allow 2-3 business days for your provider to comment on the results. XR DXA Bone Mineral Density (BMD) EXAM LOCATION: [facility] [address] [facility] [address] PATIENT NAME: Hetal Newsome DATE OF : 1945 EXAM DATE: 04/27/2023 REQUESTING PROVIDER: Eleuterio Cabral MD GENDER AT : female HEIGHT: 5' 3 (04/19/2023) WEIGHT: 273 lb 6.4 oz (04/19/2023) MENOPAUSAL STATUS: Postmenopausal RACE/ETHNICITY: White RISK FACTORS: Rheumatoid Arthritis, Steroid Medication (non-topical), and White Race CURRENT MEDICATION FOR BONE LOSS: NONE INDICATION: Post-Menopause and Follow-up of normal DXA COMPARISON DATE(S): 2019 and 2008 DXA scans are compared to prior studies for a patient only when the two (or more) studies were performed on the same scanner. It is not possible to compare data generated on one scanner to data from another because there are not standards in DXA equipment. This applies even if the two scanners are made by the same component prep operator. PROCEDURE: Dual-energy x-ray absorptiometry performed with routine technique. Reporting is completed in the form of a T-score. The T-score represents the standard deviation from peak bone mass based on young healthy adult. A Z-score is used for diagnosis in premenopausal women, and for men under the age of 50. FINDINGS: RESULT LUMBAR SPINE L1 - L4 BMD: 1.695 g/cm2 T-Score: + 4.0 Z-Score: + 4.6 Change from prior in 2008: Increase 8.4%. RESULTS FEMUR Left femoral neck BMD: 1.175 g/cm2 T-Score: + 1.0 Z-Score: + 2.2 Change from prior in 2019: Increase 1.4%. Right femoral neck BMD: 1.218 g/cm2 T-Score: + 1.3 Z-Score: + 2.5 Change from prior in 2020: Increase 0.9%. Left hip BMD: 1.320 g/cm2 T-Score: + 2.5 Z-Score: + 3.4 Change from prior in 2020: Increase 0.5%. Right hip BMD: 1.229 g/cm2 T-Score: + 1.8 Z-Score: + 2.7 Change from prior in 2020: Decrease 3.6%. WHO criteria: Normal: T-score at or above -1 SD Osteopenia: T-score between -1.1 and -2.4 SD Osteoporosis: T-score at or below -2.5 SD us Eleuterio Cabral MD DEXA Final Resu lt * ANTI HCV (11/24/2003 1:19 PM CDT) ANTI HCV Non-reactiv e 11/24/2003 1:19 PM CDT Narrative 12/13/2003 6:58 AM CDT Ordered by an unspecified provider. 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
--- OUTSIDE RECORDS SUMMARY | 2024-10-28 12:15 | XMS_ITS | Encounter Summary ---
Author Organization [facility] Address [address] [place] [address] Care Team Providers Care Riprap Placing Supervisor Name Role Phone Elsewhere, Pcp Primary Care Provider Unavailabl e Reason for Referral * Outpatient (Routine) - Authorized Specialty Diagnoses / Procedures Referred By Contac t Referred To Contact Diagnoses Atrial Fibrillation Paroxysmal (HCC) Procedures ECG Heart rhythm monitor (Holter) Siddharth Marshall M.D. [address] [place] [address] Phone: tel: fax: [facility] Referral ID Status Reason Start Date Expiration Date V isits Requested Visits Authorized [id number] Authorized 10/17/2024 01/17/2026 1 1 Reason for Visit * Reason Onset Date Comments Results 10/17/2024 Cardioversion re sults Encounter Details Date Type Department Care Team (Late st Contact Info) Description 10/17/2024 Results Follow-Up Department of Cardiovascular Medicine in [place], [place] [address] [place] [phone] Siddharth Marshall M.D. [address] [place] [phone] ECG 12 Lead Social History Tobacco Use Types Packs/Day Years Used Date Smoking Tobacco: Never Passive Smoke Exposure: Past Smokeless Tobacco: Never Alcohol Use Standard Drinks/Week Comments Yes 6 (1 standard drink = 0.6 oz pur e alcohol) [facility] Utilities Answer Date Recorded In the [...] week 09/07/2022 [facility] often [facility] attend [facility] or mu-ism services? More than 4 times per year 09/07/2022 Do you belong to any clubs o r organizations such as gnosticism groups, unions, fraternal or athletic groups, or [...] and heating? Not hard at all 09/07/2022 [facility] - Occupational Stress Questionnaire Answer Date [...] your living situation today? I have a [facility] place to live 08/06/2024 Education Answer Date Recorded What is the highest level of school you have completed or the highest degree you have received? 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 [address] [place] [address] Scheduled Orders Name Type Priority Associated Diagnoses [...] documented as of this encounter Care Teams Riprap Placing Supervisor Relationship Specialty Start Date End Date Elsewhere, Pcp PCP - General Internal Medicine 02/20/23 documented as of this encounter
--- OUTSIDE RECORDS SUMMARY | 2024-10-28 12:15 | XMS_ITS | Encounter Summary ---
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 [address] [place] [phone] documented as of this encounter Visit Diagnoses Not on filedocumented in this encounter Additional Health Concerns Infection Onset Date Last Indicated Resolved Time Protective Environment 10/14/2022 10/14/2022 documented as of this encounter Care Teams Whipper Beater Relationship Specialty Start Date End Date Elsewhere, Pcp PCP - General Internal Medicine 02/20/23 documented as of this encounter
--- OUTSIDE RECORDS SUMMARY | 2024-10-28 12:15 | XMS_ITS | Encounter Summary ---
Author Organization [facility] Address [address] [place] [address] Care Team Providers Care Equipment Superintendent Name Role Phone Elsewhere, Pcp Primary Care Provider Unavailabl e Encounter Details Date Type Department Care Team (Latest Contact Info) Description 10/14/2024 10:22 AM CDT - 10/14/2024 11:59 PM CDT Hospital Encounter Department of Laboratory Medicine and Pathology, [facility] in [place], [place] [address] [place] [address] Siddharth Marshall M.D. [address] [place] [address] Atrial Fibrillation Paroxysmal (HCC); Cardiac Vascular Disease Screening Discharge Disposition: Home or Self Care Social History Tobacco Use Types Packs/Day Years Used Date Smoking Tobacco: Never Passive Smoke Exposure: Past Smokeless Tobacco: Never Alcohol Use Standard Drinks/Week Comments Yes 6 (1 standard drink = 0.6 oz pur e alcohol) [facility] Utilities Answer Date Recorded In the past 12 months has e electric, gas, oil, or water [employer] threatened to shut off services in your [...] week 09/07/2022 How often do you attend [facility] or gnosticist services? More than 4 times per year [...] and heating? Not hard at all 09/07/2022 [facility] [place] [facility] Occupat ional [facility] - Occupational Stress [...] your living situation today? [facility] 08/06/2024 Education Answer Date Recorded What is the highest level of school you have completed or the highest degree you have received? 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 06/17/2022 miscellaneous medical supply [facility] As directed. CPAP machine for home use [...] by other route daily. On finger 07/22/2022 [employer] Verio Flex meter misc Test 1 times per day.* 06/25/2024 [employer] Verio test strips 1 strip daily. 07/12/2022 [...] Virtual Visit Section of Infectious Diseases in [place], [place] [address] [place] [address] Humaira Keys M.D. [address] [place] [phone] documented as of this encounter Procedures Procedure [...] Basic Metabolic Panel (10/14/2024 10:33 AM CDT) [facility] Potassium, S 4.0 3.6 - 5.2 mmol/L [...] M.D. LAB BLOOD ADD-ON Final Res ult [facility] [place] [address], [facility] [address] [place] [address] * Lipid Panel (10/14/2024 10:33 AM CDT) [...] M.D. LAB BLOOD ADD-ON Final Res ult [address] [address], [facility] [place] [address] * (ABNORMAL) CBC without Differential (10/14/2024 10:33 [...] M.D. LAB BLOOD ADD-ON Final Res ult [facility] [address] [place] [address], [facility] [address] [place] [address] documented in this encounter Visit Diagnoses Diagnosis Atrial Fibrillation Paroxysmal (HCC) Cardiac Vascular Disease Screening documented in this encounter Additional Health Concerns Infection Onset Date Last Indicated Resolved Time Protective Environment 10/14/2022 10/14/2022 documented as of this encounter Care Teams Equipment Superintendent Relationship Specialty Start Date End Date Elsewhere, Pcp PCP - General Internal Medicine 02/20/23 documented as of this encounter
--- OUTSIDE RECORDS SUMMARY | 2024-10-28 12:15 | XMS_ITS | Continuity of Care Document ---
Author Organization [facility] Address [address] [place] [address] Phone Care Team Providers Care Application Penetration Tester Name Role Phone Jennifer Sarmiento MD Unavailable [...] [address], [place], [address], [place] tel:[phone] [facility] , Follow Up of Inflammatory Polyarthropa thy (chief complaint) Thrombocytop eniaRA w/ rheumatoid factor of multiple sites w/o organ involvementF ibromyalgiaL ridge term (current) use of systemic steroidsOthe r machine room engineer (current) drug therapy 5 Torsten Rodriguez. [facility] [address], [place], [address], [place]. tel:[phone] Referring Provider: Jennifer Sosa, [facility] [address], [place], [address]. tel:[phone] [facility] , [address], [place], [address], [place] tel:[phone] [facility] , No Information 5 Torsten Rodriguez. [facility] [address], [place], [address], [place]. tel:[phone] Referring Provider: Jennifer Sosa, [facility] [address], [place], [address]. tel:[phone] [facility] , [address], [place], [address], [place] tel:[phone] [facility] , No Information Aug- 5- 5 Torsten Rodriguez. [facility] [address], [place], [address], [place]. tel:[phone] [facility] , [address], [place], [address], [place] tel:[phone] [facility] , No Information Aug- 2- 5 Julien Dodge. [address], [place], [address], [place]. tel:[phone] Referring Provider: Echo Sosa, [address], [place], [address]. tel:[phone] [facility] , [address], [place], [address], [place] tel:[phone] [facility] , No Information Aug- 0-202 5 Julien Dodge. [address], [place], [address], [place]. tel:[phone] Office/Outpa tient Visit, Est [facility] , [address], [place], [address], [place] tel:[phone] [facility] , Follow Up of Inflammatory Polyarthropa thy (chief complaint) Thrombocytop eniaRA w/ rheumatoid factor of multiple sites w/o organ involvementF ibromyalgiaL ridge term (current) use of systemic steroidsOthe r machine room engineer (current) drug therapyAchil les tendinitis, right leg 4 Torsten Rodriguez. [facility] [address], [place], [address], [place]. tel:[phone] Referring Provider: Jennifer Sosa, [facility] [address], [place], [address]. tel:[phone] [facility] , [address], [place], [address], [place] tel:[phone] [facility] , No Information 4 Torsten Rodriguez. [facility] [address], [place], [address], [place]. tel:[phone] Referring Provider: Jennifer Sosa, [facility] [address], [place], [address]. tel:[phone] [facility] , [address], [place], [address], [place] tel:[phone] [facility] , No Information 4 Julien Dodge. [address], [place], [address], [place]. tel:[phone] Referring Provider: Echo Sosa, [address], [place], [address]. tel:[phone] [facility] , [address], [place], [address], [place] tel:[phone] [facility] , No Information 4 Julien Dodge. [address], [place], [address], [place]. tel:[phone] Referring Provider: Echo Sosa, [address], [place], [address]. tel:[phone] Office/Outpa tient Visit, Est [facility] , [address], [place], [address], [place] [phone] [facility] , Follow Up of Inflammatory Polyarthropa thy (chief complaint) Thrombocytop eniaRA w/ rheumatoid factor of multiple sites w/o organ involvementF ibromyalgiaL ridge term (current) use of systemic steroidsOthe r machine room engineer (current) drug therapyPain in right shoulderAchi lles tendinitis, right leg 4 Torsten Rodriguez. [facility] [address], [place], [address], [place]. tel:[phone] Referring Provider: Jennifer Sosa, [facility] [address], [place], [address]. tel:[phone] Office/Outpa tient Visit, Est [facility] , [address], [place], [address], [place] tel:[phone] [facility] , Follow Up of Inflammatory Polyarthropa thy (chief complaint) RA w/ rheumatoid factor of multiple sites w/o organ involvementF ibromyalgiaL ridge term (current) use of systemic steroidsOthe r machine room engineer (current) drug therapyThrom bocytopenia 4 Torsten Rodriguez. [facility] [address], [place], [address], [place]. tel:[phone] Referring Provider: Jennifer Sosa [facility] [address], [place], [address]. tel:[phone] [facility] , [address], [place], [address], [place] tel:[phone] [facility] , No Information 4 Julien Dodge. [address], [place], [address], [place]. tel:[phone] Referring Provider: Echo Sosa, [address], [place], [address]. tel:[phone] [facility] , [address], [place], [address], [place] tel:[phone] [facility] , No Information 4 Julien Dodge. [address], [place], [address], [place]. tel:[phone] Referring Provider: Echo Sosa, [address], [place], [address]. tel:[phone] Office/Outpa tient Visit, Est [facility] , [address], [place], [address], [place] tel:[phone] [facility] , Follow Up of Inflammatory Polyarthropa thy (chief complaint) RA w/ rheumatoid factor of multiple sites w/o organ involvementF ibromyalgiaL ridge term (current) use of systemic steroidsOthe r nursing home (current) drug therapyThrom bocytopeniaT rochanteric bursitis, unspecified hip 3 Torsten Rodriguez. [facility] [address], [place], [address], [place]. tel:[phone] Referring Provider: Jennifer Sosa, [facility] [address], [place], [address]. tel:[phone] [facility] , [address], [place], [address], [place] tel:[phone] [facility] , No Information Sep-2 3 Julien Dodge. [address], [place], [address], [place]. tel:[phone] Referring Provider: Echo Sosa, [address], [place], [address]. tel:[phone] [facility] , [address], [place], [address], [place] tel:[phone] [facility] , No Information Sep-0 3 Julien Dodge. [address], [place], [address], [place]. [phone] Referring Provider: Echo Sosa, [address], [place], [address]. tel:[phone] [facility] , [address], [place], [address], [place] tel:[phone] [facility] , No Information Sep-0 3 Julien Dodge. [address], [address], [place], [address], [place]. [phone] Referring Provider: Echo Sosa, [address], [place], [address]. tel:[phone] Office/Outpa tient Visit, Est [facility] , [address], [place], [address], [place] tel:[phone] [facility] , Follow Up of Inflammatory Polyarthropa thy (chief complaint) RA w/ rheumatoid factor of multiple sites w/o organ involvementF ibromyalgiaL ridge term (current) use of systemic steroidsOthe r machine room engineer (current) drug therapy Ronald-2 7-202 3 Torsten Rodriguez. [facility] [address], [place], [address], [place]. tel:[phone] Referring Provider: Jennifer Sosa, [facility] [address], [place], [address]. tel:[phone] Office/Outpa tient Visit, Est [facility] , [address], [place], [address], [place] tel:[phone] [facility] , Follow Up of Inflammatory Polyarthropa thy (chief complaint) RA w/ rheumatoid factor of multiple sites w/o organ involvementF ibromyalgiaL ridge term (current) use of systemic steroidsOthe r nursing home (current) drug therapy 3 Torsten Rodriguez. [facility] [address], [place], [address], [place]. tel:[phone] Referring Provider: Jennifer Sosa, [facility] [address], [place], [address]. tel:[phone] [facility] , [address], [place], [address], [place] tel:[phone] [facility] , No Information 3 Julien Dodge. [address], [place], [address], [place]. tel:[phone] Referring Provider: Echo Sosa, [address], [place], [address]. tel:[phone] [facility] , [address], [place], [address], [place] tel:[phone] [facility] , No Information 3 Julien Dodge. [address], [place], [address], [place]. tel:[phone] Referring Provider: Echo Sosa, [address], [place], [address]. tel:[phone] [facility] , [address], [place], [address], [place] tel:[phone] [facility] K[facility] Navarro Personal history of immunosuppre ssion therapy 2 Torsten Rodriguez. [facility] [address], [place], [address], [place]. tel:[phone] Office/Outpa tient Visit, Est [facility] , [address], [place], [address], [place] tel:[phone] [facility] , Follow Up of Inflammatory Polyarthropa thy (chief complaint) RA w/ rheumatoid factor of multiple sites w/o organ involvementF ibromyalgiaL ridge term (current) use of systemic steroidsOthe r machine room engineer (current) drug therapy 2 Torsten Rodriguez. [facility] [address], [place], [address], [place]. tel:[phone] Referring Provider: Jennifer Sosa, [facility] [address], [place], [address]. tel:[phone] [facility] , [address], [place], [address], [place] tel:[phone] [facility] , No Information 2 Julien Jaffe. [facility] [address], [place], [address], [place]. tel:[phone] Referring Provider: Alannah Stevens, [facility] [address], [place], [address]. tel:[phone] [facility] , [address], [place], [address], [place] tel:[phone] [facility] , No Information 2 Julien Dodge. [address], [place], [address], [place]. tel:[phone] Referring Provider: Echo Sosa, [address], [place], [address]. tel:[phone] Office/Outpa tient Visit, Est [facility] , [address], [place], [address], [place] tel:[phone] [facility] , Follow Up of Inflammatory Polyarthropa thy (chief complaint) RA w/ rheumatoid factor of multiple sites w/o organ involvementF ibromyalgiaL ridge term (current) use of systemic steroidsOthe r machine room engineer (current) drug therapy 2 Torsten Rodriguez. [facility] [address], [place], [address], [place]. tel:[phone] Referring Provider: Jennifer Sosa, [facility] [address], [place], [address]. tel:[phone] [facility] , [address], [place], [address], [place] tel:[phone] [facility] , No Information 2 Jayson Taveras. [facility] [address], [place], [address], [place]. tel:[phone] Referring Provider: Nitin Tyler W, [facility] [address], [place], [address]. tel:[phone] Office/Outpa tient Visit, Est [facility] , [address], [place], [address], [place] tel:[phone] [facility] , Follow Up of Inflammatory Polyarthropa thy (chief complaint) RA w/ rheumatoid factor of multiple sites w/o organ involvementF ibromyalgiaL ridge term (current) use of systemic steroidsOthe r machine room engineer (current) drug therapy 2 Torsten Rodriguez. [facility] [address], [place], [address], [place]. tel:[phone] Referring Provider: Jennifer Sosa, [facility] [address], [place], [address]. tel:[phone] [facility] , [address], [place], [address], [place] tel:[phone] [facility] , No Information 2 Torsten Rodriguez. [facility] [address], [place], [address], [place]. tel:[phone] Referring Provider: Jennifer Sosa, [facility] [address], [place], [address]. tel:[phone] [facility] , [address], [place], [address], [place] tel:[phone] [facility] , No Information 2 Lobito Wood. [facility] [address], [place], [address], [place]. tel:[phone] Referring Provider: Israel Goddard, [facility] [address], [place], [address]. tel:[phone] [facility] , [address], [place], [address], [place] tel:[phone] [facility] , No Information 2 Jayson Taveras. [facility] [address], [place], [address], [place]. tel:[phone] Referring Provider: Nitin Lambert, [facility] [address], [place], [address]. tel:[phone] Office/Outpa tient Visit, Est [facility] , [address], [place], [address], [place] tel:[phone] [facility] , Follow Up of Inflammatory Polyarthropa thy (chief complaint) RA w/ rheumatoid factor of multiple sites w/o organ involvementF ibromyalgiaL ridge term (current) use of systemic steroidsOthe r nursing home (current) drug therapy 1 Torsten Rodriguez. [facility] [address], [place], [address], [place]. tel:[phone] Referring Provider: Jennifer Sosa, [facility] [address], [place], [address]. tel:[phone] [facility] , [address], [place], [address], [place] tel:[phone] [facility] , No Information 1 Jose Daniel Shultz. [facility] [address], [place], [address], [place]. tel:[phone] Referring Provider: Carrington Stevens, [facility] [address], [place], [address]. tel:[phone] [facility] , [address], [place], [address], [place] tel:[phone] [facility] , No Information 0 1 Jose Daniel Shultz. [facility] [address], [place], [address], [place]. tel:[phone] Referring Provider: Carrington Stevens, [facility] [address], [place], [address]. tel:[phone] [facility] , [address], [place], [address], [place] tel:[phone] [facility] , No Information 1 Torsten Rodriguez. [facility] [address], [place], [address], [place]. tel:[phone] Office/Outpa tient Visit, Est [facility] , [address], [place], [address], [place] tel:[phone] [facility] , Follow Up of Inflammatory Polyarthropa thy (chief complaint) RA w/ rheumatoid factor of multiple sites w/o organ involvementF ibromyalgiaL ridge term (current) use of systemic steroidsOthe r machine room engineer (current) drug therapyLow back pain 1 Torsten Rodriguez. [facility] [address], [place], [address], [place]. tel:[phone] Referring Provider: Jennifer Sosa, [facility] [address], [place], [address]. tel:[phone] Office/Outpa tient Visit, Est [facility] , [address], [place], [address], [place] tel:[phone] [facility] , Follow Up of Inflammatory Polyarthropa thy (chief complaint) RA w/ rheumatoid factor of multiple sites w/o organ involvementF ibromyalgiaL ridge term (current) use of systemic steroidsOthe r machine room engineer (current) drug therapy Oct- 1 Torsten Rodriguez. [facility] [address], [place], [address], [place]. tel:[phone] Referring Provider: Jennifer Sosa, [facility] [address], [place], [address]. tel:[phone] [facility] , [address], [place], [address], [place] tel:[phone] [facility] , No Information 0 1 Skemp Alannah. [facility] [address], [place], [address], [place]. tel:[phone] Referring Provider: Alannah Stevens, [facility] [address], [place], [address]. tel:[phone] [facility] , [address], [place], [address], [place] tel:[phone] [facility] , No Information 1 Skemp Alannah. [facility] [address], [place], [address], [place]. tel:[phone] Referring Provider: Alannah Stevens, [facility] [address], [place], [address]. tel:[phone] Office/Outpa tient Visit, Est [facility] , [address], [place], [address], [place] tel:[phone] [facility] , Follow Up of Inflammatory Polyarthropa thy (chief complaint) RA w/ rheumatoid factor of multiple sites w/o organ involvementF ibromyalgiaM wendi lossLong term (current) use of systemic steroidsOthe r nursing home (current) drug therapy 1 Torsten Rodriguez. [facility] [address], [place], [address], [place]. tel:[phone] Referring Provider: Jennifer Sosa, [facility] [address], [place], [address]. tel:[phone] Office/Outpa tient Visit, Est [facility] , [address], [place], [address], [place] tel:[phone] [facility] , Follow Up of Inflammatory Polyarthropa thy (chief complaint) Memory lossRA w/ rheumatoid factor of multiple sites w/o organ involvementF ibromyalgiaL ridge term (current) use of systemic steroidsOthe r nursing home (current) drug therapy 0 Torsten Rodriguez. [facility] [address], [place], [address], [place]. tel:[phone] Referring Provider: Jennifer Sosa [facility] [address], [place], [address]. tel:[phone] [facility] , [address], [place], [address], [place] tel:[phone] [facility] , No Information Sep- 0 Skemp Alannah. [facility] [address], [place], [address], [place]. tel:[phone] Referring Provider: Alannah Victoria A, [facility] [address], [place], [address]. tel:[phone] [facility] , [address], [place], [address], [place] tel:[phone] [facility] , No Information Mar-0 0 Skemp Alannah. [facility] [address], [place], [address], [place]. tel:[phone] Referring Provider: Alannah Stevens, [facility] [address], [place], [address]. tel:[phone] Office/Outpa tient Visit, Est [facility] , [address], [place], [address], [place] tel:[phone] [facility] , Follow Up of Inflammatory Polyarthropa thy (chief complaint) RA w/ rheumatoid factor of multiple sites w/o organ involvementF ibromyalgiaL ridge term (current) use of systemic steroidsOthe r nursing home (current) drug therapyMemor y loss 0 Torsten Rodriguez. [facility] [address], [place], [address], [place]. tel:[phone] Referring Provider: Jennifer Sosa, [facility] [address], [place], [address]. tel:[phone] [facility] , [address], [place], [address], [place] tel:[phone] [facility] , No Information 0 Torsten Rodriguez. [facility] [address], [place], [address], [place]. tel:[phone] Referring Provider: Jennifer Sosa, [facility] [address], [place], [address]. tel:[phone] [facility] [facility] , [address], [place], [address], [place] tel:[phone] [facility] , No Information 0 Vicky Monroe. [facility] [address], [place], [address], [place]. tel:[phone] Referring Provider: Mabel Sosa, [facility] [address], [place], [address]. tel:[phone] [facility] , [address], [place], [address], [place] tel:[phone] [facility] , No Information 0 Julien Walkeribald. [facility] [address], [place], [address], [place]. tel:[phone] Referring Provider: Alannah Victoria A, [facility] [address], [place], [address]. tel:[phone] Office/Outpa tient Visit, Est [facility] , [address], [place], [address], [place] tel:[phone] [facility] , Follow Up of Inflammatory Polyarthropa thy (chief complaint) RA w/ rheumatoid factor of multiple sites w/o organ involvementF ibromyalgiaL ridge term (current) use of systemic steroidsOthe r machine room engineer (current) drug therapy 0 Torsten Rodriguez. [facility] [address], [place], [address], [place]. tel:[phone] Referring Provider: Jennifer Sosa, [facility] [address], [place], [address]. tel:[phone] [facility] , [address], [place], [address], [place] tel:[phone] [facility] , No Information 0 Torsten Rodriguez. [facility] [address], [place], [address], [place]. tel:[phone] Referring Provider: Jennifer Sosa, [facility] [address], [place], [address]. tel:[phone] [facility] , [address], [place], [address], [place] tel:[phone] [facility] , No Information 0 Torsten Rodriguez. [facility] [address], [place], [address], [place]. tel:[phone] Referring Provider: Jennifer Sosa, [facility] [address], [place], [address]. tel:[phone] Office/Outpa tient Visit, Est [facility] , [address], [place], [address], [place] tel:[phone] [facility] , Follow Up of Inflammatory Polyarthropa thy (chief complaint) RA w/ rheumatoid factor of multiple sites w/o organ involvementF ibromyalgiaL ridge term (current) use of systemic steroidsOthe r nursing home (current) drug therapyRash 0 Torsten Rodriguez. [facility] [address], [place], [address], [place]. tel:[phone] Referring Provider: Jennifer Sosa, [facility] [address], [place], [address]. tel:[phone] [facility] , [address], [place], [address], [place] tel:[phone] [facility] , No Information 9 Jayson Taveras. [facility] [address], [place], [address], [place]. tel:[phone] Referring Provider: Nitin Lambert, [facility] [address], [place], [address]. tel:[phone] [facility] , [address], [place], [address], [place] tel:[phone] [facility] , No Information 9 Vicky Monroe. [facility] [address], [place], [address], [place]. tel:[phone] Referring Provider: Mabel Sosa, [facility] [address], [place], [address]. tel:[phone] [facility] , [address], [place], [address], [place] tel:[phone] [facility] , No Information 9 Torsten Deyen. [facility] [address], [place], [address], [place]. tel:[phone] Referring Provider: Jennifer Sosa, [facility] [address], [place], [address]. tel:[phone] Office/Outpa tient Visit, Est [facility] , [address], [place], [address], [place] tel:[phone] [facility] , Follow Up of Inflammatory Polyarthropa thy (chief complaint) RA w/ rheumatoid factor of multiple sites w/o organ involvementF ibromyalgiaL ridge term (current) use of systemic steroidsOthe r machine room engineer (current) drug therapyHyper tension Torsten Rodriguez. [facility] [address], [place], [address], [place]. tel:[phone] Referring Provider: Jennifer Sosa, [facility] [address], [place], [address]. tel:[phone] [facility] , [address], [place], [address], [place] tel:[phone] [facility] , No Information 9 Torsten Rodriguez. [facility] [address], [place], [address], [place]. tel:[phone] Referring Provider: Jennifer Soas, [facility] [address], [place], [address]. tel:[phone] [facility] , [address], [place], [address], [place] tel:[phone] [facility] , No Information 9 Jayson Taveras. [facility] [address], [place], [address], [place]. tel:[phone] Referring Provider: Nitin Lambert, [facility] [address], [place], [address]. tel:[phone] Office/Outpa tient Visit, Est [facility] , [address], [place], [address], [place] tel:[phone] [facility] , Follow Up of Inflammatory Polyarthropa thy (chief complaint) RA w/ rheumatoid factor of multiple sites w/o organ involvementF ibromyalgiaL ridge term (current) use of systemic steroidsOthe r machine room engineer (current) drug therapyHyper tension Torsten Rodriguez. [facility] [address], [place], [address], [place]. tel:[phone] Referring Provider: Jennifer Sosa, [facility] [address], [place], [address]. tel:[phone] [facility] , [address], [place], [address], [place] tel:[phone] [facility] , No Information Torsten Rodriguez. [facility] [address], [place], [address], [place]. tel:[phone] Referring Provider: Jennifer Sosa, [facility] [address], [place], [address]. tel:[phone] [facility] , [address], [place], [address], [place] tel:[phone] [facility] , No Information 9 Torsten Rodriguez. [facility] [address], [place], [address], [place]. tel:[phone] Referring Provider: Jennifer Sosa, [facility] [address], [place], [address]. tel:[phone] [facility] , [address], [place], [address], [place] tel:[phone] [facility] , No Information Julien Jaffe. [facility] [address], [place], [address], [place]. tel:[phone] Referring Provider: Alannah Stevens, [facility] [address], [place], [address]. tel:[phone] Office/Outpa tient Visit, Est [facility] , [address], [place], [address], [place] tel:[phone] [facility] , Follow Up of Inflammatory Polyarthropa thy (chief complaint) RA w/ rheumatoid factor of multiple sites w/o organ involvementF ibromyalgiaL ridge term (current) use of systemic steroidsOthe r nursing home (current) drug therapy Apr-201 9 Torsten Rodriguez. [facility] [address], [place], [address], [place]. tel:[phone] Referring Provider: Jennifer Sosa, [facility] [address], [place], [address]. tel:[phone] [facility] , [address], [place], [address], [place] tel:[phone] [facility] , No Information 9 Torsten Rodriguez. [facility] [address], [place], [address], [place]. tel:[phone] Referring Provider: Jennifer Sosa, [facility] [address], [place], [address]. tel:[phone] [facility] , [address], [place], [address], [place] tel:[phone] [facility] , No Information 9 Torsten Rodriguez. [facility] [address], [place], [address], [place]. tel:[phone] Referring Provider: Jennifer Sosa, [facility] [address], [place], [address]. tel:[phone] Office/Outpa tient Visit, Est [facility] , [address], [place], [address], [place] tel:[phone] [facility] , Follow Up of Inflammatory Polyarthropa thy (chief complaint) RA w/ rheumatoid factor of multiple sites w/o organ involvementF ibromyalgiaN onspecific elevation of levels of transaminase and lactic acid dehydrogenas e [LDH]FPC (current) use of systemic steroidsOthe r nursing home (current) drug therapy 9 Sarmiento Jennifer. [facility] [address], [place], [address], [place]. tel:[phone] Referring Provider: Jennifer Sosa, [facility] [address], [place], [address]. tel:[phone] [facility] , [address], [place], [address], [place] tel:[phone] [facility] , No Information 8 Sarmiento Jennifer. [facility] [address], [place], [address], [place]. tel:[phone] Referring Provider: Jennifer Sosa, [facility] [address], [place], [address]. tel:[phone] [facility] , [address], [place], [address], [place] tel:[phone] [facility] , No Information 8 Sarmiento Jennifer. [facility] [address], [place], [address], [place]. tel:[phone] Referring Provider: Jennifer Sosa, [facility] [address], [place], [address]. 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 [facility] [address], [place], [address], [place]. tel:[phone] Referring Provider: Jennifer Sosa, [facility] [address], [place], [address]. tel:[phone] [facility] , [address], [place], [address], [place] tel:[phone] [facility] , No Information 8 Torsten Rodriguez. [facility] [address], [place], [address], [place]. tel:[phone] Referring Provider: Jennifer Sosa, [facility] [address], [place], [address]. tel:[phone] [facility] , [address], [place], [address], [place] tel:[phone] [facility] , No Information 8 Torsten Rodriguez. [facility] [address], [place], [address], [place]. tel:[phone] Referring Provider: Jennifer Sosa, [facility] [address], [place], [address]. tel:[phone] [facility] , [address], [place], [address], [place] tel:[phone] [facility] , RA w/ rheumatoid factor of multiple sites w/o organ involvement 8 Torsten Rodriguez. [facility] [address], [place], [address], [place]. tel:[phone] Referring Provider: Jennifer Sosa, [facility] [address], [place], [address]. tel:[phone] Office/Outpa tient Visit, Est [facility] , [address], [place], [address], [place] tel:[phone] [facility] , Follow Up of Inflammatory Polyarthropa thy (chief complaint) RA w/ rheumatoid factor of multiple sites w/o organ involvementF ibromyalgiaN onspecific elevation of levels of transaminase and lactic acid dehydrogenas e [LDH]FPC (current) use of systemic steroidsOthe r nursing home (current) drug therapy 8 Torsten Rodriguez. [facility] [address], [place], [address], [place]. tel:[phone] Referring Provider: Jennifer Sosa, [facility] [address], [place], [address]. tel:[phone] [facility] , [address], [place], [address], [place] tel:[phone] [facility] , RA w/ rheumatoid factor of multiple sites w/o organ involvement 8 Torsten Rodriguez. [facility] [address], [place], [address], [place]. tel:[phone] Referring Provider: Jennifer Sosa, [facility] [address], [place], [address]. tel:[phone] [facility] , [address], [place], [address], [place] tel:[phone] [facility] , RA w/ rheumatoid factor of multiple sites w/o organ involvement 8 Torsten Rodriguez. [facility] [address], [place], [address], [place]. tel:[phone] Referring Provider: Jennifer Sosa, [facility] [address], [place], [address]. tel:[phone] [facility] , [address], [place], [address], [place] tel:[phone] [facility] , RA w/ rheumatoid factor of multiple sites w/o organ involvement Oct- 8 Torsten Rodriguez. [facility] [address], [place], [address], [place]. tel:[phone] Referring Provider: Jennifer Sosa, [facility] [address], [place], [address]. 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 [facility] [address], [place], [address], [place]. tel:[phone] Referring Provider: Jennifer Sosa, [facility] [address], [place], [address]. tel:[phone] [facility] , [address], [place], [address], [place] tel:[phone] [facility] , RA w/ rheumatoid factor of multiple sites w/o organ involvement Torsten Rodriguez. [facility] [address], [place], [address], [place]. tel:[phone] Referring Provider: Jennifer Sosa, [facility] [address], [place], [address]. tel:[phone] [facility] , [address], [place], [address], [place] tel:[phone] [facility] , RA w/ rheumatoid factor of multiple sites w/o organ involvement 8 Lobito Wood. [facility] [address], [place], [address], [place]. tel:[phone] Referring Provider: Israel Goddard, [facility] [address], [place], [address]. 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 [facility] [address], [place], [address], [place]. tel:[phone] Referring Provider: Jennifer Sosa, [facility] [address], [place], [address]. tel:[phone] [facility] , [address], [place], [address], [place] tel:[phone] [facility] , RA w/ rheumatoid factor of multiple sites w/o organ involvement Torsten Rodriguez. [facility] [address], [place], [address], [place]. tel:[phone] Referring Provider: Jennifer Sosa, [facility] [address], [place], [address]. tel:[phone] [facility] , [address], [place], [address], [place] tel:[phone] [facility] , RA w/ rheumatoid factor of multiple sites w/o organ involvement 7 Jayson Taveras. [facility] [address], [place], [address], [place]. tel:[phone] Referring Provider: Nitin Lambert, [facility] [address], [place], [address]. tel:[phone] Office/Outpa tient Visit, Est [facility] , [address], [place], [address], [place] tel:[phone] [facility] , Follow Up of Inflammatory Polyarthropa thy (chief complaint) RA w/ rheumatoid factor of multiple sites w/o organ involvementF ibromyalgiaL ridge term (current) use of systemic steroidsOthe r nursing home (current) drug therapyNonsp ecific elevation of levels of transaminase and lactic acid dehydrogenas e [LDH] 7 Torsten Rodriguez. [facility] [address], [place], [address], [place]. tel:[phone] Referring Provider: Jennifer Sosa, [facility] [address], [place], [address]. tel:[phone] [facility] , [address], [place], [address], [place] tel:[phone] [facility] , RA w/ rheumatoid factor of multiple sites w/o organ involvement 7 Torsten Rodriguez. [facility] [address], [place], [address], [place]. tel:[phone] Referring Provider: Jennifer Sosa, [facility] [address], [place], [address]. tel:[phone] [facility] , [address], [place], [address], [place] tel:[phone] [facility] , RA w/ rheumatoid factor of multiple sites w/o organ involvement 7 Sarmiento Jennifer. [facility] [address], [place], [address], [place]. tel:[phone] Referring Provider: Jennifer Sosa, [facility] [address], [place], [address]. tel:[phone] Office/Outpa tient Visit, Est [facility] , [address], [place], [address], [place] tel:[phone] [facility] , Follow Up of Inflammatory Polyarthropa thy (chief complaint) Acute suppurative OM w/ spontaneous rupture of ear drumRA w/ rheumatoid factor of multiple sites w/o organ involvementF ibromyalgiaL ridge term (current) use of systemic steroidsOthe r machine room engineer (current) drug therapy 0 7 Torsten Rodriguez. [facility] [address], [place], [address], [place]. tel:[phone] Referring Provider: Jennifer Sosa, [facility] [address], [place], [address]. tel:[phone] [facility] , [address], [place], [address], [place] tel:[phone] [facility] , RA w/ rheumatoid factor of multiple sites w/o organ involvement 7 Lobito Wood. [facility] [address], [place], [address], [place]. tel:[phone] Referring Provider: Israel Goddard, [facility] [address], [place], [address]. tel:[phone] [facility] , [address], [place], [address], [place] tel:[phone] [facility] , RA w/ rheumatoid factor of multiple sites w/o organ involvement 7 Vicky Monroe. [facility] [address], [place], [address], [place]. tel:[phone] Referring Provider: Mabel Sosa, [facility] [address], [place], [address]. tel:[phone] Office/Outpa tient Visit, Est [facility] , [address], [place], [address], [place] tel:[phone] [facility] , Follow Up of Inflammatory Polyarthropa thy (chief complaint) RA w/ rheumatoid factor of multiple sites w/o organ involvementF ibromyalgiaL ridge term (current) use of systemic steroidsOthe r nursing home (current) drug therapyAcute suppurative OM w/ spontaneous rupture of ear drum Oct- 7 Torsten Rodriguez. [facility] [address], [place], [address], [place]. tel:[phone] Referring Provider: Jennifer Sosa, [facility] [address], [place], [address]. tel:[phone] [facility] , [address], [place], [address], [place] tel:[phone] [facility] , RA w/ rheumatoid factor of multiple sites w/o organ involvement 7 Torsten Rodriguez. [facility] [address], [place], [address], [place]. tel:[phone] Referring Provider: Jennifer Sosa, [facility] [address], [place], [address]. tel:[phone] Office/Outpa tient Visit, Est [facility] , [address], [place], [address], [place] tel:[phone] [facility] , Follow Up of Inflammatory Polyarthropa thy (chief complaint) RA w/ rheumatoid factor of multiple sites w/o organ involvementF ibromyalgiaL ridge term (current) use of systemic steroidsOthe r machine room engineer (current) drug therapy 7 Torsten Rodriguez. [facility] [address], [place], [address], [place]. tel:[phone] Referring Provider: Jennifer Sosa, [facility] [address], [place], [address]. tel:[phone] [facility] , [address], [place], [address], [place] tel:[phone] [facility] , RA w/ rheumatoid factor of multiple sites w/o organ involvement 6 Vicky Monroe. [facility] [address], [place], [address], [place]. tel:[phone] Referring Provider: Mabel Sosa, [facility] [address], [place], [address]. tel:[phone] [facility] , [address], [place], [address], [place] tel:[phone] [facility] , No Information 6 Torsten Rodriguez. [facility] [address], [place], [address], [place]. tel:[phone] Referring Provider: Jennifer Sosa, [facility] [address], [place], [address]. tel:[phone] [facility] , [address], [place], [address], [place] tel:[phone] [facility] , RA w/ rheumatoid factor of multiple sites w/o organ involvement 6 Torsten Rodriguez. [facility] [address], [place], [address], [place]. tel:[phone] Referring Provider: Jennifer Sosa, [facility] [address], [place], [address]. tel:[phone] Office/Outpa tient Visit, Est [facility] , [address], [place], [address], [place] tel:[phone] [facility] , Follow Up of Rheumatoid arthritis (chief complaint) RA w/ rheumatoid factor of multiple sites w/o organ involvementO ther nursing home (current) drug therapyLong term (current) use of systemic steroidsFibr omyalgiaImpi ngement syndrome of left shoulder 6 Torsten Rodriguez. [facility] [address], [place], [address], [place]. tel:[phone] Referring Provider: Jennifer Sosa, [facility] [address], [place], [address]. tel:[phone] [facility] , [address], [place], [address], [place] tel:[phone] [facility] , RA w/ rheumatoid factor of multiple sites w/o organ involvement 6 Torsten Rodriguez. [facility] [address], [place], [address], [place]. tel:[phone] Referring Provider: Jennifer Sosa, [facility] [address], [place], [address]. tel:[phone] [facility] , [address], [place], [address], [place] tel:[phone] [facility] , RA w/ rheumatoid factor of multiple sites w/o organ involvement 6 Torsten Rodriguez. [facility] [address], [place], [address], [place]. tel:[phone] Referring Provider: Jennifer Sosa, [facility] [address], [place], [address]. tel:[phone] Office/Outpa tient Visit, Est [facility] , [address], [place], [address], [place] tel:[phone] [facility] , Follow Up of Rheumatoid arthritis (chief complaint) RA w/ rheumatoid factor of multiple sites w/o organ involvementO ther nursing home (current) drug therapyLong term (current) use of systemic steroidsFibr omyalgia Torsten Deyen. [facility] [address], [place], [address], [place]. tel:[phone] Referring Provider: Jennifer Sosa, [facility] [address], [place], [address]. tel:[phone] [facility] , [address], [place], [address], [place] tel:[phone] [facility] , RA w/ rheumatoid factor of multiple sites w/o organ involvement 6 Torsten Deyen. [facility] [address], [place], [address], [place]. tel:[phone] Referring Provider: Jennifer Sosa, [facility] [address], [place], [address]. tel:[phone] [facility] , [address], [place], [address], [place] tel:[phone] [facility] , RA w/ rheumatoid factor of multiple sites w/o organ involvement 6 Torsten Rodriguez. [facility] [address], [place], [address], [place]. tel:[phone] Referring Provider: Jennifer Sosa, [facility] [address], [place], [address]. tel:[phone] Office/Outpa tient Visit, Est [facility] , [address], [place], [address], [place] tel:[phone] [facility] , Follow Up of Rheumatoid arthritis (chief complaint) RA w/ rheumatoid factor of multiple sites w/o organ involvementO ther nursing home (current) drug therapyLong term (current) use of systemic steroids 6 Torsten Rodriguez. [facility] [address], [place], [address], [place]. tel:[phone] Referring Provider: Jennifer Sosa, [facility] [address], [place], [address]. tel:[phone] [facility] , [address], [place], [address], [place] tel:[phone] [facility] , RA w/ rheumatoid factor of multiple sites w/o organ involvement 6 Torsten Rodriguez. [facility] [address], [place], [address], [place]. tel:[phone] Referring Provider: Jennifer Sosa, [facility] [address], [place], [address]. tel:[phone] [facility] , [address], [place], [address], [place] tel:[phone] [facility] , RA w/ rheumatoid factor of multiple sites w/o organ involvement 6 Torsten Rodriguez. [facility] [address], [place], [address], [place]. tel:[phone] Referring Provider: Jennifer Sosa, [facility] [address], [place], [address]. tel:[phone] Office/Outpa tient Visit, Est [facility] , [address], [place], [address], [place] tel:[phone] [facility] , Follow Up of Inflammatory Polyarthropa thy (chief complaint) RA w/ rheumatoid factor of multiple sites w/o organ involvementO ther machine room engineer (current) drug therapyLong term (current) use of systemic steroidsPlan tar fascial fibromatosis 6 Torsten Jennifer. [facility] [address], [place], [address], [place]. tel:[phone] Referring Provider: Jennifer Sosa, [facility] [address], [place], [address]. tel:[phone] [facility] , [address], [place], [address], [place] tel:[phone] [facility] , RA w/ rheumatoid factor of multiple sites w/o organ involvement 6 Lobito Wood. [facility] [address], [place], [address], [place]. tel:[phone] Referring Provider: Israel Goddard, [facility] [address], [place], [address]. tel:[phone] Office/Outpa tient Visit, Est [facility] , [address], [place], [address], [place] tel:[phone] [facility] , Follow Up of Rheumatoid arthritis (chief complaint) RA w/ rheumatoid factor of multiple sites w/o organ involvementO ther machine room engineer (current) drug therapyLong term (current) use of systemic steroidsPlan tar fascial fibromatosis 5 Torsten Rodriguez. [facility] [address], [place], [address], [place]. tel:[phone] Referring Provider: Jennifer Sosa, [facility] [address], [place], [address]. tel:[phone] Office/Outpa tient Visit, Est [facility] , [address], [place], [address], [place] tel:[phone] [facility] , Follow Up of Inflammatory Polyarthropa thy (chief complaint) Inflammatory polyarthropa thyLONG-TERM (CURRENT) USE OF STEROIDSTher apeutic Drug MonitoringPl jessy fascial fibromatosis 5 Torsten Rodriguez. [facility] [address], [place], [address], [place]. tel:[phone] Referring Provider: Jennifer Sosa, [facility] [address], [place], [address]. tel:[phone] Office/Outpa tient Visit, Est [facility] , [address], [place], [address], [place] tel:[phone] [facility] , Follow Up of Inflammatory Polyarthropa thy (chief complaint) Inflammatory polyarthropa thyTherapeut ic Drug MonitoringLO NG-TERM (CURRENT) USE OF STEROIDS 5 Torsten Rodriguez. [facility] [address], [place], [address], [place]. tel:[phone] Referring Provider: Jennifer Sosa, [facility] [address], [place], [address]. tel:[phone] Office/Outpa tient Visit, Est [facility] , [address], [place], [address], [place] tel:[phone] [facility] , Inflammatory Polyarthropa thy (chief complaint) Unspecified inflammatory polyarthropa thyTherapeut ic Drug MonitoringRa sh and other nonspecific skin eruption 4 Torsten Rodriguez. [facility] [address], [place], [address], [place]. tel:[phone] Referring Provider: Jennifer Sosa, [facility] [address], [place], [address]. tel:[phone] Office/Outpa tient Visit, Est [facility] , [address], [place], [address], [place] tel:[phone] [facility] , Inflammatory Polyarthropa thy (chief complaint) Unspecified inflammatory polyarthropa thyTherapeut ic Drug Monitoring 4 Melba Skinner. [address], [place], [place], [address], [place]. tel:[phone] Referring Provider: Brody Joseph, [address], [place], [address]. tel:[phone] Office/Outpa tient Visit, Est [facility] , [address], [place], [address], [place] tel:[phone] [facility] , Inflammatory Polyarthropa thy (chief complaint) Unspecified inflammatory polyarthropa thyTherapeut ic Drug Monitoring 4 Melba Skinner. [address], [place], [place], [address], [place]. tel:[phone] Referring Provider: Brody Joseph, [address], [place], [address]. [phone] Office/Outpa tient Visit, Est [facility] , [address], [place], [address], [place] tel:[phone] [facility] , Inflammatory Polyarthropa thy (chief complaint) Unspecified inflammatory polyarthropa thyTherapeut ic Drug Monitoring 3 Melba Skinner. [address], [place], [place], [address], [place]. tel:[phone] Referring Provider: Brody Joseph, [address], [place], [address]. tel:[phone] Office/Outpa tient Visit, Est [facility] , [address], [place], [address], [place] tel:[phone] [facility] , Inflammatory Polyarthropa thy (chief complaint) Unspecified inflammatory polyarthropa thyTherapeut ic Drug Monitoring 3 Melba Skinner. [address], [place], [place], [address], [place]. tel:[phone] Referring Provider: Brody Joseph, [address], [place], [address]. tel:[phone] Office/Outpa tient Visit, Est [facility] , [address], [place], [address], [place] tel:[phone] [facility] , Inflammatory Polyarthropa thy (chief complaint) Unspecified inflammatory polyarthropa thyTherapeut ic Drug Monitoring 3 Melba Skinner. [address], [place], [place], [address], [place]. tel:[phone] Referring Provider: Brody Joseph, [address], [place], [address]. tel:[phone] Office/Outpa tient Visit, Est [facility] , [address], [place], [address], [place] tel:[phone] [facility] , Inflammatory Polyarthropa thy (chief complaint) GERDUnspecif ied inflammatory polyarthropa thyTherapeut ic Drug Monitoring 2 Melba Skinner. [address], [place], [place], [address], [place]. tel:[phone] Referring Provider: Brody Joseph, [address], [place], [address]. tel:[phone] Office/Outpa tient Visit, Est [facility] , [address], [place], [address], [place] tel:[phone] [facility] , Inflammatory Polyarthropa thy (chief complaint) Hypertension , UnspecifiedU nspecified inflammatory polyarthropa thyTherapeut ic Drug Monitoring 2 Melba Skinner. [address], [place], [place], [address], . tel:[phone] Referring Provider: Brody Joseph, [address], [place], [address]. tel:[phone] Family History Family Member Type Diagnosis Age At Onset Daughter Problem (finding) ankylosing spondylitis Immunizations Vaccine Date Status Comments COVID-19 Moderna administered Source: Oth er Provider COVID-19 Moderna administered Source: Oth er Provider COVID-19 Moderna administered Source: Oth er Provider Payers Payer name Insurance type Covered libertarian ID Authormisty jay(s) [facility] Medicare Advantage CI [id number] Social History Type Description Quantity Date Captured Comments Alcohol Use Details Unknown Caffeine Use Details Unknown Tobacco Use Status Current non-smoker Smoking Status Never smoker 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 She is . She has 3 grown daughters. One daughter is a pediatric urology nurse practitioner at [employer], her son-in-law is a palliative care physician at [employer], and another daughter is a highway painter. She has 4 grandchildren. 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
--- OUTSIDE RECORDS SUMMARY | 2024-10-28 12:15 | XMS_ITS | Encounter Summary ---
Author Organization [facility] Address [address] [place] [address] Care Team Providers Care [employer] Driver Name Role Phone Elsewhere, Pcp Primary Care Provider Unavailabl e Reason for Referral * Outpatient (Routine) - Closed Specialty Diagnoses / Procedures Referred By Monalisa t Referred To Contact Diagnoses Atrial Fibrillation Paroxysmal (HCC) Procedures Cardioversion Siddharth Marshall M.D. [address] [place] [address] Phone: tel: fax: [facility] Referral ID Status Reason Start Date Expiration Date Visits Re quested Visits Authorized [id number] Closed 10/14/2024 01/14/2026 1 1 Reason for Visit * Outpatient (Routine) - Closed Specialty Diagnoses / Procedures Referred By Monalisa perez Referred To Contact Diagnoses Atrial Fibrillation Paroxysmal (HCC) Procedures Cardioversion Siddharth Marshall M.D. [address] [place] [address] Phone: tel: fax: [facility] Referral ID Status Reason Start Date Expiration Date Visits Re quested Visits Authorized [id number] Closed 10/14/2024 01/14/2026 1 1 Encounter Details Date Type Department Care Team (Latest Contact Info) Description 10/17/2024 7:32 AM CDT - 10/17/2024 10:02 AM CDT Hospital Encounter Division of Cardiovascular Diseases in [place], [place] [address] [place] [address] Siddharth Marshall M.D. [address] [place] [address] Sydney Araujo APRN, CRNA, Berto.N.P. [address] [place] [address] Atrial Fibrillation Paroxysmal (HCC) Discharge Disposition: Home or Self Care Social History Tobacco Use Types Packs/Day Years Used Date Smoking Tobacco: Never Passive Smoke Exposure: Past Smokeless Tobacco: Never Alcohol Use Standard Drinks/Week Comments Yes 6 (1 standard drink = 0.6 oz pur e alcohol) [facility] Utilities Answer Date Recorded In the past 12 months has [employer], gas, oil, or water [employer] threatened to shut off services in your [...] week 09/07/2022 How often do you attend [facility] or nondenominational services? More than 4 times per year 09/07/2022 Do you belong to any clubs o r organizations such as anglican groups, unions, fraternal or athletic groups, or [...] 09/07/2022 [facility] - Occupational Stress [...] your living situation today? I have a [facility] place to live 08/06/2024 Education Answer Date Recorded What is the highest level of school you have completed or the highest degree you have received? Some college, no degree 01/01/2020 Comments No Sex and Gender Information Value Date Recorded Sex Assigned at Female 12/26/2019 12:16 PM CDT Legal Sex Female 5:48 AM [employer]OPPER Gender Identity Female 12/26/2019 12:16 PM CDT [...] by mouth daily. 06/17/2022 miscellaneous medical supply [facility] As directed. CPAP machine [...] by other route daily. On finger 07/22/2022 [employer] Verio Flex meter misc Test 1 times per day.* 06/25/2024 [employer] Verio test strips 1 strip daily. 07/12/2022 [...] Virtual Visit Section of Infectious Diseases in [place], [place] [address] [place] [phone] Humaira Keys M.D. [address] [place] [phone] documented as of this encounter Procedures Procedure [...] CDT) Ventricular Rate ECG/Min 62 BPM MUSE SD Interval 218 ms MUSE QRSD Interval 118 ms MUSE QT Interval 472 ms MUSE QTC Interval 479 ms MUSE P [place] 71 degrees MUSE R [place] -40 degrees MUSE T Wave [place] 36 degrees MUSE 10/17/2024 9:11 AM CDT [...] criteria reviewed. - Responsible adult along. - Shopping Inspector verification completed. CARDIOVERSION INTRA-PROCEDURE - RADIO BOARD OPERATOR ANNOUNCER/Anesthesiologist present. See anesthesia record. - Emergency equipment [...] on thromboembolic risk as determined by the [id number] Score. For the complete report, see the [...] criteria reviewed. - Responsible adult along. - Shopping Inspector verification completed. CARDIOVERSION INTRA-PROCEDURE - RADIO BOARD OPERATOR ANNOUNCER/Anesthesiologist present. See anesthesia record. - Emergency equipment [...] based on thromboembolic risk as determined bythe [id number] Score. For the complete report, see the Order-Level Documents. us Siddharth Marshall M.D. CV CARDIAC SERVICES PROCED URES Final Result CV IVIEW NA * (ABNORMAL) Glucose, POCT (10/17/2024 8:24 AM CDT) Pathologist [facility] Glucose, POCT, B 153(H) 70 - 140 mg/dL 10/17/2024 8:28 AM CDT PCLX Blood 10/17/2024 8:24 AM CDT 10/17/2024 8:29 AM CDT us Unknown Provider LAB POCT ORDERABLES-MANUAL Sheyla l Result Performing Organization Address City/[facility]/ZIP Co de Phone Number POC [facility] [address] [place] [address], [facility] PCLX [facility] [address] [place] [address] * (ABNORMAL) ABG and Lytes EG6, POCT, Blood (10/17/2024 8:20 AM CDT) Pathologist [facility] Sample Site, POCT Venline 10/17/2024 8:24 AM [...] ORDERABLES - DEVICE Fi nal Result POC [facility] [address] [place] [address], [facility] [address] [place] [address] * ECG 12 Lead (10/17/2024 8:02 AM CDT) Ventricular Rate ECG/Min 102 BPM MUSE QRSD Interval 124 ms MUSE QT Interval 376 ms MUSE QTC Interval 490 ms MUSE R [place] -38 degrees MUSE T Wave [place] 38 degrees MUSE 10/17/2024 8:02 AM CDT [...] documented as of this encounter Care Teams [employer] Driver Relationship Specialty Start Date End Date Elsewhere, Pcp PCP - General Internal Medicine 02/20/23 documented as of this encounter
--- OUTSIDE RECORDS SUMMARY | 2024-10-28 12:15 | XMS_ITS | Encounter Summary ---
Author Organization [facility] Address [address] [place] [address] Care Team Providers Care Supervisor Hardboard Name Role Phone Elsewhere, Pcp Primary Care Provider Unavailabl e Encounter Details Date Type Department Care Team (Late st Contact Info) Description 10/17/2024 8:32 AM CDT Anesthesia Event Department of Cardiovascular Disease [address] [place] [phone] Sydney Araujo APRN, CRNA, D.N.P. [address] [place] [phone] Anesthesia Record Procedure Summary Procedure Name Responsible [...] drink = 0.6 oz pur e alcohol) [facility] Utilities Answer Date Recorded In the past 12 months has e Siperian, oil, or water [employer] threatened to shut off services in your [...] often do you attend chur ch or oriental orthodox services? More than 4 times per year 09/07/2022 Do you belong to any clubs o r organizations such as yazidi groups, unions, fraternal or athletic groups, or [...] and heating? 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 Risks/Benefits/Alternatives of Blood transfusion discussed with patient [...] Virtual Visit Section of Infectious Diseases in [place], [place] [address] [place] [phone] Humaira Keys M.D. [address] [place] [phone] documented as of this encounter Visit Diagnoses [...] as of this encounter Care Teams Supervisor Hardboard Relationship Specialty Start Date End Date Elsewhere, Pcp PCP - General Internal Medicine 02/20/23 documented as of this encounter
--- OUTSIDE RECORDS SUMMARY | 2024-10-28 12:15 | XMS_ITS | Encounter Summary ---
Author Organization [facility] Address [address] [place] [address] Care Team Providers Care Remelt Operator Name Role Phone Elsewhere, Pcp Primary Care Provider Unavailabl e Reason for Referral * Outpatient (Routine) - Closed Specialty Diagnoses / Procedures Referred By Monalisa perez Referred To Contact Diagnoses Atrial Fibrillation Paroxysmal (HCC) Procedures Cardioversion Siddharth Marshall M.D. [address] [place] [address] Phone: tel: fax: [facility] Referral ID Status Reason Start Date Expiration Date Visits Re quested Visits Authorized [id number] Closed 10/14/2024 01/14/2026 1 1 Reason for Visit * Appointment Request (Routine) - Closed Specialty Diagnoses / Procedures Referred By Monalisa perez Referred To Contact Cardiovascular Disease Referral ID Status Reason Start Date Expiration Date Visits Re quested Visits Authorized [id number] Closed 10/03/2024 01/03/2026 1 1 Encounter Details Date Type Department Care Team (Latest Contact Info) Description 10/14/2024 4:30 PM CDT Office Visit Department of Cardiovascular Medicine in [place], [place] [address] [place] [phone] Siddahrth Marshall M.D. [address] [place] [address] Atrial Fibrillation Paroxysmal (HCC) (Primary Dx); Urinary Tract Infection Site Not Specified; Incontinence Urinary; Hypertension Essential Primary; Hyperlipidemia Social History Tobacco Use Types Packs/Day Years Used Date Smoking Tobacco: Never Passive Smoke Exposure: Past Smokeless Tobacco: Never Alcohol Use Standard Drinks/Week Comments Yes 6 (1 standard drink = 0.6 oz pur e alcohol) [facility] Utilities Answer Date Recorded In the past 12 months has e electric, gas, oil, or water [employer] threatened to shut off services in your [...] often do you attend chur ch or yazidi services? More than 4 times per year 09/07/2022 Do you belong to any clubs o r organizations such as buddhist groups, unions, fraternal or athletic groups, or [...] and heating? 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 The patient has not [...] Virtual Visit Section of Infectious Diseases in [place], [place] [address] [place] [phone] Humaira Keys M.D. [address] [place] [phone] documented as of this encounter Results * [...] criteria reviewed. - Responsible adult along. - Siebel Developer verification completed. CARDIOVERSION INTRA-PROCEDURE - ORACLE ETL DEVELOPER/Anesthesiologist present. See anesthesia record. - Emergency equipment [...] on thromboembolic risk as determined by the [id number] Score. For the complete report, see the [...] criteria reviewed. - Responsible adult along. - Siebel Developer verification completed. CARDIOVERSION INTRA-PROCEDURE - ORACLE ETL DEVELOPER/Anesthesiologist present. See anesthesia record. - Emergency equipment [...] based on thromboembolic risk as determined bythe [id number] Score. For the complete report, see the [...] documented as of this encounter Care Teams Remelt Operator Relationship Specialty Start Date End Date Elsewhere, Pcp PCP - General Internal Medicine 02/20/23 documented as of this encounter
--- NOTE | 2024-10-28 12:16 | ED_ITS ---
HPI - General Adult General Date Seen: 10/28/24 Chief complaint: Dizziness/Vertigo Stated complaint: Afib, dizziness, nausea Time Seen by Provider: 10/28/24 11:41 Source: patient and family Mode of arrival: ambulatory Limitations: no limitations History of Present Illness HPI narrative: Patient is a 79-year-old female presents ambulatory to the emergency room with her for evaluation of atrial fibrillation. suspected she had atrial fibrillation yesterday when her heart rate when she checked it was 120, she recently been cardioverted at the [facility] on 10/17/2024. She is followed there by her poacher operator Dr. Marshall. She also endorses through her that she has dizziness although this sounds to be chronic. He thought she was wheezing also yesterday, but today he says she has not. She last ate approximately 2 hours ago having a bagel. She has also thrown up a couple times since then. For at least retch. She does not have any chest pain there is no n ausea other than what I described above no fevers no chills no abdominal pain. 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 She continues to take her medications as directed, is anticoagulated with the apixaban. Her son-in-law is a palliative physician at the [facility] in [place], and her daughter is RN there. Treatments prior to arrival: none Related Data Home Medications ?Medication ?Instructions ?Recorded ?Confirmed amlodipine 5 mg tablet 5 mg PO DAILY 05/15/24 08/06/24 apixaban 5 mg tablet (Eliquis) 5 mg PO BID 05/15/24 08/06/24 blood sugar diagnostic ([facility] #10 ea 05/15/24 08/06/24 Verio test strips) bupropion HCl 150 mg 24 hr tablet, 150 mg PO DAILY 05/15/24 08/06/24 extended release calcium carbonate-vitamin tab PO DAILY 05/15/24 08/06/24 D2-minerals tablet carvedilol 12.5 mg tablet 25 mg PO BID 05/15/24 08/06/24 cholecalciferol (vitamin D3) 50 50 mcg PO QDAY 05/15/24 08/06/24 mcg (2,000 unit) capsule ciprofloxacin HCl 500 mg tablet 500 mg PO BID 05/15/24 08/06/24 duloxetine 60 mg capsule,delayed 120 mg PO DAILY 05/15/24 08/06/24 release estradiol 0.01% (0.1 mg/gram) 1 appful vaginal ONCE 05/15/24 08/06/24 vaginal cream famotidine 20 mg tablet 20 mg PO DAILY 05/15/24 08/06/24 furosemide 20 mg tablet 20 mg PO DAILY 05/15/24 08/06/24 lancets 30 gauge ([facility] #100 ea 05/15/24 08/06/24 Plus Lancet) lisinopril 20 mg tablet 20 mg PO DAILY 05/15/24 08/06/24 metformin 500 mg tablet,extended 500 mg PO DAILY 05/15/24 08/06/24 release 24 hr methenamine hippurate 1 gram tablet 1 g PO BID 05/15/24 08/06/24 potassium chloride 10 mEq 10 meq PO BID 05/15/24 08/06/24 tablet,extended release prednisone 5 mg tablet mg PO 05/15/24 08/06/24 rituximab 10 mg/mL IV 05/15/24 08/06/24 concentrate,intravenous (Rituxan) rosuvastatin 10 mg tablet 10 mg PO QPM 05/15/24 08/06/24 tizanidine 4 mg tablet mg PO 05/15/24 08/06/24 triamcinolone acetonide 0.1 % 1 applic topical QDAY 05/15/24 08/06/24 topical ointment triamterene 37.5 1 tab PO DAILY 05/15/24 08/06/24 mg-hydrochlorothiazide 25 mg tablet vibegron 75 mg tablet (Gemtesa) 75 mg PO DAILY 05/15/24 08/06/24 Allergies Allergy/AdvReac Type Severity Reaction Status Date / Time amoxicillin AdvReac Unknown Rash Verified 08/06/24 09:58 estrogens, conjugated (From AdvReac Unknown Verified 08/06/24 09:58 Premarin) hydroxychloroquine (From AdvReac Unknown Verified 08/06/24 09:58 Plaquenil) Sulfa (Sulfonamide AdvReac Unknown Vomiting Verified 08/06/24 09:58 Antibiotics) Review of Systems Status of ROS: Reports: 10 or more systems reviewed and unremarkable except as noted in History and below Exam Narrative: Exam Narrative: On examination in room 8, very nice lady, hard of hearing, presents with her , pupils equal round reactive to light there is no scleral icterus redness or TMs are normal oropharynx is normal there is no adenopathy anterior posterior chains her neck is supple her chest is clear bilaterally with no wheezing crackles noted, heart sounds no clicks murmurs or gallops her abdomen is soft and obese from scars from previous open cholecystectomy in noted. No organomegaly, no tenderness skin reveals no petechiae rashes, she has some chronic lymphedema of her lower extremities moves all extremities independently and well both upper and lower. Skin reveals no petechiae rashes. Const: Vital Signs, click to edit/add: Vital Signs - 24 hr 10/28/24 11:51 10/28/24 12:15 10/28/24 12:30 Temperature 97.2 F L Pulse Rate 97 104 H Pulse Rate [Pulse Oximeter] 104 H Respiratory Rate 22 21 22 Blood Pressure Blood Pressure [Ri ght Upper Arm] 137/89 Pulse Oximetry 94 92 93 Oxygen Delivery Me thod Room Air 10/28/24 12:35 10/28/24 12:45 10/28/24 13:00 Temperature Pulse Rate 90 96 Pulse Rate [Pulse Oximeter] Respiratory Rate 20 Blood Pressure Blood Pressure [Ri ght Upper Arm] Pulse Oximetry 91 92 92 Oxygen Delivery Me thod 10/28/24 13:10 10/28/24 13:11 10/28/24 13:15 Temperature Pulse Rate 86 105 H 101 H Pulse Rate [Pulse Oximeter] Respiratory Rate 18 18 18 Blood Pressure 114/76 Blood Pressure [Ri ght Upper Arm] Pulse Oximetry 92 93 93 Oxygen Delivery Me thod 10/28/24 13:31 10/28/24 14:00 10/28/24 14:30 Temperature Pulse Rate 99 114 H Pulse Rate [Pulse Oximeter] Respiratory Rate 24 22 Blood Pressure Blood Pressure [Ri ght Upper Arm] Pulse Oximetry 93 94 Oxygen Delivery Me thod 10/28/24 14:45 10/28/24 15:00 10/28/24 15:17 Temperature Pulse Rate 122 H 112 H 126 H Pulse Rate [Pulse Oximeter] Respiratory Rate 22 19 16 Blood Pressure Blood Pressure [Ri ght Upper Arm] Pulse Oximetry 92 91 91 Oxygen Delivery Me thod 10/28/24 15:30 10/28/24 15:45 10/28/24 16:00 Temperature Pulse Rate 106 H 112 H 109 H Pulse Rate [Pulse Oximeter] Respiratory Rate Blood Pressure Blood Pressure [Ri ght Upper Arm] Pulse Oximetry 93 92 Oxygen Delivery Me thod 10/28/24 16:29 10/28/24 16:30 10/28/24 17:01 Temperature Pulse Rate 88 134 H Pulse Rate [Pulse Oximeter] 124 H Respiratory Rate Blood Pressure Blood Pressure [Ri ght Upper Arm] Pulse Oximetry 95 Oxygen Delivery Me thod Documenting provider has reviewed patient's vital signs: yes Course Reevaluation(s) Time of Reevaluation #1: 16:43 Reevaluation #1: Patient remains atrial fibrillation with a rate anywhere from 84-120. Her dizziness is she tells me a little bit improved, I then did speak to [facility] and they recommend transfer, and amiodarone and likely cardioversion tomorrow. I spoke to the patient and the patient's , they have declined ambulance transport understanding that this is against medical advice. And wanted drive themselves to the [facility]. They understand this puts the patient at risk of having an event, he the cardiac arrest, stroke or any other sort of possibility with this. Vital Signs Vital signs: Initial Vital Signs Temperature 97.2 F L 10/28/24 11:51 Temperature Source Temporal Artery Scan 10/28/24 11:51 Pulse Rate 104 H 10/28/24 11:51 Pulse Rhythm Irregular 10/28/24 11:51 Respiratory Rate 22 10/28/24 11:51 Blood Pressure 137/89 10/28/24 11:51 Blood Pressure Mean 105 10/28/24 11:51 Blood Pressure Position Sitting 10/28/24 11:51 Pulse Oximetry 94 10/28/24 11:51 Oxygen Delivery Method Room Air 10/28/24 11:51 Vital Signs Temperature 97.2 F L 10/28/24 11:51 Pulse Rate 104 H 10/28/24 11:51 Respiratory Rate 22 10/28/24 11:51 Blood Pressure 137/89 10/28/24 11:51 Pulse Oximetry 94 10/28/24 11:51 Oxygen Delivery Method Room Air 10/28/24 11:51 Temperature 97.2 F L 10/28/24 11:51 Pulse Rate 124 H 10/28/24 17:01 Respiratory Rate 16 10/28/24 15:17 Blood Pressure 114/76 10/28/24 13:10 Pulse Oximetry 95 10/28/24 16:30 Oxygen Delivery Method Room Air 10/28/24 11:51 Medications Administered Medications: Discontinued Medications Generic Name Dose Route Start Last Admin Trade Name Kp PRN Reason Stop Dose Admin Famotidine 20 mg 10/28/24 14:28 10/28/24 14:41 Famotidine 20 Mg Tablet PO 10/28/24 14:29 20 mg ONCE ONE Administration Sodium Chloride 1,000 mls @ 1,000 mls/hr 10/28/24 12:15 10/28/24 13:35 0.9 % Sodium Chloride 1000 Ml IV 10/28/24 13:14 Infused .Q1H ANAND Infusion Medical Decision Making MDM Narrative Medical decision making narrative: Differential diagnosis includes but is not limited to psychosocial stress, thyroid abnormalities, CHF, SVT, atrial fibrillation, ventricular tachycardia and ventricular fibrillation. This includes the life-threatening complications of heart failure, V-tach, and VFib We will gain some electrolytes, coags, and other laboratory test, and then I will discuss with Dr. Marshall or designate, according to the notes, there is consensus that possibly amiodarone should be started. Medical Records Medical records reviewed: Yes I reviewed the patient's medical records Medical records narrative: I reviewed medical records from the [facility], 1 10/14/2024 when she saw also her S seizure event from 10 17 2024 when she was cardioverted. Lab Data Lab results reviewed: Yes I reviewed the patient's lab results Labs: Lab Results 10/28/24 10/28/24 Range/Units 12:20 14:12 WBC 6.06 (4.50-11.00) K/uL RBC 3.81 L (4.00-5.20) m/uL Hgb 12.6 (12.0-16.0) gm/dL Hct 39.1 (33.0-51.0) % MCV 103 H (80-100) fL MCH 33 (26-34) pg MCHC 32 (32-36) gm/dL RDW Coeff of [place] 14.6 (11.5-15.5) % Plt Count 144 (140-440) K/uL Neut % (Auto) 67.9 (42.0-72.0) % Lymph % (Auto) 15.5 L (20-44) % [place] % (Auto) 12.2 H (0.0-11.0) % Eos % (Auto) 3.6 (0.0-7.0) % Baso % (Auto) 0.5 (0.0-3.0) % Neut # (Auto) 4.11 (1.7-7.0) K/uL Lymph # (Auto) 0.90 (0.90-2.90) K/uL [place] # (Auto) 0.70 (0.00-0.90) K/UL Eos # (Auto) 0.22 (0.00-0.50) K/uL Baso # (Auto) 0.03 (0.00-0.30) K/uL Abs Immat Gran (auto) 0.02 (0.00-0.30) K/uL Imm/Tot Granulo (auto) 0.3 % INR 1.21 H (0.91-1.10) APTT 31 (23-33) Seconds D-Dimer Quant (PE/DVT) 0.24 (0.00-0.50) ug/ml Sodium 139 (135-149) mmol/L Potassium 3.5 L (3.6-5.1) mmol/L Chloride 102 (96-114) mmol/L Carbon Dioxide 29 (20-32) mmol/L Anion Gap 8 (7-15) mEq/L BUN 19 (7-30) mg/dL Creatinine 0.8 (0.5-1.5) mg/dL Estimated Creat Clear 38.97 Estimated GFR 76 ml/min Glucose 169 H (60-115) mg/dL Calcium 9.1 (8.4-10.6) mg/dL Magnesium 2.1 (1.5-2.6) mg/dL Total Bilirubin 0.9 (0.1-1.5) mg/dL Direct Bilirubin 0.3 (0.0-0.5) mg/dL AST 38 H (12-35) U/L ALT 32 (4-35) U/L Alkaline Phosphatase 69 (40-150) U/L Troponin I 0.01 (0.01-0.04) ng/mL NT-Pro-B Natriuret Pep 1520 pg/mL Total Protein 6.4 (6.0-8.3) g/dL Albumin 3.8 (3.3-5.0) g/dL TSH 2.810 (0.270-4.20) uIU/mL Urine Color Yellow (Yellow) Urine Appearance Clear (Clear) Urine pH 7.0 (5.0-8.5) Ur Specific [place] 1.020 (1.000-1.030) Urine Protein Negative (Negative) Urine Glucose (UA) Negative (Negative) Urine Ketones Negative (Negative) Urine Blood Trace-intact A (Negative) Urine Nitrite Negative (Negative) Urine Bilirubin Negative (Negative) Urine Urobilinogen 0.2 (0.2-1.0) Ur Leukocyte Esterase Trace A (Negative) Urine RBC 0-2 (0-2) Urine WBC 2-5 (0-5) Ur Squamous Epith Cells None (None-Few) Urine Bacteria None (None) SARS-CoV-2 (PCR) Negative SARS-CoV-2 (Negative) Influenza Type A (PCR) Negative PCR FLU A (Negative) Influenza Type B (PCR) Negative PCR FLU B (Negative) RSV (PCR) Negative PCR RSV (Negative) ECG Data Attestation: I personally reviewed and interpreted this ECG as follows: Prior ECG tracings: available for review Interpretation: EKG from today shows atrial fibrillation with a ventricular response of 106, QRS is 114, no acute ST wave changes noted, comparison old EKG noted from old medical record, from 2016 rhythm is changed from normal sinus to atrial fibrillation. Discharge Plan Discharge Clinical Impression: Atrial fibrillation with rapid ventricular response Patient Disposition: [facility] Hospital Discharge Location: [facility] Condition: Stable Additional Instructions: Transferred at [facility], via private vehicle, against medical advice at least by the transport, accepting physician
--- OUTSIDE RECORDS SUMMARY | 2024-10-28 12:16 | XMS_ITS | Continuity of Care Document ---
Author Organization [facility] Address [address] [place] [address] Care Team Providers Care Undercoat Sprayer Name Role Phone Elsewhere, Pcp Primary Care Provider Unavailabl e Source Comments Patient records contain information from all sites at [facility]. For routine questions regarding patient records, call [phone] during business hours, M-F 8:00 AM - 5:00 PM Central Time. Record requests for emergency care only can be directed to [phone] at any time.[facility] Encounters Date Type Department Care Team Description 10/17/2024 Results Follow-Up Department of Cardiovascular Medicine in [place], [place] [address] [place] [address] Siddharth Marshall M.D. ECG 12 Lead 10/17/2024 8:32 AM CDT Anesthesia Event Department of Cardiovascular Disease [address] [place] [phone] Sydney Araujo APRN, CRNA, D.N.P. 10/17/2024 7:32 AM CDT - 10/17/2024 10:02 AM CDT Hospital Encounter Division of Cardiovascular Diseases in [place], [place] [address] [place] [phone] MorleySiddharth M.D. Messan, Amah W, WILFRIDO HENSLEY, Berto.N.P. Atrial Fibrillation Paroxysmal (HCC) Discharge Disposition: Home or Self Care 10/14/2024 10:22 AM CDT - 10/14/2024 11:59 PM CDT Hospital Encounter Department of Laboratory Medicine and Pathology, [facility], in [place], [place] [address] [place] [address] Siddharth Marshall M.D. Atrial Fibrillation Paroxysmal (HCC); Cardiac Vascular Disease Screening Discharge Disposition: Home or Self Care 10/14/2024 4:30 PM CDT Office Visit Department of Cardiovascular Medicine in [place], [place] [address] [place] [address] Siddharth Marshall M.D. Atrial Fibrillation Paroxysmal (HCC) (Primary Dx); Urinary Tract Infection Site Not Specified; Incontinence Urinary; Hypertension Essential Primary; Hyperlipidemia 10/10/2024 1:52 PM CDT - 10/10/2024 11:59 PM CDT Hospital Encounter Department of Cardiovascular Diseases in [place], [place] [address] [place] [address] Siddharth Marshall M.D. Atrial Fibrillation Paroxysmal (HCC); Cardiac Vascular Disease Screening Discharge Disposition: Home or Self Care 10/07/2024 Clinical Communication Department of Cardiovascular Medicine in [place], [place] [address] [place] [address] Activities AssistantRajinder M.D. 09/30/2024 Referral Triage Department of Cardiovascular Medicine in [place], [place] [address] [place] [address] Activities AssistantRajinder M.D. Referral Triage (CVD) 09/10/2024 11:00 AM CDT Office Visit Department of Neurology in [place], [place] [address] [place] [address] Henrry Lewis M.D. Clinical Research Exam 08/15/2024 Orders Only Section of Infectious Diseases in [place], [place] [address] [place] [address] Humaira Keys M.D. 08/15/2024 11:00 AM FRAME REPAIRER Virtual Visit Section of Infectious Diseases in [place], [place] [address] [place] [phone] Humaira Keys M.D. Cystitis Unspecified Without Hematuria (Primary Dx) 08/14/2024 Orders Only Section of Infectious Diseases in [place], [place] [address] [place] [phone] Humaira Keys M.D. Urinary Tract Infection Site Not Specified (Primary Dx) 08/12/2024 1:11 PM FRAME REPAIRER - 08/12/2024 11:59 PM FRAME REPAIRER Hospital Encounter Department of Laboratory Medicine and Pathology, [facility] in [place], [place] [address] [place] [phone] Humaira Keys M.D. Urgency Urinary Discharge Disposition: Home or Self Care 08/12/2024 11:00 AM FRAME REPAIRER Comprehensive Visit Section of Infectious Diseases in [address] [address] Sena Sagastume M.B.B.SHumaira Strickland M.D. Urinary Urge Incontinence; Urgency Urinary; Overactive Bladder 08/12/2024 2:30 PM FRAME REPAIRER Office Visit Department of Obstetrics and Gynecology, Division of Urogynecology in [address] [address] Mati Garcia M.D. Overactive Bladder (Primary Dx) 08/08/2024 10:30 AM FRAME REPAIRER Clinical Communication Virtual Review in [place], [place] [address] [place] [address] Pre-visit Intake 07/04/2024 Orders Only Department of Obstetrics and Gynecology, Division of Urogynecology in [address] [address] Alondra Pelletier M.B.B.S. 05/17/2024 Refill Department of Obstetrics and Gynecology, Division of Urogynecology in [address] [address] Mati Garcia M.D. Med Refill 09/25/2023 1:45 PM CDT - 09/25/2023 11:59 PM CDT Hospital Encounter Department of Radiology, [facility] in [place], [place] [address] [place] [phone] Henrry Lewis M.D. Clinical Research Exam Discharge Disposition: Home or Self Care 08/31/2023 Orders Only Division of Gastroenterology in [place], [place] [address] [place] [phone] Desmond Diaz M.D. Genetic Susceptibility To Disease 07/24/2023 Clinical Communication Department of Obstetrics and Gynecology, Division of Urogynecology in [place], [place] [address] [place] [phone] Mati Garcia M.D. 07/11/2023 Orders Only Department of Urology in [address] [address] Mati Garcia M.D. 07/09/2023 Orders Only Department of Obstetrics and Gynecology in [place], [place] [address] [place] [phone] Skyla Dalton M.D. 07/07/2023 3:05 PM FRAME REPAIRER - 07/07/2023 11:59 PM FRAME REPAIRER Hospital Encounter Department of Laboratory Medicine in [address] [address] Mati Garcia M.D. Dysuria; Frequency Urinary; Incontinence Urinary Discharge Disposition: Home or Self Care 07/06/2023 Orders Only Department of Radiology, [facility], in [place], [place] [address] [place] [phone] Karli Russo M.D. Clinical Research Exam (Primary Dx) 07/06/2023 Orders Only Department of Radiology, [facility], in [place], [place] [address] [place] [phone] Henrry Lewis M.D. Clinical Research Exam (Primary Dx) 07/04/2023 Refill Department of Cardiovascular Medicine in [place], [place] [address] [place] [address] Siddharth Marshall M.D. Med Refill 06/01/2023 Orders Only Department of Urology in [place], [place] [address] [place] [phone] Mati Garcia M.D. 05/15/2023 9:30 AM FRAME REPAIRER Comprehensive Visit Section of Infectious Diseases in [place], [place] [address] [place] [address] Joaquin Steele M.D., Ph.D. Urinary Tract Infection Site Not Specified 05/14/2023 Orders Only Department of Obstetrics and Gynecology in [place], [place] [address] [place] [address] Vicenta Gao M.D. 04/18/2023 Clinical Communication Department of Urology in [place], [place] [address] [place] [address] Genia Kelley M.D., M.S. 04/17/2023 Orders Only Department of Obstetrics and Gynecology, Division of Urogynecology in [place], [place] [address] [place] [address] Derek Wells, R.N. 04/17/2023 Refill Department of Cardiovascular Medicine in [place], [place] [address] [place] [address] Siddharth Marshall M.D. Med Refill 04/15/2023 10:30 AM CDT Lab Department of Laboratory Medicine and Pathology, [facility] in [place], [place] [address] [place] [address] Mati Garcia M.D. Urinary Urge Incontinence; Urgency Urinary 03/28/2023 Clinical Communication Department of Obstetrics and Gynecology, Division of Urogynecology in [place], [place] [address] [place] [address] Mati Garcia M.D. Communication 03/27/2023 Clinical Communication Department of Obstetrics and Gynecology, Division of Urogynecology in [place], [place] [address] [place] [address] Gilmer Morelos M.D. 03/24/2023 Clinical Communication Department of Urology in [place], [place] [address] [place] [address] Gilmer Morelos M.D. 03/24/2023 Orders Only Department of Urology in [place], [place] [address] [place] [address] Gilmer Morelos M.D. 03/24/2023 Clinical Communication Department of Obstetrics and Gynecology, Division of Urogynecology in [place], [place] [address] [place] [address] Sonia Houser R.N. 03/24/2023 1:30 PM CDT Nurse Only Department of Obstetrics and Gynecology, Division of Urogynecology in [place], [place] [address] [place] [address] Mati Garcia M.D. Hayungs, Sue E, R.N. 03/21/2023 Orders Only Department of Obstetrics and Gynecology, Division of Urogynecology in [place], [place] [address] [place] [address] Derek Wells, R.N. Overactive Bladder (Primary Dx); Urinary Urge Incontinence 02/23/2023 Clinical Communication Department of Obstetrics and Gynecology, Division of Urogynecology in [place], [place] [address] [place] [address] Derek Wells, R.N. 02/20/2023 8:00 AM CDT - 02/20/2023 9:16 AM CDT Surgery T [facility] OR [facility] [place] [address] Mati Garcia M.D. CYSTOSCOPY, BOTOX INJECTION, 100 units. 02/20/2023 8:12 AM CDT Anesthesia Event [facility] OR [address] [place] [address] Avery Ruiz M.D. Ellis, Megan M, D.O. 02/20/2023 6:15 AM CDT - 02/20/2023 11:30 AM CDT Hospital Encounter Outpatient Surgery Unit in [address] [address] Mati Garcia M.D. Overactive Bladder; Urinary Urge Incontinence Discharge Disposition: Home or Self Care 02/16/2023 10:00 AM CDT Education Division of General Internal Medicine in [address] [address] Amanda Arana M.S.N., R.N. 02/16/2023 9:00 AM CDT Comprehensive Visit Division of General Internal Medicine in [address] [address] Mati Garcia M.D. Silbert, Richard E, M.D. Preoperative Exam 02/13/2023 9:30 AM CDT Comprehensive Visit Department of Vascular Medicine in [address] [address] Ana Ware APRN, C.N.P., M.S. Atrial Fibrillation Paroxysmal (HCC) (Primary Dx); Preoperative Exam 02/10/2023 3:00 PM CDT Education Department of Obstetrics and Gynecology, Division of Urogynecology in [address] [address] Mati Garcia M.D. Hayungs, Sue E, R.N. Overactive Bladder 02/10/2023 8:15 AM CDT Procedure visit Department of Obstetrics and Gynecology, Division of Urogynecology in [address] [address] Mati Garcia M.D. Overactive Bladder; Incontinence Urinary Stress And Urge 02/10/2023 10:00 AM CDT Comprehensive Visit Department of Obstetrics and Gynecology, Division of Urogynecology in [address] [address] Mati Garcia M.D. Preoperative Exam (Primary Dx); Overactive Bladder; Preprocedural Lab Exam 02/08/2023 9:00 AM CDT Clinical Communication Virtual Review in [place], [place] [address] [place] [address] Pre-visit Intake 01/09/2023 Orders Only Department of Obstetrics and Gynecology, Division of Urogynecology in [place], [place] [address] [place] [phone] Derek Wells R.N. Overactive Bladder (Primary Dx); Incontinence Urinary Stress And Urge 10/14/2022 1:15 PM CDT - 10/14/2022 11:59 PM CDT Hospital Encounter Department of Cardiovascular Diseases in [place], [place] [address] [place] [address] Siddharth Marshall M.D. Atrial Fibrillation Paroxysmal (HCC) Discharge Disposition: Home or Self Care 09/15/2022 1:00 PM CDT Office Visit Department of Neurology in [place], [place] [address] [place] [phone] Henrry Lewis M.D. Clinical Research Exam 09/14/2022 2:53 PM CDT - 09/14/2022 11:59 PM CDT [facility] [place] [place] [address] [place] [phone] Henrry Lewis M.D. Clinical Research Exam Discharge Disposition: Home or Self Care 09/13/2022 4:30 PM CDT Comprehensive Visit Department of Cardiovascular Medicine in [address] [address] Siddharth Marshall M.D. Atrial Fibrillation Paroxysmal (HCC) (Primary Dx); Hyperlipidemia On Treatment; Cognitive Disorder; Anticoagulant Therapy; Incontinence Urinary Stress And Urge 09/13/2022 2:14 PM CDT - 09/13/2022 11:59 PM CDT [facility] [address] [address] Siddharth Marshall M.D. Atrial Fibrillation Longstanding Persistent (HCC) Discharge Disposition: Home or Self Care 09/08/2022 3:30 PM FRAME REPAIRER Ancillary Procedure Department of Cardiovascular Diseases in [address] [phone] Siddharth Marshall M.D. Atrial Fibrillation Longstanding Persistent (HCC) 08/13/2022 Documentation Department of Cardiovascular Medicine in [place], [place] [address] [place] [address] Siddharth Marshall M.D. 06/22/2022 Orders Only Department of Radiology, [facility] in [place], [place] [address] [place] [address] Henrry Lewis M.D. Clinical Research Exam (Primary Dx) 06/22/2022 Orders Only Department of Radiology, [facility] in [place], [place] [address] [place] [address] Karli Russo M.D. Clinical Research Exam (Primary Dx) 02/14/2022 Clinical Communication Department of Urology in [place], [place] [address] [place] [address] Cristal Galdamez APRN, C.N.P., D.N.P. Drug Allergy Fax 02/11/2022 Orders Only Department of Urology in [place], [place] [address] [place] [address] Cristal Galdamez APRN, C.N.P., D.N.P. 02/11/2022 8:00 AM CDT Comprehensive Visit Department of Urology in [place], [place] [address] [place] [address] Cristal Galdamez APRN, C.N.P., D.N.P. Incontinence Urinary Stress And Urge (Primary Dx); Infection Urinary Tract Recurrent; Overactive Bladder; Hematuria Urinalysis 02/10/2022 8:44 AM CDT - 02/10/2022 11:59 PM CDT Hospital Encounter Department of Laboratory Medicine and Pathology, [facility] in [place], [place] [address] [place] [address] Cristal Galdamez APRN, C.N.PNicole, D.N.P. Infection Urinary Tract Acute Discharge Disposition: Home or Self Care 02/10/2022 11:15 AM CDT Procedure visit Department of Urology in [place], [place] [address] [place] [phone] Cristal Galdamez APRN, C.N.PNicole, D.N.P. Nicholas Ashraf M.D. Nelson, Michelle C, L.P.N. Dysuria [R30.0 (ICD-10-CM)] (Primary Dx); Infection Urinary Tract Recurrent 02/01/2022 Orders Only Department of Urology in [place], [place] [address] [place] [phone] Cristal Galdamez APRN, C.N.PNicole, D.N.P. Infection Urinary Tract Recurrent (Primary Dx) 04/06/2021 1:00 PM CDT Office Visit Department of Neurology in [place], [place] [address] [place] [phone] Henrry Lewis M.D. Clinical Research Exam 04/05/2021 12:40 PM CDT - 04/05/2021 11:59 PM CDT Hospital Encounter Department of Radiology, [facility] in [place], [place] [address] [place] [phone] Henrry Lewis M.D. Clinical Research Exam Discharge Disposition: Home or Self Care 02/16/2021 Orders Only [facility] Shruthi Bonilla M.D. 08/27/2020 Orders Only Department of Neurology in [place], [place] [address] [place] [phone] Henrry Lewis M.D. Pain Low Back (Primary Dx) 08/25/2020 Clinical Communication Department of Sports Medicine in [place], [place] [address] [place] [phone] Prescheduling, Provider Triage 08/18/2020 7:09 AM FRAME REPAIRER - 08/18/2020 11:59 PM FRAME REPAIRER Hospital Encounter Department of Radiology, [facility] in [place], [place] [address] [place] [address] Henrry Lewis M.D. Clinical Research Exam Discharge Disposition: Home or Self Care 08/18/2020 4:00 PM FRAME REPAIRER Office Visit Department of Neurology in [place], [place] [address] [place] [address] Henrry Lewis M.D. 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 02/19/2020 4:25 PM CDT - 02/19/2020 11:59 PM CDT Hospital Encounter Department of Laboratory Medicine and Pathology, [place], [place] [address] [place] [phone] Mateo Eckert M.D., Ph.D. Microhematuria Discharge Disposition: Home or Self Care 02/19/2020 4:00 PM CDT Office Visit Division of Nephrology and Hypertension in [place], [place] [address] [place] [phone] Mateo Eckert M.D., Ph.D. Microhematuria (Primary Dx) 02/13/2020 Orders Only Division of Nephrology and Hypertension in [place], [place] [address] [place] [phone] Mateo Eckert M.D., Ph.D. 02/12/2020 12:51 PM CDT - 02/12/2020 2:04 PM CDT Hospital Encounter Department of Laboratory Medicine and Pathology, [place], [place] [address] [place] [phone] Mateo Eckert M.D., Ph.D. Microhematuria; Arthritis Rheumatoid (HCC) Discharge Disposition: Home or Self Care 02/12/2020 Clinical Communication Division of Nephrology and Hypertension in [place], [place] [address] [place] [phone] Mateo Eckert M.D., Ph.D. 02/12/2020 12:51 PM CDT - 02/12/2020 2:04 PM CDT Hospital Encounter Department of Laboratory Medicine and Pathology, [facility] in [place], [place] [address] [place] [phone] Mateo Eckert M.D., Ph.D. Microhematuria Discharge Disposition: Home or Self Care 02/12/2020 2:05 PM CDT - 02/12/2020 11:59 PM CDT Hospital Encounter Department of Radiology, [facility] in [place], [place] [address] [place] [phone] Mateo Eckert M.D., Ph.D. Microhematuria Discharge Disposition: Home or Self Care 02/11/2020 Documentation Division of Rheumatology in [address] [address] Ej hSah M.D. 02/11/2020 12:50 PM CDT - 02/11/2020 11:59 PM CDT Hospital Encounter Department of Radiology, [facility] in [place], [place] [address] [place] [phone] Ej Shah M.D. Arthritis Rheumatoid (HCC) Discharge Disposition: Home or Self Care 02/11/2020 12:50 PM CDT - 02/11/2020 11:59 PM CDT Hospital Encounter Department of Radiology, [facility] in [place], [place] [address] [place] [phone] Ej Shah M.D. Arthritis Rheumatoid (HCC) Discharge Disposition: Home or Self Care 02/11/2020 2:30 PM CDT Comprehensive Visit Division of Nephrology and Hypertension in [place], [place] [address] [place] [phone] Mateo Eckert M.D., Ph.D. Microhematuria (Primary Dx); Arthritis Rheumatoid (HCC); Elevated Creatinine 02/11/2020 6:33 AM CDT - 02/11/2020 12:49 PM CDT Hospital Encounter Department of Laboratory Medicine and Pathology, [facility] in [place], [place] [address] [place] [phone] Henrry Lewis M.D. Arthritis Rheumatoid (HCC); Elevated Creatinine Discharge Disposition: Home or Self Care 02/11/2020 6:33 AM CDT - 02/11/2020 12:49 PM CDT Hospital Encounter Department of Laboratory Medicine and Pathology, [facility] in [place], [place] [address] [place] [phone] Henrry Lewis M.D. Arthritis Rheumatoid (HCC); Elevated Creatinine Discharge Disposition: Home or Self Care 02/11/2020 10:15 AM CDT Comprehensive Visit Division of Rheumatology in [place], [place] [address] [place] [phone] Ej Shah M.D. Arthritis Inflammatory (HCC) (Primary Dx); Arthritis Rheumatoid (HCC); Elevated Creatinine 01/17/2020 Documentation Department of Neurology in [place], [place] [address] [place] [phone] Henrry Lewis M.D. 01/13/2020 1:31 PM CDT - 01/13/2020 11:59 PM CDT Hospital Encounter Department of Neurology in [place], [place] [address] [place] [phone] Henrry Lewis M.D. Cognitive Disorder Discharge Disposition: Home or Self Care 01/13/2020 9:26 AM CDT - 01/13/2020 11:59 PM CDT Hospital Encounter Department of Radiology in [place], [place] [address] [place] [phone] Henrry Lewis M.D. Hunt, Christopher H, M.D. Lemmerman, Loni B, R.TNicole(R)() Hugo Grayson R.TNicole(R)() Dementia (HCC) Discharge Disposition: Home or Self Care 01/06/2020 Documentation Department of Neurology in [place], [place] [address] [place] [phone] Henrry Lewis M.D. 01/06/2020 Clinical Communication Department of Neurology in [place], [place] [address] [place] [phone] Henrry Lewis M.D. Communication 01/06/2020 12:02 PM CDT - 01/06/2020 11:59 PM CDT Hospital Encounter Department of Radiology, [facility] in [place], [place] [address] [place] [phone] Henrry Lewis M.D. Major Neurocognitive Disorder Without Behavior Disturbance (HCC) Discharge Disposition: Home or Self Care 01/03/2020 Abstract [facility] Renuka Godinez M.D. 01/02/2020 Documentation Department of Neurology in [place], [place] [address] [place] [phone] Henrry Lewis M.D. 01/02/2020 Clinical Communication Department of Neurology in [place], [place] [address] [place] [phone] Henrry Lewis M.D. COVID Inquiry 01/02/2020 Orders Only Department of Neurology in [address] [address] Henrry Lewis M.D. Change Mental Status (Primary Dx) 01/01/2020 Clinical Communication Department of Neurology in [place], [place] [address] [place] [phone] Henrry Lewis M.D. 01/01/2020 11:00 AM CDT Internal E-Consult Department of Vascular Medicine in [place], [place] [address] [place] [phone] Donny Hughes M.D. Anticoagulant Therapy (Primary Dx); Cognitive Disorder 01/01/2020 9:18 AM CDT - 01/01/2020 1:00 PM CDT Hospital Encounter Department of Laboratory Medicine and Pathology, [facility], in [place], [place] [address] [place] [phone] Henrry Lewis M.D. Cognitive Disorder Discharge Disposition: Home or Self Care 01/01/2020 1:01 PM CDT - 01/01/2020 11:59 PM CDT Hospital Encounter Department of Radiology, [facility] in [place], [place] [address] [place] [phone] Henrry Lewis M.D. Major Neurocognitive Disorder Without Behavior Disturbance (HCC) Discharge Disposition: Home or Self Care 01/01/2020 8:00 AM CDT Comprehensive Visit Department of Neurology in [place], [place] [address] [place] [phone] Henrry Lewis M.D. Cognitive Disorder (Primary Dx) 12/24/2019 Clinical Communication Department of Neurology in [address] [address] Hans Hurtado M.D. COVID Nurse Line/12-24-19 12/24/2019 Orders Only Department of Neurology in [place], [place] [address] [place] [phone] Henrry Lewis M.D. Major Neurocognitive Disorder Without Behavior Disturbance (HCC) 06/13/2016 7:39 AM FRAME REPAIRER - 06/13/2016 11:59 PM FRAME REPAIRER Hospital Encounter HX RST DERM SURG OP [facility] Dante Villalba M.D. 05/22/2009 11:04 AM FRAME REPAIRER - 05/22/2009 11:59 PM FRAME REPAIRER Hospital Encounter HX RST FIBRO AHP OP Azeb Sánchez, R.N. 05/21/2009 12:23 PM FRAME REPAIRER - 05/21/2009 11:59 PM FRAME REPAIRER Hospital Encounter HX RST FIBRO AHP OP Akilah Hyatt R.N. 05/21/2009 12:53 PM FRAME REPAIRER - 05/21/2009 11:59 PM FRAME REPAIRER Hospital Encounter HX RST FIBROMYALGIA Shanti Dai, AYDEN, C.N.P., M.S. 03/30/2004 - 03/30/2004 11:59 PM CDT Hospital Encounter HX NO MAPPING 01/16/2004 11:08 AM CDT - 01/23/2004 11:59 PM CDT Hospital Encounter HX RST DERM CLINICAL [facility] 01/15/2004 7:19 AM CDT - 01/22/2004 11:59 PM CDT Hospital Encounter HX RST [facility] Denzel Hernandez M.D., M.B.A. 01/14/2004 2:37 PM CDT - 2004 11:59 PM CDT Hospital Encounter HX RST [facility] Denzel Hernandez M.D., M.B.A. 01/13/2004 8:28 AM CDT - 01/20/2004 11:59 PM CDT Hospital Encounter HX RST [facility] Denzel Hernandez M.D., M.B.A. 01/12/2004 - 01/19/2004 [...] mouth daily. 05/27/20 Active miscellaneous medical supply [facility] As directed. CPAP machine for home use [...] Mother kaelalorenzo birch Breast cancer Mother kaela kamarmand Dementia Mother kaela kamiraidaka Hyperlipidemia Mother kaela kamiraidaka Hypertension Mother kaela kaminska Melanoma Mother kaela kaminska Osteoporosis Mother kaelalorenzo birch Relation Name Status Comments Father sole birch Mother kaela birch Social History Smoking Status as of 10/28/2024 Tobacco Use Types Packs/Day Years Used Date Smoking Tobacco: Never Assessed [facility] Utilities Answer Date Recorded In the past 12 months has th e [employer]line [employer], Smove, oil, or water [employer] threatened to shut off services in your [...] often do you attend chur ch or christian services? More than 4 times per year 09/07/2022 Do you belong to any clubs o r organizations such as christian groups, unions, fraternal or athletic groups, or [...] and heating? Not hard at all 09/07/2022 [place] [employer] of Occupat ional Health - Occupational Stress [...] your living situation today? I have a [facility] place to live 08/06/2024 Education Answer Date Recorded What is the highest level of school you have completed or the highest degree you have received? Some college, no degree 01/01/2020 Sex and Gender Information Value Date Recorded Sex Assigned at Female 12/26/2019 12:16 PM CDT Legal Sex Female 5:48 AM FRAME REPAIRER Gender Identity Female 12/26/2019 12:16 PM CDT [...] Virtual Visit Section of Infectious Diseases in [place], [place] [address] [place] [address] Humaira Keys M.D. [address] [place] [address] Medical Devices Implanted Type Area Customer Data Technician Device Identifier Shelf Expiration Date Model / [...] Disease Screening HOLTER MONITOR - IN CLINIC AIR HOLE DRILLER Routine 10/11/2024 5:06 AM CDT Atrial Fibrillation Paroxysmal (HCC) Cardiac Vascular Disease Screening NM RES PET RAD - Routine (most inpatients and all outpatients) 09/10/2024 9:15 AM CDT Clinical Research Exam MICROSCOPIC MANUAL Routine 08/12/2024 1:25 PM FRAME REPAIRER PH, U Routine 08/12/2024 1:25 PM FRAME REPAIRER DIPSTICK, U Routine 08/12/2024 1:25 PM FRAME REPAIRER OSMOLALITY, U Routine 08/12/2024 1:25 PM FRAME REPAIRER URINALYSIS WITH MICROSCOPIC Routine 08/12/2024 1:25 PM FRAME REPAIRER Urgency Urinary BACTERIAL CULTURE, AEROBIC + SUSC, URINE Routine 08/12/2024 1:25 PM FRAME REPAIRER Urgency Urinary NM RES PET RAD - Routine (most inpatients and all outpatients) 09/26/2023 9:06 AM CDT Clinical Research Exam MR BRAIN WITHOUT IV CONTRAST RAD - Routine (most inpatients and all outpatients) 09/25/2023 4:20 PM CDT Clinical Research Exam URINALYSIS WITH MICROSCOPIC Routine 07/07/2023 3:08 PM FRAME REPAIRER Dysuria Frequency Urinary Incontinence Urinary BACTERIAL CULTURE, AEROBIC + SUSC, URINE Routine 07/07/2023 3:08 PM FRAME REPAIRER Dysuria Frequency Urinary Incontinence Urinary BACTERIAL CULTURE, AEROBIC + SUSC, URINE Routine 05/11/2023 2:20 PM FRAME REPAIRER Urinary Urge Incontinence Urgency Urinary Dysuria BACTERIAL [...] AM CDT Preoperative Exam Preprocedural Lab Exam SC UROFLOWMETRY CMPLX Routine 02/10/2023 8:15 AM CDT Overactive Bladder Incontinence Urinary Stress And Urge HOLTER MONITOR - IN CLINIC AIR HOLE DRILLER Routine 10/15/2022 7:39 AM CDT Atrial Fibrillation [...] Persistent (HCC) HOLTER MONITOR - IN CLINIC AIR HOLE DRILLER Routine 09/09/2022 5:42 AM FRAME REPAIRER Atrial Fibrillation Longstanding Persistent (HCC) URO UROFLOW [...] inpatients and all outpatients) 08/18/2020 1:28 PM FRAME REPAIRER Clinical Research Exam NM RES PET RAD - Routine (most inpatients and all outpatients) 08/18/2020 11:18 AM FRAME REPAIRER Clinical Research Exam MR BRAIN WITHOUT IV CONTRAST RAD - Routine (most inpatients and all outpatients) 08/18/2020 8:46 AM FRAME REPAIRER Clinical Research Exam NM RES PET RAD - Routine (most inpatients and all outpatients) 08/13/2020 9:33 AM FRAME REPAIRER Clinical Research Exam CYTOLOGY NON-TURNING SANDER OPERATOR (SCHEDULED) Routine 02/19/2020 4:28 PM CDT [...] DERMATOLOGY IMAGE EXAM Routine 6 12:00 AM FRAME REPAIRER DERMATOLOGY IMAGE EXAM Routine 6 12:00 AM FRAME REPAIRER DERMATOLOGY IMAGE EXAM Routine 6 12:00 AM FRAME REPAIRER DERMATOLOGY IMAGE EXAM Routine 6 12:00 AM FRAME REPAIRER DERMATOPATHOLOGY Routine 06/02/2016 10:26 AM FRAME REPAIRER DX SPINE 1 VIEW Routine 05/05/2009 2:55 PM FRAME REPAIRER DX CERVICAL SPINE 2-3 VIEWS Routine 05/05/2009 2:55 PM FRAME REPAIRER DX SPINE Routine 05/04/2009 12:22 PM FRAME REPAIRER HX HEMATOPATHOLOGY REPORT Routine 02/15/2007 7:48 AM [...] included. Ventricular Rate ECG/Min 62 BPM MUSE SC Interval 218 ms MUSE QRSD Interval 118 ms MUSE QT Interval 472 ms MUSE QTC Interval 479 ms MUSE P Venus 71 degrees MUSE R Venus -40 degrees MUSE T Wave Venus 36 degrees MUSE 10/17/2024 9:11 AM CDT [...] criteria reviewed. - Responsible adult along. - Trial Paralegal verification completed. CARDIOVERSION INTRA-PROCEDURE - METEOROLOGICAL AIDE/Anesthesiologist present. See anesthesia record. - Emergency equipment [...] on thromboembolic risk as determined by the [id number] Score. For the complete report, see the [...] criteria reviewed. - Responsible adult along. - Trial Paralegal verification completed. CARDIOVERSION INTRA-PROCEDURE - METEOROLOGICAL AIDE/Anesthesiologist present. See anesthesia record. - Emergency equipment [...] based on thromboembolic risk as determined bythe [id number] Score. For the complete report, see the Order-Level Documents. us Siddharth Marshall M.D. CV CARDIAC SERVICES PROCED URES Final Result [facility] IVIEW NA * (ABNORMAL) Glucose, POCT (10/17/2024 8:24 AM CDT) Only the most recent of3 resultswithin the time period is included. Glucose, POCT, B 153(H) 70 - 140 mg/dL 10/17/2024 8:28 AM CDT PCLX Blood 10/17/2024 8:24 AM CDT 10/17/2024 8:29 AM CDT us Unknown Provider LAB POCT ORDERABLES-MANUAL Sheyla bueno Result POC [facility] [address] [place] [address], [place] PCLX [facility] POC [address] [place] [address] * (ABNORMAL) ABG and Lytes EG6, POCT, [...] ORDERABLES - DEVICE Fi nal Result POC [facility] [address] [place] [address], [place] PCLX [facility] POC [address] [place] [address] * Lipid Panel (10/14/2024 10:33 AM CDT) [...] ADD-ON Final Res ult Performing Organization Address City/[facility]/ZIP Co de Phone Number [facility] [address] [place] [address], [facility] DTL [facility] [address] [place] [address] * (ABNORMAL) CBC without Differential (10/14/2024 10:33 [...] M.D. LAB BLOOD ADD-ON Final Res ult [facility] [address] [place] [address], [facility] DTL [facility] [address] [place] [address] * (ABNORMAL) Basic Metabolic Panel (10/14/2024 10:33 [...] M.D. LAB BLOOD ADD-ON Final Res ult [facility] [address] [place] [address], [place] DTL [facility] [address] [place] [address] * HOLTER MONITOR - IN CLINIC AIR HOLE DRILLER (10/11/2024 5:06 AM CDT) Only the most [...] 19h 11m duration INFOBION IC MOME AF [place] 100 percent INFOBIONIC MOME Longest AF Duration [...] 1%. 3. No symptomatic events were noted. Prosthetics Technician: MERRICK Feldman Fellow: Floresita MORGANbabita Procedure Note [...] 1%. 3. No symptomatic events were noted. Prosthetics Technician: MERRICK Feldman Fellow: Floresita [facility] Siddharth Marshall M.D. CV CARDIAC SERVICES PROCED [...] study. Narrative 09/10/2024 1:08 PM CDT EXAM: [facility] PET RADIOPHARMACEUTICAL/MEDS: Route: intravenous fludeoxyglucose F 18 injection SHELTER (FDG F-18),7.68 millicurie Subject participated in research study IRB [id number]. Note: research images are stored in Nuclear Medicine No new incidental findings since 09/26/2023. The patient reports no recent vaccinations. Procedure Note August Martinez M.D., Ph.D. - 09/10/2024 EXAM: [facility] PET RADIOPHARMACEUTICAL/MEDS: Route: intravenous fludeoxyglucose F 18 injection SHELTER (FDG F-18),7.68 millicurie Subject participated in research study IRB [id number]. Note: research images are stored in Nuclear Medicine No new incidental findings since 09/26/2023. The patient reports no recent vaccinations. IMPRESSION: This exam was conducted as part of a research study. Mati Chaves M.D., M.P.H. [facility] PROCEDURES F inal Result * (ABNORMAL) Dipstick, Urine (08/12/2024 1:25 PM FRAME REPAIRER) Only the most recent of2 resultswithin the time period is included. Hemoglobin, QL, U Negative Negative 08/12/2024 3:11 PM FRAME REPAIRER DTL Leukocyte Esterase, U Moderate(A) Negative 08/12/2024 3:11 PM FRAME REPAIRER DTL Nitrite, U Negative Negative 08/12/2024 3:11 PM FRAME REPAIRER DTL Ketone, U Negative Negative mg/dL 08/12/2024 3:11 PM FRAME REPAIRER DTL Glucose, U Negative Negative mg/dL 08/12/2024 3:11 PM FRAME REPAIRER DTL Urine 08/12/2024 1:25 PM FRAME REPAIRER 08/12/2024 2:32 PM FRAME REPAIRER Humaira Keys M.D. LAB URINE ORDERABLES Fin al Result Performing Organization Address [facility] de Phone Number [facility] [address] [place] [address], [facility] [address] [place] [address] * (ABNORMAL) Microscopic Manual (08/12/2024 1:25 PM FRAME REPAIRER) Microscopy Abnormal 08/12/2024 4:17 PM FRAME REPAIRER DTL RBC <3 <3 /hpf 08/12/2024 4:17 PM FRAME REPAIRER DTL WBC 21-30(A) /hpf 08/12/2024 4:17 PM FRAME REPAIRER DTL Comment: ----REFERENCE VALUE---- <4 (Males) <11 (Females) Casts, Hyaline Occas /lpf 08/12/2024 4:17 PM FRAME REPAIRER DTL Fat, Free Occas(A) /hpf 08/12/2024 4:17 PM FRAME REPAIRER DTL Bacteria Present(A) 08/12/2024 4:17 PM FRAME REPAIRER DTL Urine 08/12/2024 1:25 PM FRAME REPAIRER 08/12/2024 3:09 PM FRAME REPAIRER Humaira Keys M.D. LAB URINE ORDERABLES Fin al Result Performing Organization Address [facility] de Phone Number [facility] [address] [place] [address], [facility] [address] [place] [address] * (ABNORMAL) Bacterial Culture, Aerobic + Susceptibility, Urine (08/12/2024 1:25 PM FRAME REPAIRER) Only the most recent of8 resultswithin the time period is included. Urine Culture PSEUDOMONAS AERUGINOSA >100,000 cfu/mL (A) 08/16/2024 1:55 PM FRAME REPAIRER DTL Comment: Gentamicin should not be used for P. aeruginosa. There are no gentamicin breakpoints for P. aeruginosa. Urine Culture PSEUDOMONAS AERUGINOSA >100,000 cfu/mL (A) 08/16/2024 1:55 PM FRAME REPAIRER DTL Comment: Gentamicin should not be used for P. aeruginosa. There are no gentamicin breakpoints for P. aeruginosa. Urine (Urine, Straight Catheter) 08/12/2024 1:25 PM FRAME REPAIRER 08/12/2024 3:17 PM FRAME REPAIRER Comment:Specimen Source Site : Urine Narrative Organism [...] AL ORDERABLES Final Result Performing Organization Address [facility] Co de Phone Number [facility] [address] [place] [address], [facility] [address] [place] [address] * pH, Urine (08/12/2024 1:25 PM FRAME REPAIRER) Only the most recent of2 resultswithin the time period is included. pH, U 6.7 4.5 - 8.0 08/12/2024 4:3 1 PM FRAME REPAIRER DTL Urine 08/12/2024 1:25 PM FRAME REPAIRER 08/12/2024 2:32 PM FRAME REPAIRER Humaira Keys M.D. LAB URINE ORDERABLES Fin al Result Performing Organization Address City/[facility] Co de Phone Number [facility] [address] [place] [address], [facility] [address] [place] [address] * Osmolality, Urine (08/12/2024 1:25 PM FRAME REPAIRER) Only the most recent of2 resultswithin the time period is included. Osmolality, U 406 150 - 1150 mOsm/kg 08/12/2024 4:31 PM FRAME REPAIRER DTL Urine 08/12/2024 1:25 PM FRAME REPAIRER 08/12/2024 2:32 PM FRAME REPAIRER Humaira Keys M.D. LAB URINE ORDERABLES Fin al Result Performing Organization Address City/[facility] Co de Phone Number [facility] [address] [place] [address], [facility] [address] [place] [address] * (ABNORMAL) Urinalysis, with Microscopic: Urine, Straight Catheter (08/12/2024 1:25 PM FRAME REPAIRER) Only the most recent of4 resultswithin the time period is included. Source Urine, Urine, Straight Catheter 08/12/2024 2:32 PM FRAME REPAIRER DTL Color, U Yellow 08/12/2024 2:32 PM FRAME REPAIRER DTL Clarity, U Clear 08/12/2024 2:32 PM FRAME REPAIRER DTL Protein, U 17 <26 mg/dL 08/12/2024 3:18 PM FRAME REPAIRER DTL Protein/Osmola lity 0.42(H) <0.42 ratio 08/12/2024 4:31 PM FRAME REPAIRER DTL Predicted 24 HR Protein, U 303(H) <229 mg/24 h 08/12/2024 4:31 PM FRAME REPAIRER DTL Predicted Range 75-1229 mg/24 h 08/12/2024 4:31 PM FRAME REPAIRER DTL Comment Micro done on <2.5 mL 08/12/2024 4:12 PM FRAME REPAIRER DTL Urine (Urine, Straight Catheter) 08/12/2024 1:25 PM FRAME REPAIRER 08/12/2024 2:32 PM FRAME REPAIRER us Humaira Keys M.D. LAB URINE ORDERABLES Fin al Result [facility] [address] [place] [address], [facility] [address] [place] [address] * MR Brain without IV Contrast (09/25/2023 [...] for research purposes according to IRB [id number]. Moderate generalized cerebral and cerebellar parenchymal volume loss. Partially empty sella, typically of doubtful clinical significance. Moderate hippocampal atrophy. Ex vacuo dilatation of the ventricular system. Mild leukoaraiosis. No acute infarcts. Procedure Note Toña Solomon M.D. - 09/26/2023 EXAM: MR BRAIN WITHOUT IV CONTRAST COMPARISON: Head MRI 09/14/2022 FINDINGS: Head MRI performed for research purposes according to IRB [id number]. Moderate generalized cerebral and cerebellar parenchymal volumeloss. [...] MICROBIOLOGY - GENERAL O RDERABLES Final Result [facility] [address] [place] [address], [facility] DTAd[facility]health [facility] LaboratoriesD[facility] [address] [place] [address] * Airway (02/20/2023 8:34 AM CDT) Narrative [...] ETT location: oral VL device: glide scope Marshall scope blade size: 3 Tube size: 7 [...] M.D. LAB BLOOD ADD-ON Final Resul t [facility] [address] [place] [address], [facility] [address] [place] [address] * SC UROFLOWMETRY CMPLX (02/10/2023 8:15 AM CDT) Narrative [...] AM CDT 02/10/2022 9:23 AM CDT Cristal Galdamez APRN, C.N.P., D.N.P. LAB URINE ORDERABLES Final Result Performing Organization Address [facility] Co de Phone Number [facility] [address] [facility]TA[facility] [address] [place] [address] * Cytology Non-TURNING SANDER OPERATOR (Scheduled) (02/19/2020 4:28 PM CDT) 02/20/2020 3:08 PM CDT DTL Report electronically signed by Chico Brower M.D. [id number] I verify that I have examined all [...] ORDERAB LES Final Result Performing Organization Address [facility]/ZIP Co de Phone Number [facility] [address] [place] [address], [facility] [address] [place] [address] * CT Urogram without and with IV [...] upper abdominal andretroperitoneal lymph nodes, indeterminate. Result [facility] us Mateo Eckert M.D., Ph.D. IMG CT PROCEDURES Fin al Result * Proteinase 3 Antibodies, IgG (02/12/2020 1:05 PM CDT) Proteinase 3 Ab (PR3), S <0.2 <0.4 (Negative) U 02/13/2020 9:18 AM CDT [facility] Blood (Blood, Venous) 02/12/2020 1:05 PM CDT 02/13/2020 7:00 AM CDT Result [facility] Mateo Eckert M.D., Ph.D. LAB BLOOD ADD-ON Sheyla l Result [facility] [address] [place] [address] [facility] Dept. of Laboratory Medicine and Pathology [address] [place] [address] * Myeloperoxidase Antibodies, IgG (02/12/2020 1:05 PM CDT) Myeloperoxidase Ab, S <0.2 <0.4 (Negative ) U 02/13/2020 9:18 AM CDT [facility] Blood (Blood, Venous) 02/12/2020 1:05 PM CDT 02/13/2020 7:00 AM CDT Result [facility] us Mateo Eckert M.D., Ph.D. LAB BLOOD ADD-ON Sheyla l Result Performing Organization Address City/[facility]/ZIP Co de Phone Number [address] [place] [address] [facility] Dept. of Laboratory Medicine and Pathology [address] [place] [address] [place] [address] * Glomerular Basement Membrane Antibodies, IgG (02/12/2020 1:05 PM CDT) Glomerular Basement Membrane IgG Ab <0.2 <1.0 (Negative) U 02/13/2020 9:18 AM CDT [facility] Blood (Blood, Venous) 02/12/2020 1:05 PM CDT 02/13/2020 7:00 AM CDT us Mateo Eckert M.D., Ph.D. LAB BLOOD ADD-ON Sheyla l Result Performing Organization Address [facility] Co de Phone Number [address] [place], [place] [address] [place] [address] Dept. of Laboratory Medicine and Pathology [address] [place] [address] [place] [address] * DX Hand Bilateral 3 Views (02/11/2020 [...] swelling. Ej Shah M.D. IM DIAGNOSTIC IMAGING [facility] Final Result * (ABNORMAL) Albumin, Random, Urine (02/11/2020 7:54 AM CDT) Albumin, Random, U 30.2 mg/L 2019 8:30 AM CDT MYLES Comment: ----ADDITIONAL INFORMATION---- This test has been modified from the data analysis assistant's instructions. Its performance characteristics were determined by [facility] in a manner consistent with CLIA requirements. This test has not been cleared or approved by the U.S. Food and Drug Administration. Creatinine 40 mg/dL 02/11/2020 8:30 AM CDT [facility] Albumin/Creatinine Ratio 76(H) <25 mg/g 02/11/2020 8:30 AM CDT [facility] Urine (Urine, Clean Catch) 02/11/2020 7:54 AM CDT 02/11/2020 7:54 AM CDT Henrry Lewis M.D. LAB URINE ORDERABLES Final Result Performing Organization Address [facility] Co de Phone Number [facility] [address] [place] [address], [facility] [address] [place] [address] * (ABNORMAL) Protein/Creatinine Ratio, Random, Urine (02/11/2020 [...] URINE ORDERABLES Final Result Performing Organization Address [facility] Co de Phone Number [facility] [address] [place] [address], [facility] [address] [place] [address] * (ABNORMAL) Renal Function Panel (02/11/2020 6:40 [...] the 2009 CKD_EPI creatinine equation. eGFR-Black/Afri can Guatemalan 68 >=60 mL/min/BSA 02/11/2020 7:48 AM CDT [...] M.D. LAB BLOOD ADD-ON Fin al Result [facility] [address] [place] [address], [facility] DTAd[facility] LaboratoriesD[facility] [address] [place] [address] * Uric Acid (02/11/2020 6:40 AM CDT) Uric Acid, S 4.2 2.7 - 6.1 mg/dL 02/11/2020 7:48 AM CDT DTL Blood (Blood, Venous) 02/11/2020 6:40 AM CDT 02/11/2020 7:27 AM CDT Henrry Lewis M.D. LAB BLOOD ADD-ON Fin al Result [facility] [address] [place] [address], [facility] DTL [facility] [address] [place] [address] * (ABNORMAL) Immunoglobulins (IgG, IgA, and IgM) (02/11/2020 6:38 AM CDT) Immunoglobulin A (IgA), S 491(H) 61 - 356 mg/dL 02/12/2020 10:52 AM CDT SDS Immunoglobulin M (IgM), S 62 37 - 286 mg/dL 02/12/2020 10:51 AM CDT SDS Immunoglobulin G (IgG), S 1560 767 - 1590 mg/dL 02/12/2020 10:51 AM CDT [facility] Blood (Blood, Venous) 02/11/2020 6:38 AM CDT 02/12/2020 6:51 AM CDT Mateo Eckert M.D., Ph.D. LAB BLOOD ADD-ON Sheyla l Result Performing Organization Address City/[facility]/ZIP Co de Phone Number [facility] [address] [place] [address] [facility] Dept. of Laboratory Medicine and Pathology [address] [place] [address] * EXT Tapestry (02/03/2020 12:00 AM CDT) Gene Studied BRCA1,BRCA2,MLH1,MSH 2,MSH 6,PMS2,EPCAM,APOB,LDLR,LD LRAP1,PCSK9 1 12:00 AM FRAME REPAIRER JACKIE Genetic Disease Assessed Evaluation of 11 genes associated with Hereditary Breast and Ovarian Cancer, Hardy Syndrome and Familial Hypercholesterolemia. 12:00 AM FRAME REPAIRER JACKIE Genetic Analysis Overall Interpretation Negative results [...] enriched using a custom set of reagents ([employer] Exome+ chemistry). Targeted regions were then sequenced using an Illumina DNA sequencing system. Alignment to a modified version of GRCh38 and variant calling were completed using a customized version of [employer]'s Checkr software, requiring 20x coverage for validated variant calls. The test panel is bioinformatically selected from the [employer]+. Copy Number Variants (CNVs) were called using a proprietary bioinformatics pipeline that compared the coverage profile of your sample with the coverage profiles of a reference set of other samples. [facility] [employer] then analyzed generated variant data for the exons and 10 bp of flanking intronic sequence (and select tagged intronic variants) of the 11 genes included in Livestage from the [employer]. The Analytical Range includes single nucleotide [...] bp, and untranslated regions. 1 12:00 AM FRAME REPAIRER JACKIE Human Reference Sequence Assembly GRCh38 1 12:00 AM FRAME REPAIRER JACKIE Saliva (Mouth) 02/03/2020 Desmond Diaz M.D. LAB GENETIC TESTIN G Final Result Performing Organization Address [facility] Co de Phone Number HELIX Dola [address] [facility], [address] [place] [address], [facility] JACKIE HELIX [address] [facility], [address] [place] [address] * EEG routine - awake and sleep [...] NEUROLOGY ORDERABLES Final Result Performing Organization Address [facility] Co de Phone Number MMODAL NA * [...] Result [facility] [address] [place] [address] [place] [id number] PD [facility] [address] [place] [address] * (ABNORMAL) IgG (01/13/2020 11:31 AM CDT) Immunoglobulin G (IgG), S 1620(H) 767 - 1590 mg/dL 01/15/2020 3:59 PM CDT [facility] Albumin, S 3480 3200 - 4800 mg/dL 01/15/2020 3:51 PM CDT [facility] IgG/Albumin, S 0.47(H) <=0.40 01/15/2020 3:59 PM CDT [facility] Blood 01/13/2020 11:3 1 AM CDT 01/14/2020 6:58 AM CDT us Henrry Lewis M.D. LAB BLOOD NON ADD-ON Final Result [facility] [address] [place] [address] [facility] Dept. of Laboratory Medicine and Pathology [address] [place] [address] * Oligoclonal Banding Serum (01/13/2020 11:31 AM CDT) Serum Bands 10 bands 01/15/2020 2: 32 PM CDT [facility] Blood 01/13/2020 11:3 1 AM CDT 01/14/2020 6:58 AM CDT us Henrry Lewis M.D. LAB BLOOD NON ADD-ON Final Result [facility] [address] [place] [address] [facility] Dept. of Laboratory Medicine and Pathology [address] [place] [address] * IR Lumbar Puncture Diagnostic (01/13/2020 11:07 [...] 0.011 <=0.023 ratio 01/14/2020 7:32 PM CDT [facility] Interpretation SEE COMMENT 01/14/2020 7:32 PM CDT [facility] Comment: The normal p-Tau/Abeta42 ratio [...] 13.9 <=21.7 pg/mL 01/14/2020 7:32 PM CDT [facility] Comment: ----ADDITIONAL INFORMATION---- The testing method is an electrochemiluminescence assay manufactured by [employer] and performed on the Delmer system. Values obtained with different assay methods or kits may be different and cannot be used interchangeably. This test was developed and its performance characteristics determined by [facility] in a manner consistent with CLIA requirements. This test has not been cleared or approved by the U.S. Food and Drug Administration. Cerebrospinal Fluid 01/13/20 10:57 AM CDT 01/13/2020 3:57 PM CDT us Henrry Lewis M.D. LAB BODY FLUIDS AND STOOLS ORDERABLES Final Result [facility] [address] [place] [address] [facility] Dept. of Laboratory Medicine and Pathology [address] [place] [address] * (ABNORMAL) CSF IgG Index (automatically paired with serum) (01/13/2020 10:57 AM CDT) Pathologist [facility] IgG Index, CSF 0.53 <=0.85 01/15/2020 5:16 [...] BODY FLUIDS AND STOOLS ORDERABLES Final Result [facility] [address] [place] [address] [facility] Dept. of Laboratory Medicine and Pathology [address] [place] [address] * Malignant Cells, CSF (01/13/2020 10:57 AM CDT) Pathologist [facility] 01/13/2020 1:39 PM CDT [facility] Report electronically signed by Faustino Lee D.O., [...] LAB SURG PATH ORDERA BLES Final Result [facility] [address] [place] [address], [facility] [address] [place] [address] * Cell Count and Differential, CSF (01/13/2020 10:57 AM CDT) Fluid Type CSF 01/13/2020 12:50 PM CDT [facility] CSF Gross Appearance Clear 01/13/2020 12:50 PM CDT [facility] Total Nucleated Cells 1 0 - 5 /mcL 01/13/2020 12:50 PM CDT [facility] Comment: ----ADDITIONAL INFORMATION---- This test has been modified from the data analysis assistant's instructions. Its performance characteristics were determined by [facility] in a manner consistent with CLIA requirements. [...] STOOLS ORDERABLES Final Result Performing Organization Address City/[facility]/ZIP Co de Phone Number [facility] [address] [place] [address] * (ABNORMAL) Protein, Total, CSF (01/13/2020 10:57 AM CDT) Protein, Total, CSF 52(H) 0 - 35 mg/dL 01/13/2020 1:05 PM CDT [facility]TL Cerebrospinal Fluid (Cerebrospinal Fluid) 01/13/2020 10:57 AM CDT 01/13/2020 12:11 PM CDT Henrry Lewis M.D. LAB BODY FLUIDS AND STOOLS ORDERABLES Final Result [facility] [address] [place] [address], [facility] [place] [address] * Oligoclonal Banding Spinal Fluid (automatically paired [...] BODY FLUIDS AND STOOLS ORDERABLES Final Result [facility] [address] [place] [address] [facility] Dept. of Laboratory Medicine and Pathology [address] [place] [address] * Dementia, Autoimmune Evaluation, CSF (01/13/2020 10:57 [...] developed and its performance characteristics determined by [facility] in a manner consistent with CLIA requirements. This test has not been cleared or approved by the U.S. Food and Drug Administration. Amphiphysin Ab, CSF Negative <1:2 titer 01/20/2020 11:01 AM CDT DTL Comment: ----ADDITIONAL INFORMATION---- This test was developed and its performance characteristics determined by [facility] in a manner consistent with CLIA requirements. This test has not been cleared or approved by the U.S. Food and Drug Administration. AGNA-1, CSF Negative <1:2 titer 01/20/2020 11:01 AM CDT [facility] Comment: ----ADDITIONAL INFORMATION---- This test was developed and its performance characteristics determined by [facility] in a manner consistent with CLIA requirements. This test has not been cleared or approved by the U.S. Food and Drug Administration. DANNY-1, CSF Negative <1:2 titer 01/20/2020 11:01 AM CDT DTL Reflex Added None. 01/20/2020 11:01 AM CDT [facility] Comment: ----ADDITIONAL INFORMATION---- This test was developed and its performance characteristics determined by [facility] in a manner consistent with CLIA requirements. This test has not been cleared or approved by the U.S. Food and Drug Administration. DANNY-2, CSF Negative <1:2 titer 01/20/2020 11:01 AM CDT DTL Comment: ----ADDITIONAL INFORMATION---- This test was developed and its performance characteristics determined by [facility] in a manner consistent with CLIA requirements. This test has not been cleared or approved by the U.S. Food and Drug Administration. DANNY-3, CSF Negative <1:2 titer 01/20/2020 11:01 AM CDT DTL Comment: ----ADDITIONAL INFORMATION---- This test was developed and its performance characteristics determined by [facility] in a manner consistent with CLIA requirements. This test has not been cleared or approved by the U.S. Food and Drug Administration. CASPR2-IgG CBA, CSF Negative Negative 01/16/2020 4:17 PM CDT [facility]TL Comment: ----ADDITIONAL INFORMATION---- This test was developed and its performance characteristics determined by [facility] in a manner consistent with CLIA requirements. This test has not been cleared or approved by the U.S. Food and Drug Administration. CRMP-5-IgG, CSF Negative <1:2 titer 0 11:01 AM CDT DTL Comment: ----ADDITIONAL INFORMATION---- This test was developed and its performance characteristics determined by [facility] in a manner consistent with CLIA requirements. This test has not been cleared or approved by the U.S. Food and Drug Administration. DPPX Ab IFA, CSF Negative Negative 01/20/20 20 11:01 AM CDT DTL Comment: ----ADDITIONAL INFORMATION---- This test was developed and its performance characteristics determined by [facility] in a manner consistent with CLIA requirements. This test has not been cleared or approved by the U.S. Food and Drug Administration. CRISTIAN-B-R Ab CBA, CSF Negative Negative 01/16/2020 4:17 PM CDT [facility]TL Comment: ----ADDITIONAL INFORMATION---- This test was developed and its performance characteristics determined by [facility] in a manner consistent with CLIA requirements. This test has not been cleared or approved by the U.S. Food and Drug Administration. GAD65 Ab Assay, CSF 0.00 <=0.02 nmol/L 01/16/2020 9:59 AM CDT DTL Comment: ----ADDITIONAL INFORMATION---- This test was developed and its performance characteristics determined by [facility] in a manner consistent with CLIA requirements. This test has not been cleared or approved by the U.S. Food and Drug Administration. GFAP IFA, CSF Negative Negative 01/20/2020 11:01 AM CDT DTL Comment: ----ADDITIONAL INFORMATION---- This test was developed and its performance characteristics determined by [facility] in a manner consistent with CLIA requirements. This test has not been cleared or approved by the U.S. Food and Drug Administration. IgLON5 IFA, CSF Negative Negative 0 11:01 AM CDT DTL Comment: ----ADDITIONAL INFORMATION---- This test was developed and its performance characteristics determined by [facility] in a manner consistent with CLIA requirements. This test has not been cleared or approved by the U.S. Food and Drug Administration. LGI1-IgG CBA, CSF Negative Negative 020 4:17 PM CDT DTL Comment: ----ADDITIONAL INFORMATION---- This test was developed and its performance characteristics determined by [facility] in a manner consistent with CLIA requirements. This test has not been cleared or approved by the U.S. Food and Drug Administration. mGluR1 Ab IFA, CSF Negative Negative 2019 11:01 AM CDT DTL Comment: ----ADDITIONAL INFORMATION---- This test was developed and its performance characteristics determined by [facility] in a manner consistent with CLIA requirements. This test has not been cleared or approved by the U.S. Food and Drug Administration. NIF IFA, CSF Negative Negative 01/20/2020 11:01 AM CDT DTL Comment: ----ADDITIONAL INFORMATION---- This test was developed and its performance characteristics determined by [facility] in a manner consistent with CLIA requirements. This test has not been cleared or approved by the U.S. Food and Drug Administration. NMDA-R Ab CBA, CSF Negative Negative 2019 4:17 PM CDT DTL Comment: ----ADDITIONAL INFORMATION---- This test was developed and its performance characteristics determined by [facility] in a manner consistent with CLIA requirements. This test has not been cleared or approved by the U.S. Food and Drug Administration. LADIES LOCKER ROOM ATTENDANT-Tr, CSF Negative <1:2 titer 01/20/2020 11:01 AM CDT DTL Comment: ----ADDITIONAL INFORMATION---- This test was developed and its performance characteristics determined by [facility] in a manner consistent with CLIA requirements. This test has not been cleared or approved by the U.S. Food and Drug Administration. LADIES LOCKER ROOM ATTENDANT-2, CSF Negative <1:2 titer 01/20/2020 11:01 AM CDT DTL Comment: ----ADDITIONAL INFORMATION---- This test was developed and its performance characteristics determined by [facility] in a manner consistent with CLIA requirements. This test has not been cleared or approved by the U.S. Food and Drug Administration. Cerebrospinal Fluid (Cerebrospinal Fluid) 01/13/2020 10:57 AM CDT 01/13/2020 12:32 PM CDT Henrry Lewis M.D. LAB BODY FLU IDS AND STOOLS ORDERABLES Edited Result - Final [address] [address], [place] [facility] [address] [place] [address] * Cryptococcus Ag w/Reflex, LFA, CSF (01/13/2020 10:57 AM CDT) [facility] Cryptococcus Ag Screen w/Titer, CSF Negative Negative 01/14/2020 12:24 AM CDT [facility] Comment: A single negative result does not exclude the diagnosis of cryptococcosis. ----ADDITIONAL INFORMATION---- This assay was performed using the FDA-cleared IMMY Cryptococcus Antigen Lateral Flow Assay. Cerebrospinal Fluid (Cerebrospinal Fluid) 01/13/2020 10:57 AM CDT 01/13/2020 2:57 PM CDT Henrry Lewis M.D. LAB MICROBIOLOGY - G ENERAL ORDERABLES Final Result Performing Organization Address City/[facility]/ZIP Co de Phone Number [facility] [address] [place] [address] [facility] Dept. of Laboratory Medicine and Pathology [address] [place] [address] * Glucose, CSF (01/13/2020 10:57 AM CDT) [...] STOOLS ORDERABLES Final Result Performing Organization Address [facility] Co de Phone Number [facility] [address] [place] [address], [facility] [address] [place] [address] * PET CT Brain Metabolic (01/06/2020 1:57 [...] RADIOPHARMACEUTICAL/MEDS: Route: intravenous fludeoxyglucose F 18 injection SHELTER (FDG F-18),12.05 millicurie TECHNIQUE: F18-FDG PET scan [...] RADIOPHARMACEUTICAL/MEDS: Route: intravenous fludeoxyglucose F 18 injection SHELTER (FDG F-18),12.05 millicurie TECHNIQUE: F18-FDG PET scan [...] assessment was performed on an independent computer gravity prospecting observer helper using [employer] software. The clinical indication for performing the post-processing was dementia, altered mental status. Review of the air quality manager images demonstrates adequate segmentation of the hippocampi. [...] andassessment was performed on an independent computer gravity prospecting observer helper using [employer] software.The clinical indication for performing the post-processing was dementia,altered mental status. Review of the air quality manager images demonstratesadequate segmentation of the hippocampi. Left [...] PROCEDURES F inal Result * Pernicious Anemia Reynolds (01/01/2020 9:35 AM CDT) [facility] Vitamin B12 Assay, S 510 180 - 914 ng/L 01/01/2020 3:19 PM CDT [facility] Blood (Blood, Venous) 01/01/2020 9:35 AM CDT 01/01/2020 1:21 PM CDT Henrry Lewis M.D. LAB BLOOD NON ADD-ON Final Result Performing Organization Address City/[facility]/ZIP Co de Phone Number [facility] [address] [place] [address] [facility] Dept. of Laboratory Medicine and Pathology [address] [place] [address] * DNA Double-Stranded (dsDNA) Antibodies with Reflex, IgG (01/01/2020 9:35 AM CDT) [facility] DNA Double-Stranded AB, IgG, S 17.7 <30.0 (Negative) IU/mL 01/02/2020 7:02 PM CDT [facility] Comment: Negative for dsDNA antibody by enzyme immunoassay. No further testing recommended. Blood 01/01/2020 9:35 AM CDT 01/01/2020 10:40 PM CDT us Henrry Lewis M.D. LAB BLOOD ADD-ON Fin al Result [facility] [address] [place] [address] [facility] Dept. of Laboratory Medicine and Pathology [address] [place] [address] * Dementia, Autoimmune Evaluation (01/01/2020 9:35 AM [...] developed and its performance characteristics determined by [facility] in a manner consistent with CLIA requirements. This test has not been cleared or approved by the U.S. Food and Drug Administration. AMPA-R Ab CBA, S Negative Negative 01/03/20 20 6:55 PM CDT DTL Comment: ----ADDITIONAL INFORMATION---- This test was developed and its performance characteristics determined by [facility] in a manner consistent with CLIA requirements. This test has not been cleared or approved by the U.S. Food and Drug Administration. Amphiphysin Ab, S Negative <1:240 titer 01/06/2020 12:21 PM CDT DTL Comment: ----ADDITIONAL INFORMATION---- This test was developed and its performance characteristics determined by [facility] in a manner consistent with CLIA requirements. This test has not been cleared or approved by the U.S. Food and Drug Administration. AGNA-1, S Negative <1:240 titer 01/06/2020 12:21 PM CDT DTL Comment: ----ADDITIONAL INFORMATION---- This test was developed and its performance characteristics determined by [facility] in a manner consistent with CLIA requirements. This test has not been cleared or approved by the U.S. Food and Drug Administration. DANNY-1, S Negative <1:240 titer 01/06/2020 12:21 PM CDT DTL Reflex Added None. 01/06/2020 12:21 PM CDT DTL Comment: ----ADDITIONAL INFORMATION---- This test was developed and its performance characteristics determined by [facility] in a manner consistent with CLIA requirements. This test has not been cleared or approved by the U.S. Food and Drug Administration. DANNY-2, S Negative <1:240 titer 01/06/2020 12:21 PM CDT DTL Comment: ----ADDITIONAL INFORMATION---- This test was developed and its performance characteristics determined by [facility] in a manner consistent with CLIA requirements. This test has not been cleared or approved by the U.S. Food and Drug Administration. DANNY-3, S Negative <1:240 titer 01/06/2020 12:21 PM CDT DTL Comment: ----ADDITIONAL INFORMATION---- This test was developed and its performance characteristics determined by [facility] in a manner consistent with CLIA requirements. This test has not been cleared or approved by the U.S. Food and Drug Administration. CASPR2-IgG CBA, S Negative Negative 020 6:56 PM CDT DTL Comment: ----ADDITIONAL INFORMATION---- This test was developed and its performance characteristics determined by [facility] in a manner consistent with CLIA requirements. This test has not been cleared or approved by the U.S. Food and Drug Administration. CRMP-5-IgG, S Negative <1:240 titer 01/06/2020 12:21 PM CDT DTL Comment: ----ADDITIONAL INFORMATION---- This test was developed and its performance characteristics determined by [facility] in a manner consistent with CLIA requirements. This test has not been cleared or approved by the U.S. Food and Drug Administration. DPPX Ab IFA, S Negative Negative 01/06/2020 12:21 PM CDT DTL Comment: ----ADDITIONAL INFORMATION---- This test was developed and its performance characteristics determined by [facility] in a manner consistent with CLIA requirements. This test has not been cleared or approved by the U.S. Food and Drug Administration. CRISTIAN-B-R Ab CBA, S Negative Negative 2019 6:55 PM CDT DTL Comment: ----ADDITIONAL INFORMATION---- This test was developed and its performance characteristics determined by [facility] in a manner consistent with CLIA requirements. This test has not been cleared or approved by the U.S. Food and Drug Administration. GAD65 Ab Assay, S 0.02 <=0.02 nmol/L 01/04/2020 8:22 AM CDT DTL Comment: ----ADDITIONAL INFORMATION---- This test was developed and its performance characteristics determined by [facility] in a manner consistent with CLIA requirements. This test has not been cleared or approved by the U.S. Food and Drug Administration. GFAP IFA, S Negative Negative 01/06/2020 12:21 PM CDT DTL Comment: ----ADDITIONAL INFORMATION---- This test was developed and its performance characteristics determined by [facility] in a manner consistent with CLIA requirements. This test has not been cleared or approved by the U.S. Food and Drug Administration. IgLON5 IFA, S Negative Negative 01/06/2020 12:21 PM CDT DTL Comment: ----ADDITIONAL INFORMATION---- This test was developed and its performance characteristics determined by [facility] in a manner consistent with CLIA requirements. This test has not been cleared or approved by the U.S. Food and Drug Administration. LGI1-IgG CBA, S Negative Negative 0 6:56 PM CDT DTL Comment: ----ADDITIONAL INFORMATION---- This test was developed and its performance characteristics determined by [facility] in a manner consistent with CLIA requirements. This test has not been cleared or approved by the U.S. Food and Drug Administration. mGluR1 Ab IFA, S Negative Negative 01/06/20 20 12:21 PM CDT DTL Comment: ----ADDITIONAL INFORMATION---- This test was developed and its performance characteristics determined by [facility] in a manner consistent with CLIA requirements. This test has not been cleared or approved by the U.S. Food and Drug Administration. NIF IFA, S Negative Negative 01/06/2020 12:21 PM CDT DTL Comment: ----ADDITIONAL INFORMATION---- This test was developed and its performance characteristics determined by [facility] in a manner consistent with CLIA requirements. This test has not been cleared or approved by the U.S. Food and Drug Administration. NMDA-R Ab CBA, S Negative Negative 01/03/20 20 6:55 PM CDT DTL Comment: ----ADDITIONAL INFORMATION---- This test was developed and its performance characteristics determined by [facility] in a manner consistent with CLIA requirements. This test has not been cleared or approved by the U.S. Food and Drug Administration. N-Type Calcium Channel Ab 0.00 <=0.03 nmol/L 01/05/2020 12:41 PM CDT DTL Comment: ----ADDITIONAL INFORMATION---- This test was developed and its performance characteristics determined by [facility] in a manner consistent with CLIA requirements. This test has not been cleared or approved by the U.S. Food and Drug Administration. P/Q-Type Calcium Channel Ab 0.02 <=0.02 nmol/L 01/05/2020 12:43 PM CDT DTL Comment: ----ADDITIONAL INFORMATION---- This test was developed and its performance characteristics determined by [facility] in a manner consistent with CLIA requirements. This test has not been cleared or approved by the U.S. Food and Drug Administration. LADIES LOCKER ROOM ATTENDANT-2, S Negative <1:240 titer 01/06/2020 12:21 PM CDT DTL Comment: ----ADDITIONAL INFORMATION---- This test was developed and its performance characteristics determined by [facility] in a manner consistent with CLIA requirements. This test has not been cleared or approved by the U.S. Food and Drug Administration. LADIES LOCKER ROOM ATTENDANT-Tr, S Negative <1:240 titer 01/06/2020 12:21 PM CDT DTL Comment: ----ADDITIONAL INFORMATION---- This test was developed and its performance characteristics determined by [facility] in a manner consistent with CLIA requirements. This test has not been cleared or approved by the U.S. Food and Drug Administration. Blood (Blood, Venous) 01/01/2020 9:35 AM CDT 01/01/2020 10:33 AM CDT us Henrry Lewis M.D. LAB BLOOD ADD-ON Fin al Result [facility] [address] [place] [address], [place] [facility] [address] [place] [address] * Centromere Antibodies, IgG (01/01/2020 9:35 AM CDT) Pathologist [facility] Centromere Ab, IgG, S <0.2 <1.0 (Negative) U 01/02/2020 9:15 AM CDT [facility] Blood 01/01/2020 9:35 AM CDT 01/01/2020 10:40 PM CDT Henrry Lewis M.D. LAB BLOOD ADD-ON Fin al Result [facility] [address] [place] [address] [facility] Dept. of Laboratory Medicine and Pathology [address] [place] [address] * ANA2 Reynolds (01/01/2020 9:35 AM CDT) Interpretation SEE COMMENT 0 2:22 PM CDT [facility] Comment:Compatible with rheu matoid arthritis. Blood 01/01/2020 9:35 AM CDT 01/01/2020 10:40 PM CDT Henrry Lewis M.D. LAB BLOOD ADD-ON Fin al Result Performing Organization Address City/[facility] Co de Phone Number [facility] [address] [place] [address] [facility] Dept. of Laboratory Medicine and Pathology [address] [place] [address] [place] [address] * Antibody to Extractable Nuclear Antigen Evaluation (01/01/2020 9:35 AM CDT) SS-A/Ro Ab, IgG, S 0.2 <1.0 (Negative) U 01/02/2020 9:15 AM CDT [facility] SS-B/La Ab, IgG, S <0.2 <1.0 (Negative) U 01/02/2020 9:15 AM CDT [facility] Sm Ab, IgG, S <0.2 <1.0 (Negative) U 01/02/2020 9:15 AM CDT [facility] PEST MANAGEMENT SUPERVISOR Ab, IgG, S <0.2 <1.0 (Negative) U 01/02/2020 9:15 AM CDT [facility] Scl 70 Ab, IgG, S 0.3 <1.0 (Negative) U 01/02/2020 9:15 AM CDT [facility] Niki 1 Ab, IgG, S <0.2 <1.0 (Negative) U 01/02/2020 9:15 AM CDT [facility] Blood 01/01/2020 9:35 AM CDT 01/01/2020 10:40 PM CDT Henrry Lewis M.D. LAB BLOOD ADD-ON Fin al Result Performing Organization Address City/[facility]/ZIP Co de Phone Number [facility] [address] [place] [address] [facility] Dept. of Laboratory Medicine and Pathology [address] [place] [address] * (ABNORMAL) Connective Tissue Diseases Reynolds (01/01/2020 9:35 AM CDT) Antinuclear Ab, S 3.2(H) <=1.0 (Negative ) U 01/01/2020 10:39 PM CDT [facility] Comment: Interpretation: Positive (3.0-5.9) ----ADDITIONAL INFORMATION---- Method: Enzyme-linked immunoassay using HEp-2 nuclear extract supplemented with purified antigens. Cyclic Citrullinated Peptide Ab, S 63.0(H) <20.0 (Negative ) U 01/01/2020 5:06 PM CDT [facility] Comment:Interpretation: Stro ng Positive (>=60.0) Blood (Blood, Venous) 01/01/2020 9:35 AM CDT 01/01/2020 12:29 PM CDT Henrry Lewis M.D. LAB BLOOD ADD-ON Fin al Result Performing Organization Address City/[facility]/ZIP Co de Phone Number [facility] [address] [place] [address] [facility] Dept. of Laboratory Medicine and Pathology [address] [place] [address] * Ribosome P Antibodies, IgG (01/01/2020 9:35 AM CDT) Ribosome P Ab, IgG, S <0.2 <1.0 (Negative) U 01/02/2020 9:15 AM CDT [facility] Blood 01/01/2020 9:35 AM CDT 01/01/2020 10:40 PM CDT Henrry Lewis M.D. LAB BLOOD ADD-ON Fin al Result [facility] [address] [place] [address] [facility] Dept. of Laboratory Medicine and Pathology [address] [place] [address] * (ABNORMAL) CRP (C-Reactive Protein) (01/01/2020 9:35 AM CDT) C-Reactive Protein (CRP), S 23.4(H) <=8.0 mg/L 01/01/2020 10:40 AM CDT DTL Blood (Blood, Venous) 01/01/2020 9:35 AM CDT 01/01/2020 10:14 AM CDT Henrry Lewis M.D. LAB BLOOD ADD-ON Fin al Result Performing Organization Address City/[facility]/ZIP Co de Phone Number [facility] [address] [place] [address] * (ABNORMAL) S-TSH (Thyroid-Stimulating Hormone - Sensitive) (01/01/2020 9:35 AM CDT) TSH, Sensitive 5.6(H) 0.3 - 4.2 mIU/L 01/01/2020 10:40 AM CDT DTL Blood (Blood, Venous) 01/01/2020 9:35 AM CDT 01/01/2020 10:14 AM CDT Henrry Lewis M.D. LAB BLOOD ADD-ON Fin al Result [facility] [address] [facility] [place] [address] [place] [address] * (ABNORMAL) Comprehensive Metabolic Panel (01/01/2020 9:35 AM CDT) [facility] Potassium, S 4.6 3.6 - 5.2 mmol/L [...] M.D. LAB BLOOD ADD-ON Fin al Result [facility] [address] [place] [address], [facility] [address] [place] [address] * DERMATOLOGY IMAGE EXAM (06/13/2016 12:00 AM FRAME REPAIRER) Only the most recent of5 resultswithin the time period is included. Anatomical Region Laterality Modality Other 06/13/2016 Addenda Addendum by ProviderRenuka M.D. on 06/13/2016 12:00 AM FRAME REPAIRER DERM^^^MCR Forehead, right 8 Mohs micrographic surgery 06/13/2016 00:00:00 Historical Provider IMG NON RAD IMAGING PROCEDUR ES Final Result * Dermatopathology (06/02/2016 10:26 AM FRAME REPAIRER) Only the most recent of5 resultswithin the time period is included. 06/02/2016 10:2 6 AM FRAME REPAIRER 06/02/2016 10:26 AM FRAME REPAIRER Narrative [facility] - 06/02/2016 10:26 AM FRAME REPAIRER 04/26/2016 Dermatopathology Report ([id number]) Referring Physician: Justice Torrez M.D. [facility] [facility] [address] [place] [address] Fax Requested By:Dante Villalba M.D. [phone] DIAGNOSIS: A. Clinic Consultation, Outside Material; Right congregational, [id number], 04/26/2016: Nodular basal cell carcinoma, involving biopsy borders 06/02/2016 16:05 Interpreted by: Melissa Easley M.D.[id number] Report electronically signed by Melissa Easley M.D. Transcribed by: [email or web address] 06/02/2016 13:12:41 SPECIMEN DESCRIPTION: TISSUE DESCRIPTION: [id number] MATERIAL RECEIVED: A. Clinic Consultation, Outside Material; Right congregational, [id number], 04/26/2016 (1 ss, 1 blk) Outside slide(s) reviewed by Dermatopathology, [place], [place]. Procedure Note 09/28/2017 04/26/2016 Dermatopathology Report ([id number]) Referring Physician: Justice Torrez M.D. [facility] [address] [address] Fax Requested By:Dante Villalba M.D. [phone] DIAGNOSIS: A. Clinic Consultation, Outside Material; Right congregational, [id number], 04/26/2016: Nodular basal cell carcinoma, involving biopsy borders 06/02/2016 16:05 Interpreted by: Melissa Easley M.D.[id number] Report electronically signed by Melissa Easley M.D. Transcribed by: [email or web address] 06/02/2016 13:12:41 SPECIMEN DESCRIPTION: TISSUE DESCRIPTION: [id number] MATERIAL RECEIVED: A. Clinic Consultation, Outside Material; Right congregational, [id number], 04/26/2016 (1 ss, 1 blk) Outside slide(s) reviewed by Dermatopathology, [place], [place]. us Dante Villalba M.D. LAB PATH DERM ORDERABLES Final Result [facility] [address] [place] [address], [facility] * DX Cervical Spine 2-3 Views (05/05/2009 2:55 PM FRAME REPAIRER) Anatomical Region Laterality Modality Cervical Spine N/A Radiographic Leticia ging 05/05/2009 2:55 PM FRAME REPAIRER Narrative 05/05/2009 3:06 PM FRAME REPAIRER 05-May-2009 14:55:00 Exam: Sp Cerv*2vw Flex/Ext only [...] Dx Spine 1 View (05/05/2009 2:55 PM FRAME REPAIRER) Anatomical Region Laterality Modality Spine N/A Radiographic Leticia ging 05/05/2009 2:55 PM FRAME REPAIRER Narrative 05/05/2009 3:06 PM FRAME REPAIRER 05-May-2009 14:55:00 Exam: Sp Cerv*1vw odontoid only [...] views. Electronically signed by: Ladan Sanchez MD [id number] 05-May-2009 15:06 us Sha Muhammad M.D. IMG DIAGNOSTIC IMAGING PROCED URES Final Result * DX Spine (05/04/2009 12:22 PM FRAME REPAIRER) Anatomical Region Laterality Modality Radiographic Leticia ging 05/04/2009 12:2 2 PM FRAME REPAIRER Narrative 05/04/2009 12:28 PM FRAME REPAIRER 04-May-2009 12:22:00 Exam: Sp*Entire Spine 7vw Indications: [...] AM CDT 02/15/2007 7:48 AM CDT Narrative [facility] - 02/15/2007 7:48 AM CDT 02/15/2007 Hematopathology Report ([id number]) Requested By: Shanti Ashraf M.D. [id number] DIAGNOSIS: Peripheral blood, JAK2 gene mutation analysis: Negative for JAK2 V617F mutation. Method summary: Genomic DNA was extracted and a quantitative, allele-specific polymerase chain reaction (PCR) assay used to evaluate for the point mutation causing JAK2 V617F (see [facility] Interpretive Handbook for method details). 02/15/2007 Colin Christie II, M.D., Ph.D. [id number] Electronically signed by [facility] 02/15/2007 16:53:10 SPECIMEN DESCRIPTION: A: Peripheral Blood TISSUE DESCRIPTION: A. Peripheral Blood: 1 EDTA tube peripheral blood for JAK2 testing Procedure Note 09/26/2017 02/15/2007 Hematopathology Report ([id number]) Requested By: Shanti Ashraf M.D. [id number] DIAGNOSIS: Peripheral blood, JAK2 gene mutation analysis: Negative for JAK2 V617F mutation. Method summary: Genomic DNA was extracted and a quantitative, allele-specific polymerase chain reaction (PCR) assay used to evaluate for the point mutation causing JAK2 V617F (see [facility] Interpretive Handbook for method details). 02/15/2007 Colin Christie II, M.D., Ph.D. [id number] Electronically signed by [facility] 02/15/2007 16:53:10 SPECIMEN DESCRIPTION: A: Peripheral Blood TISSUE DESCRIPTION: A. Peripheral Blood: 1 EDTA tube peripheral blood for JAK2 testing us Shanti Ashraf M.D. LAB PATHOLOGY/CYTOLOGY O RDERABLES Final Result [facility] [address] * US Extremity Veins (02/14/2007 3:12 [...] Only....NO FILMS MADE Electronically signed by: Blake [id number]) 01-Apr-2004 15:06 Gurjit Castro MD. [id number] 01-Apr-2004 15:06 Procedure Note Mati Castro M.D. [...] Only....NO FILMS MADE Electronically signed by: Blake [id number]) 01-Apr-2004 15:06 Gurjit Castro MD.[id number] 01-Apr-2004 15:06 Alma Gaston M.D. IMG NM PROCEDURES Sheyla l Result * Pulmonary Function Tests (03/31/2004 1:28 PM CDT) 03/31/2004 1:28 PM CDT Devin Aguero M.D., Ph.D. PFT ORDERABLES F inal Result [address] [address] * BMD Bone Density Spine Hips (03/31/2004 1:03 PM CDT) Anatomical Region Laterality Modality Hip, Lumbar Spine N/A Radiographic I maging 03/31/2004 1:03 PM CDT Narrative 03/31/2004 1:09 PM CDT 31-Mar-2004 13:03:00 Exam: NM BMD Spine and/or Hip(s) Indications: medication rx chcf (not a/c)(V58.69); osteoporosis screening(V82.81) ORIGINAL REPORT - [...] ELECTRONIC IMAGES ONLY Electronically signed by: Ladan Mnedez MD. [id number] 31-Mar-2004 13:09 Procedure Note Allyssa Mendez M.D. 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 --------- Bone Marrow [id number] RESULT 46,XX[20] INTERPRETATIONS No clonal abnormality was [...] Lab ID Test No. --------- Bone Marrow [id number] RESULT 46,XX[20] INTERPRETATIONS No clonal abnormality was apparent. REASON FOR REFERRAL fever of unknown origin METHOD Direct prep. and culture w/o mitogens Banding Analyzed Karyotyped GTL 8 2 QFQ 12 0 Total 20 2 Band Resolution 400 Signature Jose Clayton MD, PhD Date Released 11 Dec 2003 12:54 Date Ordered 04 Dec 2003 15:38 Steph Tay-Tena Palomino LAB GENETIC T ESTING Final Result [facility] [address] * Cytology (12/04/2003 1:12 PM CDT) 12/04/2003 1:12 PM CDT 12/04/2003 1:12 PM CDT Narrative [facility] - 12/04/2003 1:12 PM CDT 12/04/2003 Cytology Non-Gynecological ([id number]) Requested By: Estevan Gonzales M.D. [id number] SPECIMEN DESCRIPTION: A. Pleural Fluid NOS: Received 80cc of yellow colored fluid DIAGNOSIS: A. Pleural Fluid NOS: Negative for malignancy. 12/05/03 Molly Tapia M.D. [id number] Procedure Note 09/23/2017 12/04/2003 Cytology Non-Gynecological ([id number]) Requested By: Estevan Gonzales M.D. [id number] SPECIMEN DESCRIPTION: A. Pleural Fluid NOS: Received 80cc of yellow colored fluid DIAGNOSIS: A. Pleural Fluid NOS: Negative for malignancy. 12/05/03 Molly Tapia M.D. [id number] Historical Provider LAB PATHOLOGY/CYTOLOGY ORDER PRASHANT Final Result [facility] [address] * US Thoracentesis with Imaging Guidance (12/04/2003 10:50 AM CDT) Anatomical Region Laterality Modality Chest Ultrasound 12/04/2003 10:5 0 AM CDT Narrative 12/04/2003 12:25 PM CDT 04-Dec-2003 10:50:00 Exam: US Thoracentesis Indications: [id number]^effusion seen on chest xray ORIGINAL REPORT - [...] Dia.457 Electronically signed by: Dariel Marroquin MD [phone] [id number] 04-Dec-2003 12:25 Procedure Note Provider, Historical - 10/05/2017 04-Dec-2003 10:50:00 Exam: US Thoracentesis Indications: [id number]^effusion seen on chest xray ORIGINAL REPORT - [...] Dia.457 Electronically signed by: Dariel Marroquin MD [phone] [id number] 04-Dec-2003 12:25 Estevan Gonzales M.D. [facility] US PROCEDURES Final R esult * Prepare Red Blood Cells (12/03/2003 5:40 PM CDT) 12/03/2003 5:40 PM CDT 12/03/2003 6:52 PM CDT Narrative [facility] - 12/03/2003 5:40 PM CDT 03 Dec 2003 [id number] Ro 17:40 RBC TRF Order: ABO/RH B POS Antibody Screen Neg Blood Component RBC, -1 Issued 03 Dec 2003 Transfused Unit Id [id number] Blood Component RBC, -1 Issued 03 Dec 2003 Transfused Unit Id [id number] Procedure Note 10/18/2017 03 Dec 2003 [id number] Ro 17:40 RBC TRF Order: ABO/RH B POS Antibody Screen Neg Blood Component RBC, -1 Issued 03 Dec 2003 Transfused Unit Id [id number] Blood Component RBC, -1 Issued 03 Dec 2003 Transfused Unit Id [id number] Historical Provider BLOOD BANK PRODUCT ORDERABLE S Final Result [facility] [address] * DX Chest Posterior Anterior Lateral [...] as well. Linear atelectasis right base. (11-28-2003) (175) Electronically signed by: Cailin Reveles MD. [id number] 28-Nov-2003 10:17 Procedure Note Isaiah Reveles M.D. - 10/05/2017 28-Nov-2003 09:27:00 Exam: Interp of OUTSIDE X-RAY Indications: ORIGINAL REPORT - 28-Nov-2003 10:17:00 Outside single AP portable chest x-ray dated 11-26-03 shows a shallowinspiration. Subsegmental atelectasis in the left lower lung. There maybe a patchy infiltrate in the left lower lobe behind the heart as well.Linear atelectasis right base. (11-28-2003) (454) Electronically signed by: Cailin Reveles MD. [id number] 28-Nov-2003 10:17 Sendy Cummings M.D. IMG DIAGNOSTIC [...] MD. [id number] 27-Nov-2003 09:09 Sendy Cummings M.D. [facility] DIAGNOSTIC IMAGING PROC EDURES Final Result Visit [...] Atrial Fibrillation Paroxysmal (HCC) 10/17/2024 Care Teams Undercoat Sprayer Relationship Specialty Start Date End Date Elsewhere, Pcp PCP - General Internal Medicine 02/20/23
--- OUTSIDE RECORDS SUMMARY | 2024-10-28 12:16 | XMS_ITS | Encounter Summary ---
Author Organization [facility] Address [address] [place] [address] Care Team Providers Care Machine Trimmer Name Role Phone Elsewhere, Pcp Primary Care Provider Unavailabl e Reason for Visit * Reason Onset Date Comments Referral Triage 09/30/2024 CVD Encounter Details Date Type Department Care Team (Latest Contact Info) Description 09/30/2024 Referral Triage Department of Cardiovascular Medicine in [place], [place] [address] [place] [address] Solution DirectorRajinder M.D. Referral Triage (CVD) Social History Tobacco Use Types Packs/Day Years Used Date Smoking Tobacco: Never Passive Smoke Exposure: Past Smokeless Tobacco: Never Alcohol Use Standard Drinks/Week Comments Yes 6 (1 standard drink = 0.6 oz pur e alcohol) [facility] Utilities Answer Date Recorded In the [...] How often do you attend chur or spiritism services? More than 4 times per year 09/07/2022 Do you belong to any clubs o r organizations such as christianity groups, unions, fraternal or athletic groups, or [...] and heating? Not hard at all 09/07/2022 [facility] [place] of Occupat ional Health - Occupational Stress [...] your living situation today? I have a [facility] place to live 08/06/2024 Education Answer Date Recorded What is the highest level of school you have completed or the highest degree you have received? 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 [address] [place] [phone] documented as of this encounter Visit Diagnoses Not on filedocumented in this encounter Additional Health Concerns Infection Onset Date Last Indicated Resolved Time Protective Environment 10/14/2022 10/14/2022 documented as of this encounter Care Teams Machine Trimmer Relationship Specialty Start Date End Date Elsewhere, Pcp PCP - General Internal Medicine 02/20/23 documented as of this encounter
--- OUTSIDE RECORDS SUMMARY | 2024-10-28 12:16 | XMS_ITS | Encounter Summary ---
Author Organization [facility] Address [address] [place] [address] Care Team Providers Care Mixing Supervisor Name Role Phone Elsewhere, Pcp Primary Care Provider Unavailabl e Encounter Details Date Type Department Care Team (Latest Contact Info) Description 10/07/2024 Clinical Communication Department of Cardiovascular Medicine in [place], [place] [address] [place] [address] Furnace SetterRajinder M.D. Social History Tobacco Use Types Packs/Day Years Used Date Smoking Tobacco: Never Passive Smoke Exposure: Past Smokeless Tobacco: Never Alcohol Use Standard Drinks/Week Comments Yes 6 (1 standard drink = 0.6 oz pur e alcohol) [facility] Utilities Answer Date Recorded In the past 12 months has [employer], gas, oil, or water [employer] threatened to shut off services in your [...] How often do you attend chur or baptism services? More than 4 times per year 09/07/2022 Do you belong to any clubs o r organizations such as amish groups, unions, fraternal or athletic groups, or [...] and heating? Not hard at all 09/07/2022 [facility] of Occupat ional Health - [...] your living situation today? I have a [facility] place to live 08/06/2024 Education Answer Date Recorded What is the highest level of school you have completed or the highest degree you have received? 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 [address] [place] [phone] documented as of this encounter Visit Diagnoses Diagnosis Atrial Fibrillation Paroxysmal (HCC)- Primary Cardiac Vascular Disease Screening documented in this encounter Additional Health Concerns Infection Onset Date Last Indicated Resolved Time Protective Environment 10/14/2022 10/14/2022 documented as of this encounter Care Teams Mixing Supervisor Relationship Specialty Start Date End Date Elsewhere, Pcp PCP - General Internal Medicine 02/20/23 documented as of this encounter
--- OUTSIDE RECORDS SUMMARY | 2024-10-28 12:16 | XMS_ITS | Encounter Summary ---
Author Organization [facility] Address [address] [place] [address] Care Team Providers Care Brick Baker Name Role Phone Elsewhere, Pcp Primary Care Provider Unavailabl e Reason for Referral * Outpatient (Routine) - Authorized Specialty Diagnoses / Procedures Referred By Contac t Referred To Contact Diagnoses Atrial Fibrillation Paroxysmal (HCC) Cardiac Vascular Disease Screening Procedures ECG Heart rhythm monitor (Holter) Siddharth Marshall M.D. [address] [place] [address] Phone: tel: fax: [facility] Referral ID Status Reason Start Date Expiration Date V isits Requested Visits Authorized [id number] Authorized 10/06/2024 01/06/2026 1 1 Reason for Visit * Outpatient (Routine) - Authorized Specialty Diagnoses / Procedures Referred By Contac t Referred To Contact Diagnoses Atrial Fibrillation Paroxysmal (HCC) Cardiac Vascular Disease Screening Procedures ECG Heart rhythm monitor (Holter) Siddharth Marshall M.D. [address] [place] [address] Phone: tel: fax: [facility] Referral ID Status Reason Start Date Expiration Date V isits Requested Visits Authorized [id number] Authorized 10/06/2024 01/06/2026 1 1 Encounter Details Date Type Department Care Team (Latest Contact Info) Description 10/10/2024 1:52 PM CDT - 10/10/2024 11:59 PM CDT Hospital Encounter Department of Cardiovascular Diseases in [place], [place] [address] [place] [address] Siddharth Marshall M.D. [address] [place] [address] Atrial Fibrillation Paroxysmal (HCC); Cardiac Vascular Disease Screening Discharge Disposition: Home or Self Care Social History Tobacco Use Types Packs/Day Years Used Date Smoking Tobacco: Never Passive Smoke Exposure: Past Smokeless Tobacco: Never Alcohol Use Standard Drinks/Week Comments Yes 6 (1 standard drink = 0.6 oz pur e alcohol) [facility] Utilities Answer Date Recorded In the past 12 months has e [employer], gas, oil, or water [employer] threatened to shut off services in [...] week 09/07/2022 How often do you attend [facility] or jew services? More than 4 times per year 09/07/2022 Do you belong to any clubs o r organizations such as cheondoism groups, unions, fraternal or athletic groups, or [...] and heating? Not hard at all 09/07/2022 [facility] - Occupational Stress Questionnaire Answer Date [...] your living situation today? I have a [facility] place to live 08/06/2024 Education Answer Date Recorded What is the highest level of school you have completed or the highest degree you have received? 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 06/17/2022 miscellaneous medical supply [facility] [place] [place] directed. CPAP machine for home use [...] Virtual Visit Section of Infectious Diseases in [place], [place] [address] [place] [address] Humaira Keys M.D. [address] [place] [address] documented as of this encounter Procedures Procedure Name Priority Date/Time Associated Diagnosis Comments HOLTER MONITOR - IN CLINIC CHIMNEY BUILDER HELPER Routine 10/11/2024 5:06 AM CDT Atrial Fibrillation Paroxysmal (HCC) Cardiac Vascular Disease Screening documented in this encounter Results * HOLTER MONITOR - IN CLINIC CHIMNEY BUILDER HELPER (10/11/2024 5:06 AM CDT) Min Heart Rate [...] 19h 11m duration INFOBION IC MOME AF [place] 100 percent INFOBIONIC MOME Longest AF Duration [...] 1%. 3. No symptomatic events were noted. Global Chief Experience Officer: MERRICK Feldman Fellow: Floresita [facility] Procedure Note Ej Salazar M.D., Ph.D. - [...] 1%. 3. No symptomatic events were noted. Global Chief Experience Officer: MERRICK Feldman Fellow: Floresita Hopson [facility] Siddharth Marshall M.D. CV CARDIAC SERVICES PROCED URES Final Result INFOBIONIC MOME NA documented in this encounter Visit Diagnoses Diagnosis Atrial Fibrillation Paroxysmal (HCC) Cardiac Vascular Disease Screening documented in this encounter Additional Health Concerns Infection Onset Date Last Indicated Resolved Time Protective Environment 10/14/2022 10/14/2022 documented as of this encounter Care Teams Brick Baker Relationship Specialty Start Date End Date Elsewhere, Pcp PCP - General Internal Medicine 02/20/23 documented as of this encounter
--- OUTSIDE RECORDS SUMMARY | 2024-10-28 12:17 | XMS_ITS | Clinical Summary ---
Author Organization [facility] Address [address] [place] [address] Care Team Providers Care Seed Mill Superintendent Name Role Phone Eleuterio Cabral MD Primary Care Provider [phone] Jennifer Sarmiento MD Unavailable [phone] Allergies Active Allergy Reactions Criticality Noted Date [...] differently: 60 mgOralBID, Reported on 10/08/2024 lancets (Redwood SystemsTouch Delica Plus Lancet) 30 gauge miscIndications:di abetes [...] Department Care Team Description 10/28/2024 Nurse Triage [facility] [address] [facility] [address] Eleuterio Cabral MD Breathing Problem; Urinary Problem 10/08/2024 9:10 AM CDT Office Visit [facility] [place] [address] Eleuterio Cabral MD Medicare ANNUAL (subsequent) Visit (77 years) 10/08/2024 Travel 09/05/2024 10:00 AM FEED MILL OPERATOR Orders Only [facility] [place] [facility] [address] [place] 09/05/2024 Orders Only [facility] [place] [facility] [address] Eleuterio Cabral MD Lab 09/05/2024 Travel 09/03/2024 2:45 PM FEED MILL OPERATOR Office Visit [facility] [place] [facility] [address] Eleuterio Cabral MD Urinary Problem (Frequency and low grade fever/Some dysuria); Medication List Update (Remove sulfa from allergy list - on Bactrim and doing well) 09/03/2024 Travel 08/01/2024 Telephone [facility] [address] Eleuterio Cabral MD Results from Last 3 [...] on file Legal Sex Female 5:25 AM FEED MILL OPERATOR Gender Identity Not on file Sexual Orientation Not on file Occupation Industry Job Start Date Job 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, 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 Not on file Not on file [...] Description 11/01/2024 8:00 AM CDT Office Visit [facility] [place] [address] [address] Eleuterio Cabral MD [address] [place] [address] 04/07/2025 8:45 AM CDT Orders Only [facility] [address] [place] [address] Lisa Berry 04/16/2025 9:15 AM CDT Office Visit [facility] [address] [place] [facility] [place] [address] Eleuterio Cabral MD [address] [place] [address] Health Maintenance Due Date Last Done Comments [...] A1C MONITORING (POCT) Routine 09/05/2024 11:50 AM FEED MILL OPERATOR Type 2 diabetes mellitus without complication, without long-term current use of insulin (HC) BASIC METABOLIC PANEL Routine 09/05/2024 10:15 AM FEED MILL OPERATOR ALT (SGPT) Routine 09/05/2024 10:15 AM FEED MILL OPERATOR LIPID PANEL W REFLEX MEASURED LDL Routine 09/05/2024 10:15 AM FEED MILL OPERATOR CBC WITH AUTO DIFFERENTIAL Routine 09/05/2024 10:15 AM FEED MILL OPERATOR URINALYSIS MACROSCOPIC - [facility] ONLY POC DIP ([facility]) Routine 09/03/2024 4:24 PM FEED MILL OPERATOR Lower urinary tract symptoms (LUTS) URINALYSIS MICROSCOPIC Routine 09/03/2024 4:21 PM FEED MILL OPERATOR Lower urinary tract symptoms (LUTS) URINE CULTURE Routine 09/03/2024 4:21 PM FEED MILL OPERATOR Lower urinary tract symptoms (LUTS) XR DXA BONE DENSITY 2 SITES AXIAL Routine 04/27/2023 11:15 AM CDT Postmenopausal ANTI HCV Routine 11/24/2003 1:19 PM CDT from Last 3 Months or Most Recently Relevant to Health Maintenance Results * (ABNORMAL) URINE ALBUMIN TO CREATININE RATIO, RANDOM (10/08/2024 10:42 AM CDT) ALB RAND URINE 12.9 mg/L 10/08/2024 4:52 PM CDT [facility] CREATININE,URIN E 0.24 g/L 10/08/2024 4:52 PM CDT [facility] ALBUMIN TO CREATININE RATIO,RAND UR 53.8(H) <30.0 mg/g creat 10/08/2024 4:52 PM CDT [facility] Urine URINE SPECIMEN / Unknown Non-Blood / Unknown 10/08/2024 10:42 AM CDT 10/08/2024 10:42 AM CDT Narrative [facility] - 10/08/2024 4:52 PM CDT If Albumin to Creatinine Ratio is elevated, consider the following: Elevations seen with incipient nephropathy associated with diabetes mellitus or hypertension. Stress, exercise,hematuria, and urinary tract infection may also produce elevated results. If clinically indicated, confirm with 24 Hour Albumin to Creatinine Ratio. Eleuterio Cabral MD URINE Final Resu lt [facility] [address] [place] [address], * (ABNORMAL) POCT Hemoglobin A1C Monitoring (09/05/2024 11:50 AM FEED MILL OPERATOR) POC HEMOGLOBIN A1C 6.0(H) <6.0 % OF TOTAL HGB [facility] Comment: Any point of care results exhibiting inconsistency with the patient's clinical status should be repeated using a different testing method. Blood BLOOD SPECIMEN / Unknown 09/05/2024 11:50 AM FEED MILL OPERATOR 09/05/2024 11:52 AM FEED MILL OPERATOR Eleuterio Cabral MD CHEMISTRY Final Resu lt Performing Organization Address City/[facility]/ZIP Co de Phone Number [facility] [address] [place] [address], [facility] [address] [place] [address] * (ABNORMAL) LIPID PANEL W REFLEX MEASURED LDL (09/05/2024 10:15 AM FEED MILL OPERATOR) CHOLESTEROL, TOTAL 110 <200 mg/dL [facility] [...] LDL-C. Jethro GÓMEZ et al. JOI. 2013;310(19): 5829-2473 (http://education.Cellrox/faq/AVK499) CHOL/HDLC RATIO 2.9 <5.0 (calc) [facility] NON HDL CHOLESTEROL 72 <130 mg/dL (calc) [facility] Comment: For patients with diabetes plus 1 major ASCVD risk factor, treating to a non-HDL-C goal of <100 mg/dL (LDL-C of <70 mg/dL) is considered a therapeutic option. 09/05/2024 10:1 5 AM FEED MILL OPERATOR 09/05/2024 12:16 PM FEED MILL OPERATOR Narrative [facility] - 09/06/2024 3:47 AM FEED MILL OPERATOR FASTING:YES FASTING: YES us Eleuterio Cabral MD CHEMISTRY Final Resu lt [facility] [address] [place] [address], [facility] [address] [place] [address] * (ABNORMAL) CBC AND DIFFERENTIAL (09/05/2024 10:15 AM FEED MILL OPERATOR) Pathologist [facility] WHITE BLOOD CELL COUNT 10.0 3.8 - [...] [facility] 09/05/2024 10:1 5 AM FEED MILL OPERATOR 09/05/2024 12:16 PM FEED MILL OPERATOR Narrative [facility] - 09/06/2024 2:40 AM FEED MILL OPERATOR FASTING:YES FASTING: YES us Eleuterio Cabral MD HEMATOLOGY Final Resu lt [facility] [address] [place] [address], [facility] [address] [place] [address] * (ABNORMAL) ALT (SGPT) (09/05/2024 10:15 AM FEED MILL OPERATOR) ALT 34(H) 6 - 29 U/L [facility] 09/05/2024 10:1 5 AM FEED MILL OPERATOR 09/05/2024 12:16 PM FEED MILL OPERATOR Narrative [facility] - 09/06/2024 3:47 AM FEED MILL OPERATOR FASTING:YES FASTING: YES us Eleuterio Cabral MD CHEMISTRY Final Resu lt [facility] [address] [place] [address], [facility] [address] [place] [address] * (ABNORMAL) BASIC METABOLIC PANEL (09/05/2024 10:15 AM FEED MILL OPERATOR) GLUCOSE 134(H) 65 - 99 mg/dL [facility] [...] 20 - 32 mmol/L [facility] ELECTROLYTE BALANCE 11 7 - 17 mmol/L (calc) [facility] CALCIUM 9.5 8.6 - 10.4 mg/dL [facility] 09/05/2024 10:1 5 AM FEED MILL OPERATOR 09/05/2024 12:16 PM FEED MILL OPERATOR Narrative [facility] - 09/06/2024 3:47 AM FEED MILL OPERATOR FASTING:YES FASTING: YES Eleuterio Cabral MD CHEMISTRY Final Resu lt [facility] [address] [place] [address], [place] [phone] [facility] [address] [place] [address] * POCT Urinalysis Dipstick Only (09/03/2024 4:24 PM FEED MILL OPERATOR) PH 6.0 5.0 - 8.0 [facility] SPECIFIC GRAVITY 1.010 1.001 - 1.035 [facility] GLUCOSE NEGATIVE NEGATIVE [facility] BILIRUBIN NEGATIVE NEGATIVE [facility] KETONES NEGATIVE NEGATIVE [facility] OCCULT BLOOD NEGATIVE NEGATIVE [facility] PROTEIN NEGATIVE NEGATIVE [facility] NITRITE NEGATIVE NEGATIVE [facility] LEUKOCYTE ESTERASE NEGATIVE NEGATIVE [facility] Urine URINE SPECIMEN / Unknown 09/03/2024 4:24 PM FEED MILL OPERATOR 09/03/2024 4:25 PM FEED MILL OPERATOR Eleuterio Cabral MD URINE Final Resu lt Performing Organization Address City/[facility]/ZIP Co de Phone Number [facility] [address] [place] [address], [facility] [address] [place] [address] * URINALYSIS MICROSCOPIC (09/03/2024 4:21 PM FEED MILL OPERATOR) RBC 0-2 0-2, None Seen /HPF 09/04/2024 12:45 AM FEED MILL OPERATOR [facility] WBC 0-2 0-2, 3-5, None Seen /HPF 09/04/2024 12:45 AM FEED MILL OPERATOR [facility] BACTERIA None Seen None Seen, Rare, Few Bacteria/ HPF 09/04/2024 12:45 AM FEED MILL OPERATOR [facility] EPITHELIAL CELLS None Seen None Seen, Few Epi/HPF 09/04/2024 12:45 AM FEED MILL OPERATOR [facility] HYALINE CASTS 3-5 0-2, 3-5 /LPF 09/04/2024 12:45 AM FEED MILL OPERATOR [facility] Urine URINE SPECIMEN / Unknown Non-Blood / Unknown 09/03/2024 4:21 PM FEED MILL OPERATOR 09/03/2024 4:21 PM FEED MILL OPERATOR Eleuterio Cabral MD URINE Final Resu lt Performing Organization Address City/[facility]/ZIP Co de Phone Number [facility] [address] [place] [address], [place] * URINE CULTURE (09/03/2024 4:21 PM FEED MILL OPERATOR) CULTURE No growth (<1,000 CFU/mL) 09/05/2024 9:56 AM FEED MILL OPERATOR [facility] Urine URINE SPECIMEN / Unknown Non-Blood / Unknown 09/03/2024 4:21 PM FEED MILL OPERATOR 09/03/2024 4:21 PM FEED MILL OPERATOR Eleuterio Cabral MD MICROBIOLOGY Final Resu lt Performing Organization Address City/[facility]/ZIP Co de Phone Number [facility] [address] [place] [address], [place] * XR DXA BONE DENSITY 2 [...] recommended in 3-5 years. Sarah Lundy PA-C [facility] 05/03/2023 Narrative 05/03/2023 4:52 PM CDT For Patients: Results are automatically released to your [facility] account once available, in compliance with federal regulations. This means that you may see your results before your provider has had a chance to review them. Please allow 2-3 business days for your provider to comment on the results. XR DXA Bone Mineral Density (BMD) EXAM LOCATION: [facility] [address] [facility] [address] PATIENT NAME: Hetal Newsome DATE OF : [...] two scanners are made by the same mrb engineer. PROCEDURE: Dual-energy x-ray absorptiometry performed with routine [...] Documents on File Type Date Recorded Patient Floor Runner Expl anation Healthcare Directive 06/25/2011 1, 06/25/2011 * Full Code (Latest Code Status on File) Date Activated Date Inactivated Comments 07/30/2020 12:05 PM 07/30/2020 5:07 PM Question Answer Comments Code Status Discussion: Per Existing Order Care Teams Seed Mill Superintendent Relationship Specialty Start Date End Date Eleuterio Cabral MD [address] [facility] [address] PCP - General 04/03/06 Jennifer Sarmiento MD [address] [facility] [address] [place] [address] Internal Medicine 02/01/16
[2024-10-28] MEDS: 0.9 % SODIUM CHLORIDE 1000 ml 1,000 ML IV (12:34)
[2024-10-28 12:38] LABS: Basophils Absolute Auto 0.03 K/uL (0.00-0.30); Basophils Percent Auto 0.5 % (0.0-3.0); Eosinophils Absolute Auto 0.22 K/uL (0.00-0.50); Eosinophils Percent Auto 3.6 % (0.0-7.0); Hematocrit 39.1 % (33.0-51.0); Hemoglobin* 12.6 gm/dL (12.0-16.0); Immature Granulocytes Abs Auto 0.02 K/uL (0.00-0.30); Immature Granulocytes Pct Auto 0.3 %; Lymphocytes Percent Auto 15.5 % (20-44); Mean Corpuscular HGB Conc 32 gm/dL (32-36); Mean Corpuscular Hemoglobin 33 pg (26-34); Mean Corpuscular Volume 103 fL (80-100); Monocytes Percent Auto 12.2 % (0.0-11.0); Neutrophils Absolute Auto 4.11 K/uL (1.7-7.0); Neutrophils Percent Auto 67.9 % (42.0-72.0); Platelet Count* 144 K/uL (140-440); RDW Coefficient of Variation % 14.6 % (11.5-15.5); Red Blood Count 3.81 m/uL (4.00-5.20); White Blood Count* 6.06 K/uL (4.50-11.00)
[2024-10-28 12:45] LABS: Slide Review Reflex No
[2024-10-28 12:59] LABS: Albumin* 3.8 g/dL (3.3-5.0); Chloride* 102 mmol/L (96-114); Potassium* 3.5 mmol/L (3.6-5.1); Sodium* 139 mmol/L (135-149)
[2024-10-28 13:00] LABS: INR 1.21 (0.91-1.10); Prothrombin Time 16.2 Seconds
[2024-10-28 13:01] LABS: Blood Urea Nitrogen* 19 mg/dL (7-30); Creatinine* 0.8 mg/dL (0.5-1.5); Est. Creatinine Clearance* 38.97; Estimated Glomerular Filt Rate 76 ml/min; Partial Thromboplastin Time* 31 Seconds (23-33)
[2024-10-28 13:02] LABS: Alanine Aminotransferase* 32 U/L (4-35); Alkaline Phosphatase* 69 U/L (40-150); Anion Gap 8 mEq/L (7-15); Aspartate Amino Transferase* 38 U/L (12-35); Bilirubin Direct* 0.3 mg/dL (0.0-0.5); Bilirubin Total* 0.9 mg/dL (0.1-1.5); Calcium* 9.1 mg/dL (8.4-10.6); Carbon Dioxide* 29 mmol/L (20-32); Glucose* 169 mg/dL (60-115); Magnesium* 2.1 mg/dL (1.5-2.6); Total Protein* 6.4 g/dL (6.0-8.3)
[2024-10-28 13:10] LABS: D Dimer Quantitative* 0.24 ug/ml (0.00-0.50)
[2024-10-28 13:14] LABS: Troponin I* 0.01 ng/mL (0.01-0.04)
[2024-10-28 13:16] LABS: NT Pro B Type NatriureticPept* 1520 pg/mL
[2024-10-28 13:20] LABS: PCR FLU A Negative PCR FLU A (Negative); PCR FLU B Negative PCR FLU B (Negative); PCR RSV Negative PCR RSV (Negative); SARS PCR* Negative SARS-CoV-2 (Negative)
[2024-10-28 14:21] LABS: Appearance Urine Clear (Clear); Bilirubin Urine Negative (Negative); Blood Urine Trace-intact (Negative); Color Urine Yellow (Yellow); Glucose Urine Negative (Negative); Ketones Urine Negative (Negative); Leukocyte Esterase Urine Trace (Negative); Nitrite Urine Negative (Negative); Protein Urine Negative (Negative); Urobilinogen Urine 0.2 (0.2-1.0)
[2024-10-28] MEDS: FAMOTIDINE 20 MG TABLET PO (14:41)
[2024-10-28 14:43] LABS: RBC Urine 0-2 (0-2)
[2024-10-29 12:07] LABS: Total T4, Thyroxine 5.62 ug/dL (4.50-11.70)
== END 2024-10-28 17:25 | disposition short-term general hospital (02) ==
PROVIDERS: Emergency Provider Family Medicine; PCP Family Medicine
DX: I48.91 Unspecified atrial fibrillation (principal); R42 Dizziness and giddiness; R06.2 Wheezing; R11.10 Vomiting, unspecified; G31.09 Other frontotemporal neurocognitive disorder; F02.80 Dementia in other diseases classified elsewhere, unspecified severity, without behavioral disturbance, psychotic disturbance, mood disturbance, and anxiety; Z79.01 Long term (current) use of anticoagulants
CPT/HCPCS: 36415; 80048; 80076; 81001; 83735; 83880; 84436; 84443; 84484; 85025; 85379; 85610; 85730; 87086; 87186; 87631; 93005; 94761; 96360; 99284; A9270; J7030